=== PATIENT | female | born 1955 | race Caucasian/White ===

== ENCOUNTER 2020-01-21 18:03 | Emergency (ER) | payer MEDICARE, MEDICAID, SELFPAY ==
[2020-01-21 18:11] VITALS: BP 140/84; PULSE 77; RESP 16; TEMP 36.4; O2SAT 99; BMI 20.1
--- NOTE | 2020-01-21 20:18 | ED_ITS ---
HPI - Recheck/Abnormal Lab/Rx General Chief Complaint: Recheck/Abnormal Lab/Rx Stated Complaint: Abnormal Lab Time Seen by Provider: 01/21/20 20:15 Source: patient Mode of arrival: ambulatory Limitations: no limitations History of Present Illness HPI narrative: 64-year-old female who is otherwise healthy came in today patient received a call from her clinic that she had abnormal BUN/creatinine. This is a 64-year-old female her only symptoms is not eating well for the last about 8 months otherwise patient has no symptoms patient went to see her primary doctor today who ordered basic labs, patient received a message on the phone to report to the ED because her BUN creatinine is elevated. Patient otherwise has no symptoms patient reported that she drink 1 glass of wine before coming here and she is living her normal daily routine. Related Data Allergies Allergy/AdvReac Type Severity Reaction Status Date / Time No Known Allergies Allergy Unverified 11/20/19 14:46 Review of Systems Review of Systems: All other systems are reviewed and are negative Constitutional: Reports as per HPI and Reports no additional constitutional complaints Eyes: Reports as per HPI and Reports no additional eye complaints Reports system reviewed and no additional complaints, except as documented Cardiovascular: Reports as per HPI and Reports no additional cardiovascular complaints Respiratory: Reports as per HPI and Reports no additional respiratory complaints Gastrointestinal: Reports as per HPI and Reports no additional gastrointestinal complaints Genitourinary: Reports no additional female genitourinary complaints Musculoskeletal: Reports no additional musculoskeletal complaints Skin/Breast: Reports system reviewed and no additional complaints, except as docu Psychiatric: Reports no additional psychiatric complaints Endocrine: Reports no additional endocrine complaints Hematologic/Lymphatic: Reports no additional hematologic/lymphatic complaints Allergic/Immunologic: Reports no additional allergic/immunologic complaints Reports system reviewed and no additional complaints, except as documented and Reports Abnormal speech present [facility] Past Medical History Medical History Depression Emphysema of lung Social History Social History Alcohol intake: unknown Smoking Status: Unknown if ever smoked Use of substances other than those prescribed or required for medical reasons: Unknown Advance Directives: No Advance Directives Information Provided: Yes Physical Exam Vital Signs: Vital Signs: Last Vital Signs Temp 97.5 F 01/21/20 18:11 Pulse 77 11/18/20 18:11 Resp 16 01/21/20 18:11 BP 140/84 H 01/21/20 18:11 Pulse Ox 99 01/21/20 18:11 Body Mass Index 20.1 Vital signs have been reviewed as normal and appeared to be correct. Blood pressure in the high range. Heart rate normal. Respiration rate normal. Temperature normal. Oxygen saturation normal. Appearance: Alert. Oriented X3. No acute distress. Head: Normal external exam. Normocephalic. Atraumatic. No Styles signs noted. No raccoon eyes noted Eyes: PERRLA. EOMI. Conjunctiva and sclera normal. Eyelids normal. ENT: EAC normal. TM's Normal. Pharynx normal. Uvula midline. Moist mucous membranes. No trismus noted. No drooling noted. No muffled voice noted. Neck: Normal inspection. Neck supple. FROM. No adenopathy. Thyroid Normal. No meningeal signs. No neck mass noted. CVS: Normal heart rate and rhythm. Heart sound normal. No murmurs noted. Pulses normal throughout. Respiratory: No respiratory distress. Painless inspiration. Breath sounds normal. No wheezes/rales/rhonchi noted. Chest nontender. No accessory muscle usage noted or decreased air movement noted. Abdomen: Soft and nontender. Bowel sounds normal in all 4 quadrants. No distention noted. No organomegaly noted. No visible injury noted. Back: No CVA tenderness. Full range of motion noted. Skin: Skin warm and dry. Normal skin color. Normal skin turgor. No rashes/lesions/lacerations noted. Extremities: No lower extremity edema. Extremities exhibit normal range of motion. Extremities nontender. Neuro: Oriented X 3. No motor deficit. No sensory deficit. Reflexes normal. MDM - Recheck/Abnormal Lab/Rx MDM Narrative Medical decision making narrative: Assessment and plan. This is a 64-year-old female presented today with no symptoms but concern about abnormal labs that was done routinely at the PCP office, today's Lab is consistent with mild anemia (patient is asymptomatic), and also slight elevation of BUN with normal creatinine with normal GFR of 48, patient was instructed to drink plenty of fluids orally of (patient is able to tolerate p.o. intake) and call PCP to arrange for repeat labs in 1 week after good oral hydration. Lab Data Result diagrams: 01/21/20 20:50 01/21/20 20:50 Labs: Lab Results 01/21/20 01/21/20 Range/Units 20:50 20:50 WBC 6.1 (4.8-10.8) X10*3/uL RBC 3.15 L (4.20-5.50) X10*6/uL Hgb 11.0 L (12.0-16.0) g/dl Hct 32.1 L (37-47) % MCV 101.9 H (80-98) fL MCH 34.9 H (27.0-33.0) pg MCHC 34.3 (31.0-35.0) g/dl RDW 12.0 (11.0-16.0) % Plt Count 224 (160-400) X10*3/uL MPV 10.1 (9.4-12.3) fL Immature Gran % (Auto) 0.2 (0.0-0.4) % Neut % (Auto) 51.7 (45-73) % Lymph % (Auto) 29.2 (20-40) % Sherman % (Auto) 10.7 (2-11) % Eos % (Auto) 7.2 H (0-4) % Baso % (Auto) 1.0 (0-2) % Lymph # (Auto) 1.8 (1.2-4.9) X10*3/uL Sherman # (Auto) 0.7 (0.1-1.2) X10*3/uL Eos # (Auto) 0.4 (0.0-0.4) X10*3/uL Baso # (Auto) 0.1 (0.0-0.2) X10*3/uL Abs Immat Gran (auto) 0.01 (0.00-0.03) X10*3/uL Absolute Neuts (auto) 3.2 (2.0-8.3) X10*3/uL Absolute Nucleated RBC 0.000 (0.0-0.012) X10*3/uL Nucleated RBC % (auto) 0.0 (0.0-0.2) /100WBC Sodium 133 L (135-145) mmol/L Potassium 4.5 (3.3-5.1) mmol/l Chloride 103 (96-108) mmol/L Carbon Dioxide 19 L (22-29) mmol/L Anion Gap 16 (12-20) BUN 27 H (9-16) mg/dL Creatinine 1.13 (0.5-1.4) mg/dL Estim Creat Clear Calc 43.8 Estimated GFR 48 Random Glucose 88 (60-115) mg/dL Calcium 9.2 (8.4-10.2) mg/dL Discharge Plan Discharge Clinical Impression: Abnormal kidney function study Anemia Qualifiers: Anemia type: unspecified type Qualified Code(s): D64.9 - Anemia, unspecified Patient Disposition: Home, Self-Care Instructions: Anemia (ED), Impaired Kidney Function (ED) Additional Instructions: As we discussed drink plenty of fluid then follow-up with your PCP to repeat labs Referrals: Angelica Duke MD [Primary Care Provider] - 2 days
[2020-01-21 21:01] LABS: MANUAL DIFF FLAG NO
[2020-01-21 21:19] LABS: Anion Gap 16 (12-20); Basophils Absolute Auto 0.1 X10*3/uL (0.0-0.2); Blood Urea Nitrogen 27 mg/dL (9-16); Calcium 9.2 mg/dL (8.4-10.2); Carbon Dioxide 19 mmol/L (22-29); Chloride 103 mmol/L (96-108); Creatinine Clr Calc Pharmacy 43.8; Eosinophils Absolute Auto 0.4 X10*3/uL (0.0-0.4); Eosinophils Percent Auto 7.2 % (0-4); Estimated Glomerular Filt Rate 48; Glucose Random 88 mg/dL (60-115); Hematocrit 32.1 % (37-47); Imm Gran Abs Auto 0.01 X10*3/uL (0.00-0.03); Imm Gran Pct Auto 0.2 % (0.0-0.4); Lymphocytes Absolute Auto 1.8 X10*3/uL (1.2-4.9); Lymphocytes Percent Auto 29.2 % (20-40); Mean Corpuscular HGB Conc 34.3 g/dl (31.0-35.0); Mean Corpuscular Hemoglobin 34.9 pg (27.0-33.0); Mean Corpuscular Volume 101.9 fL (80-98); Mean Platelet Volume 10.1 fL (9.4-12.3); Monocytes Absolute Auto 0.7 X10*3/uL (0.1-1.2); Monocytes Percent Auto 10.7 % (2-11); Neutrophils Absolute Auto 3.2 X10*3/uL (2.0-8.3); Neutrophils Percent Auto 51.7 % (45-73); Platelet Count 224 X10*3/uL (160-400); Potassium 4.5 mmol/l (3.3-5.1); Red Blood Count 3.15 X10*6/uL (4.20-5.50); Sodium 133 mmol/L (135-145); White Blood Count 6.1 X10*3/uL (4.8-10.8)
== END 2020-01-21 21:51 | disposition home or self-care (01) ==
PROVIDERS: Emergency Provider Emergency Medicine; PCP Internal Medicine
DX: D64.9 Anemia, unspecified (principal); R94.5 Abnormal results of liver function studies
CPT/HCPCS: 36415; 80048; 85025; 99283

== ENCOUNTER 2020-02-26 14:35 | Outpatient (REF) | payer MEDICARE, MEDICAID, SELFPAY ==
[2020-02-26 16:05] LABS: Alanine Aminotransferase 13 U/L (0-31); Albumin Level 4.7 g/dL (3.5-5.0); Alkaline Phosphatase 78 U/L (39-117); Anion Gap 13 (12-20); Aspartate Amino Transferase 23 U/L (5-31); Bilirubin Total 0.5 mg/dL (0.0-1.0); Blood Urea Nitrogen 42 mg/dL (9-16); Calcium 9.1 mg/dL (8.4-10.2); Carbon Dioxide 24 mmol/L (22-29); Chloride 100 mmol/L (96-108); Estimated Glomerular Filt Rate 30; Glucose Random 90 mg/dL (60-115); Potassium 5.7 mmol/l (3.3-5.1); Sodium 131 mmol/L (135-145)
== END 2020-02-26 14:36 | disposition home or self-care (01) ==
LOC: HO.HMGCLDS 14:35
PROVIDERS: PCP Internal Medicine; Visit Provider Hospitalist
DX: R89.9 Unspecified abnormal finding in specimens from other organs, systems and tissues (principal)
CPT/HCPCS: 80053

== ENCOUNTER 2020-03-16 17:03 | Outpatient (REF) | payer MEDICARE, MEDICAID, SELFPAY | END 2020-03-16 17:04 | disposition home or self-care (01) | LOC: HO.LNP 17:03 | PROVIDERS: Visit Provider Nurse Practitioner Family | DX: Z20.822 Contact with and (suspected) exposure to COVID-19 (principal) | CPT/HCPCS: U0003 ==

== ENCOUNTER 2021-05-03 20:03 | Emergency (ER) | payer MEDICARE, MEDICAID, SELFPAY ==
--- NOTE | ~2021-05-03 | XR_ITS ---
EXAMINATION: XR SOFT TISSUE NECK CLINICAL INDICATION: Foreign body sensation COMPARISON: None TECHNIQUE: 2 views of the soft tissue neck were obtained. FINDINGS: Soft tissue films of the neck demonstrate a normal larynx, pharynx and upper trachea. No soft tissue swelling or opaque foreign body is demonstrated. XR/XR soft tissue neck IMPRESSION: No radiographic foreign body seen. Airway unremarkable.
[2021-05-03 20:14] VITALS: BP 120/71; BP 138/80; PULSE 84; PULSE 86; RESP 16; TEMP 36.7; O2SAT 97; O2SAT 98; BMI 22.6
--- NOTE | 2021-05-03 20:19 | ED.SOB ---
HPI - SOB/Dyspnea General Chief Complaint: General Medical Stated Complaint: choking/food not cleared/patent airway Time Seen by Provider: 05/03/21 20:12 Source: patient Mode of arrival: EMS Limitations: no limitations History of Present Illness HPI Narrative: This is a 65-year-old female past medical history significant for COPD presenting to the emergency department with complaints of foreign body sensation to the throat. Patient tells me she was eating steak, she choked. She tells me she is feeling short of breath, and having difficulty breathing. She tells me that she felt like her airway was completely occluded at 1 point so her neighbor perform the Heimlich on her multiple times. She tells me she feels as though the foreign bodies sun her throat. She thinks that what was stuck was steak. She does not think there is any bones. She reports that she has tried to drink however it will not go down she is unable to swallow she says. She is speaking in full sentences. And controlling her secretions well. Has never happened to her before. No history of strictures. Patient denies chest pain nausea, vomiting, fevers, chills. MD elicited complaint: shortness of breath Pertinent past history: COPD Onset (ago): minute(s) (30) Timing: constant Severity: moderate Exacerbating factors: nothing Relieving factors: nothing Known history of: COPD Associated symptoms: denies other symptoms Treatment prior to arrival: none Related Data Home Medications Medication Instructions Recorded Confirmed albuterol sulfate 90 mcg/actuation INHALATION 02/26/20 02/26/20 aerosol inhaler citalopram 20 mg tablet mg PO 02/26/20 02/26/20 fluticasone propionate 44 INHALATION 02/26/20 02/26/20 mcg/actuation HFA aerosol inhaler lisinopril 20 mg tablet mg PO 02/26/20 02/26/20 sertraline 25 mg tablet mg PO 02/26/20 02/26/20 sertraline 50 mg tablet mg PO 02/26/20 02/26/20 varicella-zoster glycoE [id number] IM 02/26/20 02/26/20 adj(PF) 50 mcg/0.5 mL IM susp, kit Previous Rx's Medication Instructions Recorded azithromycin 250 mg tablet See Rx Instructions PO .COMPLEX #6 02/26/20 tab cefuroxime axetil 250 mg tablet 250 mg PO BID 10 Days #20 tab 02/26/20 prednisone 20 mg tablet 20 mg PO .COMPLEX #18 tab 02/26/20 rayjsujg-[id number]-jiqykgzdt 3.5 4 drp OTIC (EAR) LEFT Q8H #10 ml 10/16/ mg/mL-10,000 unit/mL-1 % ear solution Allergies Allergy/AdvReac Type Severity Reaction Status Date / Time No Known Allergies Allergy Unverified 02/26/20 14:20 Review of Systems Review of Systems: Constitutional : No Weight loss, No Fever, No Chills, No Fatigue, No Malaise ENT/Mouth : No sore throat, No Rhinorrhea Eyes: No Eye Pain, No Swelling, No Redness Cardiovascular : No Chest Pain, + SOB, No Dyspnea on Exertion, No Orthopnea, No Edema, No Palpitations Respiratory : No Cough, No Sputum, No Wheezing Gastrointestinal : No Nausea, No Vomiting, No Diarrhea, No Constipation, No abdominal Pain, No Hematochezia, No Melena Genitourinary : No Dysuria, No Urinary Frequency, No Hematuria, Musculoskeletal : No joint pain, No Myalgias, No Joint Swelling Skin : No Skin Lesions, No rash Neuro : No Weakness, No Numbness, No Dizziness, No Headache Psych : No Anxiety/Panic, No Depression All other systems reviewed and are negative Yes all other systems are reviewed and are negative [facility] Past Medical History Attestation statement: The following information was validated with the patient. Source: old records reviewed and nursing notes reviewed Medical History Depression Emphysema of lung Social History Social History Alcohol intake: unknown Advance Directives: No Advance Directives Information Provided: No Physical Exam Vital Signs: Vital Signs: Last Vital Signs Temp 98.1 F 05/03/21 20:14 Pulse 84 05/03/21 20:14 Resp 16 05/03/21 20:14 BP 120/71 05/03/21 20:14 Pulse Ox 98 05/03/21 20:14 BMI result Body Mass Index 22.6 VSS Appearance: Alert.? Oriented X3.? No acute distress.? Patient coughing intermittently, trying to clear her throat. Head: Normocephalic, atraumatic, no step-offs or deformities Eyes: Pupils equal, round and reactive to light.? ENT: Pharynx normal.? Neck: Normal inspection.? Neck supple.? CVS: Normal heart rate and rhythm.? Pulses normal.? Respiratory: No respiratory distress.? Breath sounds normal.? Abdomen: Soft and nontender.? Skin: Skin warm and dry.? Normal skin color.? Normal skin turgor.? Extremities: No lower extremity edema.? No calf ttp. 5/5 strength to bilateral upper and lower extremities Back: No midline tenderness, no C-spine tenderness, full range of motion, no CVA tenderness bilaterally Neuro: Oriented X 3.? No motor deficit.? No sensory deficit. CN 2-12 intact Course Reevaluation(s) Reevaluation #1: Call to the patient's bedside, patient coughed up a piece of steak, she visualized it. She is able to swallow now. She is able to drink water, and did drill with no problems. She tells me she feels so much better. Glucagon and nitro were not administered. Palpated patient's neck, chest and abdomen without pain. Patient tells me that she feels a little bit sore where her neighbor did the Heimlich however she does not report pain with inspiration or precise pain with palpation. I offered her an x-ray to rule out rib fracture however she tells me she does not want 1. She tells me she will follow up with her PCP or return with new or worsening symptoms. Patient's presentation at this time is completely different than when she 1st arrived. She is walking around she appears well no difficulties with speaking, no longer coughing. She drink 1 gingerale, and water with out difficulty. She is swallowing secretions without difficulty. Appears much better tells me she feels better and feels good to go. Time: 20:35 MDM - SOB/Dyspnea MDM Narrative Medical decision making narrative: [age] yo f presents w/ foreign body sensation in throat times 30 40 minutes. Neighbor to the Heimlich on her with no success. She tells me she is better than she was before. Upon my initial examination patient coughing to try to clear her throat. Lungs clear. No stridor. S1-S2 appreciated free of murmurs. Abdomen soft nontender nondistended. Patient speaking in full sentences, controlling secretions well. Neuro exam nonfocal. Patient alert and oriented x4. Patient's vital signs are stable. Plan is an x-ray of soft tissue neck. Will give glucagon and nitro. Medical Records Attestation: I reviewed the patient's medical records. Lab Data Attestation: I reviewed the patient's lab results. Critical Care Time Critical Care Time Critical Care Time: No Discharge Plan Discharge Clinical Impression: Foreign body sensation in throat Patient Disposition: Home, Self-Care Additional Instructions: Take your medications as prescribed. If you were prescribed antibiotics today, it is important that you take your medication to their entirety, do not skip any doses, do not finish them early. Follow-up with your primary care provider this week. Please follow up with GI. Return to the emergency department with new or worsening symptoms. In case of emergency call 911 Prescriptions: No Action sertraline 50 mg tablet PO 0RF lisinopril 20 mg tablet PO 0RF Flovent HFA 44 mcg/actuation HFA aerosol inhaler inhalation 0RF albuterol sulfate 90 mcg/actuation HFA aerosol inhaler inhalation 0RF Shingrix (PF) 50 mcg/0.5 mL suspension for reconstitution IM 0RF sertraline 25 mg tablet PO 0RF citalopram 20 mg tablet PO 0RF prednisone 20 mg tablet 20 mg PO .COMPLEX Qty: 18 0RF Rx Instructions: 20 mg PO 3 p.o. daily for 3 days followed by 2 p.o. daily for 3 days followed by 1 p.o. daily for 3 days; azithromycin 250 mg tablet See Rx Instructions PO .COMPLEX Qty: 6 0RF Rx Instructions: take 500 mg today (day 1), then 250 mg for 4 days (days 2-5) PO cefuroxime axetil 250 mg tablet 250 mg PO BID 10 Days Qty: 20 0RF gctihzcl-jrzxfpzgr-DJ 3.5-10,000-1 mg/mL-unit/mL-% solution 4 drp otic (ear) left Q8H Qty: 10 0RF Referrals: Benjamin Mistry MD [Physician] - 2 days Stand Alone Forms: Work/School Release
== END 2021-05-03 20:59 | disposition home or self-care (01) ==
PROVIDERS: Emergency Provider Emergency Medicine
DX: R09.89 Other specified symptoms and signs involving the circulatory and respiratory systems (principal); J44.9 Chronic obstructive pulmonary disease, unspecified; Z79.899 Other long term (current) drug therapy
CPT/HCPCS: 70360; 99283

== ENCOUNTER 2021-05-05 09:08 | Emergency (ER) | payer MEDICARE, MEDICAID, SELFPAY ==
--- NOTE | ~2021-05-05 | MR_ITS ---
EXAMINATION: MR ABDOMEN WITHOUT AND WITH CONTRAST CLINICAL INFORMATION: Pancreatic injury status post Heimlich maneuver COMPARISON: CT abdomen pelvis 05/05/2021 TECHNIQUE: MR abdomen was performed without and with use of 6.5 mL intravenous Gadavist gadolinium contrast. Postcontrast images are performed in multiphase dynamic sequences. Imaging was performed in 3 planes. FINDINGS: The upper portion of the liver and spleen are excluded from the [id number] on nearly all sequences limiting evaluation. Motion degradation also limits evaluation, particularly on postcontrast images. LUNG BASES: Unremarkable. ABDOMINAL AND PELVIC WALL: Unremarkable. LIVER AND BILIARY TREE: Liver is normal in signal and morphology. Common bile duct measures 5 mm is within normal caliber. No intraluminal filling defect within the common bile duct to suggest choledocholithiasis. GALLBLADDER: Gallbladder is distended however without radiopaque stones or pericholecystic inflammatory changes. PANCREAS: The region of interest in the pancreas is significantly motion degraded on postcontrast sequences and suboptimally evaluated. No appreciable discrete pancreatic mass identified, however is difficult to confirm a homogeneous enhancement pattern given the motion. Pancreatic duct is mildly dilated to 3 mm in the pancreatic neck. There may possibly be variant pancreatic ductal anatomy, pancreas divisum, although given the motion it is difficult to say with certainty. SPLEEN: A 1.6 cm T2 hypointense mass in the spleen is seen, only partially imaged. ADRENAL GLANDS: Unremarkable. KIDNEYS AND URETERS: A horseshoe kidney is noted. GASTROINTESTINAL TRACT: Unremarkable. VASCULAR: Unremarkable. LYMPH NODES/PERITONEUM: No lymphadenopathy. FREE FLUID: None. OSSEOUS STRUCTURES: Unremarkable. MR/MR abdomen wo/w con IMPRESSION: The upper portion of the liver and spleen are excluded from the [id number] on nearly all sequences limiting evaluation. Motion degradation also limits evaluation, particularly on postcontrast images. The region of interest in the pancreas is significantly motion degraded and therefor suboptimally evaluated on MR. No appreciable discrete pancreatic mass identified, however is difficult to confirm a homogeneous enhancement pattern given the motion. Given provided history of trauma consider continued clinical follow-up. A 1.6 cm T2 hypointense mass in the spleen is seen, only partially imaged. A repeat contrast-enhanced MR abdomen is recommended for further evaluation. Pancreatic duct is mildly dilated to 3 mm in the pancreatic neck. No intra or extrahepatic biliary duct dilatation. There may possibly be variant pancreatic ductal anatomy, pancreas divisum, although given the motion it is difficult to say with certainty. GI referral could be considered if warranted.
--- NOTE | ~2021-05-05 | CT_ITS ---
EXAMINATION: CT ANGIOGRAM OF THE CHEST WITH AND WITHOUT CONTRAST (CT PULMONARY ANGIOGRAM FOR PE) CLINICAL INFORMATION: Reason for Exam elevated D-dimer. PE? COMPARISON: None TECHNIQUE: Prior to contrast administration, noncontrast localization images were obtained. Subsequently, multidetector volumetric imaging was performed from the thoracic inlet to below the diaphragms following the administration of 57 mL Omnipaque 350 intravenous contrast. No contrast reaction reported Sagittal, coronal, and MIP oblique sagittal reformatted images were obtained on the CT workstation, uploaded to PACS, and reviewed. This CT examination was performed using dose optimization techniques as appropriate, variously including the following: *Automated exposure control *Adjustment of mA and/or kV according to patient size (this includes techniques or standardized protocols for targeted exams where dose is matched to indication/reason for exam; i.e. extremities or head) *Use of iterative reconstruction technique Total exam dose-length product 223 mGy-cm FINDINGS: QUALITY OF STUDY/CONTRAST BOLUS: Satisfactory. PULMONARY ARTERIES: There is no filling defect to suggest a pulmonary embolism. The thoracic inlet is within normal limits. The axillary regions are unremarkable. Partially visualized upper abdominal structures are unremarkable. Centrally there is no bulky adenopathy. The hilar structures do not appear pathologically enlarged. Imaging the lung mcgovern. Right lung; Probable apical scarring No significant infiltrate or effusion. 4 mm nodule on image 14. 4 mm nodule on image 9. 3 mm nodule on image 21 3 mm nodule on image 29 Left lung; Probable apical scarring. Reticular nodular change in the anterior left midlung consistent with infiltrate. In addition a more confluent area is seen more proximal. This could represent thickened atelectasis. Underlying lesion cannot be excluded. More solid-appearing area is measuring 1.6 x 1.1 cm. Mild left basilar atelectasis. The bone windows show no evidence for bony lesion. There is no evidence of reflux of contrast into the vena cava. No evidence for septal bowing Impression; Importantly there is no filling defect to suggest a pulmonary embolism. In the left upper lung there is a thickened area of density which could represent thickened platelike atelectasis or scar but underlying lesion cannot be excluded. Distal to this reticular nodular change consistent with an infiltrate. Recommend PET/CT at this time to fully evaluate versus a close follow-up CT in 3 months for continued evaluation. Other scattered lung nodules are noted. Again attention to follow-up Note is also made of asymmetric breast tissue in the left upper outer aspect. Recommend mammographic and ultrasonographic workup
--- NOTE | ~2021-05-05 | CT_ITS ---
EXAMINATION: CT ABDOMEN AND PELVIS WITH CONTRAST CLINICAL INFORMATION: Right upper quadrant and left upper quadrant pain. COMPARISON: None TECHNIQUE: Multidetector volumetric images were obtained from the superior aspect of the liver through the pubic symphysis following administration 85 mL of Omnipaque 350 intravenous contrast. Sagittal and coronal reformatted images were obtained on the technologist's workstation. Oral contrast: No This CT examination was performed using dose optimization techniques as appropriate, variously including the following: *Automated exposure control *Adjustment of mA and/or kV according to patient size (this includes techniques or standardized protocols for targeted exams where dose is matched to indication/reason for exam; i.e. extremities or head) *Use of iterative reconstruction technique DLP: 377 mGy-cm FINDINGS: LUNG BASES: There is elevation of the left hemidiaphragm with some basilar disease likely related to atelectasis or scarring. No pleural effusion. There is a small pericardial effusion. LIVER, GALLBLADDER, AND BILIARY TREE: The liver is normal in size, shape, and attenuation. No focal hepatic lesion or biliary ductal dilatation is present. No hepatic laceration or abnormal subcapsular collection is identified. The gallbladder is distended without definite wall thickening or pericholecystic fluid. No calculi identified. PANCREAS: The pancreatic duct is prominent at 3 mm in diameter. No peripancreatic inflammatory changes appreciated however the pancreatic body mass cannot be excluded on this study with some slight heterogeneity to the pancreatic body however which may be related to volume averaging with stomach and duodenum. SPLEEN: Unremarkable. No splenic laceration or subcapsular collection is identified. ADRENAL GLANDS: Unremarkable. 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 No renal calculi identified. No evidence of obstructive uropathy. No focal renal mass is seen. BLADDER: Unremarkable. GASTROINTESTINAL TRACT: No dilated loops of large or small bowel are evident. No free air or free fluid. There is sigmoid diverticulosis without evidence of acute diverticulitis. Appendix is not definitely identified. No pericolonic inflammatory change is appreciated. ABDOMINAL WALL: No significant hernia is appreciated. LYMPH NODES: There is some prominent but not pathologically enlarged mesenteric lymph nodes present. VASCULAR: Unremarkable. Patent portal vein and no abdominal aortic aneurysm. PELVIC VISCERA: Unremarkable. OSSEOUS STRUCTURES: There is severe degenerative disc see seen at the L5-S1 level. No suspicious destructive bony lesions identified. CT/CT abdomen pelvis w con IMPRESSION: Prominent pancreatic duct to 3 mm in diameter with difficulty in evaluation of the head and body of the pancreas due to lack of contrast within directly adjacent stomach and duodenal sweep. If clinically indicated repeat study with oral contrast and with and without IV contrast would be of help in further evaluation. No evidence of hepatic or splenic laceration. Question kidney. No evidence of ileus or obstruction. Fleischner guidelines were followed.
--- NOTE | ~2021-05-05 | XR_ITS ---
EXAMINATION: XR RIBS, BILATERAL CLINICAL INFORMATION: Bilateral rib pain COMPARISON: None TECHNIQUE: 3 views of the bilateral ribs were obtained. Chest PA FINDINGS: Chest: Lungs are clear. No consolidation, pneumothorax, or pleural effusion. There is bilateral apical pleural thickening. The cardiomediastinal silhouette and pulmonary vasculature are normal. Bilateral RIBS: Osseous structures are unremarkable. Ribs are intact. No fractures are identified. XR/XR ribs BI min 4V w CXR1V IMPRESSION: Unremarkable chest examination. Unremarkable bilateral rib exam.
[2021-05-05 09:14] VITALS: BP 146/71; PULSE 67; RESP 18; TEMP 36.7; O2SAT 99
[2021-05-05 09:15] VITALS: BP 146/71; BP 150/92; PULSE 63; PULSE 78; RESP 18; TEMP 36.7; O2SAT 99; BMI 22.6
--- NOTE | 2021-05-05 09:31 | ECG_ITS ---
Test Reason : ABD pain Blood Pressure : / mmHG Vent. Rate : 064 BPM Atrial Rate : 064 BPM P-R Int : 132 ms QRS Dur : 098 ms QT Int : 378 ms P-R-T Axes : 053 045 040 degrees QTc Int : 389 ms Normal sinus rhythm Normal ECG When compared with ECG of 11-APR-2019 16:05, No significant change was found Referred By: Kimberly Corona Electronically Signed By:Lon Kaplan
[2021-05-05] MEDS: Morphine Sulfate 2 MG/ML CARTRIDGE IVPUSH ×2 (09:45→12:44)
--- NOTE | 2021-05-05 09:46 | ED.GENADULT ---
HPI - General Adult General Chief complaint: Abdominal Pain <IGNACIO Shields Last Filed: 05/05/21 18:00> Stated complaint: R SIDE/BACK PAIN SINCE THE HEIMLICK MANUEVER <IGNACIO Shields Last Filed: 05/05/21 18:00> Time Seen by Provider: 05/05/21 09:20 <IGNACIO Shields Last Filed: 05/05/21 18:00> Source: patient and EMS <IGNACIO Shields Last Filed: 05/05/21 18:00> Mode of arrival: EMS <IGNACIO Shields Last Filed: 05/05/21 18:00> History of Present Illness HPI narrative: 65-year-old female with a past medical history of COPD presenting to the ED complaining of bilateral lower rib and upper abdominal pain s/p Heimlich maneuver being performed on her on 05/03/2021 s/p choking on a piece of steak. Reports pain worse on the right side. Patient was evaluated in our facility after incident with successful dislodgment of steak. Reports worsening pain since incident, exacerbated with breathing and movement. Denies any anticoagulation. Denies nausea/vomiting, SOB, fever, difficulty swallowing <IGNACIO Shields Last Filed: 05/05/21 18:00> Onset (ago): day(s) <IGNACIO Shields - Last Filed: 05/05/21 18:00> Related Data Home medications: Home Medications Medication Instructions Recorded Confirmed albuterol sulfate 90 mcg/actuation INHALATION 02/26/20 02/26/20 aerosol inhaler citalopram 20 mg tablet mg PO 02/26/20 02/26/20 fluticasone propionate 44 INHALATION 02/26/20 02/26/20 mcg/actuation HFA aerosol inhaler lisinopril 20 mg tablet mg PO 02/26/20 02/26/20 sertraline 25 mg tablet mg PO 02/26/20 02/26/20 sertraline 50 mg tablet mg PO 02/26/20 02/26/20 varicella-zoster glycoE [id number] IM 02/26/20 02/26/20 adj(PF) 50 mcg/0.5 mL IM susp, kit Previous Rx's Medication Instructions Recorded azithromycin 250 mg tablet See Rx Instructions PO .COMPLEX #6 02/26/20 tab cefuroxime axetil 250 mg tablet 250 mg PO BID 10 Days #20 tab 02/26/20 prednisone 20 mg tablet 20 mg PO .COMPLEX #18 tab 02/26/20 ykwsiavi-oxzrijkpt-gbmhmiijw 3.5 4 drp OTIC (EAR) LEFT Q8H #10 ml 10/16/20 mg/mL-10,000 unit/mL-1 % ear solution amoxicillin 875 mg-potassium 1 tab PO Q12H 5 Days #10 tab 05/05/21 clavulanate 125 mg tablet doxycycline hyclate 100 mg capsule 100 mg PO BID 7 Days #14 cap 05/05/21 oxycodone-acetaminophen 5 mg-325 1 tab PO TID PRN 3 Days #9 tab 05/05/21 mg tablet (Percocet) <IGNACIO Shields Last Filed: 05/05/21 18:00> Allergies/adverse reactions: Allergies Allergy/AdvReac Type Severity Reaction Status Date / Time No Known Allergies Allergy Verified 05/05/21 09:18 <IGNACIO Shields Last Filed: 05/05/21 18:00> Review of Systems Review of Systems: Constitutional: No Fever, No Chills,No Fatigue, No Malaise ENT/Mouth: No Ear Pain, No Nasal Congestion, No sore throat, No Rhinorrhea, No Swallowing Difficulty Eyes: No Eye Pain, No Swelling, No Redness, No Discharge Cardiovascular: + Chest Pain, No SOB, No Dyspnea on Exertion, No Edema, No Palpitations Respiratory: No Cough, No Sputum, No Dyspnea Gastrointestinal: No Nausea, No Vomiting, No Diarrhea, No Constipation, + Abdominal pain Genitourinary: No Dysuria, No Hematuria, No Urinary Incontinence, No Urgency, No Flank Pain Musculoskeletal: No joint pain, No Myalgias, No Joint Swelling Skin: No Skin Lesions, No rash Neuro: No Weakness, No Numbness, No Dizziness, No Headache <IGNACIO Shields Last Filed: 05/05/21 18:00> Yes all other systems are reviewed and are negative <IGNACIO Shields Last Filed: 05/05/21 18:00> FOR[facility]LY [facility], [facility] Past Medical History Attestation statement: The following information was validated with the patient. <IGNACIO Shields - Last Filed: 05/05/21 18:00> Medical History: Medical History Depression Emphysema of lung <IGNACIO Shields - Last Filed: 05/05/21 18:00> Social History Social History: Social History Alcohol intake: unknown Advance Directives: No Advance Directives Information Provided: No <IGNACIO Shields - Last Filed: 05/05/21 18:00> Physical Exam ED Vital Signs: Vital Signs - 24 hr 05/05/21 09:14 05/05/21 09:15 05/05/21 10:31 Temperature 98.0 F 98.0 F Pulse Rate 67 63 61 Respiratory Rate 18 18 16 Blood Pressure 146/71 H 146/71 H 120/63 Pulse Oximetry 99 99 100 05/05/21 12:11 05/05/21 16:00 05/05/21 22:55 Temperature Pulse Rate 58 60 81 Respiratory Rate 16 16 16 Blood Pressure 136/75 102/46 L 113/70 Pulse Oximetry 99 96 100 BMI result Body Mass Index 22.6 <IGNACIO Shields - Last Filed: 05/05/21 18:00> Vital Signs - 24 hr 05/05/21 09:14 05/05/21 09:15 05/05/21 10:31 Temperature 98.0 F 98.0 F Pulse Rate 67 63 61 Respiratory Rate 18 18 16 Blood Pressure 146/71 H 146/71 H 120/63 Pulse Oximetry 99 99 100 05/05/21 12:11 05/05/21 16:00 05/05/21 22:55 Temperature Pulse Rate 58 60 81 Respiratory Rate 16 16 16 Blood Pressure 136/75 102/46 L 113/70 Pulse Oximetry 99 96 100 BMI result Body Mass Index 22.6 <IGNACIO Salmon - Last Filed: 05/06/21 01:52> Const General: cooperative, healthy appearing and no acute distress <IGNACIO Shields Last Filed: 05/05/21 18:00> Orientation/consciousness: patient oriented x3 <IGNACIO Shields - Last Filed: 05/05/21 18:00> Limitations: no limitations <IGNACIO Shields - Last Filed: 05/05/21 18:00> HENMT Head: Yes normal to inspection and Yes atraumatic <IGNACIO Shields - Last Filed: 05/05/21 18:00> Ears: hearing grossly normal bilaterally <IGNACIO Shields - Last Filed: 05/05/21 18:00> General nose exam: Normal external nose present <IGNACIO Shields - Last Filed: 05/05/21 18:00> Face and sinus: Yes normal facial exam <IGNACIO Shields - Last Filed: 05/05/21 18:00> Eyes General: appearance normal, both eyes and all related structures <IGNACIO Shields - Last Filed: 05/05/21 18:00> EOM: EOMs intact bilaterally <IGNACIO Shields - Last Filed: 05/05/21 18:00> Neck Neck: Yes normal visual inspection and Yes no meningeal signs <IGNACIO Shields - Last Filed: 05/05/21 18:00> Chest Other: + bilateral anteriolateral rib tenderness to palpation > right No ecchymosis/erythema. No crepitus <IGNACIO Shields - Last Filed: 05/05/21 18:00> Chest palpation & inspection: no crepitus and tenderness <IGNACIO Shields - Last Filed: 05/05/21 18:00> Resp Effort & Inspection: normal respiratory effort and no respiratory distress <IGNACIO Shields - Last Filed: 05/05/21 18:00> Auscultation: clear to auscultation bilaterally, no rales and no wheezes <IGNACIO Shields - Last Filed: 05/05/21 18:00> Cardio Rate: regular rate <IGNACIO Shields - Last Filed: 05/05/21 18:00> Heart sounds: S1 normal heart sound present and S2 normal heart sound present <IGNACIO Shields - Last Filed: 05/05/21 18:00> GI Inspection: Yes normal to inspection <Kimberly Pouliot, PA - Last Filed: 05/05/21 18:00> Palpation (GI): Soft to palpation, Tenderness to palpation present (GI) in the LUQ and in the RUQ, no guarding and not rigid <Kimberly Corona PA - Last Filed: 05/05/21 18:00> General: Yes no CVA tenderness <Kimberly Poulerickat, PA - Last Filed: 05/05/21 18:00> Back/Spine/Pelvis Other: No midline thoracic/lumbar spinous tenderness <Kimberly Poulerickat, PA - Last Filed: 05/05/21 18:00> Back: no CVA tenderness <Kimberly Pouliot, PA - Last Filed: 05/05/21 18:00> Skin Rashes: no rashes <Kimberly Saraht PA - Last Filed: 05/05/21 18:00> Wounds: no wounds <Kimberly Cj, PA - Last Filed: 05/05/21 18:00> Neuro General: patient oriented x3 and no meningeal signs <Kimberly Cj PA - Last Filed: 05/05/21 18:00> Gait exam (Neuro): Normal gait present <Kimberly Corona PA - Last Filed: 05/05/21 18:00> Extrem General: Yes normal to inspection <Kimberly Corona PA - Last Filed: 05/05/21 18:00> Course Course Course Narrative: -1130--no leukocytosis. H&H stable. BUN chronically elevated. Lipase elevated to 140 XR ribs BI min 4V w CXR1V IMPRESSION: Unremarkable chest examination. Unremarkable bilateral rib exam. CT abdomen pelvis w con IMPRESSION: Prominent pancreatic duct to 3 mm in diameter with difficulty in evaluation of the head and body of the pancreas due to lack of contrast within directly adjacent stomach and duodenal sweep. If clinically indicated repeat study with oral contrast and with and without IV contrast would be of help in further evaluation. No evidence of hepatic or splenic laceration. Question kidney. ? No evidence of ileus or obstruction.? >> patient is still in significant amount of pain requiring additional dose of IV morphine. Spoke to radiologist Dr. Reza about CT findings, he will take an additional look ADDENDUM: The patient history is of being a few days post Heimlich maneuver. With the appearance of the pancreas a focal pancreatic injury cannot be excluded. There is no free air to suggest a ruptured viscus. >> will obtain MR for further eval -1800--ED care transferred to IGNACIO Todd pending MRI results and dispo per results <IGNACIO Shields - Last Filed: 05/05/21 18:00> Reevaluation(s) Reevaluation #1: MRI of abdomen does not show any obvious signs of injury to pancreas. Patient evaluated and states right-sided abdominal pain going to right anterior rib with pleuritic pain. Due to this D-dimer and troponin was ordered. Patient had normal EKG earlier in the ED visit. Troponin was 9 after having symptoms for 3 days. D-dimer [address] was ordered to rule out PE. Patient given Toradol for pain. Chest CTA came back negative for PE but does shows left middle lobe infiltrate and also nodules on left and right lung with abnormal growth on left breast tissue. Patient informed she will be treated as pneumonia but was informed she will need further evaluation of her nodules and breast tissue to make sure she is not having cancer. Patient given copy of labs and imagings for follow-up with primary care. Not suspecting IL. <IGNACIO Salmon - Last Filed: 05/06/21 01:52> Time: 23:06 <IGNACIO Salmon - Last Filed: 05/06/21 01:52> Medical Decision Making MDM Narrative Medical decision making narrative: 65-year-old female with a past medical history of COPD presenting to the ED complaining of bilateral lower rib and upper abdominal pain s/p Heimlich maneuver being performed on her on 05/03/2021 s/p choking on a piece of steak. On exam vital signs stable, tearful, appears in pain, bilateral anteriorolateral rib tenderness appreciated with RUQ and LUQ tenderness to palpation, no rebound or guarding. Concern for rib fractures versus contusion vs liver/splenic injury. Unlikely pancreatitis/cholecystitis/cholelithiasis Plan: EKG, labs, UA, CXR/rib series, CT abdomen/pelvis <IGNACIO Shields Last Filed: 05/05/21 18:00> Medical Records Medical records reviewed: Yes I reviewed the patient's medical records. <IGNACIO Shields Last Filed: 05/05/21 18:00> Lab Data Lab results reviewed: Yes I reviewed the patient's lab results. <IGNACIO Shields - Last Filed: 05/05/21 18:00> Result diagrams: : 05/05/21 09:45 05/05/21 09:45 <IGNACIO Shields - Last Filed: 05/05/21 18:00> Labs: Lab Results 05/05/21 05/05/21 05/05/21 Range/Units 09:45 09:45 09:45 WBC 7.3 (4.8-10.8) X10*3/uL RBC 3.45 L (4.20-5.50) X10*6/uL Hgb 11.5 L (12.0-16.0) g/dl Hct 34.2 L (37.0-47.0) % MCV 99.1 H (80.0-98.0) fL MCH 33.3 H (27.0-33.0) pg MCHC 33.6 (31.0-35.0) g/dl RDW 13.0 (11.0-16.0) % Plt Count 220 (160-400) X10*3/uL MPV 9.6 (9.4-12.3) fL Immature Gran % (Auto) 0.3 (0.0-0.4) % Neut % (Auto) 51.9 (45-73) % Lymph % (Auto) 34.6 (20-40) % [place] % (Auto) 8.1 (2-11) % Eos % (Auto) 4.4 H (0-4) % Baso % (Auto) 0.7 (0-2) % Lymph # (Auto) 2.5 (1.2-4.9) X10*3/uL [place] # (Auto) 0.6 (0.1-1.2) X10*3/uL Eos # (Auto) 0.3 (0.0-0.4) X10*3/uL Baso # (Auto) 0.1 (0.0-0.2) X10*3/uL Abs Immat Gran (auto) 0.02 (0.00-0.03) X10*3/uL Absolute Neuts (auto) 3.8 (2.0-8.3) x10*3/uL Absolute Nucleated RBC 0.000 (0.0-0.012) X10*3/uL Nucleated RBC % (auto) 0.0 (0.0-0.2) /100WBC PT 11.7 (9.9-13.0) SEC INR 1.0 (0.9-1.1) D-Dimer High Sensitivty NG/ML Sodium 140 (135-145) mmol/L Potassium 4.7 (3.3-5.1) mmol/L Chloride 107 (96-108) mmol/L Carbon Dioxide 24 (22-29) mmol/L Anion Gap 14 (12-20) BUN 34 H (9-16) mg/dL Creatinine 1.06 (0.5-1.4) mg/dL Estim Creat Clear Calc 48.2 Estimated GFR 52 Random Glucose 102 (60-115) mg/dL Calcium 10.1 D (8.4-10.2) mg/dL Magnesium 1.7 (1.6-2.6) mg/dL Total Bilirubin 0.5 (0.0-1.0) mg/dL Direct Bilirubin 0.2 (0.0-0.5) mg/dL AST 20 (5-31) U/L ALT 9 (0-31) U/L Alkaline Phosphatase 84 (39-117) U/L Troponin I High Sens (<3.5-17.0) ng/L Total Protein 7.7 (6.5-8.0) g/dL Albumin 4.4 (3.5-5.0) g/dL Lipase 140 H (8-78) U/L Urine Color Urine Appearance Urine pH (5.0-8.0) Ur Specific [place] (1.005-1.025) Urine Protein (NEG-TRACE) MG/DL Urine Glucose (UA) (NEG) MG/DL Urine Ketones (NEG) MG/DL Urine Blood (NEG) Urine Nitrite (NEG) Ur Leukocyte Esterase (NEG) 05/05/21 05/05/21 05/05/21 Range/Units 19:18 20:32 20:32 WBC (4.8-10.8) X10*3/uL RBC (4.20-5.50) X10*6/uL Hgb (12.0-16.0) g/dl Hct (37.0-47.0) % MCV (80.0-98.0) fL MCH (27.0-33.0) pg MCHC (31.0-35.0) g/dl RDW (11.0-16.0) % Plt Count (160-400) X10*3/uL MPV (9.4-12.3) fL Immature Gran % (Auto) (0.0-0.4) % Neut % (Auto) (45-73) % Lymph % (Auto) (20-40) % [place] % (Auto) (2-11) % Eos % (Auto) (0-4) % Baso % (Auto) (0-2) % Lymph # (Auto) (1.2-4.9) X10*3/uL [place] # (Auto) (0.1-1.2) X10*3/uL Eos # (Auto) (0.0-0.4) X10*3/uL Baso # (Auto) (0.0-0.2) X10*3/uL Abs Immat Gran (auto) (0.00-0.03) X10*3/uL Absolute Neuts (auto) (2.0-8.3) x10*3/uL Absolute Nucleated RBC (0.0-0.012) X10*3/uL Nucleated RBC % (auto) (0.0-0.2) /100WBC PT (9.9-13.0) SEC INR (0.9-1.1) D-Dimer High Sensitivty 862 NG/ML Sodium (135-145) mmol/L Potassium (3.3-5.1) mmol/L Chloride (96-108) mmol/L Carbon Dioxide (22-29) mmol/L Anion Gap (12-20) BUN (9-16) mg/dL Creatinine (0.5-1.4) mg/dL Estim Creat Clear Calc Estimated GFR Random Glucose (60-115) mg/dL Calcium (8.4-10.2) mg/dL Magnesium (1.6-2.6) mg/dL Total Bilirubin (0.0-1.0) mg/dL Direct Bilirubin (0.0-0.5) mg/dL AST (5-31) U/L ALT (0-31) U/L Alkaline Phosphatase (39-117) U/L Troponin I High Sens 9.2 (<3.5-17.0) ng/L Total Protein (6.5-8.0) g/dL Albumin (3.5-5.0) g/dL Lipase (8-78) U/L Urine Color YELLOW Urine Appearance CLEAR Urine pH 5.5 (5.0-8.0) Ur Specific [place] 1.010 (1.005-1.025) Urine Protein NEG (NEG-TRACE) MG/DL Urine Glucose (UA) NEG (NEG) MG/DL Urine Ketones NEG (NEG) MG/DL Urine Blood NEG (NEG) Urine Nitrite NEG (NEG) Ur Leukocyte Esterase NEG (NEG) <IGNACIO Shields - Last Filed: 05/05/21 18:00> Lab Results 05/05/21 05/05/21 05/05/21 Range/Units 09:45 09:45 09:45 WBC 7.3 (4.8-10.8) X10*3/uL RBC 3.45 L (4.20-5.50) X10*6/uL Hgb 11.5 L (12.0-16.0) g/dl Hct 34.2 L (37.0-47.0) % MCV 99.1 H (80.0-98.0) fL MCH 33.3 H (27.0-33.0) pg MCHC 33.6 (31.0-35.0) g/dl RDW 13.0 (11.0-16.0) % Plt Count 220 (160-400) X10*3/uL MPV 9.6 (9.4-12.3) fL Immature Gran % (Auto) 0.3 (0.0-0.4) % Neut % (Auto) 51.9 (45-73) % Lymph % (Auto) 34.6 (20-40) % [place] % (Auto) 8.1 (2-11) % Eos % (Auto) 4.4 H (0-4) % Baso % (Auto) 0.7 (0-2) % Lymph # (Auto) 2.5 (1.2-4.9) X10*3/uL [place] # (Auto) 0.6 (0.1-1.2) X10*3/uL Eos # (Auto) 0.3 (0.0-0.4) X10*3/uL Baso # (Auto) 0.1 (0.0-0.2) X10*3/uL Abs Immat Gran (auto) 0.02 (0.00-0.03) X10*3/uL Absolute Neuts (auto) 3.8 (2.0-8.3) x10*3/uL Absolute Nucleated RBC 0.000 (0.0-0.012) X10*3/uL Nucleated RBC % (auto) 0.0 (0.0-0.2) /100WBC PT 11.7 (9.9-13.0) SEC INR 1.0 (0.9-1.1) D-Dimer High Sensitivty NG/ML Sodium 140 (135-145) mmol/L Potassium 4.7 (3.3-5.1) mmol/L Chloride 107 (96-108) mmol/L Carbon Dioxide 24 (22-29) mmol/L Anion Gap 14 (12-20) BUN 34 H (9-16) mg/dL Creatinine 1.06 (0.5-1.4) mg/dL Estim Creat Clear Calc 48.2 Estimated GFR 52 Random Glucose 102 (60-115) mg/dL Calcium 10.1 D (8.4-10.2) mg/dL Magnesium 1.7 (1.6-2.6) mg/dL Total Bilirubin 0.5 (0.0-1.0) mg/dL Direct Bilirubin 0.2 (0.0-0.5) mg/dL AST 20 (5-31) U/L ALT 9 (0-31) U/L Alkaline Phosphatase 84 (39-117) U/L Troponin I High Sens (<3.5-17.0) ng/L Total Protein 7.7 (6.5-8.0) g/dL Albumin 4.4 (3.5-5.0) g/dL Lipase 140 H (8-78) U/L Urine Color Urine Appearance Urine pH (5.0-8.0) Ur Specific [place] (1.005-1.025) Urine Protein (NEG-TRACE) MG/DL Urine Glucose (UA) (NEG) MG/DL Urine Ketones (NEG) MG/DL Urine Blood (NEG) Urine Nitrite (NEG) Ur Leukocyte Esterase (NEG) 05/05/21 05/05/21 05/05/21 Range/Units 19:18 20:32 20:32 WBC (4.8-10.8) X10*3/uL RBC (4.20-5.50) X10*6/uL Hgb (12.0-16.0) g/dl Hct (37.0-47.0) % MCV (80.0-98.0) fL MCH (27.0-33.0) pg MCHC (31.0-35.0) g/dl RDW (11.0-16.0) % Plt Count (160-400) X10*3/uL MPV (9.4-12.3) fL Immature Gran % (Auto) (0.0-0.4) % Neut % (Auto) (45-73) % Lymph % (Auto) (20-40) % [place] % (Auto) (2-11) % Eos % (Auto) (0-4) % Baso % (Auto) (0-2) % Lymph # (Auto) (1.2-4.9) X10*3/uL [place] # (Auto) (0.1-1.2) X10*3/uL Eos # (Auto) (0.0-0.4) X10*3/uL Baso # (Auto) (0.0-0.2) X10*3/uL Abs Immat Gran (auto) (0.00-0.03) X10*3/uL Absolute Neuts (auto) (2.0-8.3) x10*3/uL Absolute Nucleated RBC (0.0-0.012) X10*3/uL Nucleated RBC % (auto) (0.0-0.2) /100WBC PT (9.9-13.0) SEC INR (0.9-1.1) D-Dimer High Sensitivty 862 NG/ML Sodium (135-145) mmol/L Potassium (3.3-5.1) mmol/L Chloride (96-108) mmol/L Carbon Dioxide (22-29) mmol/L Anion Gap (12-20) BUN (9-16) mg/dL Creatinine (0.5-1.4) mg/dL Estim Creat Clear Calc Estimated GFR Random Glucose (60-115) mg/dL Calcium (8.4-10.2) mg/dL Magnesium (1.6-2.6) mg/dL Total Bilirubin (0.0-1.0) mg/dL Direct Bilirubin (0.0-0.5) mg/dL AST (5-31) U/L ALT (0-31) U/L Alkaline Phosphatase (39-117) U/L Troponin I High Sens 9.2 (<3.5-17.0) ng/L Total Protein (6.5-8.0) g/dL Albumin (3.5-5.0) g/dL Lipase (8-78) U/L Urine Color YELLOW Urine Appearance CLEAR Urine pH 5.5 (5.0-8.0) Ur Specific [place] 1.010 (1.005-1.025) Urine Protein NEG (NEG-TRACE) MG/DL Urine Glucose (UA) NEG (NEG) MG/DL Urine Ketones NEG (NEG) MG/DL Urine Blood NEG (NEG) Urine Nitrite NEG (NEG) Ur Leukocyte Esterase NEG (NEG) <IGNACIO Salmon - Last Filed: 05/06/21 01:52> ECG Data Attestation: I personally reviewed and interpreted this ECG as follows: <IGNACIO Shields - Last Filed: 05/05/21 18:00> Interpretation: EKG normal sinus rhythm at a rate of 64. Pr interval 132. QRS 98. QTC 389. No STEMI/nonischemic <IGNACIO Shields - Last Filed: 05/05/21 18:00> Discharge Plan Discharge Clinical Impression: Abdominal pain, Pneumonia <IGNACIO Shields Last Filed: 05/05/21 18:00> Patient Disposition: Home, Self-Care <IGNACIO Shields Last Filed: 05/05/21 18:00> Instructions: Abdominal Pain (ED), Pneumonia (ED) <IGNACIO Shields Last Filed: 05/05/21 18:00> Additional Instructions: Please give copy of labs and images D.O. primary care provider. Chest CT shows pneumonia so you be given antibiotics. Chest CT also shows in lungs and left breast abnormal tissue. MRI does not show any obvious injury to pancreas. Return to ED for worsening abdominal pain, chest pain, shortness of breath, weakness, dizziness, vomiting, coughing up blood, or any other concerning symptoms. <IGNACIO Shields - Last Filed: 05/05/21 18:00> Prescriptions: New doxycycline hyclate 100 mg capsule 100 mg PO BID 7 Days Qty: 14 0RF amoxicillin-pot clavulanate 875-125 mg tablet 1 tab PO Q12H 5 Days Qty: 10 0RF oxycodone-acetaminophen [Percocet] 5-325 mg tablet 1 tab PO TID PRN (Reason: pain) 3 Days Qty: 9 0RF No Action sertraline 50 mg tablet PO 0RF lisinopril 20 mg tablet PO 0RF Flovent HFA 44 mcg/actuation HFA aerosol inhaler inhalation 0RF albuterol sulfate 90 mcg/actuation HFA aerosol inhaler inhalation 0RF Shingrix (PF) 50 mcg/0.5 mL suspension for reconstitution IM 0RF sertraline 25 mg tablet PO 0RF citalopram 20 mg tablet PO 0RF prednisone 20 mg tablet 20 mg PO .COMPLEX Qty: 18 0RF Rx Instructions: 20 mg PO 3 p.o. daily for 3 days followed by 2 p.o. daily for 3 days followed by 1 p.o. daily for 3 days; azithromycin 250 mg tablet See Rx Instructions PO .COMPLEX Qty: 6 0RF Rx Instructions: take 500 mg today (day 1), then 250 mg for 4 days (days 2-5) PO cefuroxime axetil 250 mg tablet 250 mg PO BID 10 Days Qty: 20 0RF gjuhflpk-[id number]-TG 3.5-10,000-1 mg/mL-unit/mL-% solution 4 drp otic (ear) left Q8H Qty: 10 0RF <IGNACIO Shields - Last Filed: 05/05/21 18:00> Stand Alone Forms: Work/School Release <IGNACIO Shields - Last Filed: 05/05/21 18:00> Interventions: ED Discharge Assessment Last Done: 05/05/21 23:19 <IGNACIO Shields - Last Filed: 05/05/21 18:00> Discharge Date/Time: 05/05/21 23:20 <IGNACIO Shields - Last Filed: 05/05/21 18:00> Print Language: Hebrew <IGNACIO Shields - Last Filed: 05/05/21 18:00>
[2021-05-05 09:51] LABS: MANUAL DIFF FLAG NO
[2021-05-05 09:56] LABS: Basophils Absolute Auto 0.1 X10*3/uL (0.0-0.2); Basophils Percent Auto 0.7 % (0-2); Eosinophils Absolute Auto 0.3 X10*3/uL (0.0-0.4); Eosinophils Percent Auto 4.4 % (0-4); Hematocrit 34.2 % (37.0-47.0); Hemoglobin 11.5 g/dl (12.0-16.0); Imm Gran Abs Auto 0.02 X10*3/uL (0.00-0.03); Imm Gran Pct Auto 0.3 % (0.0-0.4); Lymphocytes Absolute Auto 2.5 X10*3/uL (1.2-4.9); Lymphocytes Percent Auto 34.6 % (20-40); Mean Corpuscular HGB Conc 33.6 g/dl (31.0-35.0); Mean Corpuscular Hemoglobin 33.3 pg (27.0-33.0); Mean Corpuscular Volume 99.1 fL (80.0-98.0); Mean Platelet Volume 9.6 fL (9.4-12.3); Monocytes Absolute Auto 0.6 X10*3/uL (0.1-1.2); Monocytes Percent Auto 8.1 % (2-11); Neutrophils Absolute Auto 3.8 x10*3/uL (2.0-8.3); Neutrophils Percent Auto 51.9 % (45-73); Platelet Count 220 X10*3/uL (160-400); Red Blood Count 3.45 X10*6/uL (4.20-5.50); White Blood Count 7.3 X10*3/uL (4.8-10.8)
[2021-05-05 10:15] LABS: Prothrombin Time 11.7 SEC (9.9-13.0)
[2021-05-05 10:18] LABS: Alanine Aminotransferase 9 U/L (0-31); Albumin Level 4.4 g/dL (3.5-5.0); Alkaline Phosphatase 84 U/L (39-117); Anion Gap 14 (12-20); Aspartate Amino Transferase 20 U/L (5-31); Bilirubin Direct 0.2 mg/dL (0.0-0.5); Bilirubin Total 0.5 mg/dL (0.0-1.0); Blood Urea Nitrogen 34 mg/dL (9-16); Calcium 10.1 mg/dL (8.4-10.2); Carbon Dioxide 24 mmol/L (22-29); Chloride 107 mmol/L (96-108); Creatinine Clr Calc Pharmacy 48.2; Estimated Glomerular Filt Rate 52; Glucose Random 102 mg/dL (60-115); Lipase 140 U/L (8-78); Magnesium 1.7 mg/dL (1.6-2.6); Potassium 4.7 mmol/L (3.3-5.1); Sodium 140 mmol/L (135-145); Total Protein 7.7 g/dL (6.5-8.0)
[2021-05-05 10:31] VITALS: BP 120/63; PULSE 61; RESP 16; O2SAT 100
[2021-05-05] MEDS: iohexoL 350 MG/ML 100 ML INFUS..BTL IV ×2 (10:50→21:58)
[2021-05-05 12:11] VITALS: BP 136/75; PULSE 58; RESP 16; O2SAT 99
[2021-05-05] MEDS: 0.9 % Sodium Chloride 1,000 ML 999 ML IV (14:05)
[2021-05-05] MEDS: HYDROmorphone HCl 1 MG/ML SYRINGE IVPUSH (15:00)
[2021-05-05 16:00] VITALS: BP 102/46; PULSE 60; RESP 16; O2SAT 96
--- NOTE | 2021-05-05 19:42 | PC.NURSE ---
Pt pacing in room, requesting to speak with provider regarding MRI results. Provider aware.
--- NOTE | 2021-05-05 20:14 | PC.NURSE ---
Provider @ bedside discussing MRI results.
[2021-05-05] MEDS: Ketorolac Tromethamine 30 MG/ML VIAL IVPUSH (20:38)
[2021-05-05 20:43] LABS: Appearance Urine CLEAR; Color Urine YELLOW; Glucose Urine UA NEG (NEG); Leukocyte Esterase Urine NEG (NEG); Nitrite Urine NEG (NEG); PH 5.5 (5.0-8.0); Urine Blood NEG (NEG); Urine Ketones NEG (NEG); Urine Protein NEG (NEG-TRACE)
[2021-05-05 20:59] LABS: Troponin-I High Sensitivity 9.2 ng/L (<3.5-17.0)
[2021-05-05 21:00] LABS: D Dimer High Sensitivity 862 NG/ML
--- NOTE | 2021-05-05 21:23 | PC.NURSE ---
Provider notified of elevated D-Dimer. Pt and family continues pacing in room, very anxious, expressing frustration over being in the ER for several hours. Provider aware.
--- NOTE | 2021-05-05 21:44 | PC.NURSE ---
Pt off to CT on hospital bed @ this time.
[2021-05-05 22:55] VITALS: BP 113/70; PULSE 81; RESP 16; O2SAT 100
--- NOTE | 2021-05-05 23:03 | PC.NURSE ---
This RN and PA at bedside discussing CTA results and plan of care with pt.
== END 2021-05-05 23:20 | disposition home or self-care (01) ==
PROVIDERS: Physician Assistant; Emergency Provider Emergency Medicine; PCP Internal Medicine
DX: J18.9 Pneumonia, unspecified organism (principal); R10.10 Upper abdominal pain, unspecified; R07.81 Pleurodynia; R74.8 Abnormal levels of other serum enzymes; Z87.821 Personal history of retained foreign body fully removed; R91.8 Other nonspecific abnormal finding of lung field; N64.9 Disorder of breast, unspecified
CPT/HCPCS: 36415; 71111; 71275; 74177; 74183; 80048; 80076; 81003; 83690; 83735; 84484; 85025; 85379; 85610; 93005; 96361; 96374; 96375; 96376; 99284; 99285; A9585; J1170; J1885; J2270; Q9967

== ENCOUNTER 2021-10-20 09:53 | Outpatient (REF) | payer MEDICARE, MEDICAID, SELFPAY ==
--- NOTE | ~2021-10-20 | XR_ITS ---
EXAMINATION: XR ANKLE, LEFT CLINICAL INFORMATION: Pain in the left ankle and left foot COMPARISON: None TECHNIQUE: AP, lateral, and mortise views of the left ankle. FINDINGS: There is soft tissue swelling. There is no evidence for an acute fracture or dislocation. The mortise is intact. XR/XR ankle LT min 3V IMPRESSION: No acute fracture or dislocation.
== END 2021-10-20 09:54 | disposition home or self-care (01) ==
LOC: HO.HMGCX 09:53
PROVIDERS: Visit Provider Internal Medicine
DX: M25.572 Pain in left ankle and joints of left foot (principal); M25.472 Effusion, left ankle
CPT/HCPCS: 73610

== ENCOUNTER 2022-04-03 14:31 | Outpatient (REF) | payer MEDICARE, MEDICAID, SELFPAY ==
[2022-04-03 14:45] LABS: MANUAL DIFF FLAG NO
[2022-04-03 15:30] LABS: Basophils Absolute Auto 0.1 X10*3/uL (0.0-0.2); Basophils Percent Auto 0.9 % (0-2); Eosinophils Absolute Auto 0.2 X10*3/uL (0.0-0.4); Eosinophils Percent Auto 3.7 % (0-4); Hematocrit 36.2 % (37.0-47.0); Hemoglobin 12.1 g/dl (12.0-16.0); Imm Gran Abs Auto 0.01 X10*3/uL (0.00-0.03); Imm Gran Pct Auto 0.2 % (0.0-0.4); Lymphocytes Absolute Auto 2.3 X10*3/uL (1.2-4.9); Lymphocytes Percent Auto 42.8 % (20-40); Mean Corpuscular HGB Conc 33.4 g/dl (31.0-35.0); Mean Corpuscular Hemoglobin 33.8 pg (27.0-33.0); Mean Corpuscular Volume 101.1 fL (80.0-98.0); Mean Platelet Volume 9.8 fL (9.4-12.3); Monocytes Absolute Auto 0.7 X10*3/uL (0.1-1.2); Monocytes Percent Auto 12.1 % (2-11); Neutrophils Absolute Auto 2.2 x10*3/uL (2.0-8.3); Neutrophils Percent Auto 40.3 % (45-73); Platelet Count 219 X10*3/uL (160-400); Red Blood Count 3.58 X10*6/uL (4.20-5.50); White Blood Count 5.4 X10*3/uL (4.8-10.8)
[2022-04-03 16:45] LABS: Alanine Aminotransferase 10 U/L (0-31); Albumin Level 4.2 g/dL (3.5-5.0); Alkaline Phosphatase 73 U/L (39-117); Anion Gap 12 (12-20); Aspartate Amino Transferase 19 U/L (5-31); Bilirubin Total 0.7 mg/dL (0.0-1.0); Blood Urea Nitrogen 21 mg/dL (9-16); Calcium 9.4 mg/dL (8.4-10.2); Carbon Dioxide 25 mmol/L (22-29); Chloride 108 mmol/L (96-108); Cholesterol 232 mg/dL; Estimated Glomerular Filt Rate > 60; Glucose Fasting 90 mg/dL (60-99); HDL Cholesterol 87 mg/dL; Iron 98 mcg/dL (30-160); LDL Cholesterol Calculated 124 mg/dl; Percent Iron Saturation 32 % (15-50); Potassium 4.1 mmol/L (3.3-5.1); Sodium 141 mmol/L (135-145); Total Iron Binding Capacity 305 mcg/dL (228-428); Triglycerides 107 mg/dL; Unsaturated Iron Binding 207 ug/dL
[2022-04-03 16:55] LABS: Folate 8.2 ng/mL (> or = 4.0); Thyroid Stimulating Hormone 2.18 uIU/mL (0.32-4.0); Vitamin B12 225 pg/mL (200-900)
== END 2022-04-03 14:32 | disposition home or self-care (01) ==
LOC: HO.LAB 14:31
PROVIDERS: PCP Internal Medicine; Visit Provider Internal Medicine
DX: E53.8 Deficiency of other specified B group vitamins (principal); J43.9 Emphysema, unspecified; I10 Essential (primary) hypertension; R63.5 Abnormal weight gain; D64.9 Anemia, unspecified
CPT/HCPCS: 36415; 80053; 80061; 82607; 82746; 83540; 84443; 85025

== ENCOUNTER 2022-04-03 14:46 | Outpatient (RCR) | payer MEDICARE, MEDICAID, SELFPAY ==
[2022-04-03 15:04] VITALS: BP 176/91; PULSE 73
--- NOTE | 2022-04-03 16:00 | MHC.PT.EP ---
[facility] [place] Office [place] Office [place] Office [address] Dilan Chandra [address] [phone] F: [phone] F: [phone] F: [phone] F: [phone] Physical Therapy Plan of Care Date of Evaluation: Date of Surgery: NA Diagnosis: Dizziness and giddiness Assessment: Monique is a 66 year old female who is referred to PT for dizziness and giddiness . She reports of having symptoms of dizziness for about a month. Per pt her symptoms have been getting better. She initially has room spinning dizziness but currently only has light headedness when she moves from supine to sit, driving and sit to stand. In the past she had dizziness with looking up, down and rolling in bed. Her BP was elevated and she admitted to not being compliant with BP medications. Due to elevated BP of 185/91 I only screened her for BPPV. She was negative for BPPV in B parker pikes and B roll test. Balance to be assessed in next session. She is independent with all ADLS but does them slowly. 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 She would benefit from skilled PT to address the aforementioned impairments and improve tolerance to functional activities. Frequency and Duration: The patient will be seen 2/week for 4 weeks. Short Term Goals: 1. Static and dyanmic balance will be assessed in 1 week Nursing Home Goals: 1. Patient to be able to functionally move in all planes and directions without provocation of dizziness to show return to PLOF in 4 weeks. 2. Patient to be educated on symptoms and indications to return to therapy when needed min 4 weeks. Treatment Plan: Modalities to reduce pain, spasms and effusion. Manual therapy to restore motion and function. Therapeutic exercise to improve strength and flexibility. Neuromuscular re-education for posture and balance. Therapeutic activities to return to functional activities of daily living. Electronically signed by: Trixie Campoverde PT DPT Please sign and return to therapist. Thank you for your referral.
--- NOTE | 2022-05-08 14:28 | MHC.PT.DC ---
[facility] [place] Office [place] Office [place] Office [address] Ch[address] [phone] F: [phone] F: [phone] F: [phone] F: [phone] Physical Therapy Discharge Report Diagnosis: Dizziness and giddiness Date of Surgery: NA Date of Evaluation: 04/03/22 Date of Discharge: 05/08/22 Treatments to Date: 1 Cancellations to Date: 0 No Shows to Date: Discharge Status: Discharge Summary: Monique was negative for BPPV during her initial evaluation. She however presented with elevated BP therefore balance was not checked. I recommended her returning to PT for balance assessment however she canceled her appointment. She has not returned to PT in over a month. She is therefore being d.c from PT. Electronically signed by: Trixie Campoverde, PT DPT Please sign and return to therapist. Thank you for your referral.
== END 2022-05-08 14:28 | disposition home or self-care (01) ==
LOC: HO.PT 14:46
PROVIDERS: PCP Internal Medicine; Visit Provider Internal Medicine
DX: R42 Dizziness and giddiness (principal)
CPT/HCPCS: 97110; 97161

== ENCOUNTER 2022-05-03 13:03 | Outpatient (REF) | payer MEDICARE, MEDICAID, SELFPAY ==
--- NOTE | ~2022-05-03 | CT_ITS ---
EXAMINATION: CT CHEST WITHOUT CONTRAST/HIGH-RESOLUTION CLINICAL INFORMATION: Follow up pulmonary nodules. COMPARISON: CTA chest with and without contrast 05/05/2021. TECHNIQUE: 5 mm thin axial and reformatted 5 mm thin coronal and sagittal images of chest were obtained without contrast. In addition, high-resolution axial 1 mm images were obtained through the upper mid and lower chest. DLP: 115 mGy-cm. FINDINGS: Lungs: The lungs are well expanded with bilateral apical parenchymal scarring. There are several pulmonary nodules. Subpleural based 4 mm right upper lobe axial image 66/10, a 2 mm nodule right upper lobe axial image 67/10, a 3 mm nodule right middle lobe axial image 87/10, a cluster of nodules left upper lobe anterior segment measuring 3 mm on axial images 87/10 through 91/10. There are several additional reticular nodular changes in the left upper lobe axial image 98/10 with focal cystic bronchiectasis in the lingula, best visualized on axial image 103/10. There is a 3 mm nodule is seen in the right middle lobe axial image 113/10, and a 3 mm nodule right lower lobe axial image 143/10. Minimal atelectatic changes in the left lung base MEDIASTINUM: The thyroid lobes are symmetrical and normal. Central trachea and the bronchi are widely patent. Heart size and the great vessels are normal caliber. Small shotty lymph nodes are seen in the pretracheal region. No coronary artery calcification seen. No pericardial effusion. PLEURA: There is bilateral apical pleural thickening without any effusion or calcification. AXILLA: There are small shotty bilateral axillary lymph nodes with a small calcified lymph node right axilla measuring 3 mm. The chest wall is unremarkable. UPPER ABDOMEN: Visualized liver, spleen appears unremarkable. There is subtle haziness in the body the pancreas. Correlate with clinical exam. OSSEOUS STRUCTURES: No aggressive lytic or sclerotic process. CT/CT chest wo con - High Res IMPRESSION: 1. Multiple bilateral pulmonary nodules. The nodules are stable. There are reticular nodular changes in the left upper lobe with focal cystic bronchiectasis in the lingula. 2. Bilateral apical pleural thickening and apical parenchymal scarring. 3. No abnormal mediastinal or axillary lymph nodes seen. 4. There is subtle haziness in the body the pancreas. Correlate with clinical exam.
== END 2022-05-03 13:04 | disposition home or self-care (01) ==
LOC: HO.CT 13:03
PROVIDERS: Visit Provider Internal Medicine
DX: J98.4 Other disorders of lung (principal)
CPT/HCPCS: 71250

== ENCOUNTER 2022-08-23 10:30 | Outpatient (REF) | payer MEDICARE, MEDICAID, SELFPAY ==
--- NOTE | ~2022-08-23 | XR_ITS ---
EXAMINATION: XR ANKLE, RIGHT CLINICAL INFORMATION: Sprain right ankle. COMPARISON: None available. TECHNIQUE: AP, lateral, and mortise views of the right ankle. FINDINGS: There is no evidence of acute fracture or dislocation of the right ankle. Right ankle mortise appears intact. No significant soft tissue swelling is appreciated. XR/XR ankle RT min 3V IMPRESSION: No significant bony abnormality of the right ankle identified.
== END 2022-08-23 10:31 | disposition home or self-care (01) ==
LOC: HO.HMGCX 10:30
PROVIDERS: PCP Internal Medicine; Visit Provider Nurse Practitioner Family
DX: S93.401A Sprain of unspecified ligament of right ankle, initial encounter (principal)
CPT/HCPCS: 73610

== ENCOUNTER 2022-10-23 12:17 | Outpatient (AMB) | payer MEDICARE, MEDICAID, SELFPAY ==
--- NOTE | 2022-10-23 12:09 | MHC.PC.OV ---
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 Accompanied by: Self / Same As Patient Allergies No Known Allergies Allergy (Verified 10/23/22 13:12) Medication List - Last Reconciled 10/23/22 by Tena Wright MD albuterol sulfate 90 mcg/actuation 2 inhalations inhalation Q4-6H PRN clonidine HCl 0.1 mg PO TID 30 days fluticasone propionate 50 mcg/actuation 1 spray intranasal BID fluticasone propionate 44 mcg/actuation 1 inh inhalation Q12H lisinopril 40 mg PO DAILY 90 days lorazepam 0.5 mg PO DAILY PRN 30 days Tobacco use date assessed: 04/07/22 Fall risk assessment: No Falls in past year Last assessed Fall Risk: 10/23/22 Dental Screening Dental Screen Date: 10/23/22 Did you have a dental visit in the last 12 months?: Yes Did you have a dental problem in the last 6 months where you did not have access to dental care?: No Was dental information given to patient?: Patient has dentist HPI HPI Comments History of Present Illness Details This is a 67-year-old female with hypertension and emphysema that has telehealth visit by phone complaining of aggravated anxiety in which even driving makes her anxious. She does takes lorazepam that has helped. She used to be on an antidepressant that helps for her anxiety because after a few months of discontinuing it she started be more anxious. Blood pressure well controlled. She denies more shortness of breath than usual. I will start her on citalopram for anxiety. Aware that she will be feeling better to weeks after starting it. [facility] Medical History Depression Emphysema of lung Surgical History History of ear surgery Family History Mother No problems noted. Father Emphysema lung Family/Other Mental health disorder Substance use disorder Social History Housing: Apartment Alcohol intake: current Alcohol intake frequency: 3 or more drinks per day Alcohol type: beer Patient Tobacco Use Status: Former Tobacco user Tobacco use type: Cigarette e-Cigarette/Vaping Use: Never Used Second Hand Smoke Exposure: No service: No Current occupational status: employed Cognitive needs: No Hearing needs: No Vision needs: Yes Questionnaire Thrive Questionnaire Date Thrive assessed: 08/25/22 MADINA-7 AMB Questionnaire MADINA-7 Date MADINA - 7 assessed: 10/23/22 Feeling nervous, anxious, or on edge: 3 = Nearly every day Not being able to stop or control worryin = Not at all Worrying too much about different things: 1 = Several days Trouble relaxin = Several days Being so restless that it is hard to sit still: 0 = Not at all Becoming easily annoyed or irritable: 1 = Several days Feeling afraid as if something awful might happen: 0 = Not at all Total MADINA-7 score (0-4 normal; 5-9 mild; 10-14 moderate; 15-21 severe): 6 Source: Developed by Drs. Justen Katz, Elba Benavides, Rafa Walter and colleagues, with an educational dionte from [employer]. MADINA-7 Assessment Billing MADINA-7 Assessment Tool: MADINA-7 Assessment 93271 Review of Systems Const All systems reviewed & are unremarkable except as noted in HPI and below Eyes Reports no additional complaints, Denies change in vision and Denies other visual disturbances Card Denies chest pain at rest, Denies chest pain with activity, Denies edema, Denies irregular heart rhythm, Denies claudication, Denies dyspnea, Denies dyspnea on exertion, Denies orthopnea, Denies paroxysmal nocturnal dyspnea and Denies slow heart rate Resp Denies cough, Denies dyspnea and Denies dyspnea on exertion GI Denies abdominal pain, Denies change in bowel habits, Denies excessive flatus, Denies nausea and Denies vomiting Denies urinary incontinence, Denies urinary hesitancy and Denies urinary urgency Musc Denies abnormal gait, Denies atrophy, Denies deformity and Denies limited range of motion Skin/Breast Denies bleeding lesions, Denies changing lesions and Denies rash Neuro Denies abnormal gait and Denies lack of coordination Psych Reports anxiety Physical exam (Primary Care) Tobacco/Smoking Status: Tobacco use Status Tobacco use date assessed 04/07/22 10/23/22 12:10 Patient Tobacco Use Status Former Tobacco user 10/23/22 12:10 Tobacco use type Cigarette 10/23/22 12:10 e-Cigarette/Vaping Use Never Used 10/23/22 12:10 Thrive Assessment: Date of Thrive Assessment Date Thrive assessed 08/25/22 10/23/22 12:10 Telehealth Telehealth Location of provider rendering services: practice address Location of patient: address on file Patient Identification confirmed using: Name, : Yes Telehealth method: voice only Patient verbally consented to treatment: No Patient verbally consented to billing insurance company: No Patient informed of any privacy concerns related to visit: No Minutes spent on Phone/Video with Pt.: 15 Assessment and Plan Assessment & Plan (1) Anxiety: Code(s): F41.9 - Anxiety disorder, unspecified Plan: Continue lorazepam as needed. Start citalopram. (2) Essential hypertension: Code(s): I10 - Essential (primary) hypertension Plan: Continue lisinopril and clonidine. Blood pressure goal is equal or less than 130/80 (3) Emphysema of lung: Code(s): J43.9 - Emphysema, unspecified Plan: Continue Flovent. Use rescue inhaler as needed. Medications: New citalopram 20 mg PO DAILY 30 days 30 tabs 0RF F41.9 - Anxiety disorder, unspecified Coding Level of Care Code Tele Est Pt Level 3 (41490) Diagnoses Anxiety F41.9 Essential hypertension I10 Emphysema of lung J43.9 Additional Codes MADINA-7 Assessment Billing - MADINA-7 Assessment Tool: MADINA-7 Assessment 45573 ([id number]) Time Spent (min) 15
== END 2022-10-23 13:59 | disposition home or self-care (01) ==
LOC: HO.HMGH 12:17
PROVIDERS: PCP Internal Medicine; Visit Provider Internal Medicine
DX: F41.9 Anxiety disorder, unspecified (principal); I10 Essential (primary) hypertension; J43.9 Emphysema, unspecified
CPT/HCPCS: 99442

== ENCOUNTER 2022-11-24 13:11 | Outpatient (AMB) | payer MEDICARE, MEDICAID, SELFPAY ==
--- NOTE | 2022-11-24 13:15 | A.OFFVIS_ITS ---
Intake Vital Signs 11/24/22 13:18 Height 5 ft 6 in Weight 155 lb 6.814 oz BMI 25.1 BP 128/70 Blood Pressure Location Lt brachial Position Sitting Pulse 77 Pulse Source Pulse Oximeter Pulse Oximetry (%) 98 Oxygen Delivery Method Room Air Intake Visit Reasons: Pulmonary nodules Chief Lifestyle Officer Required: No Allergies No Known Allergies Allergy (Verified 11/24/22 13:20) Medication List - Last Reconciled 11/24/22 by Abhishek Manuel MD albuterol sulfate 90 mcg/actuation 2 inhalations inhalation Q4-6H PRN citalopram 20 mg PO DAILY 30 days clonidine HCl 0.1 mg PO TID 30 days fluticasone propion-salmeterol 115-21 mcg/actuation (Advair HFA) 2 puffs inhalation Q12H 30 days fluticasone propionate 44 mcg/actuation 1 inh inhalation Q12H fluticasone propionate 50 mcg/actuation 1 spray intranasal BID lisinopril 40 mg PO DAILY 90 days lorazepam 0.5 mg PO DAILY PRN 30 days HPI HPI Comments History of Present Illness Details The patient is here for pulmonary evaluation. The patient is a 67 year woman with a known history of asthma and also exposure to secondhand smoke. Per the patient had a CTA back in May 2021 after having an elevated D-dimer. The CT scan I did personally with her. Demonstrated nodular densities but she had a larger density in the lingular area with some bronchiectatic changes. The patient subsequently had a repeat CT scan May 2022 that we also personally reviewed and appear that the larger area in the lingula had Ms. Although she still have bronchiectatic changes and also micro nodules in the form of treating budding suggesting bronchiolitis. The patient also complains of chronic cough. Typically in the morning. She attributes that to mainly sinus congestion and postnasal drip. I explained to her that the findings are more consistent with smoldering lower respiratory infection. The patient has been on Flovent and also on rescue therapy. Will go ahead and optimize therapy since she is also complaining some dyspnea on exertion. She does have some prolonged expiratory phase on examination. Therefore a combination inhaler will work better for her I believe at this time. The patient also needs chest PT with an Acapella valve specially because she does bronchiectatic changes and evidence of chronic bronchitis. Will request an Acapella valve from the local pharmacy. The patient also will be able to provide us with a sputum culture to assess for AFB assessing for mycobacterial disease which is likely the culprit in her case. [facility] Medical History (Updated 11/26/22 @ 21:13 by Abhishek Manuel MD) Chronic bronchitis Bronchiectasis Depression Emphysema of lung Surgical History History of ear surgery Family History Mother No problems noted. Father Emphysema lung Family/Other Mental health disorder Substance use disorder Social History Housing: Apartment Alcohol intake: current Alcohol intake frequency: 3 or more drinks per day Alcohol type: beer Patient Tobacco Use Status: Former Tobacco user Tobacco use type: Cigarette e-Cigarette/Vaping Use: Never Used Second Hand Smoke Exposure: No service: No Current occupational status: employed Cognitive needs: No Hearing needs: No Vision needs: Yes Review of Systems Const Denies fatigue, Denies fever(s) and Denies night sweats Eyes Reports no additional complaints ENT Denies nasal congestion Card Denies chest pain Resp Reports chest congestion, Reports cough and Denies wheezing GI Denies abdominal pain Musc Denies myalgias Skin/Breast Denies rash Neuro Reports no additional complaints Endo Denies fatigue Reynold/Lymph Denies lymphadenopathy Aller/Immun Denies wheezing Physical Exam Vital Signs: Last Vital Signs Pulse 77 11/24/22 13:18 BP 128/70 11/24/22 13:18 Pulse Ox 98 11/24/22 13:18 Oxygen Delivery Method Room Air 11/24/22 13:18 BMI result Body Mass Index 25.1 Const General: comfortable HEENT Head: Yes normocephalic Neck Neck: Yes supple Chest Chest palpation & inspection: normal inspection of the chest Resp Effort & Inspection: normal respiratory effort and prolonged expiratory phase Auscultation: diminished lung sounds Cardio Rate: regular rate Rhythm: regular rhythm Heart sounds: S1 normal heart sound present and S2 normal heart sound present GI Palpation (GI): Soft to palpation Skin General skin exam: no rashes or lesions noted Extrem General: Yes no clubbing, cyanosis or edema Assessment & Plan Assessment & Plan (1) Pulmonary nodules: Code(s): R91.8 - Other nonspecific abnormal finding of lung field (2) Bronchiectasis: Code(s): J47.9 - Bronchiectasis, uncomplicated Qualifiers: Bronchiectasis type: uncomplicated Qualified Code(s): J47.9 - Bronchiectasis, uncomplicated (3) Chronic bronchitis: Code(s): J42 - Unspecified chronic bronchitis Qualifiers: Chronic bronchitis type: mixed simple and mucopurulent Qualified Code(s): J41.8 - Mixed simple and mucopurulent chronic bronchitis Plan STart Advair HFA stop Flovent HENRY as needed CPT with acapella valve Sputum for fulture PFTs F/u 6-8 months Orders: Orders PFT pulmonary function test Today J47.9 - Bronchiectasis, uncomplicated Sputum Cult + Gram stain 11/24/22 R91.8 - Other nonspecific abnormal finding of lung field Acid-fast Culture + Smear 11/24/22 R91.8 - Other nonspecific abnormal finding of lung field Medications: New fluticasone propion-salmeterol 115-21 mcg/actuation (Advair HFA) 2 puffs inhalation Q12H 12 grams 11RF 30 days Refilled fluticasone propionate 50 mcg/actuation 1 spray intranasal BID 48 grams 3RF J32.9 - Chronic sinusitis, unspecified Coding Level of Care Code New Pt Level 4 (32870) Diagnoses Pulmonary nodules R91.8 Bronchiectasis without complication J47.9 Bronchiectasis type: uncomplicated Mixed simple and mucopurulent chronic bronchitis J41.8 Chronic bronchitis type: mixed simple and mucopurulent Time Spent (min) 40
[2022-11-24 13:18] VITALS: BP 128/70; PULSE 77; O2SAT 98; BMI 25.1
== END 2022-11-24 13:54 | disposition home or self-care (01) ==
PROVIDERS: PCP Internal Medicine; Visit Provider Hospitalist
DX: R91.8 Other nonspecific abnormal finding of lung field (principal); J47.9 Bronchiectasis, uncomplicated; J41.8 Mixed simple and mucopurulent chronic bronchitis
CPT/HCPCS: 99204

== ENCOUNTER → 2022-11-24 13:11 | Outpatient (BNVA) | payer MEDICARE, MEDICAID, SELFPAY | PROVIDERS: PCP Internal Medicine; Visit Provider Hospitalist ==

== ENCOUNTER 2023-04-12 13:30 | Outpatient (REF) | payer MEDICARE, MEDICAID, SELFPAY ==
[2023-04-12 13:42] LABS: MANUAL DIFF FLAG NO
[2023-04-12 13:54] LABS: Basophils Absolute Auto 0.1 X10*3/uL (0.0-0.2); Basophils Percent Auto 0.9 % (0-2); Eosinophils Absolute Auto 0.2 X10*3/uL (0.0-0.4); Eosinophils Percent Auto 4.1 % (0-4); Hemoglobin 11.8 g/dl (12.0-16.0); Lymphocytes Absolute Auto 2.4 X10*3/uL (1.2-4.9); Lymphocytes Percent Auto 41.6 % (20-40); Mean Corpuscular HGB Conc 33.7 g/dl (31.0-35.0); Mean Corpuscular Hemoglobin 34.1 pg (27.0-33.0); Mean Corpuscular Volume 101.2 fL (80.0-98.0); Mean Platelet Volume 9.8 fL (9.4-12.3); Monocytes Absolute Auto 0.6 X10*3/uL (0.1-1.2); Monocytes Percent Auto 9.6 % (2-11); Neutrophils Absolute Auto 2.6 x10*3/uL (2.0-8.3); Neutrophils Percent Auto 43.8 % (45-73); Platelet Count 212 X10*3/uL (160-400); Red Blood Count 3.46 X10*6/uL (4.20-5.50); Red Cell Distribution Width 13.9 % (11.0-16.0); White Blood Count 5.8 X10*3/uL (4.8-10.8)
[2023-04-12 14:21] LABS: Iron 65 mcg/dL (30-160); Percent Iron Saturation 24 % (15-50); Total Iron Binding Capacity 271 mcg/dL (228-428); Unsaturated Iron Binding 206 ug/dL
== END 2023-04-12 13:31 | disposition home or self-care (01) ==
LOC: HO.LAB 13:30
PROVIDERS: PCP Internal Medicine; Visit Provider Internal Medicine
DX: D64.9 Anemia, unspecified (principal)
CPT/HCPCS: 36415; 83540; 85025

== ENCOUNTER 2023-04-19 15:06 | Outpatient (REF) | payer MEDICARE, MEDICAID, SELFPAY ==
[2023-04-19 16:43] LABS: Folate 9.5 ng/mL (> or = 4.0); Vitamin B12 321 pg/mL (200-900)
== END 2023-04-19 15:07 | disposition home or self-care (01) ==
LOC: HO.LAB 15:06
PROVIDERS: PCP Internal Medicine; Visit Provider Internal Medicine
DX: E53.8 Deficiency of other specified B group vitamins (principal)
CPT/HCPCS: 36415; 82607; 82746

== ENCOUNTER 2024-02-12 09:49 | Emergency (ER) | payer MEDICARE, MEDICAID, SELFPAY ==
--- NOTE | ~2024-02-12 | US_ITS ---
EXAMINATION: US TRIPLEX LOWER EXTREMITY, LEFT CLINICAL INFORMATION: Calf pain COMPARISON: None available. TECHNIQUE: Color-flow triplex imaging with spectral analysis and compression Doppler were performed on the left lower extremity. FINDINGS: Respiratory variation, normal compression and augmented flow are noted throughout the left lower extremity. The visualized common femoral vein, superficial femoral vein, profunda femoral vein, popliteal vein and midcalf peroneal and posterior tibial venous segments show no evidence of deep venous thrombosis. Left popliteal fossa cyst measuring 3.4 x 1.4 x 2 cm. US/US venous duplex LE LT IMPRESSION: No evidence of deep venous thrombosis involving the left lower extremity. Electronically signed by: Lyndon Palma MD 02/12/2024 12:35 PM [facility]
[2024-02-12 10:00] VITALS: BP 158/100; PULSE 74; O2SAT 99
--- NOTE | 2024-02-12 11:00 | ED_ITS ---
HPI - General Adult General Chief complaint: General Medical Stated complaint: HYPOTENSION,DIZZY,WEAK PER EMS Time Seen by Provider: 02/12/24 13:43 Related Data Previous Rx's ?Medication ?Instructions ?Recorded lorazepam 0.5 mg tablet 0.5 mg PO DAILY PRN anxiety 30 11/01/22 days #30 tabs fluticasone propionate 50 1 spray intranasal BID #48 grams 11/24/22 mcg/actuation nasal spray,suspension albuterol sulfate 90 mcg/actuation 2 puff inhalation QID PRN 08/16/23 aerosol inhaler (Ventolin HFA) shortness of breath or wheezing 30 days #18 grams budesonide-formoterol HFA 160 2 puff inhalation BID 30 days 08/16/23 mcg-4.5 mcg/actuation aerosol #10.2 grams inhaler (Symbicort) albuterol sulfate 90 mcg/actuation 2 inh inhalation Q4-6H PRN 08/24/23 aerosol inhaler shortness of breath or wheezing #8.5 grams lisinopril 40 mg tablet 40 mg PO DAILY 90 days #90 tabs 02/07/24 citalopram 20 mg tablet 20 mg PO DAILY 30 days #30 tabs 02/08/24 clonidine HCl 0.1 mg tablet 0.1 mg PO TID 30 days #90 tabs 02/11/24 magnesium oxide 200 mg PO DAILY #10 tabs 02/12/24 Allergies Allergy/AdvReac Type Severity Reaction Status Date / Time No Known Allergies Allergy Verified 02/12/24 11:02 [facility] Past Medical History Medical History Chronic bronchitis Bronchiectasis Depression Emphysema of lung Surgical History History of ear surgery Family History Family History Mother No problems noted. Father Emphysema lung Family/Other Mental health disorder Substance use disorder Social History Social History Housing: Apartment Alcohol intake: current Alcohol intake frequency: 3 or more drinks per day Alcohol type: beer Patient Tobacco Use Status: Former Tobacco user Tobacco use type: Cigarette Smoked in Last 30 Days: No e-Cigarette/Vaping Use: Never Used Second Hand Smoke Exposure: No Use of substances other than those prescribed or required for medical reasons: No Advance Directives: No Advance Directives Information Provided: Yes service: No Current occupational status: employed Cognitive needs: No Hearing needs: No Vision needs: Yes Physical Exam ED Vital Signs: Vital Signs - 24 hr 02/12/24 11:01 02/12/24 13:53 02/12/24 14:06 Temperature 97.3 F Pulse Rate 75 57 Respiratory Rate 20 15 12 Blood Pressure 113/78 144/70 H 132/50 L Pulse Oximetry 99 100 Oxygen Delivery Method Room Air Room Air 02/12/24 15:17 02/12/24 16:40 Temperature 98.2 F 98.2 F Pulse Rate 53 53 Respiratory Rate 18 18 Blood Pressure 127/55 L 127/55 L Pulse Oximetry 100 100 Oxygen Delivery Method Room Air Room Air BMI result Body Mass Index 23.7 Course Course Course Narrative: This is an RME: Additional HPI, ROS, PE not included below will be deferred to primary provider. RME assessment and note performed by: Nathaly Cobb PA-C This is a 10-qbod-wpw-female, with a hx of COPD and hypertension, who presents to the ER with complaints of dizziness, numbness and tingling into hands and ringing in ears x 1 week. Reports that she has been routinely checking her BP and they have 168/90 and this morning was systolically 107 unsure of diastolic and thought that this was very low for her. BP is 113/78 in triage. She also reports that she has had cramping in her left calf. Not on anticoagulation. Plan: Labs, EKG, US, further ER eval needed. Received critical troponin at 151. I advised charge nurse to bring patient back JASVIR >>see note by primary provider, Dr. Barron Medications Administered Discontinued Medications Generic Name Dose Route Start Last Admin Trade Name Freq PRN Reason Stop Dose Admin Magnesium Sulfate/Dextrose 1 gm in 100 mls @ 100 mls/hr 02/12/24 14:47 02/12/24 16:38 Magnesium Sulfate/D5w IV 02/12/24 15:46 Infused ONCE ONE Infusion Medical Decision Making Lab Data 02/12/24 11:14 02/12/24 11:14 Labs: Lab Results 02/12/24 02/12/24 Range/Units 11:14 14:13 WBC 5.5 (4.8-10.8) X10*3/uL RBC 3.34 L (4.20-5.50) X10*6/uL Hgb 11.7 L (12.0-16.0) g/dl Hct 34.0 L (37.0-47.0) % MCV 101.8 H (80.0-98.0) fL MCH 35.0 H (27.0-33.0) pg MCHC 34.4 (31.0-35.0) g/dl RDW 13.5 (11.0-16.0) % Plt Count 209 (160-400) X10*3/uL MPV 9.4 (9.4-12.3) fL Immature Gran % (Auto) 0.4 (0.0-0.4) % Neut % (Auto) 53.7 (45-73) % Lymph % (Auto) 32.4 (20-40) % [place] % (Auto) 9.4 (2-11) % Eos % (Auto) 3.6 (0-4) % Baso % (Auto) 0.5 (0-2) % Lymph # (Auto) 1.8 (1.2-4.9) X10*3/uL [place] # (Auto) 0.5 (0.1-1.2) X10*3/uL Eos # (Auto) 0.2 (0.0-0.4) X10*3/uL Baso # (Auto) 0.0 (0.0-0.2) X10*3/uL Abs Immat Gran (auto) 0.02 (0.00-0.03) X10*3/uL Absolute Neuts (auto) 3.0 (2.0-8.3) x10*3/uL Absolute Nucleated RBC 0.000 (0.0-0.012) X10*3/uL Nucleated RBC % (auto) 0.0 (0.0-0.2) /100WBC Sodium 136 (135-145) mmol/L Potassium 4.1 (3.3-5.1) mmol/L Chloride 102 (96-108) mmol/L Carbon Dioxide 22 (22-29) mmol/L Anion Gap 16 (12-20) BUN 24 H (9-16) mg/dL Creatinine 1.21 (0.5-1.4) mg/dL Estim Creat Clear Calc 37.3 Estimated GFR 44 Random Glucose 100 (60-115) mg/dL Calcium 10.1 D (8.4-10.2) mg/dL Magnesium 1.5 L (1.6-2.6) mg/dL Total Bilirubin 0.7 (0.0-1.0) mg/dL Direct Bilirubin 0.2 (0.0-0.5) mg/dL AST 24 (5-31) U/L ALT 14 (0-31) U/L Alkaline Phosphatase 55 (39-117) U/L Troponin I High Sens 161.2 H* 151.0 H* (<3.5-17.0) ng/L Total Protein 7.9 (6.5-8.0) g/dL Albumin 4.6 (3.5-5.0) g/dL Influenza Type A (PCR) NEGATIVE (Negative) Influenza Type B (PCR) NEGATIVE (Negative) RSV RNA Qual (PCR) NEGATIVE (Negative) SARS-CoV-2 RNA (RT-PCR) NEGATIVE (Negative) Discharge Plan Discharge Clinical Impression: Hypomagnesemia, Cramp in lower leg Patient Disposition: Home, Self-Care Instructions: Hypomagnesemia (ED) Additional Instructions: ULTRASOUND SHOWED SHOWED CLOT IN LEGS; ELECTROCARDIOGRAM WAS NORMAL, WHITE CELL COUNT WAS NORMAL,ELECTROLYTES NORMAL, YOUR MAGNESIUM LEVEL WAS LOW YOU RECEIVED iv MAGNESIUM IN ED ;WILL SEND ALSO A PRESCRIPTION TO THE PHARMACY FOR MAGNESIUM Prescriptions: New magnesium oxide 200 mg magnesium tablet 200 mg PO DAILY Qty: 10 0RF No Action lorazepam 0.5 mg tablet 0.5 mg PO DAILY PRN (Reason: anxiety) 30 Days Qty: 30 0RF albuterol sulfate [Ventolin HFA] 90 mcg/actuation HFA aerosol inhaler 2 puff inhalation QID PRN (Reason: shortness of breath or wheezing) 30 Days Qty: 18 11RF budesonide-formoterol [Symbicort] 160-4.5 mcg/actuation HFA aerosol inhaler 2 puff inhalation BID 30 Days Qty: 10.2 11RF albuterol sulfate 90 mcg/actuation HFA aerosol inhaler 2 inh inhalation Q4-6H PRN (Reason: shortness of breath or wheezing) Qty: 8.5 3RF lisinopril 40 mg tablet 40 mg PO DAILY 90 Days Qty: 90 1RF citalopram 20 mg tablet 20 mg PO DAILY 30 Days Qty: 30 0RF clonidine HCl 0.1 mg tablet 0.1 mg PO TID 30 Days Qty: 90 2RF fluticasone propionate 50 mcg/actuation spray,suspension 1 spray intranasal BID Qty: 48 3RF Interventions: ED Discharge Assessment Last Done: 02/12/24 16:40 Discharge Date/Time: 02/12/24 16:50 Print Language: Scottish
[2024-02-12 11:01] VITALS: BP 113/78; PULSE 75; RESP 20; TEMP 36.3; O2SAT 99; BMI 23.7
--- NOTE | 2024-02-12 11:04 | ECG_ITS ---
Test Reason : dizziness Blood Pressure : / mmHG Vent. Rate : 064 BPM Atrial Rate : 064 BPM P-R Int : 138 ms QRS Dur : 096 ms QT Int : 390 ms P-R-T Axes : 049 048 035 degrees QTc Int : 402 ms Normal sinus rhythm Normal ECG When compared with ECG of 05-MAY-2021 09:47, No significant change was found Referred By: Nathaly Cobb Electronically Signed By:LOREE ELLIS MD
[2024-02-12 11:26] LABS: MANUAL DIFF FLAG NO
[2024-02-12 11:28] LABS: Basophils Percent Auto 0.5 % (0-2); Eosinophils Absolute Auto 0.2 X10*3/uL (0.0-0.4); Eosinophils Percent Auto 3.6 % (0-4); Hemoglobin 11.7 g/dl (12.0-16.0); Imm Gran Abs Auto 0.02 X10*3/uL (0.00-0.03); Imm Gran Pct Auto 0.4 % (0.0-0.4); Lymphocytes Absolute Auto 1.8 X10*3/uL (1.2-4.9); Lymphocytes Percent Auto 32.4 % (20-40); Mean Corpuscular HGB Conc 34.4 g/dl (31.0-35.0); Mean Corpuscular Volume 101.8 fL (80.0-98.0); Mean Platelet Volume 9.4 fL (9.4-12.3); Monocytes Absolute Auto 0.5 X10*3/uL (0.1-1.2); Monocytes Percent Auto 9.4 % (2-11); Neutrophils Percent Auto 53.7 % (45-73); Platelet Count 209 X10*3/uL (160-400); Red Blood Count 3.34 X10*6/uL (4.20-5.50); Red Cell Distribution Width 13.5 % (11.0-16.0); White Blood Count 5.5 X10*3/uL (4.8-10.8)
[2024-02-12 11:40] LABS: Anion Gap 16 (12-20)
[2024-02-12 11:45] LABS: Albumin Level 4.6 g/dL (3.5-5.0); Aspartate Amino Transferase 24 U/L (5-31); Bilirubin Direct 0.2 mg/dL (0.0-0.5); Bilirubin Total 0.7 mg/dL (0.0-1.0); Blood Urea Nitrogen 24 mg/dL (9-16); Calcium 10.1 mg/dL (8.4-10.2); Carbon Dioxide 22 mmol/L (22-29); Chloride 102 mmol/L (96-108); Creatinine Clr Calc Pharmacy 37.3; Estimated Glomerular Filt Rate 44; Glucose Random 100 mg/dL (60-115); Magnesium 1.5 mg/dL (1.6-2.6); Potassium 4.1 mmol/L (3.3-5.1); Sodium 136 mmol/L (135-145); Total Protein 7.9 g/dL (6.5-8.0)
[2024-02-12 11:52] LABS: Troponin-I High Sensitivity 161.2 ng/L (<3.5-17.0)
[2024-02-12 12:05] LABS: Influenza A PCR NEGATIVE (Negative); Influenza B PCR NEGATIVE (Negative); Resp Syncy Virus RNA Qual PCR NEGATIVE (Negative); SARS COV2 PCR INHOUSE NEGATIVE (Negative)
[2024-02-12 12:08] LABS: Alanine Aminotransferase 14 U/L (0-31); Alkaline Phosphatase 55 U/L (39-117)
[2024-02-12 13:53] VITALS: BP 144/70; PULSE 57; RESP 15; O2SAT 100
--- NOTE | 2024-02-12 14:04 | ED_ITS ---
HPI - General Adult General Chief complaint: General Medical Stated complaint: HYPOTENSION,DIZZY,WEAK PER EMS Time Seen by Provider: 02/12/24 13:43 Source: patient Mode of arrival: ambulatory Limitations: no limitations History of Present Illness HPI narrative: THIS IS A KIM 68 YEARS OLD PATIENT PRESENTED TO THE EMERGENCY DEPARTMENT BECAUSE BLOOD PRESSURE WAS ELEVATED, SHE IS ALSO COMPLAINING LEFT LEG CRAMPS TINGLING OF BOTH LEGS AND DIZZINESS. SHE IS FULLY AMBULATORY TO THE EMERGENCY DEPARTMENT SHE DENIES ANY CHEST PAIN OR SHORTNESS OF BREATH SHE DENIES ANY HEADACHE Onset (ago): day(s) (7) Location: lower extremity (LEFT CALF) Radiation: non-radiation Severity: mild Quality: burning Relieving factors: none Exacerbating factors: none Associated symptoms: denies other symptoms Related Data Previous Rx's ?Medication ?Instructions ?Recorded lorazepam 0.5 mg tablet 0.5 mg PO DAILY PRN anxiety 30 11/01/22 days #30 tabs fluticasone propionate 50 1 spray intranasal BID #48 grams 11/24/22 mcg/actuation nasal spray,suspension albuterol sulfate 90 mcg/actuation 2 puff inhalation QID PRN 08/16/23 aerosol inhaler (Ventolin HFA) shortness of breath or wheezing 30 days #18 grams budesonide-formoterol HFA 160 2 puff inhalation BID 30 days 08/16/23 mcg-4.5 mcg/actuation aerosol #10.2 grams inhaler (Symbicort) albuterol sulfate 90 mcg/actuation 2 inh inhalation Q4-6H PRN 08/24/23 aerosol inhaler shortness of breath or wheezing #8.5 grams lisinopril 40 mg tablet 40 mg PO DAILY 90 days #90 tabs 02/07/24 citalopram 20 mg tablet 20 mg PO DAILY 30 days #30 tabs 02/08/24 clonidine HCl 0.1 mg tablet 0.1 mg PO TID 30 days #90 tabs 02/11/24 magnesium oxide 200 mg PO DAILY #10 tabs 02/12/24 Allergies Allergy/AdvReac Type Severity Reaction Status Date / Time No Known Allergies Allergy Verified 02/12/24 11:02 Review of Systems 2 Constitutional: Constitutional: Reports no additional constitutional complaints ENT: Reports system reviewed and no additional complaints, except as documented Cardiovascular: Cardiovascular: Reports no additional cardiovascular complaints Respiratory: Respiratory: Reports no additional respiratory complaints Neurologic: Reports system reviewed and no additional complaints, except as documented and Reports as per HPI [facility] Past Medical History [facility] Narrative: HYPERTENSION, ANXIETY DISORDER Medical History Chronic bronchitis Bronchiectasis Depression Emphysema of lung Surgical History History of ear surgery Family History Family History Mother No problems noted. Father Emphysema lung Family/Other Mental health disorder Substance use disorder Social History Social History Housing: Apartment Alcohol intake: current Alcohol intake frequency: 3 or more drinks per day Alcohol type: beer Patient Tobacco Use Status: Former Tobacco user Tobacco use type: Cigarette e-Cigarette/Vaping Use: Never Used Second Hand Smoke Exposure: No Advance Directives: No Advance Directives Information Provided: Yes service: No Current occupational status: employed Cognitive needs: No Hearing needs: No Vision needs: Yes Physical Exam ED Vital Signs: Vital Signs - 24 hr 02/12/24 11:01 02/12/24 13:53 02/12/24 14:06 Temperature 97.3 F Pulse Rate 75 57 Respiratory Rate 20 15 12 Blood Pressure 113/78 144/70 H 132/50 L Pulse Oximetry 99 100 Oxygen Delivery Method Room Air Room Air 02/12/24 15:17 Temperature 98.2 F Pulse Rate 53 Respiratory Rate 18 Blood Pressure 127/55 L Pulse Oximetry 100 Oxygen Delivery Method Room Air BMI result Body Mass Index 23.7 SHE LOOKS WELL SHE IS NOT TOXIC-APPEARING Const General: cooperative Nutritional Appearance: average body habitus Orientation/consciousness: patient oriented x3 HENMT Head: Yes normal to inspection Ears: hearing grossly normal bilaterally General nose exam: Normal external nose present Face and sinus: Yes normal facial exam Mouth: Normal oral and palatal mucosa present Throat: Yes posterior oropharynx normal Neck Neck: Yes normal visual inspection and Yes full ROM Chest Chest palpation & inspection: normal inspection of the chest Resp Effort & Inspection: normal respiratory effort Cardio Jugular venous distension: no JVD Rate: regular rate Rhythm: regular rhythm GI Inspection: Yes normal to inspection Palpation (GI): Soft to palpation, not firm and nontender Auscultation: normal bowel sounds Skin General skin exam: no rashes or lesions noted Lesions: no lesions Rashes: no rashes Neuro General: patient oriented x3 Cranial nerves: Yes CN's II-XII intact bilaterally Extrem Other: EXAMINATION LOWER EXTREMITIES SHOWS GOOD PULSES BILATERALLY NO DISCOLORATION Course Reevaluation(s) Reevaluation #1: PATIENT WAS STARTED ON A MONITOR FOR A COUPLE HOURS SHE REMAINED STABLE HEMODYNAMICALLY, DELTA TROPONIN IS FLAT, SHE HAS NO CHEST PAIN NO SHORTNESS OF BREATH SHE HAS A NORMAL EKG,SHE HAD LOW MAGNESIUM SHE WAS GIVEN IV MAGNESIUM IN THE ED SHE WILL BE DISCHARGED HOME; I SPOKE WITH THE DAUGHTER WELL Time: 15:29 Medications Administered Generic Name Dose Route Start Last Admin Trade Name Freq PRN Reason Stop Dose Admin Magnesium Sulfate/Dextrose 1 gm in 100 mls @ 100 mls/hr 02/12/24 14:47 02/12/24 15:14 Magnesium Sulfate/D5w IV 02/12/24 15:46 100 mls/hr ONCE ONE Administration Medical Decision Making Medical Decision Making [facility] Narrative: PATIENT PRESENTED WITH A LEFT CALF PAIN, WE WILL CHECK ULTRASOUND Differential Diagnosis Differential Diagnoses: The differential diagnosis associated with the presentation includes DVT /ISCHEMIC LEGS/HYPERTENSION Admission/Observation Consideration of admission/observation: Escalation of care including admission/observation considered Lab Data 02/12/24 11:14 02/12/24 11:14 Labs: Lab Results 02/12/24 02/12/24 Range/Units 11:14 14:13 WBC 5.5 (4.8-10.8) X10*3/uL RBC 3.34 L (4.20-5.50) X10*6/uL Hgb 11.7 L (12.0-16.0) g/dl Hct 34.0 L (37.0-47.0) % MCV 101.8 H (80.0-98.0) fL MCH 35.0 H (27.0-33.0) pg MCHC 34.4 (31.0-35.0) g/dl RDW 13.5 (11.0-16.0) % Plt Count 209 (160-400) X10*3/uL MPV 9.4 (9.4-12.3) fL Immature Gran % (Auto) 0.4 (0.0-0.4) % Neut % (Auto) 53.7 (45-73) % Lymph % (Auto) 32.4 (20-40) % [place] % (Auto) 9.4 (2-11) % Eos % (Auto) 3.6 (0-4) % Baso % (Auto) 0.5 (0-2) % Lymph # (Auto) 1.8 (1.2-4.9) X10*3/uL [place] # (Auto) 0.5 (0.1-1.2) X10*3/uL Eos # (Auto) 0.2 (0.0-0.4) X10*3/uL Baso # (Auto) 0.0 (0.0-0.2) X10*3/uL Abs Immat Gran (auto) 0.02 (0.00-0.03) X10*3/uL Absolute Neuts (auto) 3.0 (2.0-8.3) x10*3/uL Absolute Nucleated RBC 0.000 (0.0-0.012) X10*3/uL Nucleated RBC % (auto) 0.0 (0.0-0.2) /100WBC Sodium 136 (135-145) mmol/L Potassium 4.1 (3.3-5.1) mmol/L Chloride 102 (96-108) mmol/L Carbon Dioxide 22 (22-29) mmol/L Anion Gap 16 (12-20) BUN 24 H (9-16) mg/dL Creatinine 1.21 (0.5-1.4) mg/dL Estim Creat Clear Calc 37.3 Estimated GFR 44 Random Glucose 100 (60-115) mg/dL Calcium 10.1 D (8.4-10.2) mg/dL Magnesium 1.5 L (1.6-2.6) mg/dL Total Bilirubin 0.7 (0.0-1.0) mg/dL Direct Bilirubin 0.2 (0.0-0.5) mg/dL AST 24 (5-31) U/L ALT 14 (0-31) U/L Alkaline Phosphatase 55 (39-117) U/L Troponin I High Sens 161.2 H* 151.0 H* (<3.5-17.0) ng/L Total Protein 7.9 (6.5-8.0) g/dL Albumin 4.6 (3.5-5.0) g/dL Influenza Type A (PCR) NEGATIVE (Negative) Influenza Type B (PCR) NEGATIVE (Negative) RSV RNA Qual (PCR) NEGATIVE (Negative) SARS-CoV-2 RNA (RT-PCR) NEGATIVE (Negative) Independent Interpretation I performed an independent interpretation of an: EKG Interpretation: EKG WAS REVIEWED INTERPRETED BY ME SINUS RHYTHM RATE [address]-T CHANGES External Record Review External record reviewed: Office record Chronic Conditions Patient?s care impacted by: Hypertension ANXIETY/ Discharge Plan Discharge Clinical Impression: Hypomagnesemia, Cramp in lower leg Patient Disposition: Home, Self-Care Instructions: Hypomagnesemia (ED) Additional Instructions: ULTRASOUND SHOWED SHOWED CLOT IN LEGS; ELECTROCARDIOGRAM WAS NORMAL, WHITE CELL COUNT WAS NORMAL,ELECTROLYTES NORMAL, YOUR MAGNESIUM LEVEL WAS LOW YOU RECEIVED iv MAGNESIUM IN ED ;WILL SEND ALSO A PRESCRIPTION TO THE PHARMACY FOR MAGNESIUM Prescriptions: New magnesium oxide 200 mg magnesium tablet 200 mg PO DAILY Qty: 10 0RF No Action lorazepam 0.5 mg tablet 0.5 mg PO DAILY PRN (Reason: anxiety) 30 Days Qty: 30 0RF albuterol sulfate [Ventolin HFA] 90 mcg/actuation HFA aerosol inhaler 2 puff inhalation QID PRN (Reason: shortness of breath or wheezing) 30 Days Qty: 18 11RF budesonide-formoterol [Symbicort] 160-4.5 mcg/actuation HFA aerosol inhaler 2 puff inhalation BID 30 Days Qty: 10.2 11RF albuterol sulfate 90 mcg/actuation HFA aerosol inhaler 2 inh inhalation Q4-6H PRN (Reason: shortness of breath or wheezing) Qty: 8.5 3RF lisinopril 40 mg tablet 40 mg PO DAILY 90 Days Qty: 90 1RF citalopram 20 mg tablet 20 mg PO DAILY 30 Days Qty: 30 0RF clonidine HCl 0.1 mg tablet 0.1 mg PO TID 30 Days Qty: 90 2RF fluticasone propionate 50 mcg/actuation spray,suspension 1 spray intranasal BID Qty: 48 3RF Print Language: Faroese
[2024-02-12 14:06] VITALS: BP 132/50; RESP 12
[2024-02-12] MEDS: Magnesium Sulfate/D5W 1 GM/100 ML PIGGYBACK IV (15:14)
[2024-02-12 15:17] VITALS: BP 127/55; PULSE 53; RESP 18; TEMP 36.8; O2SAT 100
[2024-02-12 16:40] VITALS: BP 127/55; PULSE 53; RESP 18; TEMP 36.8; O2SAT 100
== END 2024-02-12 16:50 | disposition home or self-care (01) ==
PROVIDERS: Physician Assistant Medical; Emergency Provider Emergency Medicine; PCP Internal Medicine
DX: E83.42 Hypomagnesemia (principal); R25.2 Cramp and spasm; M79.605 Pain in left leg; R42 Dizziness and giddiness; R20.0 Anesthesia of skin; Z79.899 Other long term (current) drug therapy; Z03.818 Encounter for observation for suspected exposure to other biological agents ruled out
CPT/HCPCS: 0241U; 36415; 80048; 80076; 83735; 84484; 85025; 93005; 93971; 96365; 99284; 99285; J3475

== ENCOUNTER → 2024-02-12 11:04 | Outpatient (BNV) | payer MEDICARE, MEDICAID, SELFPAY | PROVIDERS: Emergency Provider Emergency Medicine; PCP Internal Medicine; Visit Provider Internal Medicine Cardiovascular Disease | DX: R42 Dizziness and giddiness (principal) | CPT/HCPCS: 93010 ==

== ENCOUNTER 2024-02-18 14:29 | Outpatient (AMB) | payer MEDICARE, MEDICAID, SELFPAY ==
[2024-02-18 14:31] VITALS: BP 100/64; BMI 24.0
--- NOTE | 2024-02-18 14:31 | MHC.PC.OV ---
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 Required: No Accompanied by: Self / Same As Patient Allergies No Known Allergies Allergy (Verified 02/18/24 14:45) Medication List - Last Reconciled 02/18/24 by Tena Wright MD albuterol sulfate 90 mcg/actuation 2 inhalations inhalation Q4-6H PRN albuterol sulfate 90 mcg/actuation (Ventolin HFA) 2 puffs inhalation QID PRN 30 days budesonide-formoterol 160-4.5 mcg/actuation (Symbicort) 2 puffs inhalation BID 30 days citalopram 20 mg PO DAILY 30 days clonidine HCl 0.1 mg PO TID 30 days fluticasone propionate 50 mcg/actuation 1 spray intranasal BID lisinopril 40 mg PO DAILY 90 days lorazepam 0.5 mg PO DAILY PRN 30 days magnesium oxide 200 mg PO DAILY nabumetone 750 mg PO BID PRN 10 days Tobacco use date assessed: 02/18/24 Fall risk assessment: No Falls in past year Last assessed Fall Risk: 02/18/24 Dental Screening Dental Screen Date: 02/18/24 Did you have a dental visit in the last 12 months?: No Did you have a dental problem in the last 6 months where you did not have access to dental care?: No Was dental information given to patient?: Patient has dentist HPI HPI Comments History of Present Illness Details The patient is a 68-year-old female presenting with complaints of left leg cramping and chronic back pain. The leg cramping prompted a hospital visit on February 11, where an ultrasound ruled out a blood clot. She also experienced low blood pressure during this episode. The cramping has been described as severe enough to almost cause a fall and is occasionally associated with pins and needles sensations in the toes and knees. There have been fluctuations in intensity, with occasional improvement. 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 She frequently utilizes a heating pad for pain relief. The patient mentions no recent chest pain; however, previous evaluations revealed initially elevated, but subsequently normalized, cardiac troponin levels. For her anemia, the patient notes a historical context of low hemoglobin, with a recent improvement to 11.7 g/dL from 11 g/dL. Previously, she has experienced episodes of dizziness and ringing in the ears, which seems persistent. Her chronic B12 deficiency is managed with sublingual B12 supplements, purchased based on her son-in-law's advice. She also reports chronic back pain potentially due to her work environment and posture. COUNTS INCLUDE 234 BEDS AT THE [facility] Medical History (Updated 02/18/24 @ 16:02 by Tena Wright MD) Chronic bronchitis Bronchiectasis Depression Emphysema of lung Surgical History History of ear surgery Family History Mother No problems noted. Father Emphysema lung Family/Other Mental health disorder Substance use disorder Social History Housing: Apartment Alcohol intake: current Alcohol intake frequency: 3 or more drinks per day Alcohol type: beer Patient Tobacco Use Status: Former Tobacco user Tobacco use type: Cigarette e-Cigarette/Vaping Use: Never Used Second Hand Smoke Exposure: No service: No Current occupational status: employed Current occupational exposures/hazards: No Cognitive needs: No Hearing needs: No Vision needs: Yes Questionnaire PHQ-9 Over the last 2 weeks, how often have you been bothered by any of the following problems? 1. Little interest or pleasure in doing things: not at all 2. Feeling down, depressed, or hopeless: not at all 3. Trouble falling or staying asleep, or sleeping too much: not at all 4. Feeling tired or having little energy: not at all 5. Poor appetite or overeating: not at all 6. Feeling bad about yourself - or that you are a failure or have let yourself or your family down: not at all 7. Trouble concentrating on things, such as reading the newspaper or watching television: not at all 8. Moving or speaking so slowly that other people could have noticed. Or the opposite - being so fidgety or restless that you have been moving around a lot more than usual: not at all 9. Thoughts that you would be better off or of hurting yourself in some way: not at all Total score: 0 Depression Screening Interpretation: Negative Depression Screening Done: Yes [id number] - PHQ-9 Billing: Yes Source: Developed by Drs. Justen Katz, Elba Benavides, Rafa Walter and colleagues, with an educational dionte from [employer]. Thrive Questionnaire Date Thrive assessed: 02/18/24 I am a: Patient What is your living situation today?: I have a steady place to live Within the past 12 months, did the food you bought not last and you didn't have the money to get more?: Never true Within the past 12 months, did you worry whether your food would run out before you got money to buy more?: Never true Do you have trouble paying for medicines?: No Do you have trouble getting transportation to medical appointments?: No Do you have trouble paying your heating and electricity bill?: No Do you have trouble taking care of your child, family member or friend?: No Do you have trouble with day-to-day activities such as bathing, preparing meals, shopping, managing finances, etc.?: No Are you currently unemployed and looking for a job?: No Are you interested in more education?: No Please select the resources that you would like help with: None Currently or been in a relationship where the following occur: No concerns reported THRIVE Score: 0 AUDIT C Alcohol Use Questionnaire (AUDIT-C) 1. How often do you have a drink containing alcohol?: 4 or more times a week 2. How many drinks containing alcohol do you have on a typical day when you are drinking?: 1 or 2 3. How often do you have six or more drinks on one occasion?: Never Total Score: 4 Score Reviewed/Action Taken: Yes MADINA-7 AMB Questionnaire MADINA-7 Date MADINA - 7 assessed: 02/18/24 Feeling nervous, anxious, or on edge: 0 = Not at all Not being able to stop or control worryin = Not at all Worrying too much about different things: 0 = Not at all Trouble relaxin = Not at all Being so restless that it is hard to sit still: 0 = Not at all Becoming easily annoyed or irritable: 0 = Not at all Feeling afraid as if something awful might happen: 0 = Not at all Total MADINA-7 score (0-4 normal; 5-9 mild; 10-14 moderate; 15-21 severe): 0 Source: Developed by Drs. Justen Katz, Elba Benavides, Rafa Walter and colleagues, with an educational dionte from [employer]. Review of Systems Const Details: - Neurological: Reports dizziness and occasional headaches. - Ears: Reports tinnitus. - Musculoskeletal: Reports cramping in the left leg and pain in the knees. Also notes chronic back pain. - Dermatological: No specific reports. Physical exam (Primary Care) Vital Signs: Last Vital Signs BP 100/64 02/18/24 14:31 BMI result Body Mass Index 24.0 Tobacco/Smoking Status: Tobacco use Status Tobacco use date assessed 02/18/24 02/18/24 14:39 Patient Tobacco Use Status Former Tobacco user 02/18/24 14:39 Tobacco use type Cigarette 02/18/24 14:39 e-Cigarette/Vaping Use Never Used 02/18/24 14:39 PHQ-9: PHQ-9 Score PHQ-9: Total score 0 02/18/24 14:46 Depression Screening Interpretation: Negative Thrive Assessment: Date of Thrive Assessment Date Thrive assessed 02/18/24 02/18/24 14:39 Currently or been in a relationship where the following occur: No concerns reported Const Other: General: No confusion Respiratory: Normal respiratory effort, clear to auscultation bilaterally Cardiovascular: No jugular venous distension, regular rate, regular rhythm, S1 normal heart sound present and S2 normal heart sound present Extremities: Full ROM, but patient reports cramping in the left leg and pins and needles sensation in toes Psychology: Grossly normal Coding Level of Care Code Est Pt Level 4 (27213) Complex EM visit Add On G2211 Diagnoses Elevated troponin level not due myocardial infarction R79.89 Hypomagnesemia E83.42 Essential hypertension I10 Chronic back pain greater than 3 months duration M54.9; G89.29 Macrocytic anemia D53.9 Additional Codes PHQ-9 - 56761 - PHQ-9 Billing: Yes ([id number]) Time Spent (min) 23 Assessment & Plan Assessment & Plan (1) Elevated troponin level not due myocardial infarction: Code(s): R79.89 - Other specified abnormal findings of blood chemistry Category: Medical (2) Hypomagnesemia: Code(s): E83.42 - Hypomagnesemia Category: Medical (3) Essential hypertension: Code(s): I10 - Essential (primary) hypertension Category: Medical (4) Chronic back pain greater than 3 months duration: Code(s): M54.9 - Dorsalgia, unspecified; G89.29 - Other chronic pain Category: Medical (5) Macrocytic anemia: Code(s): D53.9 - Nutritional anemia, unspecified Category: Medical Plan - Re-evaluate left leg cramping as possible neuropathy due to vitamin and folic acid levels. - Continue management of deficiency with supplementation. - Assess chronic back pain management with current medication and continue usage of heating pads. - Recommend initiation of lifestyle modifications to support better nutritional intake and hydration. - Consideration for use of a back brace to provide support during daily activities. - Encourage continued abstention from smoking tobacco. - Order repeat blood work to evaluate magnesium and troponin levels. Patient was informed and verbally consented to the use of an ambient scribe for clinic note documentation during this visit. During the consultation, we discussed the management options for left leg cramping, likely due to potential neuropathy and vitamin deficiency. I explained the importance of dietary supplements and regular monitoring of B12 levels to improve the anemia and associated symptoms like dizziness and cramp-related neuropathic symptoms. We reviewed the patient's overall health management, emphasizing the need for lifestyle adjustments, including adequate hydration and nutritional intake. I conveyed that the elevated cardiac enzymes did not correlate with any acute events and were likely a false-positive result. The necessity of repeating magnesium levels was emphasized, given the previous low levels. The patient understood the treatment plan and agreed to follow the discussed lifestyle and therapeutic strategies. Orders: Orders Vitamin B12 and Folate Today E53.8 - Deficiency of other specified B group vitamins Vitamin D 25-OH Total Today E55.9 - Vitamin D deficiency, unspecified Magnesium Today E83.42 - Hypomagnesemia Troponin-I High Sensitivity Today R79.89 - Other specified abnormal findings of blood chemistry Patient Instructions: - Continue using B12 supplements as directed. - Use nabumetone for pain management as needed. - Ensure adequate nutrition and adequate hydration throughout the day. - Consider using a back brace for support during work. - Repeat blood work as discussed; no need to fast before testing. - Avoid exposure to loud noises and use ear protection as necessary. - Follow up if any new symptoms develop or current symptoms persist. - Schedule regular check-ups for monitoring and ongoing management of conditions.
== END 2024-02-18 15:08 | disposition home or self-care (01) ==
PROVIDERS: PCP Internal Medicine; Visit Provider Internal Medicine
DX: R79.89 Other specified abnormal findings of blood chemistry (principal); E83.42 Hypomagnesemia; I10 Essential (primary) hypertension; M54.9 Dorsalgia, unspecified; G89.29 Other chronic pain; D53.9 Nutritional anemia, unspecified

== ENCOUNTER → 2024-02-18 14:29 | Outpatient (BNVA) | payer MEDICARE, MEDICAID, SELFPAY | PROVIDERS: PCP Internal Medicine; Visit Provider Internal Medicine | DX: R79.89 Other specified abnormal findings of blood chemistry (principal); E83.42 Hypomagnesemia; I10 Essential (primary) hypertension; M54.9 Dorsalgia, unspecified; G89.29 Other chronic pain; D53.9 Nutritional anemia, unspecified; E55.9 Vitamin D deficiency, unspecified | CPT/HCPCS: 96127; 99212 ==

== ENCOUNTER 2024-02-19 18:53 | Emergency (ER) | payer MEDICARE, MEDICAID, SELFPAY ==
--- NOTE | ~2024-02-19 | XR_ITS ---
EXAMINATION: Chest, right shoulder and right elbow. CLINICAL INDICATION: Pain. COMPARISON: Left elbow 01/20/2009 CT chest 05/03/2022. Technical chest 1 view. Right elbow 3 views and right shoulder 2 views. FINDINGS: CHEST X-RAY: The lungs are hyperexpanded without acute process. There is bilateral apical pleural thickening. The heart size is borderline enlarged. Pulmonary vascularity is normal. There is a right humeral neck fracture. No additional bony abnormality seen. RIGHT SHOULDER: There is the right humeral neck comminuted fracture without dislocation of the humeral head. The distal humeral fragment is displaced medially. The soft tissues are normal. RIGHT ELBOW: There is no visible acute fracture, dislocation or subluxation seen. The soft tissues are normal. XR/XR elbow RT 2V IMPRESSION: Comminuted right humeral neck fracture with displacement of the distal humeral fragment medially. There is no dislocation. There is no visible acute fracture or dislocation right elbow. No acute process seen in the chest except for mild cardiomegaly and bilateral apical pleural thickening Electronically signed by: Bacilio Guy MD 02/19/2024 09:33 PM EST RP
--- NOTE | ~2024-02-19 | CT_ITS ---
EXAMINATION: CT HEAD WITHOUT CONTRAST CT CERVICAL SPINE WITHOUT CONTRAST CLINICAL INFORMATION: Head injury. Fall. EtOH. COMPARISON: None available. TECHNIQUE: Contiguous axial imaging was performed from the skull base to vertex without intravenous administration of contrast. Contiguous axial imaging was performed from the upper chest through the skull base without intravenous administration of contrast. Coronal and sagittal reformats were obtained at the acquisition workstation. This CT examination was performed using dose optimization techniques as appropriate, variously including the following: *Automated exposure control. *Adjustment of mA and/or kV according to patient size (this includes techniques or standardized protocols for targeted exams where dose is matched to indication/reason for exam; i.e. extremities or head). *Use of iterative reconstruction technique. DLP: 957 mGy-cm FINDINGS: Head: There is no evidence of acute intracranial hemorrhage or edematous territorial infarction. Chan-white matter differentiation is preserved. Scattered and partially confluent hypoattenuation in the periventricular and deep white matter are consistent with mild to moderate microangiopathy. Proportional prominence of the ventricles and sulcal spaces without evidence of obstructive hydrocephalus. No abnormal mass effect or midline shift. No extra-axial fluid collections. No acute soft tissue or osseous abnormalities. Mild mucosal thickening of the paranasal sinuses. Mild rightward nasal septal deviation. Changes of prior left-sided canal wall up mastoidectomy. The mastoid air cells and middle ear cavities are clear. Moderate degenerative arthropathy of the temporomandibular joints. Cervical Spine: The atlantooccipital and atlantoaxial articulations remain well aligned. Minimal degenerative anterolisthesis of C4 on C5. Otherwise, there is anatomic alignment of the vertebral bodies and posterior elements. Congenital nonunion of the posterior arch of C1. No evidence of acute fracture or subluxation. The vertebral body heights are maintained. Moderate degenerative disc disease from C3-C6. Facet and uncovertebral joint arthropathy leads to osseous encroachment on the neural foramina at C3-C4. There is no prevertebral soft tissue swelling. The thyroid gland and remaining cervical soft tissues are within normal limits. The lung apices demonstrate no abnormalities. CT/CT cervical spine wo IV con IMPRESSION: 1. No evidence of acute intracranial hemorrhage or edematous territorial infarction. Mild to moderate underlying microangiopathy and generalized cerebral volume loss. 2. No evidence of acute fracture or traumatic subluxation of the cervical spine. Moderate multilevel degenerative spondyloarthropathy of the cervical spine. Electronically signed by: Harvey Andersen DO 02/19/2024 10:53 PM JURGEN SAINZ
--- NOTE | ~2024-02-19 | XR_ITS ---
EXAMINATION: Chest, right shoulder and right elbow. CLINICAL INDICATION: Pain. COMPARISON: Left elbow 01/20/2009 CT chest 05/03/2022. Technical chest 1 view. Right elbow 3 views and right shoulder 2 views. FINDINGS: CHEST X-RAY: The lungs are hyperexpanded without acute process. There is bilateral apical pleural thickening. The heart size is borderline enlarged. Pulmonary vascularity is normal. There is a right humeral neck fracture. No additional bony abnormality seen. RIGHT SHOULDER: There is the right humeral neck comminuted fracture without dislocation of the humeral head. The distal humeral fragment is displaced medially. The soft tissues are normal. RIGHT ELBOW: There is no visible acute fracture, dislocation or subluxation seen. The soft tissues are normal. XR/XR shoulder RT min 2V IMPRESSION: Comminuted right humeral neck fracture with displacement of the distal humeral fragment medially. There is no dislocation. There is no visible acute fracture or dislocation right elbow. No acute process seen in the chest except for mild cardiomegaly and bilateral apical pleural thickening Electronically signed by: Bacilio Guy MD 02/19/2024 09:33 PM EST RP
--- NOTE | ~2024-02-19 | XR_ITS ---
EXAMINATION: Chest, right shoulder and right elbow. CLINICAL INDICATION: Pain. COMPARISON: Left elbow 01/20/2009 CT chest 05/03/2022. Technical chest 1 view. Right elbow 3 views and right shoulder 2 views. FINDINGS: CHEST X-RAY: The lungs are hyperexpanded without acute process. There is bilateral apical pleural thickening. The heart size is borderline enlarged. Pulmonary vascularity is normal. There is a right humeral neck fracture. No additional bony abnormality seen. RIGHT SHOULDER: There is the right humeral neck comminuted fracture without dislocation of the humeral head. The distal humeral fragment is displaced medially. The soft tissues are normal. RIGHT ELBOW: There is no visible acute fracture, dislocation or subluxation seen. The soft tissues are normal. XR/XR chest 1V IMPRESSION: Comminuted right humeral neck fracture with displacement of the distal humeral fragment medially. There is no dislocation. There is no visible acute fracture or dislocation right elbow. No acute process seen in the chest except for mild cardiomegaly and bilateral apical pleural thickening Electronically signed by: Bacilio Guy MD 02/19/2024 09:33 PM EST RP
[2024-02-19 18:59] VITALS: BP 118/70; PULSE 86; O2SAT 94
[2024-02-19 19:01] VITALS: BP 123/66; PULSE 59; RESP 19; TEMP 36.6; O2SAT 99; BMI 23.3
--- NOTE | 2024-02-19 20:13 | ECG_ITS ---
Test Reason : cp Blood Pressure : / mmHG Vent. Rate : 059 BPM Atrial Rate : 059 BPM P-R Int : 154 ms QRS Dur : 098 ms QT Int : 402 ms P-R-T Axes : 057 060 051 degrees QTc Int : 397 ms Sinus bradycardia Otherwise normal ECG When compared with ECG of 12-FEB-2024 11:10, No significant change was found Referred By: Deysi Juarez Electronically Signed By:JOSS FISHER
--- NOTE | 2024-02-19 20:17 | ED.FALL ---
HPI - Fall General Chief Complaint: Fall Stated Complaint: Fall onto R side, -loc/thinners Time Seen by Provider: 02/19/24 19:01 History of Present Illness HPI Narrative: Patient is a 68-year-old female status post accidental fall. Positive EtOH. Subsequently fell. Hitting the right shoulder area question head injury. Patient denies any loss of consciousness denies any neck pain refuses collar. Has a history of EtOH. Was here for the same last week. Denies any chest pain denies any diaphoresis. Denies any abdominal pain. Denies any difficulty moving her legs. Related Data Previous Rx's ?Medication ?Instructions ?Recorded lorazepam 0.5 mg tablet 0.5 mg PO DAILY PRN anxiety 30 11/01/22 days #30 tabs fluticasone propionate 50 1 spray intranasal BID #48 grams 11/24/22 mcg/actuation nasal spray,suspension albuterol sulfate 90 mcg/actuation 2 puff inhalation QID PRN 08/16/23 aerosol inhaler (Ventolin HFA) shortness of breath or wheezing 30 days #18 grams budesonide-formoterol HFA 160 2 puff inhalation BID 30 days 08/16/23 mcg-4.5 mcg/actuation aerosol #10.2 grams inhaler (Symbicort) albuterol sulfate 90 mcg/actuation 2 inh inhalation Q4-6H PRN 08/24/23 aerosol inhaler shortness of breath or wheezing #8.5 grams lisinopril 40 mg tablet 40 mg PO DAILY 90 days #90 tabs 02/07/24 citalopram 20 mg tablet 20 mg PO DAILY 30 days #30 tabs 02/08/24 clonidine HCl 0.1 mg tablet 0.1 mg PO TID 30 days #90 tabs 02/11/24 magnesium oxide 200 mg PO DAILY #10 tabs 02/12/24 nabumetone 750 mg tablet 750 mg PO BID PRN pain 10 days #20 02/17/24 tabs Allergies Allergy/AdvReac Type Severity Reaction Status Date / Time No Known Allergies Allergy Verified 02/19/24 19:04 Review of Systems Review of Systems: Positive pain to the right shoulder area. Yes all other systems are reviewed and are negative PMFSH Past Medical History Attestation statement: The following information was validated with the patient. Medical History Chronic bronchitis Bronchiectasis Depression Emphysema of lung Surgical History History of ear surgery Family History Family History Mother No problems noted. Father Emphysema lung Family/Other Mental health disorder Substance use disorder Social History Social History Housing: Apartment Alcohol intake: current Alcohol intake frequency: 3 or more drinks per day Alcohol type: beer Patient Tobacco Use Status: Former Tobacco user Tobacco use type: Cigarette e-Cigarette/Vaping Use: Never Used Second Hand Smoke Exposure: No Advance Directives: Yes Advance Directives Information Provided: No Advance Directives on File: No Do you have a plan to hurt others: No Plan service: No Current occupational status: employed Current occupational exposures/hazards: No Cognitive needs: No Hearing needs: No Vision needs: Yes Physical Exam Vital Signs: Vital Signs: Last Vital Signs Temp 98 F 02/19/24 19:01 Pulse 59 02/19/24 19:01 Resp 19 02/19/24 19:01 BP 123/66 02/19/24 19:01 Pulse Ox 99 02/19/24 19:01 O2 Del Method Room Air 02/19/24 19:01 BMI result Body Mass Index 23.3 Appearance: Alert. Oriented X3. No acute distress. Eyes: Pupils equal, round and reactive to light. ENT: Pharynx normal. Neck: Normal inspection. No gross step-off noted. No crepitus notedNo lymph nodes noted. no tenderness on palpation patient refused collar CVS: Normal heart rate and rhythm. Pulses normal. Normal S1 and S2 Respiratory: No respiratory distress. Breath sounds normal. No Wheezing. No rales Abdomen: Soft and nontender. No rigidity. No distention. good BS x4 Skin: Skin warm and dry. Normal skin color. Normal skin turgor. Extremities: No lower extremity edema. examination of the right shoulder showed pain on movement of the shoulder. No gross deformities noted. There is good movement of the elbow. There is good movement of the wrist. There is no anatomical snuffbox tenderness. Movement of the hand was intact. Opposition of the thumb was intact. Skin intact. Capillary refill less than 2 seconds. Sensation over the axillary median ulnar nerve intact. Neuro: Oriented X 3. No motor deficit. No sensory deficit. Moving all extermities. No slurred speech Procedures Orthopedic Splinting/Casting Coarctation splint: Side: right Upper Extremity Injury Location: shoulder Upper Extremity Immobilizer: sugar tong splint Additional Comments: coarctation splint applied to the right shoulder. Patient was then placed in a shoulder immobilizer Medical Decision Making Medical Decision Making [facility] Narrative: Labs and x-ray ordered. Falls more likely mechanical nevertheless an EKG was ordered. my interpretation of patient's shoulder x-ray showed a humeral head fracture at the surgical neck. A image of the x-ray was related to orthopedics. [place] comfortable with coarctation splint and close follow-up on an outpatient basis. Patient is 68 years old long history of ETOH. Frequent falls. CT scan of the head is still pending. My interpretation of the elbow x-ray was grossly negative for any acute fracture. currently CT scan of the head is still pending. Patient's labs showed alcohol 72. Patient's electrolytes are otherwise unremarkable. In stable condition. 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 02/19/24 21:06 02/19/24 21:06 Labs: Lab Results 02/19/24 Range/Units 21:06 WBC 6.4 (4.8-10.8) X10*3/uL RBC 2.98 L (4.20-5.50) X10*6/uL Hgb 10.5 L (12.0-16.0) g/dl Hct 30.2 L (37.0-47.0) % MCV 101.3 H (80.0-98.0) fL MCH 35.2 H (27.0-33.0) pg MCHC 34.8 (31.0-35.0) g/dl RDW 13.4 (11.0-16.0) % Plt Count 196 (160-400) X10*3/uL MPV 9.3 L (9.4-12.3) fL Immature Gran % (Auto) 0.3 (0.0-0.4) % Neut % (Auto) 67.4 (45-73) % Lymph % (Auto) 20.4 (20-40) % Hughes % (Auto) 8.3 (2-11) % Eos % (Auto) 3.0 (0-4) % Baso % (Auto) 0.6 (0-2) % Lymph # (Auto) 1.3 (1.2-4.9) X10*3/uL Hughes # (Auto) 0.5 (0.1-1.2) X10*3/uL Eos # (Auto) 0.2 (0.0-0.4) X10*3/uL Baso # (Auto) 0.0 (0.0-0.2) X10*3/uL Abs Immat Gran (auto) 0.02 (0.00-0.03) X10*3/uL Absolute Neuts (auto) 4.3 (2.0-8.3) x10*3/uL Absolute Nucleated RBC 0.000 (0.0-0.012) X10*3/uL Nucleated RBC % (auto) 0.0 (0.0-0.2) /100WBC Sodium 134 L (135-145) mmol/L Potassium 4.4 (3.3-5.1) mmol/L Chloride 103 (96-108) mmol/L Carbon Dioxide 24 (22-29) mmol/L Anion Gap 11 L (12-20) BUN 29 H (9-16) mg/dL Creatinine 1.03 (0.5-1.4) mg/dL Estim Creat Clear Calc 45.7 Estimated GFR 53 Random Glucose 105 (60-115) mg/dL Calcium 9.2 D (8.4-10.2) mg/dL Total Bilirubin 0.3 (0.0-1.0) mg/dL Direct Bilirubin 0.1 (0.0-0.5) mg/dL AST 24 (5-31) U/L ALT 15 (0-31) U/L Alkaline Phosphatase 52 (39-117) U/L Total Protein 7.4 (6.5-8.0) g/dL Albumin 4.3 (3.5-5.0) g/dL Ethyl Alcohol 72 mg/dL Independent Interpretation I performed an independent interpretation of an: EKG ( My interpretation patient's EKG showed a sinus rhythm heart rate is 60 HI QRS QTC normal no acute ST segment elevation.) and Plain X-Ray ( My interpretation patient's shoulder x-ray showed a surgical neck humeral fracture, badly displaced) Discharge Plan Discharge Clinical Impression: Fall Patient Disposition: Still a Patient Prescriptions: No Action lorazepam 0.5 mg tablet 0.5 mg PO DAILY PRN (Reason: anxiety) 30 Days Qty: 30 0RF albuterol sulfate [Ventolin HFA] 90 mcg/actuation HFA aerosol inhaler 2 puff inhalation QID PRN (Reason: shortness of breath or wheezing) 30 Days Qty: 18 11RF budesonide-formoterol [Symbicort] 160-4.5 mcg/actuation HFA aerosol inhaler 2 puff inhalation BID 30 Days Qty: 10.2 11RF albuterol sulfate 90 mcg/actuation HFA aerosol inhaler 2 inh inhalation Q4-6H PRN (Reason: shortness of breath or wheezing) Qty: 8.5 3RF lisinopril 40 mg tablet 40 mg PO DAILY 90 Days Qty: 90 1RF citalopram 20 mg tablet 20 mg PO DAILY 30 Days Qty: 30 0RF clonidine HCl 0.1 mg tablet 0.1 mg PO TID 30 Days Qty: 90 2RF nabumetone 750 mg tablet 750 mg PO BID PRN (Reason: pain) 10 Days Qty: 20 0RF magnesium oxide 200 mg magnesium tablet 200 mg PO DAILY Qty: 10 0RF fluticasone propionate 50 mcg/actuation spray,suspension 1 spray intranasal BID Qty: 48 3RF Print Language: Mongolian
--- NOTE | 2024-02-19 20:38 | PC.NURSE ---
Patient away for imaging. Will perform EKG & labs upon return to ED bed 12. aware.
[2024-02-19 21:11] LABS: MANUAL DIFF FLAG NO
[2024-02-19 21:12] LABS: Basophils Percent Auto 0.6 % (0-2); Eosinophils Absolute Auto 0.2 X10*3/uL (0.0-0.4); Hematocrit 30.2 % (37.0-47.0); Hemoglobin 10.5 g/dl (12.0-16.0); Imm Gran Abs Auto 0.02 X10*3/uL (0.00-0.03); Imm Gran Pct Auto 0.3 % (0.0-0.4); Lymphocytes Absolute Auto 1.3 X10*3/uL (1.2-4.9); Lymphocytes Percent Auto 20.4 % (20-40); Mean Corpuscular HGB Conc 34.8 g/dl (31.0-35.0); Mean Corpuscular Hemoglobin 35.2 pg (27.0-33.0); Mean Corpuscular Volume 101.3 fL (80.0-98.0); Mean Platelet Volume 9.3 fL (9.4-12.3); Monocytes Absolute Auto 0.5 X10*3/uL (0.1-1.2); Monocytes Percent Auto 8.3 % (2-11); Neutrophils Absolute Auto 4.3 x10*3/uL (2.0-8.3); Neutrophils Percent Auto 67.4 % (45-73); Platelet Count 196 X10*3/uL (160-400); Red Blood Count 2.98 X10*6/uL (4.20-5.50); Red Cell Distribution Width 13.4 % (11.0-16.0); White Blood Count 6.4 X10*3/uL (4.8-10.8)
[2024-02-19 21:25] LABS: Alanine Aminotransferase 15 U/L (0-31); Albumin Level 4.3 g/dL (3.5-5.0); Alkaline Phosphatase 52 U/L (39-117); Anion Gap 11 (12-20); Aspartate Amino Transferase 24 U/L (5-31); Bilirubin Direct 0.1 mg/dL (0.0-0.5); Bilirubin Total 0.3 mg/dL (0.0-1.0); Blood Urea Nitrogen 29 mg/dL (9-16); Calcium 9.2 mg/dL (8.4-10.2); Carbon Dioxide 24 mmol/L (22-29); Chloride 103 mmol/L (96-108); Creatinine Clr Calc Pharmacy 45.7; Estimated Glomerular Filt Rate 53; Ethanol 72 mg/dL; Glucose Random 105 mg/dL (60-115); Potassium 4.4 mmol/L (3.3-5.1); Sodium 134 mmol/L (135-145); Total Protein 7.4 g/dL (6.5-8.0)
--- NOTE | 2024-02-19 21:45 | PC.NURSE ---
Coarcation splint applied by to right upper arm/shoulder. Plan for PT/Case Management. Patient lives alone at home, daughter (June) was on the phone speaking with the patient upon entering the room. Patient tolerated the procedure well, but requesting pain medication, able to breathe through splint application. Shoulder immobilizer sling also applied to right shoulder/arm.
[2024-02-19 22:06] VITALS: RESP 18
[2024-02-19] MEDS: HYDROmorphone HCl 0.5 MG/0.5 ML SYRINGE IVPUSH (22:06)
[2024-02-19 22:16] VITALS: BP 116/55; PULSE 62; RESP 12; TEMP 36.8; O2SAT 96
--- NOTE | 2024-02-19 22:46 | MHC.CM.ED ---
CM met with patient at the request of Dr. Juarez. A&Ox4. Lives alone. Drives. No DME or home services. Works at [employer]. Pt admits to daily drinking after work. Denies that drinking had any thing to do with her fall. R Humeral head FX. Pt states neighbor in duplex heard her fall and found her on the floor. Pt is splinted and will f/u with ortho as an outpatient. PT is pending. CM spoke with patient about a life alert. 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 Pt denies any concerns with ETOH withdrawal. 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 Provider aware and ordered addiction medicine referral. Pt is concerned that people at work will think she fell because she drinks. Pt asked CM to speak with her daughter. Daughter aware of patient being in the ED and of her diagnosis. Daughter brought up patients daily drinking. Has concerns regarding her mother being alone with the humeral head FX. Pt has medicare and medicaid. Will need referrals for STR vs skilled nursing care. Will make local referrals. CM will follow for safe discharge plan.
[2024-02-19 23:46] VITALS: BP 103/52; PULSE 55; RESP 20; TEMP 36.6; TEMP 36.7; O2SAT 97
[2024-02-19] MEDS: Morphine Sulfate 4 MG/ML CARTRIDGE IVPUSH (23:46)
[2024-02-19] MEDS: ondansetron HCL 4 MG/2 ML VIAL IVPUSH (23:46)
[2024-02-20] VITALS (11 sets, daily range): BP systolic 102–137; BP diastolic 50–69; PULSE 61–79; RESP 14–20; TEMP 36.6–37.3; O2SAT 95–98
[2024-02-20] LABS: Appearance Urine Clear; Color Urine Yellow; Glucose Urine UA Negative (Negative); Leukocyte Esterase Urine Small (1+) (Negative); Nitrite Urine Negative (Negative); PH 5.5 (5.0-9.0); UMIC TRIGGER UACC YES; Urine Blood Negative (Negative); Urine Ketones Negative (Negative); Urine Protein Trace mg/dL (Neg-Trace)
[2024-02-20 00:09] LABS: Bacteria Urine None Seen (None Seen); RBC Urine 0-2 /HPF (0-2); UACC Culture Trigger YES; WBC Urine 0-5 /HPF (0-5)
[2024-02-20 00:14] LABS: Amphetamine Screen Urine Not Detected (Not Detect); Barbiturates, Urine Not Detected (Not Detect); Benzodiazepines Screen Urine Not Detected (Not Detect); Buprenorphine Scr Not Detected (Not Detect); Cannabinoid Screen Urine POSITIVE (Not Detect); Cocaine Screen Urine Not Detected (Not Detect); Fentanyl, urine Not Detected (Not Detect); Methadone Screen, Urine Not Detected (Not Detect); Opiate Screen Urine Not Detected (Not Detect); Oxycodone Screen Urine Not Detected (Not Detect); Phencyclidine Screen Urine Not Detected (Not Detect)
[2024-02-20] MEDS: oxyCODONE HCl Immed Release 5 MG TABLET PO ×3 (03:01→17:46)
[2024-02-20] MEDS: LORazepam 1 MG TABLET 2 MG PO (03:01)
--- NOTE | 2024-02-20 07:06 | PC.NURSE ---
Patient is sleeping after being awake but resting throughout this RN's shift. Pt has been calm/cooperative. PT/Case Management. Plan to meet with respiratory care specialist, addiction services for daily alcohol use (usually beer & tequila nips), PT, and case management to determine next steps in plan of care. Has been medicated throughout the night for pain. Medication reconciliation completed earlier this shift and Dr. Sutherland was notified. RN to RN report given to Victoria Lynch RN.
--- NOTE | 2024-02-20 07:27 | PC.NURSE ---
Resumed care of patient at 0700, pt is currently working with PT at bedside. Awaiting dispo plan at this time
[2024-02-20 08:06] LABS: COVID-19 Test Negative (Negative); IDNOW Serial# 58CA691E
--- NOTE | 2024-02-20 08:17 | PHA.MEDREC ---
Addendum entered by Ariadna Alvarado [facility] 02/20/24 09:00: spoke to patient and she was unsure of the med nabumetone and stated she is not taking it. Original Note: Pharmacy Consult ? Medication Reconciliation Pharmacy has reviewed the medication reconciliation completed by nursing, all claims match.
[2024-02-20] MEDS: Escitalopram Oxalate 10 MG TABLET PO (09:34)
[2024-02-20] MEDS: Magnesium Oxide 400 MG TABLET 200 MG PO (09:34)
--- NOTE | 2024-02-20 09:37 | PC.NURSE ---
BP running on the softer side, provider made aware, BP medications held at this time
--- NOTE | 2024-02-20 11:33 | PC.NURSE ---
patient states pain is 8/10, given prn per MAR, only prn pain med ordered
--- NOTE | 2024-02-20 12:59 | MHC.CM.ED ---
Patient remains in ER. Physical therapy eval completed. Rehab is recommended. Patient has not bee inpatient in any facility in the past 30 days. Referral will be made to all 3 acute rehab facilities. Received telephone call from patient's daughter, June, requesting an update. T/W explained patient was waiting for consult with addiction medicine d/t ETOH. June verifies patient has been drinking 1 beer and 2 couple of glasses of whiskey or scotch a day. June also verifies patient has never experienced ETOH w/d seizures. Continue to monitor for d/c needs.
--- NOTE | 2024-02-20 14:29 | MHC.CM.ED ---
Addendum entered by Linda Diaz 02/20/24 14:50: Spoke with Ortho office about follow up appointment. Office will return CM's call with appointment date and time. Original Note: [facility] is able to offer a bed. Patient can leave at 530pm. Yusuf MEANS booked. Med [facility] with chart. Patient, Victoria VALLES and Shima PIERRE aware. Attempted to notify patient's daughter, June, via telephone at [phone]. Left message requesting return telephone call. Requested HCP from [facility]. Continue to monitor for d/c needs.
[2024-02-20] MEDS: cloNIDine HCL 0.1 MG TABLET PO (15:12)
--- NOTE | 2024-02-20 18:24 | PC.NURSE ---
report given to Rebecca [facility]
== END 2024-02-20 19:27 | disposition skilled nursing facility (03) ==
PROVIDERS: Internal Medicine; Emergency Provider Emergency Medicine Emergency Medical Services; PCP Internal Medicine
DX: S42.211A Unspecified displaced fracture of surgical neck of right humerus, initial encounter for closed fracture (principal); F10.129 Alcohol abuse with intoxication, unspecified; Y90.3 Blood alcohol level of 60-79 mg/100 ml; R26.2 Difficulty in walking, not elsewhere classified; R51.9 Headache, unspecified; M79.601 Pain in right arm; M54.2 Cervicalgia; W19.XXXA Unspecified fall, initial encounter; Y93.89 Activity, other specified; Y92.89 Other specified places as the place of occurrence of the external cause; Y99.8 Other external cause status; Z79.899 Other long term (current) drug therapy; Z11.52 Encounter for screening for COVID-19; Z87.891 Personal history of nicotine dependence; Z51.81 Encounter for therapeutic drug level monitoring
CPT/HCPCS: 29105; 36415; 70450; 71045; 72125; 73030; 73070; 80048; 80076; 80307; 81001; 81003; 85025; 87086; 87635; 93005; 96374; 96375; 97162; 99285; J1171; J2270; J2405; S9485

== ENCOUNTER → 2024-02-19 20:13 | Outpatient (BNV) | payer MEDICARE, MEDICAID, SELFPAY | PROVIDERS: Emergency Provider Emergency Medicine Emergency Medical Services; PCP Internal Medicine; Visit Provider Internal Medicine | DX: R07.9 Chest pain, unspecified (principal) | CPT/HCPCS: 93010 ==

== ENCOUNTER 2024-03-06 09:02 | Outpatient (AMB) | payer MEDICARE, MEDICAID, SELFPAY ==
--- NOTE | 2024-03-06 09:17 | A.OFFPC_ITS ---
Vital Signs 03/06/24 09:18 Height 5 ft 5 in Weight 134 lb 8 oz BMI 22.4 BP 140/80 H Blood Pressure Location Lt brachial Position Sitting Pulse 82 Pulse Source Pulse Oximeter Pulse Oximetry (%) 97 Oxygen Delivery Method Room Air Intake Visit Reasons: [facility] rehab 02/19 fall Intake Note: Patient is here for hospital discharge follow up. Patient was discharged from [facility] on 03/01/24. 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: Present Accompanied by: Son Allergies No Known Allergies Allergy (Verified 03/06/24 09:18) Tobacco use date assessed: 03/06/24 Fall risk assessment: 1 Fall in past year (02/20/24) Last assessed Fall Risk: 03/06/24 Dental Screening Dental Screen Date: 03/06/24 Did you have a dental visit in the last 12 months?: Yes Did you have a dental problem in the last 6 months where you did not have access to dental care?: No Was dental information given to patient?: Patient has dentist HPI [facility] rehab 02/19 fall HPI Details Presents to the office for a follow up after a recent stint at the surgical rehab facility. [facility] Medical History (Updated 03/06/24 @ 09:59 by Martinez Anguiano MD) Fracture of surgical neck of right humerus Chronic bronchitis Bronchiectasis Depression Emphysema of lung Surgical History History of ear surgery Family History Mother No problems noted. Father Emphysema lung Family/Other Mental health disorder Substance use disorder Social History Housing: Apartment Alcohol intake: current Alcohol intake frequency: 3 or more drinks per day Alcohol type: beer and hard liquor Patient Tobacco Use Status: Former Tobacco user Tobacco use type: Cigarette e-Cigarette/Vaping Use: Never Used Second Hand Smoke Exposure: Yes service: No Current occupational status: employed Current occupational exposures/hazards: No Cognitive needs: No Hearing needs: No Vision needs: Yes (Glasses) Questionnaire PHQ-9 Over the last 2 weeks, how often have you been bothered by any of the following problems? 1. Little interest or pleasure in doing things: not at all 2. Feeling down, depressed, or hopeless: not at all 3. Trouble falling or staying asleep, or sleeping too much: not at all 4. Feeling tired or having little energy: not at all 5. Poor appetite or overeating: not at all 6. Feeling bad about yourself - or that you are a failure or have let yourself or your family down: not at all 7. Trouble concentrating on things, such as reading the newspaper or watching television: not at all 8. Moving or speaking so slowly that other people could have noticed. Or the opposite - being so fidgety or restless that you have been moving around a lot more than usual: not at all 9. Thoughts that you would be better off or of hurting yourself in some way: not at all Total score: 0 Depression Screening Interpretation: Negative Depression Screening Done: Yes Source: Developed by Drs. Justen Katz, Elba Benavides, Rafa Walter and colleagues, with an educational dionte from [employer]. Thrive Questionnaire Date Thrive assessed: 03/06/24 I am a: Patient What is your living situation today?: I have a steady place to live Within the past 12 months, did the food you bought not last and you didn't have the money to get more?: Never true Within the past 12 months, did you worry whether your food would run out before you got money to buy more?: Never true Do you have trouble paying for medicines?: No Do you have trouble getting transportation to medical appointments?: No Do you have trouble paying your heating and electricity bill?: No Do you have trouble taking care of your child, family member or friend?: No Do you have trouble with day-to-day activities such as bathing, preparing meals, shopping, managing finances, etc.?: No Are you currently unemployed and looking for a job?: No Are you interested in more education?: No Please select the resources that you would like help with: None Currently or been in a relationship where the following occur: No concerns reported THRIVE Score: 0 AUDIT C Alcohol Use Questionnaire (AUDIT-C) 1. How often do you have a drink containing alcohol?: 4 or more times a week 2. How many drinks containing alcohol do you have on a typical day when you are drinking?: 1 or 2 3. How often do you have six or more drinks on one occasion?: Never Total Score: 4 MADINA-7 AMB Questionnaire MADINA-7 Date MADINA - 7 assessed: 03/06/24 Feeling nervous, anxious, or on edge: 0 = Not at all Not being able to stop or control worryin = Not at all Worrying too much about different things: 0 = Not at all Trouble relaxin = Not at all Being so restless that it is hard to sit still: 0 = Not at all Becoming easily annoyed or irritable: 0 = Not at all Feeling afraid as if something awful might happen: 0 = Not at all Total MADINA-7 score (0-4 normal; 5-9 mild; 10-14 moderate; 15-21 severe): 0 Source: Developed by Drs. Justen Katz, Elba Benavides, Rafa Walter and colleagues, with an educational dionte from [employer]. Physical exam (Primary Care) Vital Signs: Last Vital Signs Pulse 82 03/06/24 09:18 BP 140/80 H 03/06/24 09:18 Pulse Ox 97 03/06/24 09:18 Oxygen Delivery Method Room Air 03/06/24 09:18 BMI result Body Mass Index 22.4 Tobacco/Smoking Status: Tobacco use Status Tobacco use date assessed 03/06/24 03/06/24 09:26 Patient Tobacco Use Status Former Tobacco user 03/06/24 09:18 Tobacco use type Cigarette 03/06/24 09:18 e-Cigarette/Vaping Use Never Used 03/06/24 09:18 PHQ-9: PHQ-9 Score PHQ-9: Total score 0 03/06/24 09:18 Depression Screening Interpretation: Negative Thrive Assessment: Date of Thrive Assessment Date Thrive assessed 03/06/24 03/06/24 09:18 Currently or been in a relationship where the following occur: No concerns reported Coding Level of Care Code Est Pt Level 4 (89266) Complex EM visit Add On G2211 Diagnoses Fracture of surgical neck of right humerus S42.211A Assessment & Plan Assessment & Plan (1) Fracture of surgical neck of right humerus: Code(s): S42.211A - Unspecified displaced fracture of surgical neck of right humerus, in itial encounter for closed fracture Category: Medical Plan: X rays from the hospital reviewed. Has an ortho appt for 03/07/2024. Tramadol refilled. 25 mg twice a day and 50 mg at night. Hurry Cane ordered. PERSONAL LINES SALES EXECUTIVE services requested. Plan History of Present Illness The patient is a 68-year-old female presenting with a right humeral fracture. The injury occurred after a fall on either February 18 or , necessitating an emergency room visit. The initial fracture diagnosis was made at [facility] with an x-ray, although she hasn't undergone surgery yet. She stayed in a rehabilitation facility until last Sunday, and her first appointment with an orthopedic surgeon is scheduled for tomorrow. She currently manages pain with Tramadol, taking 25 mg three times daily by splitting the prescribed dosage in half. She reports difficulty with certain activities due to discomfort and mobility limitations, especially when lifting objects. Pain persists, especially at night, prompting the use of ears-feb-rzvzdip medications like Tylenol for additional relief. The patient requires assistance with some activities of daily living, which her son provides. There have been no surgical interventions to date, and she has yet to consult a specialist, but plans are in place to address this. Social History - Housing: Resides alone; son has been staying with her but now visits twice daily. 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 - Support: Son provides significant help, including medication management and dietary supervision. - Previous Employment: Had a part-time job, uncertain about return to work. Review of Systems - Musculoskeletal: Reports difficulty with certain movements affecting the right shoulder due to pain. - Neurological: Denies any significant sleep disturbances aside from waking at night due to pain. - General: Reports manageable pain levels with current medication routine but required Tramadol. Physical Exam General: Appearance normal, both eyes and all related structures Nutritional Appearance: Well nourished Orientation/consciousness: Patient oriented x3 Limitations: Patient has limitations due to shoulder injury Head: Normal to inspection Neck: Normal visual inspection Chest: Normal palpation of entire chest wall Respiratory: Normal respiratory effort Neurology: Patient oriented x3 Right Shoulder/arm : In a cast. Results - Radiology: X-ray of the shoulder conducted at [facility] post-injury. Plan - Continue current Tramadol regimen of 25 mg twice and 50 mg at night daily , with plans to reassess the dosage following an orthopedic consult. - Discuss the appointment with an orthopedic surgeon for further management and potential surgical intervention. - Reinforce current home assistance arrangements and eligibility for PERSONAL LINES SALES EXECUTIVE services. - Evaluate the use of a cane; consider a specific brand Hurricane ) suggested by the patient for stability assistance while ambulating. - Address further assistance for applying for a temporary handicap placard to facilitate mobility. Patient was informed and verbally consented to the use of an ambient scribe for clinic note documentation during this visit. Discussion Notes I informed the patient and her son about the current approach to managing her shoulder fracture, emphasizing the importance of the upcoming orthopedic evaluation to decide on surgical interventions if necessary. We reviewed her current pain management strategy, particularly the use of Tramadol, and addressed any concerns regarding her medication adjustments. The complexities of obtaining a handicap placard and the process for applying for PERSONAL LINES SALES EXECUTIVE services to compensate her son for caregiving were discussed. We explored ways to ensure her mobility and safety at home, including the plan to order a cane should it be deemed necessary. We also discussed the impact of these challenges on her potential return to work and the need for ongoing supportive family involvement. Patient Instructions - Attend the orthopedic appointment as scheduled. - Continue taking Tramadol as prescribed. - Utilize available home support and further explore PERSONAL LINES SALES EXECUTIVE services. - Proceed with applications for PERSONAL LINES SALES EXECUTIVE services and handicap placard as instructed. - Follow up on the acquisition of a suitable cane to aid with stability. - Monitor pain levels and seek advice if the current medication regimen becomes insufficient. - Contact the healthcare team if there are any changes in her condition or concerns arise. Medications: New tramadol 50 mg PO Q8H PRN 21 tabs 0RF pain
[2024-03-06 09:18] VITALS: BP 140/80; PULSE 82; O2SAT 97; BMI 22.4
== END 2024-03-06 10:04 | disposition home or self-care (01) ==
PROVIDERS: PCP Internal Medicine; Visit Provider Internal Medicine
DX: S42.211A Unspecified displaced fracture of surgical neck of right humerus, initial encounter for closed fracture (principal)

== ENCOUNTER → 2024-03-06 09:02 | Outpatient (BNVA) | payer MEDICARE, MEDICAID, SELFPAY | PROVIDERS: PCP Internal Medicine; Visit Provider Internal Medicine | DX: S42.211D Unspecified displaced fracture of surgical neck of right humerus, subsequent encounter for fracture with routine healing (principal); Z91.81 History of falling | CPT/HCPCS: 96127; 99212 ==

== ENCOUNTER 2024-03-07 08:16 | Outpatient (AMB) | payer MEDICARE, MEDICAID, SELFPAY ==
--- NOTE | 2024-03-07 08:17 | MHC.OFFVIS ---
Vital Signs 03/07/24 08:18 Height 5 ft 5 in Weight 134 lb BMI 22.3 Intake Visit Reasons: FC-ER f/u RT shoulder Proximal Humerus fx Intake Note: Monique a 68 year old left hand dominant female who presents today for an ER follow up of right shoulder humerus fx, DOI 02/19/24. Patient reports having a fall landing on her right shoulder. She presented to [facility] ER where x-rays were taken and was placed in a sling. Currently she has intermittent spasms however they have gotten better. States felling pressure with leaning forward. Finds relief with Tylenol and tramadol. Allergies No Known Allergies Allergy (Verified 03/07/24 08:39) Medication List - Last Reconciled 03/07/24 by Kalyn Barraza PA-C acetaminophen 975 mg (3 x 325 mg) PO Q8H PRN albuterol sulfate 90 mcg/actuation 2 puffs inhalation QID PRN budesonide-formoterol 160-4.5 mcg/actuation inhalation calcium carbonate-vit D3-min 600 mg-10 mcg (400 unit) 1 tab PO BID citalopram 20 mg PO DAILY 30 days clonidine HCl 0.1 mg PO TID 30 days fluticasone propionate 50 mcg/actuation 1 spray intranasal BID folic acid 1 mg PO DAILY magnesium oxide 200 mg PO DAILY multivitamin with minerals 1 tab PO DAILY tramadol 50 mg PO Q8H PRN HPI HPI FC-ER f/u RT shoulder Proximal Humerus fx: Details: 68-year-old female presents to the office today for an injury she sustained to the right shoulder on 02/18. She was seen in the emergency department after a fall where she was also found to have alcohol level of 72. X-rays were obtained in the emergency department which revealed a displaced proximal humerus fracture. She was placed in a sling and referred to our office for ortho eval. [facility] Medical History (Updated 03/06/24 @ 09:59 by Martinez Anguiano MD) Fracture of surgical neck of right humerus Chronic bronchitis Bronchiectasis Depression Emphysema of lung Surgical History History of ear surgery Family History Mother No problems noted. Father Emphysema lung Family/Other Mental health disorder Substance use disorder Social History (Updated 03/07/24 @ 08:46 by PAULY Rivero) Housing: Apartment Alcohol intake: current Alcohol intake frequency: 3 or more drinks per day Alcohol type: beer and hard liquor Patient Tobacco Use Status: Former Tobacco user Tobacco use type: Cigarette e-Cigarette/Vaping Use: Never Used Second Hand Smoke Exposure: Yes service: No Current occupational status: employed Current occupation: left hand dominant Current occupational exposures/hazards: No Cognitive needs: No Hearing needs: No Vision needs: Yes (Glasses) Review of Systems Const All systems reviewed & are unremarkable except as noted in HPI and below Physical Exam Vital Signs: BMI result Body Mass Index 22.3 Const General: cooperative and no acute distress Orientation/consciousness: patient oriented x3 Resp Effort & Inspection: normal respiratory effort and able to speak in complete sentences Cardio Peripheral pulses: Peripheral pulses 2+ throughout Neuro General: patient oriented x3 Extrem Other: Right shoulder 2. Inspection. She has some old bruising over the proximal humerus and into the elbow. Mild tenderness over the proximal humerus. No tenderness over the elbow. She is able to initiate passive and active assisted range of motion of the right elbow. Range of motion of the wrist and digits intact. Neurovascularly intact. Office Procedures AMB Fracture Care Fracture Billing Code: Fracture Billing Code Results Reviewed Results Reviewed: X-rays of the right shoulder obtained in the office today and reviewed by me show a displaced proximal humerus fracture with minimal reduction compared to previous films. Assessment & Plan Assessment & Plan (1) Fracture of surgical neck of right humerus: Code(s): S42.211A - Unspecified displaced fracture of surgical neck of right humerus, initial encounter for closed fracture Category: Medical Plan: I discussed with the patient and her daughter in the office today the extent of her injury and options available which is continued conservative management. She was fit for a sling in the emergency department however this sling is causing her some irritation and worsening pain. She was fit for an UltraSling in the office today but she does not need to use the bump. She will use the sling when she is out in public and sleeping if needed. She can come out of the sling on a daily basis to let her arm hang and dangle. Perform [id number] exercises which were demonstrated in the office today. I did put in a referral for physical therapy to work on passive and active assisted range of motion progressing to active range of motion. Periscapular stabilization. No rotator cuff strengthening until approximately 8-12 weeks post injury. She will remain out of work until her next appointment with me in 6 weeks with x-rays sooner if needed. Orders: Orders XR shoulder RT min 2V Today M25.511 - Pain in right shoulder Coding Level of Care Code New Pt Level 3 (68206) Complex EM visit Add On G2211 Diagnoses Fracture of surgical neck of right humerus S42.211A CPT Codes Fracture Care - Fracture Billing Code: Fracture Billing Code ([id number])
[2024-03-07 08:18] VITALS: BMI 22.3
== END 2024-03-07 09:15 | disposition home or self-care (01) ==
PROVIDERS: PCP Internal Medicine; Visit Provider Physician Assistant
DX: S42.211A Unspecified displaced fracture of surgical neck of right humerus, initial encounter for closed fracture (principal)
CPT/HCPCS: 99203; G2211

== ENCOUNTER 2024-03-07 08:31 | Outpatient (REF) | payer MEDICARE, MEDICAID, SELFPAY ==
--- NOTE | ~2024-03-07 | XR_ITS ---
EXAMINATION: XR SHOULDER 2 OR MORE VIEWS RIGHT HISTORY: M25.511 - Pain in right shoulder COMPARISON: Comparison is made with the prior examination dated 02/19/2024. FINDINGS: Two views of the right shoulder are submitted. Osseous mineralization is normal. Again seen is a comminuted fracture of the humeral head and neck with rotation of the humeral head the prior study. Again seen is medial displacement of the humeral shaft. There is narrowing of the AC joint. The soft tissues are unremarkable. XR/XR shoulder RT min 2V IMPRESSION: Comminuted fracture of the humeral head and neck with interval rotation of the humeral head. Electronically signed by: Justen Pinto MD 03/14/2024 10:53 AM JURGEN
== END 2024-03-07 08:32 | disposition home or self-care (01) ==
LOC: HO.HOSX 08:31
PROVIDERS: Visit Provider Physician Assistant
DX: M25.511 Pain in right shoulder (principal); S42.211A Unspecified displaced fracture of surgical neck of right humerus, initial encounter for closed fracture
CPT/HCPCS: 73030; 99202

== ENCOUNTER 2024-04-14 12:00 | Outpatient (REF) | payer MEDICARE, SELFPAY ==
--- OUTSIDE RECORDS SUMMARY | 2024-04-14 13:13 | XMS_ITS | Encounter Summary ---
Author Organization [facility] Address [address] [place] [address] Care Team Providers Care Twister Tender Paper Name Role Phone Jackeline Saha MD Primary Care Pr ovider Encounter Details Date Type Department Care Team (Late st Contact Info) Description 02/21/2024 Lab Requisition [facility] - Main Lab [address] [facility] [employer] [place] [address] De Snyder MD [address] [place] [address] Encounter for other general examination Social History Tobacco Use Types Packs/Day Years Used Date Smoking Tobacco: Former Cigarettes Q uit: 03/05/2006 Smokeless Tobacco: Never Alcohol Use Standard Drinks/Week Comments Yes 0 (1 standard drink = 0.6 oz pur e alcohol) Comments Unknown Sex and Gender Information Value Date Recorded Sex Assigned at Not on file Legal Sex Female 4:42 AM EST Gender Identity Not on file Sexual Orientation Not on file documented as of this encounter Plan of Treatment Not on file documented as of this encounter Procedures Procedure Name Priority Date/Time Associated Diagnosis Comments CBC WITH AUTO DIFFERENTIAL Routine 02/21/2024 7:10 AM EST Encounter for other general examination CBC AND DIFFERENTIAL Routine 02/21/2024 7:10 AM EST Encounter for other general examination MAGNESIUM Routine 02/21/2024 7:10 AM EST Encounter for other general examination COMPREHENSIVE METABOLIC PANEL Routine 02/21/2024 7:10 AM EST Encounter for other general examination documented in this encounter Results * (ABNORMAL) CBC auto differential (02/21/2024 7:10 AM EST) [facility] WBC 5.8 4.8 - 10.8 K/mcL LAB HEMETOLOGY METHOD 02/21/2024 11:19 AM [facility] RBC 2.80(L) 3.80 - 4.80 M/mcL LAB HEMETOLOGY METHOD 02/21/2024 11:19 AM [facility] Hemoglobin 9.8(L) 11.5 - 16.0 g/dL LAB HEMETOLOGY METHOD 02/21/2024 11:19 AM [facility] Hematocrit 29.7(L) 35.0 - 47.0 % LAB HEMETOLOGY METHOD 02/21/2024 11:19 AM [facility] MCV 105.3(H) 79.0 - 98.0 FL LAB HEMETOLOGY METHOD 02/21/2024 11:19 AM [facility] MCH 34.8(H) 27.0 - 32.0 pcg LAB HEMETOLOGY METHOD 02/21/2024 11:19 AM [facility] MCHC 33.0 32.0 - 37.0 g/dL LAB HEMETOLOGY METHOD 02/21/2024 11:19 AM [facility] RDW 13.4 11.0 - 15.0 % LAB HEMETOLOGY METHOD 02/21/2024 11:19 AM [facility] Platelets 201 130 - 400 K/mcL LAB HEMETOLOGY METHOD 02/21/2024 11:19 AM [facility] MPV 10.3 7.0 - 11.0 FL LAB HEMETOLOGY METHOD 02/21/2024 11:19 AM [facility] NRBC 0.0 <1.0 % LAB HEMETOLOGY METHOD 02/21/2024 11:19 AM [facility] NRBC Absolute 0.00 <0.10 K/mcL LAB HEMETOLOGY METHOD 02/21/2024 11:19 AM [facility] Neutrophils Relative 67.8 % LAB HEMETOLOGY METHOD 02/21/2024 11:19 AM [facility] Lymphocytes Relative 15.7 % LAB HEMETOLOGY METHOD 02/21/2024 11:19 AM [facility] Monocytes Relative 15.7 % LAB HEMETOLOGY METHOD 02/21/2024 11:19 AM [facility] Eosinophils Relative 0.2 % LAB HEMETOLOGY METHOD 02/21/2024 11:19 AM [facility] Basophils Relative 0.3 % LAB HEMETOLOGY METHOD 02/21/2024 11:19 AM [facility] Immature Granulocytes Relative 0.3 % LAB HEMETOLOGY METHOD 02/21/2024 11:19 AM [facility] Neutrophils Absolute 3.90 1.50 - 7.00 K/mcL LAB HEMETOLOGY METHOD 02/21/2024 11:19 AM [facility] Lymphocytes Absolute 0.90(L) 1.00 - 5.00 K/mcL LAB HEMETOLOGY METHOD 02/21/2024 11:19 AM [facility] Monocytes Absolute 0.90 0.20 - 1.00 K/mcL LAB HEMETOLOGY METHOD 02/21/2024 11:19 AM [facility] Eosinophils Absolute 0.01 0.00 - 0.50 K/mcL LAB HEMETOLOGY METHOD 02/21/2024 11:19 AM [facility] Basophils Absolute 0.02 0.00 - 0.20 K/mcL LAB HEMETOLOGY METHOD 02/21/2024 11:19 AM [facility] Immature Granulocytes Absolute 0.02 0.00 - 0.03 K/mcL LAB HEMETOLOGY METHOD 02/21/2024 11:19 AM [facility] Blood Venous blood specimen / Unknown Venipuncture / Unknown 02/21/2024 7:10 AM EST 02/21/2024 10:45 AM EST us De Snyder MD LAB BLOOD ORDERABLES Final Resu lt [facility] [address] [place] [address], [place] [phone] * Magnesium (02/21/2024 7:10 AM EST) Magnesium 1.9 1.9 - 2.6 mg/dL LAB CHEMISTRY METHOD 02/21/2024 11:47 AM EST [facility] Blood Venous blood specimen / Unknown Venipuncture / Unknown 02/21/2024 7:10 AM EST 02/21/2024 10:45 AM EST us De Snyder MD LAB BLOOD ORDERABLES Final Resu lt Performing Organization Address City/[facility]/ZIP Co de Phone Number [facility] [address] [place] [address], [place] [phone] * (ABNORMAL) Comprehensive metabolic panel (02/21/2024 7:10 AM EST) Sodium 133 133 - 145 mmol/L LAB CHEMISTRY METHOD 02/21/2024 11:49 AM EST [facility] Potassium 4.6 3.5 - 5.5 mmol/L LAB CHEMISTRY METHOD 02/21/2024 11:49 AM EST [facility] Chloride 101 96 - 110 mmol/L LAB CHEMISTRY METHOD 02/21/2024 11:49 AM EST [facility] CO2 28 21 - 32 mmol/L LAB CHEMISTRY METHOD 02/21/2024 11:49 AM EST [facility] Anion Gap 4 3 - 11 LAB CHEMISTRY METHOD 02/21/2024 11:49 AM EST [facility] Glucose 113(H) 70 - 100 mg/dL LAB CHEMISTRY METHOD 02/21/2024 11:49 AM [facility] BUN 18 5 - 25 mg/dL LAB CHEMISTRY METHOD 02/21/2024 11:49 AM [facility] Creatinine 0.86 0.50 - 1.10 mg/dL LAB CHEMISTRY METHOD 02/21/2024 11:49 AM [facility] eGFR 73 >=60 mL/min/1. 73m2 LAB CHEMISTRY METHOD 02/21/2024 11:49 AM [facility] Comment:Calculation based on the??Chronic Kidney Disease Epidemiology Collaboration (CKD-EPI) equation refit??without adjustment for race. BUN/Creatinine Ratio 20.9 LAB CHEMISTRY METHOD 02/21/2024 11:49 AM [facility] Calcium 9.3 8.5 - 10.5 mg/dL LAB CHEMISTRY METHOD 02/21/2024 11:49 AM [facility] AST (SGOT) 18 10 - 42 unit/L LAB CHEMISTRY METHOD 02/21/2024 11:49 AM [facility] ALT (SGPT) 14 10 - 60 unit/L LAB CHEMISTRY METHOD 02/21/2024 11:49 AM [facility] Alkaline Phosphatase 55 42 - 121 unit/L LAB CHEMISTRY METHOD 02/21/2024 11:49 AM [facility] Total Protein 7.0 6.0 - 8.0 g/dL LAB CHEMISTRY METHOD 02/21/2024 11:49 AM [facility] Albumin 3.8 3.2 - 5.0 g/dL LAB CHEMISTRY METHOD 02/21/2024 11:49 AM [facility] Total Bilirubin 0.8 0.0 - 1.4 mg/dL LAB CHEMISTRY METHOD 02/21/2024 11:49 AM [facility] Blood Venous blood specimen / Unknown Venipuncture / Unknown 02/21/2024 7:10 AM EST 02/21/2024 10:45 AM EST us De Snyder MD LAB BLOOD ORDERABLES Final Resu lt [facility] [address] [place] [address], documented in this encounter Visit Diagnoses Diagnosis Encounter for other general examination documented in this encounter Care Teams Twister Tender Paper Relationship Specialty Start Date End Date Jackeline Saha MD [address] [place], [place] PCP - General Internal Medicine 09/23/21 documented as of this encounter
--- OUTSIDE RECORDS SUMMARY | 2024-04-14 13:14 | XMS_ITS | Encounter Summary ---
Author Organization [facility] Address [address] [place] [address] Care Team Providers Care Carton Forming Machine Helper Name Role Phone Jackeline Saha MD Primary Care Pr ovider Encounter Details Date Type Department Care Team (Late st Contact Info) Description 02/25/2024 Lab Requisition [facility] - Main Lab [address] [facility] [place] [address] De Snyder MD [address] [place] [address] Encounter for other general examination Social History [...] Diagnosis Comments CBC WITH AUTO DIFFERENTIAL Routine 02/25/2024 5:50 AM EST Encounter for other general examination CBC AND DIFFERENTIAL Routine 02/25/2024 5:50 AM EST Encounter for other general examination COMPREHENSIVE METABOLIC PANEL Routine 02/25/2024 5:50 AM EST Encounter for other general examination documented in this encounter Results * (ABNORMAL) CBC auto differential (02/25/2024 5:50 AM EST) WBC 7.5 4.8 - 10.8 K/mcL LAB HEMETOLOGY METHOD 02/25/2024 11:05 AM [facility] RBC 2.30(L) 3.80 - 4.80 M/mcL LAB HEMETOLOGY METHOD 02/25/2024 11:05 AM [facility] Hemoglobin 8.1(L) 11.5 - 16.0 g/dL LAB HEMETOLOGY METHOD 02/25/2024 11:05 AM [facility] Hematocrit 24.5(L) 35.0 - 47.0 % LAB HEMETOLOGY METHOD 02/25/2024 11:05 AM [facility] MCV 106.1(H) 79.0 - 98.0 FL LAB HEMETOLOGY METHOD 02/25/2024 11:05 AM [facility] MCH 35.1(H) 27.0 - 32.0 pcg LAB HEMETOLOGY METHOD 02/25/2024 11:05 AM [facility] MCHC 33.1 32.0 - 37.0 g/dL LAB HEMETOLOGY METHOD 02/25/2024 11:05 AM [facility] RDW 13.3 11.0 - 15.0 % LAB HEMETOLOGY METHOD 02/25/2024 11:05 AM [facility] Platelets 257 130 - 400 K/mcL LAB HEMETOLOGY METHOD 02/25/2024 11:05 AM [facility] MPV 10.0 7.0 - 11.0 FL LAB HEMETOLOGY METHOD 02/25/2024 11:05 AM [facility] NRBC 0.0 <1.0 % LAB HEMETOLOGY METHOD 02/25/2024 11:05 AM [facility] NRBC Absolute 0.00 <0.10 K/mcL LAB HEMETOLOGY METHOD 02/25/2024 11:05 AM [facility] Neutrophils Relative 70.6 % LAB HEMETOLOGY METHOD 02/25/2024 11:05 AM [facility] Lymphocytes Relative 11.6 % LAB HEMETOLOGY METHOD 02/25/2024 11:05 AM [facility] Monocytes Relative 16.8 % LAB HEMETOLOGY METHOD 02/25/2024 11:05 AM [facility] Eosinophils Relative 0.3 % LAB HEMETOLOGY METHOD 02/25/2024 11:05 AM [facility] Basophils Relative 0.4 % LAB HEMETOLOGY METHOD 02/25/2024 11:05 AM [facility] Immature Granulocytes Relative 0.3 % LAB HEMETOLOGY METHOD 02/25/2024 11:05 AM [facility] Neutrophils Absolute 5.28 1.50 - 7.00 K/mcL LAB HEMETOLOGY METHOD 02/25/2024 11:05 AM [facility] Lymphocytes Absolute 0.87(L) 1.00 - 5.00 K/mcL LAB HEMETOLOGY METHOD 02/25/2024 11:05 AM [facility] Monocytes Absolute 1.26(H) 0.20 - 1.00 K/mcL LAB HEMETOLOGY METHOD 02/25/2024 11:05 AM [facility] Eosinophils Absolute 0.02 0.00 - 0.50 K/mcL LAB HEMETOLOGY METHOD 02/25/2024 11:05 AM [facility] Basophils Absolute 0.03 0.00 - 0.20 K/mcL LAB HEMETOLOGY METHOD 02/25/2024 11:05 AM [facility] Immature Granulocytes Absolute 0.02 0.00 - 0.03 K/mcL LAB HEMETOLOGY METHOD 02/25/2024 11:05 AM [facility] Blood Venous blood specimen / Unknown Venipuncture / Unknown 02/25/2024 5:50 AM EST 02/25/2024 9:25 AM EST us De Snyder MD LAB BLOOD ORDERABLES Final Resu lt [facility] [address] [place] [address], [place] [phone] * (ABNORMAL) Comprehensive metabolic panel (02/25/2024 5:50 AM EST) Sodium 132(L) 133 - 145 mmol/L LAB CHEMISTRY METHOD 02/25/2024 11:27 AM [facility] Potassium 4.4 3.5 - 5.5 mmol/L LAB CHEMISTRY METHOD 02/25/2024 11:27 AM [facility] Chloride 98 96 - 110 mmol/L LAB CHEMISTRY METHOD 02/25/2024 11:27 AM [facility] CO2 27 21 - 32 mmol/L LAB CHEMISTRY METHOD 02/25/2024 11:27 AM EST [facility] Anion Gap 7 3 - 11 LAB CHEMISTRY METHOD 02/25/2024 11:27 AM [facility] Glucose 90 70 - 100 mg/dL LAB CHEMISTRY METHOD 02/25/2024 11:27 AM [facility] BUN 48(H) 5 - 25 mg/dL LAB CHEMISTRY METHOD 02/25/2024 11:27 AM [facility] Creatinine 1.93(H) 0.50 - 1.10 mg/dL LAB CHEMISTRY METHOD 02/25/2024 11:27 AM [facility] eGFR 28(L) >=60 mL/min/1. 73m2 LAB CHEMISTRY METHOD 02/25/2024 11:27 AM [facility] Comment:Calculation based on the??Chronic Kidney Disease Epidemiology Collaboration (CKD-EPI) equation refit??without adjustment for race. BUN/Creatinine Ratio 24.9 LAB CHEMISTRY METHOD 02/25/2024 11:27 AM [facility] Calcium 9.8 8.5 - 10.5 mg/dL LAB CHEMISTRY METHOD 02/25/2024 11:27 AM [facility] AST (SGOT) 25 10 - 42 unit/L LAB CHEMISTRY METHOD 02/25/2024 11:27 AM [facility] ALT (SGPT) 17 10 - 60 unit/L LAB CHEMISTRY METHOD 02/25/2024 11:27 AM [facility] Alkaline Phosphatase 68 42 - 121 unit/L LAB CHEMISTRY METHOD 02/25/2024 11:27 AM [facility] Total Protein 6.3 6.0 - 8.0 g/dL LAB CHEMISTRY METHOD 02/25/2024 11:27 AM [facility] Albumin 3.0(L) 3.2 - 5.0 g/dL LAB CHEMISTRY METHOD 02/25/2024 11:27 AM [facility] Total Bilirubin 0.7 0.0 - 1.4 mg/dL LAB CHEMISTRY METHOD 02/25/2024 11:27 AM [facility] Blood Venous blood specimen / Unknown Venipuncture / Unknown 02/25/2024 5:50 AM EST 02/25/2024 9:25 AM EST us De Snyder MD LAB BLOOD ORDERABLES Final Resu lt [facility] [address] [place] [address], documented in this encounter Visit Diagnoses Diagnosis Encounter for other general examination documented in this encounter Care Teams Carton Forming Machine Helper Relationship Specialty Start Date End Date Jackeline Saha MD [address] [place], [place] PCP - General Internal Medicine 09/23/21 documented as of this encounter
--- OUTSIDE RECORDS SUMMARY | 2024-04-14 13:14 | XMS_ITS | Encounter Summary ---
Author Organization [facility] Address [address] [place] [address] Care Team Providers Care Epic Cupid Analyst Name Role Phone Jackeline Saha MD Primary Care Pr ovider Encounter Details Date Type Department Care Team (Late st Contact Info) Description 02/26/2024 Lab Requisition [facility] - Main Lab [address] [facility] [place] [address] De Snyder MD [address] [place] [address] Encounter for other general examination Social History [...] Diagnosis Comments CBC WITH AUTO DIFFERENTIAL Routine 02/26/2024 5:45 AM EST Encounter for other general examination CBC AND DIFFERENTIAL Routine 02/26/2024 5:45 AM EST Encounter for other general examination BASIC METABOLIC PANEL Routine 02/26/2024 5:45 AM EST Encounter for other general examination documented in this encounter Results * (ABNORMAL) CBC auto differential (02/26/2024 5:45 AM EST) WBC 8.9 4.8 - 10.8 K/mcL LAB HEMETOLOGY METHOD 02/26/2024 11:31 AM [facility] RBC 2.50(L) 3.80 - 4.80 M/mcL LAB HEMETOLOGY METHOD 02/26/2024 11:31 AM [facility] Hemoglobin 8.6(L) 11.5 - 16.0 g/dL LAB HEMETOLOGY METHOD 02/26/2024 11:31 AM [facility] Hematocrit 26.2(L) 35.0 - 47.0 % LAB HEMETOLOGY METHOD 02/26/2024 11:31 AM [facility] MCV 104.4(H) 79.0 - 98.0 FL LAB HEMETOLOGY METHOD 02/26/2024 11:31 AM [facility] MCH 34.3(H) 27.0 - 32.0 pcg LAB HEMETOLOGY METHOD 02/26/2024 11:31 AM [facility] MCHC 32.8 32.0 - 37.0 g/dL LAB HEMETOLOGY METHOD 02/26/2024 11:31 AM [facility] RDW 13.2 11.0 - 15.0 % LAB HEMETOLOGY METHOD 02/26/2024 11:31 AM [facility] Platelets 302 130 - 400 K/mcL LAB HEMETOLOGY METHOD 02/26/2024 11:31 AM [facility] MPV 10.0 7.0 - 11.0 FL LAB HEMETOLOGY METHOD 02/26/2024 11:31 AM [facility] NRBC 0.0 <1.0 % LAB HEMETOLOGY METHOD 02/26/2024 11:31 AM [facility] NRBC Absolute 0.00 <0.10 K/mcL LAB HEMETOLOGY METHOD 02/26/2024 11:31 AM [facility] Neutrophils Relative 77.3 % LAB HEMETOLOGY METHOD 02/26/2024 11:31 AM [facility] Lymphocytes Relative 8.1 % LAB HEMETOLOGY METHOD 02/26/2024 11:31 AM [facility] Monocytes Relative 12.7 % LAB HEMETOLOGY METHOD 02/26/2024 11:31 AM [facility] Eosinophils Relative 1.3 % LAB HEMETOLOGY METHOD 02/26/2024 11:31 AM [facility] Basophils Relative 0.3 % LAB HEMETOLOGY METHOD 02/26/2024 11:31 AM [facility] Immature Granulocytes Relative 0.3 % LAB HEMETOLOGY METHOD 02/26/2024 11:31 AM [facility] Neutrophils Absolute 6.88 1.50 - 7.00 K/mcL LAB HEMETOLOGY METHOD 02/26/2024 11:31 AM [facility] Lymphocytes Absolute 0.72(L) 1.00 - 5.00 K/mcL LAB HEMETOLOGY METHOD 02/26/2024 11:31 AM [facility] Monocytes Absolute 1.13(H) 0.20 - 1.00 K/mcL LAB HEMETOLOGY METHOD 02/26/2024 11:31 AM [facility] Eosinophils Absolute 0.12 0.00 - 0.50 K/mcL LAB HEMETOLOGY METHOD 02/26/2024 11:31 AM [facility] Basophils Absolute 0.03 0.00 - 0.20 K/mcL LAB HEMETOLOGY METHOD 02/26/2024 11:31 AM [facility] Immature Granulocytes Absolute 0.03 0.00 - 0.03 K/mcL LAB HEMETOLOGY METHOD 02/26/2024 11:31 AM [facility] Blood Venous blood specimen / Unknown Venipuncture / Unknown 02/26/2024 5:45 AM EST 02/26/2024 9:44 AM EST us De Snyder MD LAB BLOOD ORDERABLES Final Resu lt [facility] [address] [place] [address], [place] [phone] * (ABNORMAL) Basic metabolic panel (02/26/2024 5:45 AM EST) Sodium 134 133 - 145 mmol/L LAB CHEMISTRY METHOD 02/26/2024 10:36 AM [facility] Potassium 4.8 3.5 - 5.5 mmol/L LAB CHEMISTRY METHOD 02/26/2024 10:36 AM [facility] Chloride 100 96 - 110 mmol/L LAB CHEMISTRY METHOD 02/26/2024 10:36 AM [facility] CO2 27 21 - 32 mmol/L LAB CHEMISTRY METHOD 02/26/2024 10:36 AM [facility] Anion Gap 7 3 - 11 LAB CHEMISTRY METHOD 02/26/2024 10:36 AM [facility] Glucose 97 70 - 100 mg/dL LAB CHEMISTRY METHOD 02/26/2024 10:36 AM [facility] BUN 30(H) 5 - 25 mg/dL LAB CHEMISTRY METHOD 02/26/2024 10:36 AM [facility] Creatinine 0.85 0.50 - 1.10 mg/dL LAB CHEMISTRY METHOD 02/26/2024 10:36 AM [facility] eGFR 74 >=60 mL/min/1. 73m2 LAB CHEMISTRY METHOD 02/26/2024 10:36 AM [facility] Comment:Calculation based on the??Chronic Kidney Disease Epidemiology Collaboration (CKD-EPI) equation refit??without adjustment for race. BUN/Creatinine Ratio 35.3 LAB CHEMISTRY METHOD 02/26/2024 10:36 AM [facility] Calcium 9.7 8.5 - 10.5 mg/dL LAB CHEMISTRY METHOD 02/26/2024 10:36 AM EST [facility] Blood Venous blood specimen / Unknown Venipuncture / Unknown 02/26/2024 5:45 AM EST 02/26/2024 9:44 AM EST us De Snyder MD LAB BLOOD ORDERABLES Final Resu lt [facility] [address] [place] [address], documented in this encounter Visit Diagnoses Diagnosis Encounter for other general examination documented in this encounter Care Teams Epic Cupid Analyst Relationship Specialty Start Date End Date Jackeline Saha MD [address] [place] [address] PCP - General Internal Medicine 09/23/21 documented as of this encounter
--- OUTSIDE RECORDS SUMMARY | 2024-04-14 13:14 | XMS_ITS | Encounter Summary ---
Author Organization [facility] Address [address] [place] [address] Care Team Providers Care Lodging Facilities Manager Name Role Phone Jackeline Saha MD Primary Care Pr ovider Encounter Details Date Type Department Care Team (Late st Contact Info) Description 02/24/2024 Lab Requisition [facility] Lab [address] [facility] [email or web address] [address] De Snyder MD [address] [place] [id number] Encounter for other general examination Social History [...] Associated Diagnosis Comments CBC WITH AUTO DIFFERENTIAL STAT 02/24/2024 10:46 AM EST Encounter for other general examination CBC AND DIFFERENTIAL STAT 02/24/2024 10:46 AM EST Encounter for other general examination B-TYPE NATRIURETIC PEPTIDE STAT 02/24/2024 10:46 AM EST Encounter for other general examination AMMONIA STAT 02/24/2024 10:46 AM EST Encounter for other general examination COMPREHENSIVE METABOLIC PANEL STAT 02/24/2024 10:46 AM EST Encounter for other general examination documented in this encounter Results * (ABNORMAL) CBC auto differential (02/24/2024 10:46 AM EST) WBC 9.3 4.8 - 10.8 K/mcL LAB HEMETOLOGY METHOD 02/24/2024 11:31 AM [facility] RBC 2.60(L) 3.80 - 4.80 M/mcL LAB HEMETOLOGY METHOD 02/24/2024 11:31 AM [facility] Hemoglobin 9.1(L) 11.5 - 16.0 g/dL LAB HEMETOLOGY METHOD 02/24/2024 11:31 AM [facility] Hematocrit 27.8(L) 35.0 - 47.0 % LAB HEMETOLOGY METHOD 02/24/2024 11:31 AM [facility] MCV 108.2(H) 79.0 - 98.0 FL LAB HEMETOLOGY METHOD 02/24/2024 11:31 AM [facility] MCH 35.4(H) 27.0 - 32.0 pcg LAB HEMETOLOGY METHOD 02/24/2024 11:31 AM [facility] MCHC 32.7 32.0 - 37.0 g/dL LAB HEMETOLOGY METHOD 02/24/2024 11:31 AM [facility] RDW 13.1 11.0 - 15.0 % LAB HEMETOLOGY METHOD 02/24/2024 11:31 AM [facility] Platelets 296 130 - 400 K/mcL LAB HEMETOLOGY METHOD 02/24/2024 11:31 AM [facility] MPV 10.4 7.0 - 11.0 FL LAB HEMETOLOGY METHOD 02/24/2024 11:31 AM [facility] NRBC 0.0 <1.0 % LAB HEMETOLOGY METHOD 02/24/2024 11:31 AM [facility] NRBC Absolute 0.00 <0.10 K/mcL LAB HEMETOLOGY METHOD 02/24/2024 11:31 AM [facility] Neutrophils Relative 77.1 % LAB HEMETOLOGY METHOD 02/24/2024 11:31 AM [facility] Lymphocytes Relative 7.3 % LAB HEMETOLOGY METHOD 02/24/2024 11:31 AM [facility] Monocytes Relative 14.7 % LAB HEMETOLOGY METHOD 02/24/2024 11:31 AM [facility] Eosinophils Relative 0.2 % LAB HEMETOLOGY METHOD 02/24/2024 11:31 AM [facility] Basophils Relative 0.4 % LAB HEMETOLOGY METHOD 02/24/2024 11:31 AM [facility] Immature Granulocytes Relative 0.3 % LAB HEMETOLOGY METHOD 02/24/2024 11:31 AM [facility] Neutrophils Absolute 7.15(H) 1.50 - 7.00 K/mcL LAB HEMETOLOGY METHOD 02/24/2024 11:31 AM [facility] Lymphocytes Absolute 0.68(L) 1.00 - 5.00 K/mcL LAB HEMETOLOGY METHOD 02/24/2024 11:31 AM [facility] Monocytes Absolute 1.37(H) 0.20 - 1.00 K/mcL LAB HEMETOLOGY METHOD 02/24/2024 11:31 AM [facility] Eosinophils Absolute 0.02 0.00 - 0.50 K/mcL LAB HEMETOLOGY METHOD 02/24/2024 11:31 AM [facility] Basophils Absolute 0.04 0.00 - 0.20 K/mcL LAB HEMETOLOGY METHOD 02/24/2024 11:31 AM [facility] Immature Granulocytes Absolute 0.03 0.00 - 0.03 K/mcL LAB HEMETOLOGY METHOD 02/24/2024 11:31 AM EST [facility] Blood Venous blood specimen / Unknown Venipuncture / Unknown 02/24/2024 10:46 AM EST 02/24/2024 11:17 AM EST us De Snyder MD LAB BLOOD ORDERABLES Final Resu lt Performing Organization Address City/[facility]/ZIP Co de Phone Number [facility] [address] [place] [address], [place] [phone] * B-type natriuretic peptide (02/24/2024 10:46 AM EST) BNP 98 <=100 pcg/mL LAB CHEMISTRY METHOD 02/24/2024 12:11 PM EST [facility] Blood Venous blood specimen / Unknown Venipuncture / Unknown 02/24/2024 10:46 AM EST 02/24/2024 11:17 AM EST us De Snyder MD LAB BLOOD ORDERABLES Final Resu lt Performing Organization Address [facility]/ZIP Co de Phone Number [facility] [address] [place] [address], [place] [phone] * Ammonia (02/24/2024 10:46 AM EST) Ammonia 24 11 - 35 mcmol/L LAB CHEMISTRY METHOD 02/24/2024 12:10 PM EST [facility] Blood Venous blood specimen / Unknown Venipuncture / Unknown 02/24/2024 10:46 AM EST 02/24/2024 11:17 AM EST us De Snyder MD LAB BLOOD ORDERABLES Final Resu lt Performing Organization Address City/[facility]/ZIP Co de Phone Number [facility] [address] [place] [address], [place] [phone] * (ABNORMAL) Comprehensive metabolic panel (02/24/2024 10:46 AM EST) Sodium 126(L) 133 - 145 mmol/L LAB CHEMISTRY METHOD 02/24/2024 12:11 PM [facility] Potassium 4.7 3.5 - 5.5 mmol/L LAB CHEMISTRY METHOD 02/24/2024 12:11 PM [facility] Chloride 92(L) 96 - 110 mmol/L LAB CHEMISTRY METHOD 02/24/2024 12:11 PM [facility] CO2 27 21 - 32 mmol/L LAB CHEMISTRY METHOD 02/24/2024 12:11 PM [facility] Anion Gap 7 3 - 11 LAB CHEMISTRY METHOD 02/24/2024 12:11 PM [facility] Glucose 107(H) 70 - 100 mg/dL LAB CHEMISTRY METHOD 02/24/2024 12:11 PM [facility] BUN 61(H) 5 - 25 mg/dL LAB CHEMISTRY METHOD 02/24/2024 12:11 PM [facility] Comment:Results verified by repeat testing Creatinine 5.80(H) 0.50 - 1.10 mg/dL LAB CHEMISTRY METHOD 02/24/2024 12:11 PM [facility] Comment:Results verified by repeat testing eGFR 7(L) >=60 mL/min/1. 73m2 LAB CHEMISTRY METHOD 02/24/2024 12:11 PM [facility] Comment:Calculation based on the??Chronic Kidney Disease Epidemiology Collaboration (CKD-EPI) equation refit??without adjustment for race. BUN/Creatinine Ratio 10.5 LAB CHEMISTRY METHOD 02/24/2024 12:11 PM [facility] Calcium 10.7(H) 8.5 - 10.5 mg/dL LAB CHEMISTRY METHOD 02/24/2024 12:11 PM [facility] AST (SGOT) 23 10 - 42 unit/L LAB CHEMISTRY METHOD 02/24/2024 12:11 PM [facility] ALT (SGPT) 14 10 - 60 unit/L LAB CHEMISTRY METHOD 02/24/2024 12:11 PM [facility] Alkaline Phosphatase 68 42 - 121 unit/L LAB CHEMISTRY METHOD 02/24/2024 12:11 PM [facility] Total Protein 7.4 6.0 - 8.0 g/dL LAB CHEMISTRY METHOD 02/24/2024 12:11 PM [facility] Albumin 3.5 3.2 - 5.0 g/dL LAB CHEMISTRY METHOD 02/24/2024 12:11 PM [facility] Total Bilirubin 0.7 0.0 - 1.4 mg/dL LAB CHEMISTRY METHOD 02/24/2024 12:11 PM [facility] Blood Venous blood specimen / Unknown Venipuncture / Unknown 02/24/2024 10:46 AM EST 02/24/2024 11:17 AM EST us De Snyder MD LAB BLOOD ORDERABLES Final Resu lt [facility] [address] [place] [address], documented in this encounter Visit Diagnoses Diagnosis Encounter for other general examination documented in this encounter Care Teams Lodging Facilities Manager Relationship Specialty Start Date End Date Jackeline Saha MD [address] [place], [place] PCP - General Internal Medicine 09/23/21 documented as of this encounter
--- OUTSIDE RECORDS SUMMARY | 2024-04-14 13:14 | XMS_ITS | Clinical Summary ---
Author Organization [address] [facility] Address [address] [place] [address] Phone Care Team Providers Care Events Specialist Name Role Phone Jackeline Saha MD Primary Care Pr ovider Allergies Active Allergy Reactions Criticality Noted Date Comments Other 09/11/2017 Seasonal allergies Medications meclizine (ANTIVERT) 25 mg tablet Take 1 Tablet by mouth 3 times daily. 03/01/2022 Active sertraline (ZOLOFT) 100 mg tablet Take 1 Tablet by mouth daily. 01/30/2022 Active lisinopriL (PRINIVIL,ZESTR IL) 20 mg tablet Take 1 Tablet by mouth daily. 01/30/2022 Active ergocalciferol (VITAMIN D-2) 1,250 mcg (50,000 unit) capsule Take 1 Capsule by mouth once a week. 01/30/2022 Active albuterol HFA (Ventolin HFA) 90 mcg/actuation inhaler Inhale 2 Puffs into the lungs every 4 hours as needed for Cough or Wheezing. 01/30/2022 Active fluticasone propionate (FLONASE) 50 mcg/actuation nasal spray 1 pump in each nostril each morning 04/06/2021 Active hydrocortisone 2.5 % cream Apply twice daily to affected areas 04/06/2021 Active Active Problems Problem Noted Date Diagnosed Date Glaucoma 03/06/2024 Multiple pulmonary nodules 10/10/2021 COVID-19 virus infection 03/19/2020 Hypertensive retinopathy of both eyes, grade 1 0 06/28/2018 AC (acromioclavicular) arthritis 06/06/2018 Overview (03/06/2024): Right; s/p xray 03/2018 Cervical stenosis of spinal canal 06/06/2018 Overview (03/06/2024): Mild, xray 03/2018 Essential hypertension 01/03/2018 Asthma 09/14/2017 COPD (chronic obstructive pulmonary disease) Degenerative disc disease, lumbar 09/14/2017 Overview (03/06/2024): 04/2016 MRI Depression 09/14/2017 Herpes zoster 09/14/2017 Overview (03/06/2024): 09/11/2017 Hyperlipidemia 09/14/2017 Osteopenia 09/14/2017 Vitamin D deficiency 09/14/2017 Anxiety 03/28/2017 Overview (03/06/2024): Referred to behavioral health Encounters Date Type Department Care Team Description 02/26/2024 Lab Requisition [facility] Lab [address] [place] [phone] De Snyder MD Encounter for other general examination 02/25/2024 Lab Requisition [facility] Lab [address] [place] [phone] De Snyder MD Encounter for other general examination 02/24/2024 Lab Requisition [facility] Lab [address] [place] [phone] De Snyder MD Encounter for other general examination 02/21/2024 Lab Requisition [facility] Lab [address] [place] [phone] De Snyder MD Encounter for other general examination from Last 3 Months Immunizations Name Administration Dates Next Due Influenza trivalent, 0.5mL ( Fluad) 65yo and older 12/30/2021,12/08/2020,11/20/2019 Pneumococcal polysaccharide 23 valent (Pneumovax 23) 2yo and older 01/29/2021 Tdap Tetanus diptheria acell ular pertussis (Boostrix; Adacel) 7yo and older 09/03/2017 Zoster recombinant (Shingrix ) 19yo and older 12/21/2018 Surgical History Surgery Date Site/Laterality Comments OTHER SURGICAL HISTORY Left PROCEDURE: HISTORICAL MASTOIDECTOMY; COMMENT: Left Ear Surgery Cyst on Ear Drum Medical History Medical History Date Comments Anxiety 03/28/2017 DX:Anxiety; COMM ENT: Follows with behavioral health Glaucoma DX:Glaucoma Degenerative disc disease, lumbar 09/14/2017 DX:Degenerative disc disease, lumbar; COMMENT: 04/2016 MRI COPD (chronic obstructive pu lmonary disease) ([facility]) 09/14/2017 DX:COPD (chronic obstructive pulmonary disease) ([facility]) Depression 09/14/2017 DX:Depression Hyperlipidemia 09/14/2017 DX:Hyperlipidemi a Vitamin D deficiency 09/14/2017 DX:Vitamin D deficiency Asthma 09/14/2017 DX:Asthma Herpes zoster 09/14/2017 DX:Herpes zoster ; COMMENT: 09/11/2017 Osteopenia 09/14/2017 DX:Osteopenia Essential hypertension 01/03/2018 DX:Essent ial hypertension Cervical stenosis of spinal canal 06/06/2018 DX:Cervical stenosis of spinal canal; COMMENT: Mild, xray 03/2018 AC (acromioclavicular) arthritis 06/06/2018 DX:AC (acromioclavicular) arthritis; COMMENT: Right; s/p xray 03/2018 Hypertensive retinopathy of both eyes, grade 1 06/28/2018 DX:Hypertensive retinopathy of both eyes, grade 1 Medical non-compliance 08/19/2018 DX:Medica l non-compliance; COMMENT: Exhausted attempts to have colonoscopy scheduled. 08/2018 letter sent Multiple pulmonary nodules 10/10/2021 DX:Mu ltiple pulmonary nodules Family History Medical History Relation Name Comments Emphysema Father Tobacco, COPD Hypertension Mother HLD, Diabetes Bipolar disorder Sister Suicide, [place] PD Breast cancer Neg Hx Relation Name Status Comments Father Mother Sister Social History Tobacco Use Types Packs/Day Years [...] on file Sexual Orientation Not on file Obstetrics History Last Filed Vital Signs Vital Sign Reading Time Taken Comments Blood Pressure 136/80 03/01/2022 11:36 AM EST Pulse 84 03/01/2022 11:36 AM EST Temperature - - Respiratory Rate - - Oxygen Saturation - - Inhaled Oxygen Concentration - - Weight 68.5 kg (151 lb) 03/01/2022 11:36 AM EST Height 167.6 cm (5' 6 ) 03/01/2022 11:36 AM EST Body Mass Index 24.37 03/01/2022 11:36 AM EST Plan of Treatment Health Maintenance Due Date Last Done Comments RSV Immunization Patients 60+ Years Old (1 - Risk 60-74 years 1-dose series) 2013 DTaP,Tdap,and Td Vaccines (2 - Td or Tdap) 10/01/2017 09/03/2017 Zoster Vaccines (2 of 2) 02/15/2019 12/21/2018 Colorectal Cancer Screening: Stool Based Tests (FOBT/FIT) 02/11/2022 Depression Screening 02/11/2022 Falls Risk Assessment 02/11/2022 Osteoporosis Screening (Bone Density Screening) 02/11/2022 Social Influencers of Health Screening 02/11/2022 Breast Cancer Screening 06/23/2023 06/23/19, 06/12/2017, 05/23/2017 Medicare Annual Wellness Visit 08/26/2023 08/25/2022 COVID-19 Vaccine ( season) 2023 03/25/2021, 10/09/2020, 09/18/2020 Influenza Vaccine (#1) 2023 2, 12/08/2020, 11/20/2019, Additional history exists Cholesterol Screening (Lipid Panel) 01/20/2025 01/21/2020 Hypertension/CHF/CAD Annual BMP Blood Test 02/25/2025 02/26/2024, 02/25/2024, 02/24/2024, Additional history exists Hepatitis C Screening Completed 06/06/2018 Pneumococcal Vaccine: 50+ Years Completed 01/29/2021, 11/16/2018 HIB Vaccines Aged Out No longer eligi ble based on patient's age to complete this topic HPV Vaccines Aged Out No longer eligi ble based on patient's age to complete this topic Hepatitis A Vaccines Aged Out No long er eligible based on patient's age to complete this topic Hepatitis B Vaccines Aged Out No long er eligible based on patient's age to complete this topic IPV Vaccines Aged Out No longer eligi ble based on patient's age to complete this topic MMR Vaccines Aged Out No longer eligi ble based on patient's age to complete this topic Meningococcal ACWY Vaccine Aged Out N o longer eligible based on patient's age to complete this topic Meningococcal B Vacine Aged Out No lo nger eligible based on patient's age to complete this topic RSV Immunization Patients Under 20 months Aged Out No longer eligible based on patient's age to complete this topic Varicella Vaccines Aged Out No longer eligible based on patient's age to complete this topic Procedures Procedure Name Priority Date/Time Associated Diagnosis Comments CBC WITH AUTO DIFFERENTIAL Routine 02/26/2024 5:45 AM EST Encounter for other general examination CBC AND DIFFERENTIAL Routine 02/26/2024 5:45 AM EST Encounter for other general examination BASIC METABOLIC PANEL Routine 02/26/2024 5:45 AM EST Encounter for other general examination CBC WITH AUTO DIFFERENTIAL Routine 02/25/2024 5:50 AM EST Encounter for other general examination CBC AND DIFFERENTIAL Routine 02/25/2024 5:50 AM EST Encounter for other general examination COMPREHENSIVE METABOLIC PANEL Routine 02/25/2024 5:50 AM EST Encounter for other general examination CBC WITH AUTO DIFFERENTIAL STAT 02/24/2024 10:46 [...] EST Encounter for other general examination CBC WITH AUTO DIFFERENTIAL Routine 02/21/2024 7:10 AM EST Encounter for other general examination MAGNESIUM Routine 02/21/2024 7:10 AM EST Encounter for other general examination CBC AND DIFFERENTIAL Routine 02/21/2024 7:10 AM EST Encounter for other general examination COMPREHENSIVE METABOLIC PANEL Routine 02/21/2024 7:10 AM EST Encounter for other general examination DIAGNOSTIC MAMMOGRAPHY INCLUDING CAD BILATERAL Routine 06/22/2021 3:13 PM EDT Unspecified lump in the left breast, unspecified quadrant LIPID PANEL Routine 01/21/2020 HEPATITIS C SCREENING Routine 06/06/2018 from Last 3 Months or Most Recently Relevant to Health Maintenance Results * (ABNORMAL) CBC auto differential (02/26/2024 5:45 AM EST) Only the most recent of4 resultswithin the time period is included. WBC 8.9 4.8 - 10.8 K/mcL LAB HEMETOLOGY METHOD 02/26/2024 11:31 AM [facility] RBC 2.50(L) 3.80 - 4.80 M/mcL LAB HEMETOLOGY METHOD 02/26/2024 11:31 AM [facility] Hemoglobin 8.6(L) 11.5 - 16.0 g/dL LAB HEMETOLOGY METHOD 02/26/2024 11:31 AM [facility] Hematocrit 26.2(L) 35.0 - 47.0 % LAB HEMETOLOGY METHOD 02/26/2024 11:31 AM [facility] MCV 104.4(H) 79.0 - 98.0 FL LAB HEMETOLOGY METHOD 02/26/2024 11:31 AM [facility] MCH 34.3(H) 27.0 - 32.0 pcg LAB HEMETOLOGY METHOD 02/26/2024 11:31 AM [facility] MCHC 32.8 32.0 - 37.0 g/dL LAB HEMETOLOGY METHOD 02/26/2024 11:31 AM [facility] RDW 13.2 11.0 - 15.0 % LAB HEMETOLOGY METHOD 02/26/2024 11:31 AM [facility] Platelets 302 130 - 400 K/mcL LAB HEMETOLOGY METHOD 02/26/2024 11:31 AM [facility] MPV 10.0 7.0 - 11.0 FL LAB HEMETOLOGY METHOD 02/26/2024 11:31 AM [facility] NRBC 0.0 <1.0 % LAB HEMETOLOGY METHOD 02/26/2024 11:31 AM [facility] NRBC Absolute 0.00 <0.10 K/mcL LAB HEMETOLOGY METHOD 02/26/2024 11:31 AM [facility] Neutrophils Relative 77.3 % LAB HEMETOLOGY METHOD 02/26/2024 11:31 AM [facility] Lymphocytes Relative 8.1 % LAB HEMETOLOGY METHOD 02/26/2024 11:31 AM [facility] Monocytes Relative 12.7 % LAB HEMETOLOGY METHOD 02/26/2024 11:31 AM [facility] Eosinophils Relative 1.3 % LAB HEMETOLOGY METHOD 02/26/2024 11:31 AM [facility] Basophils Relative 0.3 % LAB HEMETOLOGY METHOD 02/26/2024 11:31 AM [facility] Immature Granulocytes Relative 0.3 % LAB HEMETOLOGY METHOD 02/26/2024 11:31 AM [facility] Neutrophils Absolute 6.88 1.50 - 7.00 K/mcL LAB HEMETOLOGY METHOD 02/26/2024 11:31 AM EST [facility] Lymphocytes Absolute 0.72(L) 1.00 - 5.00 K/mcL LAB HEMETOLOGY METHOD 02/26/2024 11:31 AM [facility] Monocytes Absolute 1.13(H) 0.20 - 1.00 K/mcL LAB HEMETOLOGY METHOD 02/26/2024 11:31 AM EST [facility] Eosinophils Absolute 0.12 0.00 - 0.50 K/mcL LAB HEMETOLOGY METHOD 02/26/2024 11:31 AM EST [facility] Basophils Absolute 0.03 0.00 - 0.20 K/mcL LAB HEMETOLOGY METHOD 02/26/2024 11:31 AM [facility] Immature Granulocytes Absolute 0.03 0.00 - 0.03 K/[facility] LAB HEMETOLOGY METHOD 02/26/2024 11:31 AM [facility] Blood Venous blood specimen / Unknown Venipuncture / Unknown 02/26/2024 5:45 AM EST 02/26/2024 9:44 AM EST us De Snyder MD LAB BLOOD ORDERABLES Final Resu lt [facility] [address] [place] [address], * (ABNORMAL) Basic metabolic panel (02/26/2024 5:45 AM EST) Sodium 134 133 - 145 mmol/L LAB CHEMISTRY METHOD 02/26/2024 10:36 AM EST [facility] Potassium 4.8 3.5 - 5.5 mmol/L LAB CHEMISTRY METHOD 02/26/2024 10:36 AM [facility] Chloride 100 96 - 110 mmol/L LAB CHEMISTRY METHOD 02/26/2024 10:36 AM [facility] CO2 27 21 - 32 mmol/L LAB CHEMISTRY METHOD 02/26/2024 10:36 AM [facility] Anion Gap 7 3 - 11 LAB CHEMISTRY METHOD 02/26/2024 10:36 AM [facility] Glucose 97 70 - 100 mg/dL LAB CHEMISTRY METHOD 02/26/2024 10:36 AM [facility] BUN 30(H) 5 - 25 mg/dL LAB CHEMISTRY METHOD 02/26/2024 10:36 AM [facility] Creatinine 0.85 0.50 - 1.10 mg/dL LAB CHEMISTRY METHOD 02/26/2024 10:36 AM [facility] eGFR 74 >=60 mL/min/1. 73m2 LAB CHEMISTRY METHOD 02/26/2024 10:36 AM [facility] Comment:Calculation based on the??Chronic Kidney Disease Epidemiology Collaboration (CKD-EPI) equation refit??without adjustment for race. BUN/Creatinine Ratio 35.3 LAB CHEMISTRY METHOD 02/26/2024 10:36 AM [facility] Calcium 9.7 8.5 - 10.5 mg/dL LAB CHEMISTRY METHOD 02/26/2024 10:36 AM [facility] Blood Venous blood specimen / Unknown Venipuncture / Unknown 02/26/2024 5:45 AM EST 02/26/2024 9:44 AM EST us De Snyder MD LAB BLOOD ORDERABLES Final Resu lt [facility] [address] [place] [address], * (ABNORMAL) Comprehensive metabolic panel (02/25/2024 5:50 AM EST) Only the most recent of3 resultswithin the time period is included. Sodium 132(L) 133 - 145 mmol/L LAB CHEMISTRY METHOD 02/25/2024 11:27 AM [facility] Potassium 4.4 3.5 - 5.5 mmol/L LAB CHEMISTRY METHOD 02/25/2024 11:27 AM [facility] Chloride 98 96 - 110 mmol/L LAB CHEMISTRY METHOD 02/25/2024 11:27 AM [facility] CO2 27 21 - 32 mmol/L LAB CHEMISTRY METHOD 02/25/2024 11:27 AM [facility] Anion Gap 7 3 - 11 LAB CHEMISTRY METHOD 02/25/2024 11:27 AM [facility] Glucose 90 70 - 100 mg/dL LAB CHEMISTRY METHOD 02/25/2024 11:27 AM [facility] BUN 48(H) 5 - 25 mg/dL LAB CHEMISTRY METHOD 02/25/2024 11:27 AM [facility] Creatinine 1.93(H) 0.50 - 1.10 mg/dL LAB CHEMISTRY METHOD 02/25/2024 11:27 AM [facility] eGFR 28(L) >=60 mL/min/1. 73m2 LAB CHEMISTRY METHOD 02/25/2024 11:27 AM [facility] Comment:Calculation based on the??Chronic Kidney Disease Epidemiology Collaboration (CKD-EPI) equation refit??without adjustment for race. BUN/Creatinine Ratio 24.9 LAB CHEMISTRY METHOD 02/25/2024 11:27 AM [facility] Calcium 9.8 8.5 - 10.5 mg/dL LAB CHEMISTRY METHOD 02/25/2024 11:27 AM [facility] AST (SGOT) 25 10 - 42 unit/L LAB CHEMISTRY METHOD 02/25/2024 11:27 AM [facility] ALT (SGPT) 17 10 - 60 unit/L LAB CHEMISTRY METHOD 02/25/2024 11:27 AM [facility] Alkaline Phosphatase 68 42 - 121 unit/L LAB CHEMISTRY METHOD 02/25/2024 11:27 AM EST [facility] Total Protein 6.3 6.0 - 8.0 g/dL LAB CHEMISTRY METHOD 02/25/2024 11:27 AM [facility] Albumin 3.0(L) 3.2 - 5.0 g/dL LAB CHEMISTRY METHOD 02/25/2024 11:27 AM [facility] Total Bilirubin 0.7 0.0 - 1.4 mg/dL LAB CHEMISTRY METHOD 02/25/2024 11:27 AM [facility] Blood Venous blood specimen / Unknown Venipuncture / Unknown 02/25/2024 5:50 AM EST 02/25/2024 9:25 AM EST us De Snyder MD LAB BLOOD ORDERABLES Final Resu lt Performing Organization Address City/[facility]/ZIP Co de Phone Number [facility] [address] [place] [address], * B-type natriuretic peptide (02/24/2024 10:46 AM EST) BNP 98 <=100 pcg/mL LAB CHEMISTRY METHOD 02/24/2024 12:11 PM [facility] Blood Venous blood specimen / Unknown Venipuncture / Unknown 02/24/2024 10:46 AM EST 02/24/2024 11:17 AM EST us De Snyder MD LAB BLOOD ORDERABLES Final Resu lt [facility] [address] [place] [address], [place] [phone] * Ammonia (02/24/2024 10:46 AM EST) Ammonia 24 11 - 35 mcmol/L LAB CHEMISTRY METHOD 02/24/2024 12:10 PM [facility] Blood Venous blood specimen / Unknown Venipuncture / Unknown 02/24/2024 10:46 AM EST 02/24/2024 11:17 AM EST us De Snyder MD LAB BLOOD ORDERABLES Final Resu lt Performing Organization Address [facility]/ZIP Co de Phone Number [facility] [address] [place] [address], [place] [phone] * Magnesium (02/21/2024 7:10 AM EST) Magnesium 1.9 1.9 - 2.6 mg/dL LAB CHEMISTRY METHOD 02/21/2024 11:47 AM EST [facility] Blood Venous blood specimen / Unknown Venipuncture / Unknown 02/21/2024 7:10 AM EST 02/21/2024 10:45 AM EST us De Snyder MD LAB BLOOD ORDERABLES Final Resu lt Performing Organization Address [facility]/ZIP Co de Phone Number [facility] [address] [place] [address], [place] [phone] * DIAGNOSTIC MAMMOGRAPHY INCLUDING CAD BILATERAL (06/22/2021 3:13 PM EDT) Anatomical Region Laterality Modality Mammography 05/11/2021 2:30 PM EST Narrative 06/22/2021 4:17 PM EDT This is a summary report. The complete report is available in the patient's medical record. If you cannot access the medical record, please contact the sending organization for a detailed fax or copy. Exam: Diagnostic mammogram and left breast ultrasound History: Asymmetric breast tissue in the upper outer left breast on outside CT angiogram 05/05/2021 Comparison: CT angiogram 05/05/2021, mammography 05/23/2017 and 02/17/2014 Findings: Bilateral full-field digital diagnostic mammography was performed with tomosynthesis and interpreted with computer-aided detection. Breast parenchyma is heterogeneously dense, limiting mammographic sensitivity. Chronic fibroglandular asymmetry in the upper outer left breast which is less prominent than on prior examinations and corresponds with the abnormality on CT. ??Ultrasound performed in the left upper outer quadrant due to dense breast tissue without a solid or cystic lesion identified. Additional fibroglandular asymmetries in the upper left breast, 12 o'clock position of the right breast, and inner right breast are stable. ??No new suspicious mass, architectural distortion, or suspicious calcifications. Impression: No mammographic evidence of malignancy in either breast. ??The abnormality in the upper outer left breast on CT corresponds with chronic fibroglandular asymmetry. BI-RADS 2-benign Procedure Note Mica Stroud MD - 02/21/2022 This is a summary report. The complete report is available in thepatient's medical record. If you cannot access the medical record, pleasecontact the sending organization for a detailed fax or copy. Exam: Diagnostic mammogram and left breast ultrasound History: Asymmetric breast tissue in the upper outer left breast onoutside CT angiogram 05/05/2021 Comparison: CT angiogram 05/05/2021, mammography 05/23/2017 and 02/17/2014 Findings: Bilateral full-field digital diagnostic mammography was performed withtomosynthesis and interpreted with computer-aided detection. Breast parenchyma is heterogeneously dense, limiting mammographicsensitivity. Chronic fibroglandular asymmetry in the upper outer left breast which isless prominent than on prior examinations and corresponds with theabnormality on CT. Ultrasound performed in the left upper outer quadrantdue to dense breast tissue without a solid or cystic lesion identified. Additional fibroglandular asymmetries in the upper left breast, 12 o'clockposition of the right breast, and inner right breast are stable. No newsuspicious mass, architectural distortion, or suspicious calcifications. Impression: No mammographic evidence of malignancy in either breast. The abnormalityin the upper outer left breast on CT corresponds with chronicfibroglandular asymmetry. BI-RADS 2-benign [facility] BI PROCEDURES Final Result * (ABNORMAL) Lipid panel (01/21/2020) LDL/HDL Ratio 2 0 - 4 Triglycerides 223(A) 0 - 150 mg/dL Cholesterol 212(A) 0 - 200 mg/dL HDL 129 >=40 mg/dL LDL Cholesterol 39 0 - 100 mg/dL Blood Venous blood specimen / Unknown Historical Provider LAB BLOOD ORDERABLES [facility] l Result * Hepatitis C Screening (06/06/2018) Hepatitis C Screening abstracted Historical Provider HEALTH MAINTENANCE Final Result from Last 3 Months or Most Recently Relevant to Health Maintenance Insurance MEDICARE MEDICAID - [place] Care Teams Events Specialist Relationship Specialty Start Date End Date Jackeline Saha MD [address], [place] PCP - General Internal Medicine 09/23/21
[2024-04-14 14:02] LABS: Alanine Aminotransferase 36 U/L (0-31); Albumin Level 4.4 g/dL (3.5-5.0); Alkaline Phosphatase 76 U/L (39-117); Anion Gap 11 (12-20); Aspartate Amino Transferase 37 U/L (5-31); Bilirubin Total 0.3 mg/dL (0.0-1.0); Blood Urea Nitrogen 20 mg/dL (9-16); Calcium 9.5 mg/dL (8.4-10.2); Carbon Dioxide 28 mmol/L (22-29); Chloride 103 mmol/L (96-108); Estimated Glomerular Filt Rate > 60; Glucose Random 80 mg/dL (60-115); Potassium 4.1 mmol/L (3.3-5.1); Sodium 138 mmol/L (135-145); Total Protein 8.6 g/dL (6.5-8.0)
== END 2024-04-14 12:01 | disposition home or self-care (01) ==
LOC: HO.HMGCLDS 12:00
PROVIDERS: PCP Internal Medicine; Visit Provider Internal Medicine
DX: I10 Essential (primary) hypertension (principal)
CPT/HCPCS: 36415; 80053

== ENCOUNTER 2024-04-16 08:25 | Outpatient (REF) | payer MEDICARE, SELFPAY ==
--- NOTE | ~2024-04-16 | XR_ITS ---
CLINICAL HISTORY: M25.511 - Pain in right shoulder 3 view right shoulder Comparison: DX/SR - XR SHOULDER RT MIN 2V - 03/07/24 08:22 EST CR/SR - XR SHOULDER RT MIN 2V - 02/19/24 20:45 EST Findings: Again seen is a fracture through the surgical neck of the humerus, with displacement of the humeral shaft in relationship to the humeral head by 8 cm. Humeral head is positioned posterior to the humeral shaft, and there is 3.5 cm of overriding. The glenoid is interacting with the anterior portion of the humeral head as well as the fractured end of the humerus. There is slight subluxation of the humeral head posteriorly. The orientation of the fracture does not appear significantly changed from prior. IMPRESSION: 1. Overriding displaced fracture through the surgical neck of the humerus, with slight posterior subluxation of the humeral head. This document has been electronically signed by: Jonatan Reese MD on 04/17/2024 02:07:03
--- OUTSIDE RECORDS SUMMARY | 2024-04-16 09:03 | XMS_ITS | Encounter Summary ---
Author Organization [facility] Address [address] [place] [address] Care Team Providers Care Prison Officer Name Role Phone Jackeline Saha MD Primary Care Pr ovider Encounter Details Date Type Department Care Team (Late st Contact Info) Description 02/21/2024 Lab Requisition [facility] - Main Lab [address] [facility] [place] [address] De Snyder MD [address] [place] [address] Encounter for other general examination Social History [...] CBC auto differential (02/21/2024 7:10 AM EST) [facility] WBC 5.8 4.8 - 10.8 K/mcL LAB HEMETOLOGY METHOD 02/21/2024 11:[address] [facility] RBC 2.80(L) 3.80 - 4.80 M/mcL LAB HEMETOLOGY METHOD 02/21/2024 11:[address] [facility] Hemoglobin 9.8(L) 11.5 - 16.0 g/dL LAB HEMETOLOGY METHOD 02/21/2024 11:[address] [facility] Hematocrit 29.7(L) 35.0 - 47.0 % LAB HEMETOLOGY METHOD 02/21/2024 11:[address] [facility] MCV 105.3(H) 79.0 - 98.0 FL LAB HEMETOLOGY METHOD 02/21/2024 11:[address] [facility] MCH 34.8(H) 27.0 - 32.0 pcg LAB HEMETOLOGY METHOD 02/21/2024 11:[address] [facility] MCHC 33.0 32.0 - 37.0 g/dL LAB HEMETOLOGY METHOD 02/21/2024 11:[address] [facility] RDW 13.4 11.0 - 15.0 % LAB HEMETOLOGY METHOD 02/21/2024 11:[address] [facility] Platelets 201 130 - 400 K/mcL LAB HEMETOLOGY METHOD 02/21/2024 11:[address] [facility] MPV 10.3 7.0 - 11.0 FL LAB HEMETOLOGY METHOD 02/21/2024 11:[address] [facility] NRBC 0.0 <1.0 % LAB HEMETOLOGY METHOD 02/21/2024 11:[address] [facility] NRBC Absolute 0.00 <0.10 K/mcL LAB HEMETOLOGY METHOD 02/21/2024 11:[address] [facility] Neutrophils Relative 67.8 % LAB HEMETOLOGY METHOD 02/21/2024 11:[address] [facility] Lymphocytes Relative 15.7 % LAB HEMETOLOGY METHOD 02/21/2024 11:[address] [facility] Monocytes Relative 15.7 % LAB HEMETOLOGY METHOD 02/21/2024 11:[address] [facility] Eosinophils Relative 0.2 % LAB HEMETOLOGY METHOD 02/21/2024 11:[address] [facility] Basophils Relative 0.3 % LAB HEMETOLOGY METHOD 02/21/2024 11:[address] [facility] Immature Granulocytes Relative 0.3 % LAB HEMETOLOGY METHOD 02/21/2024 11:[address] [facility] Neutrophils Absolute 3.90 1.50 - 7.00 K/mcL LAB HEMETOLOGY METHOD 02/21/2024 11:[address] [facility] Lymphocytes Absolute 0.90(L) 1.00 - 5.00 K/mcL LAB HEMETOLOGY METHOD 02/21/2024 11:[address] [facility] Monocytes Absolute 0.90 0.20 - 1.00 K/mcL LAB HEMETOLOGY METHOD 02/21/2024 11:[address] [facility] Eosinophils Absolute 0.01 0.00 - 0.50 K/mcL LAB HEMETOLOGY METHOD 02/21/2024 11:[address] [facility] Basophils Absolute 0.02 0.00 - 0.20 K/mcL LAB HEMETOLOGY METHOD 02/21/2024 11:[address] [facility] Immature Granulocytes Absolute 0.02 0.00 - 0.03 K/mcL LAB HEMETOLOGY METHOD 02/21/2024 11:[address] [facility] Blood Venous blood specimen / Unknown Venipuncture / Unknown 02/21/2024 7:10 AM EST 02/21/2024 10:45 AM EST us De Snyder MD LAB BLOOD ORDERABLES Final Resu lt [facility] [address] [place] [address], [place] [phone] * Magnesium (02/21/2024 7:10 AM EST) Magnesium 1.9 1.9 - 2.6 mg/dL LAB CHEMISTRY METHOD 02/21/2024 11:47 AM EST [facility] Blood Venous blood specimen / Unknown Venipuncture / Unknown 02/21/2024 7:10 AM EST 02/21/2024 10:45 AM EST us De Snyder MD LAB BLOOD ORDERABLES Final Resu lt Performing Organization Address City/[facility]/ZIP Co de Phone Number [facility] [address] [place] [address], [place] [phone] * (ABNORMAL) Comprehensive metabolic panel (02/21/2024 7:10 AM EST) Sodium 133 133 - 145 mmol/L LAB CHEMISTRY METHOD 02/21/2024 11:49 AM EST [facility] Potassium 4.6 3.5 - 5.5 mmol/L LAB CHEMISTRY METHOD 02/21/2024 11:49 AM EST [facility] Chloride 101 96 - 110 mmol/L LAB CHEMISTRY METHOD 02/21/2024 11:49 AM EST [facility] CO2 28 21 - 32 mmol/L LAB CHEMISTRY METHOD 02/21/2024 11:49 AM EST [facility] Anion Gap 4 3 - 11 LAB CHEMISTRY METHOD 02/21/2024 11:49 AM EST [facility] Glucose 113(H) 70 - 100 mg/dL LAB CHEMISTRY METHOD 02/21/2024 11:[address] [facility] BUN 18 5 - 25 mg/dL LAB CHEMISTRY METHOD 02/21/2024 11:[address] [facility] Creatinine 0.86 0.50 - 1.10 mg/dL LAB CHEMISTRY METHOD 02/21/2024 11:[address] [facility] eGFR 73 >=60 mL/min/1. 73m2 LAB CHEMISTRY METHOD 02/21/2024 11:[address] [facility] Comment:Calculation based on the??Chronic Kidney Disease Epidemiology Collaboration (CKD-EPI) equation refit??without adjustment for race. BUN/Creatinine Ratio 20.9 LAB CHEMISTRY METHOD 02/21/2024 11:[address] [facility] Calcium 9.3 8.5 - 10.5 mg/dL LAB CHEMISTRY METHOD 02/21/2024 11:[address] [facility] AST (SGOT) 18 10 - 42 unit/L LAB CHEMISTRY METHOD 02/21/2024 11:[address] [facility] ALT (SGPT) 14 10 - 60 unit/L LAB CHEMISTRY METHOD 02/21/2024 11:[address] [facility] Alkaline Phosphatase 55 42 - 121 unit/L LAB CHEMISTRY METHOD 02/21/2024 11:[address] [facility] Total Protein 7.0 6.0 - 8.0 g/dL LAB CHEMISTRY METHOD 02/21/2024 11:[address] [facility] Albumin 3.8 3.2 - 5.0 g/dL LAB CHEMISTRY METHOD 02/21/2024 11:[address] [facility] Total Bilirubin 0.8 0.0 - 1.4 mg/dL LAB CHEMISTRY METHOD 02/21/2024 11:[address] [facility] Blood Venous blood specimen / Unknown Venipuncture / Unknown 02/21/2024 7:10 AM EST 02/21/2024 10:45 AM EST us De Snyder MD LAB BLOOD ORDERABLES Final Resu lt [facility] [address] [place] [address], documented in this encounter Visit Diagnoses Diagnosis Encounter for other general examination documented in this encounter Care Teams Prison Officer Relationship Specialty Start Date End Date Jackeline Saha MD [address] [place], [place] PCP - General Internal Medicine 09/23/21 documented as of this encounter
--- OUTSIDE RECORDS SUMMARY | 2024-04-16 09:04 | XMS_ITS | Clinical Summary ---
Author Organization [address] Address [address] [place] [address] Phone Care Team Providers Care Route Service Manager Name Role Phone Jackeline Saha MD [...] Department Care Team Description 02/26/2024 Lab Requisition [facility] Lab [address] [place] [phone] De Snyder MD Encounter for other general examination 02/25/2024 Lab Requisition [facility] Lab [address] [place] [phone] De Snyder MD Encounter for other general examination 02/24/2024 Lab Requisition [facility] Lab [address] [place] [phone] De Snyder MD Encounter for other general examination 02/21/2024 Lab Requisition [facility] Main Lab [address] [place] [phone] De Snyder MD Encounter for other general [...] MRI COPD (chronic obstructive pu lmonary disease) ([facility]) 09/14/2017 DX:COPD (chronic obstructive pulmonary disease) ([facility]) Depression 09/14/2017 DX:Depression Hyperlipidemia 09/14/2017 DX:Hyperlipidemi a [...] - Risk 60-74 years 1-dose series) 2013 Zoster Vaccines (2 of 2) 02/15/2019 12/21/2018 Colorectal Cancer Screening: Stool Based Tests (FOBT/FIT) 02/11/2022 Depression Screening 02/11/2022 Falls Risk Assessment 02/11/2022 Osteoporosis Screening (Bone Density Screening) 02/11/2022 Social Influencers of Health Screening 02/11/2022 Breast Cancer Screening 06/23/2023 06/23/19, 06/12/2017, 05/23/2017 Medicare Annual Wellness Visit 08/26/2023 08/25/2022 COVID-19 Vaccine ( season) 2023 03/25/2021, 10/09/2020, 09/18/2020 Influenza Vaccine (#1) 2023 , 12/08/2020, 11/20/2019, Additional history exists Cholesterol Screening (Lipid Panel) 01/20/2025 01/21/2020 Hypertension/CHF/CAD Annual BMP Blood Test 02/25/2025 02/26/2024, 02/25/2024, 02/24/2024, Additional history exists DTaP,Tdap,and Td Vaccines (2 - Td or Tdap) 09/04/2027 09/03/2017 Hepatitis C Screening Completed 06/06/2018 Pneumococcal Vaccine: [...] breast, unspecified quadrant LIPID PANEL Routine 01/21/2020 HM HEPATITIS C SCREENING Routine 06/06/2018 from Last 3 Months or Most Recently Relevant to Health Maintenance Results * (ABNORMAL) CBC auto differential (02/26/2024 5:45 AM EST) Only the most recent of4 resultswithin the time period is included. WBC 8.9 4.8 - 10.8 K/mcL LAB HEMETOLOGY METHOD 02/26/2024 11:31 AM [facility] RBC 2.50(L) 3.80 - 4.80 M/mcL LAB HEMETOLOGY METHOD 02/26/2024 11:31 AM [facility] Hemoglobin 8.6(L) 11.5 - 16.0 g/dL LAB HEMETOLOGY METHOD 02/26/2024 11:31 AM [facility] LAB Hematocrit 26.2(L) 35.0 - 47.0 % LAB HEMETOLOGY METHOD 02/26/2024 11:31 AM [facility] LAB MCV 104.4(H) 79.0 - 98.0 FL LAB HEMETOLOGY METHOD 02/26/2024 11:31 AM [facility] LAB MCH 34.3(H) 27.0 - 32.0 pcg LAB HEMETOLOGY METHOD 02/26/2024 11:31 AM [facility] LAB MCHC 32.8 32.0 - 37.0 g/dL LAB HEMETOLOGY METHOD 02/26/2024 11:31 AM [facility] LAB RDW 13.2 11.0 - 15.0 % LAB HEMETOLOGY METHOD 02/26/2024 11:31 AM [facility] LAB Platelets 302 130 - 400 K/mcL LAB HEMETOLOGY METHOD 02/26/2024 11:31 AM [facility] LAB MPV 10.0 7.0 - 11.0 FL LAB HEMETOLOGY METHOD 02/26/2024 11:31 AM [facility] NRBC 0.0 <1.0 % LAB HEMETOLOGY METHOD 02/26/2024 11:31 AM [facility] LAB NRBC Absolute 0.00 <0.10 K/mcL LAB HEMETOLOGY METHOD 02/26/2024 11:31 AM [facility] Neutrophils Relative 77.3 % LAB HEMETOLOGY METHOD 02/26/2024 11:31 AM [facility] Lymphocytes Relative 8.1 % LAB HEMETOLOGY METHOD 02/26/2024 11:31 AM [facility] Monocytes Relative 12.7 % LAB HEMETOLOGY METHOD 02/26/2024 11:31 AM [facility] Eosinophils Relative 1.3 % LAB HEMETOLOGY METHOD 02/26/2024 11:31 AM [facility] Basophils Relative 0.3 % LAB HEMETOLOGY METHOD 02/26/2024 11:31 AM [facility] Immature Granulocytes Relative 0.3 % LAB HEMETOLOGY METHOD 02/26/2024 11:31 AM [facility] LAB Neutrophils Absolute 6.88 1.50 - 7.00 K/mcL LAB HEMETOLOGY METHOD 02/26/2024 11:31 AM EST [facility] Lymphocytes Absolute 0.72(L) 1.00 - 5.00 K/mcL LAB HEMETOLOGY METHOD 02/26/2024 11:31 AM [facility] Monocytes Absolute 1.13(H) 0.20 - 1.00 K/mcL LAB HEMETOLOGY METHOD 02/26/2024 11:31 AM EST [facility] Eosinophils Absolute 0.12 0.00 - 0.50 K/mcL LAB HEMETOLOGY METHOD 02/26/2024 11:31 AM EST [facility] Basophils Absolute 0.03 0.00 - 0.20 K/mcL LAB HEMETOLOGY METHOD 02/26/2024 11:31 AM [facility] Immature Granulocytes Absolute 0.03 0.00 - 0.03 K/[facility] LAB HEMETOLOGY METHOD 02/26/2024 11:31 AM [facility] Blood Venous blood specimen / Unknown Venipuncture / Unknown 02/26/2024 5:45 AM EST 02/26/2024 9:44 AM EST us De Snyder MD LAB BLOOD ORDERABLES Final Resu lt [facility] [address] [place] [address], * (ABNORMAL) Basic metabolic panel (02/26/2024 5:45 AM EST) Sodium 134 133 - 145 mmol/L LAB CHEMISTRY METHOD 02/26/2024 10:36 AM EST [facility] Potassium 4.8 3.5 - 5.5 mmol/L LAB CHEMISTRY METHOD 02/26/2024 10:36 AM [facility] Chloride 100 96 - 110 mmol/L LAB CHEMISTRY METHOD 02/26/2024 10:36 AM [facility] CO2 27 21 - 32 mmol/L LAB CHEMISTRY METHOD 02/26/2024 10:36 AM [facility] Anion Gap 7 3 - 11 LAB CHEMISTRY METHOD 02/26/2024 10:36 AM [facility] Glucose 97 70 - 100 mg/dL LAB CHEMISTRY METHOD 02/26/2024 10:36 AM [facility] BUN 30(H) 5 - 25 mg/dL LAB CHEMISTRY METHOD 02/26/2024 10:36 AM [facility] Creatinine 0.85 0.50 - 1.10 mg/dL LAB CHEMISTRY METHOD 02/26/2024 10:36 AM [facility] LAB eGFR 74 >=60 mL/min/1. 73m2 LAB CHEMISTRY METHOD 02/26/2024 10:36 AM [facility] LAB Comment:Calculation based on the??Chronic Kidney Disease Epidemiology Collaboration (CKD-EPI) equation refit??without adjustment for race. BUN/Creatinine Ratio 35.3 LAB CHEMISTRY METHOD 02/26/2024 10:36 AM [facility] Calcium 9.7 8.5 - 10.5 mg/dL LAB CHEMISTRY METHOD 02/26/2024 10:36 AM [facility] Blood Venous blood specimen / Unknown Venipuncture / Unknown 02/26/2024 5:45 AM EST 02/26/2024 9:44 AM EST us De Snyder MD LAB BLOOD ORDERABLES Final Resu lt [facility] [address] [place] [address], * (ABNORMAL) Comprehensive metabolic panel (02/25/2024 5:50 [...] 02/25/2024 11:27 AM [facility] Anion Gap 7 3 - [...] LAB CHEMISTRY METHOD 02/25/2024 11:27 AM EST [facility] Total Protein 6.3 6.0 - [...] ORDERABLES Final Resu lt Performing Organization Address City/[facility]/ZIP Co de Phone Number [facility] [address] [place] [address], * B-type natriuretic peptide (02/24/2024 10:46 AM EST) BNP 98 <=100 pcg/mL LAB CHEMISTRY METHOD 02/24/2024 12:11 PM [facility] Blood Venous blood specimen / Unknown Venipuncture / Unknown 02/24/2024 10:46 AM EST 02/24/2024 11:17 AM EST us De Snyder MD LAB BLOOD ORDERABLES Final Resu lt [facility] [address] [place] [address], [place] [phone] * Ammonia (02/24/2024 10:46 AM EST) Ammonia 24 11 - 35 mcmol/L LAB CHEMISTRY METHOD 02/24/2024 12:10 PM [facility] Blood Venous blood specimen / Unknown Venipuncture / Unknown 02/24/2024 10:46 AM EST 02/24/2024 11:17 AM EST us De Snyder MD LAB BLOOD ORDERABLES Final Resu lt Performing Organization Address [facility]/State/ZIP Co de Phone Number [facility] [address] [place] [address], [place] [phone] * Magnesium (02/21/2024 7:10 AM EST) Magnesium 1.9 1.9 - 2.6 mg/dL LAB CHEMISTRY METHOD 02/21/2024 11:47 AM EST [facility] Blood Venous blood specimen / Unknown Venipuncture / Unknown 02/21/2024 7:10 AM EST 02/21/2024 10:45 AM EST us De Snyder MD LAB BLOOD ORDERABLES Final Resu lt Performing Organization Address [facility]/State/ZIP Co de Phone Number [facility] [address] [place] [address], [place] [phone] * DIAGNOSTIC MAMMOGRAPHY INCLUDING CAD BILATERAL (06/22/2021 [...] with chronicfibroglandular asymmetry. BI-RADS 2-benign [place] [facility] [place]EDURES Final Result [...] Insurance MEDICARE MEDICA[place] - [place] Care Teams Route Service Manager Relationship Specialty Start Date End Date Jackeline Saha MD [address] [place] [address] PCP - General Internal Medicine 09/23/21
--- OUTSIDE RECORDS SUMMARY | 2024-04-16 09:04 | XMS_ITS | Encounter Summary ---
Author Organization [facility] Address [address] [place] [address] Care Team Providers Care Talent Development Analyst Name Role Phone Jackeline Saha MD Primary Care Pr ovider Encounter Details Date Type Department Care Team (Late st Contact Info) Description 02/24/2024 Lab Requisition [facility] - Main Lab [address] [facility] [place] [phone] De Snyder MD [address] [place] [phone] Encounter for other general examination Social History [...] K/mcL LAB HEMETOLOGY METHOD 02/24/2024 11:31 AM [facility] RBC 2.60(L) 3.80 - 4.80 M/mcL LAB HEMETOLOGY METHOD 02/24/2024 11:31 AM [facility] Hemoglobin 9.1(L) 11.5 - 16.0 g/dL LAB HEMETOLOGY METHOD 02/24/2024 11:31 AM [facility] Hematocrit 27.8(L) 35.0 - 47.0 % LAB HEMETOLOGY METHOD 02/24/2024 11:31 AM [facility] MCV 108.2(H) 79.0 - 98.0 FL LAB HEMETOLOGY METHOD 02/24/2024 11:31 AM [facility] MCH 35.4(H) 27.0 - 32.0 pcg LAB HEMETOLOGY METHOD 02/24/2024 11:31 AM [facility] MCHC 32.7 32.0 - 37.0 g/dL LAB HEMETOLOGY METHOD 02/24/2024 11:31 AM [facility] RDW 13.1 11.0 - 15.0 % LAB HEMETOLOGY METHOD 02/24/2024 11:31 AM [facility] Platelets 296 130 - 400 K/mcL LAB HEMETOLOGY METHOD 02/24/2024 11:31 AM [facility] MPV 10.4 7.0 - 11.0 FL LAB HEMETOLOGY METHOD 02/24/2024 11:31 AM [facility] NRBC 0.0 <1.0 % LAB HEMETOLOGY METHOD 02/24/2024 11:31 AM [facility] NRBC Absolute 0.00 <0.10 K/mcL LAB HEMETOLOGY METHOD 02/24/2024 11:31 AM [facility] Neutrophils Relative 77.1 % LAB HEMETOLOGY METHOD 02/24/2024 11:31 AM [facility] Lymphocytes Relative 7.3 % LAB HEMETOLOGY METHOD 02/24/2024 11:31 AM [facility] Monocytes Relative 14.7 % LAB HEMETOLOGY METHOD 02/24/2024 11:31 AM [facility] Eosinophils Relative 0.2 % LAB HEMETOLOGY METHOD 02/24/2024 11:31 AM [facility] Basophils Relative 0.4 % LAB HEMETOLOGY METHOD 02/24/2024 11:31 AM [facility] Immature Granulocytes Relative 0.3 % LAB HEMETOLOGY METHOD 02/24/2024 11:31 AM [facility] Neutrophils Absolute 7.15(H) 1.50 - 7.00 K/mcL LAB HEMETOLOGY METHOD 02/24/2024 11:31 AM [facility] Lymphocytes Absolute 0.68(L) 1.00 - 5.00 K/mcL LAB HEMETOLOGY METHOD 02/24/2024 11:31 AM [facility] Monocytes Absolute 1.37(H) 0.20 - 1.00 K/mcL LAB HEMETOLOGY METHOD 02/24/2024 11:31 AM [facility] Eosinophils Absolute 0.02 0.00 - 0.50 K/mcL LAB HEMETOLOGY METHOD 02/24/2024 11:31 AM [facility] Basophils Absolute 0.04 0.00 - 0.20 K/mcL LAB HEMETOLOGY METHOD 02/24/2024 11:31 AM [facility] Immature Granulocytes Absolute 0.03 0.00 - 0.03 K/mcL LAB HEMETOLOGY METHOD 02/24/2024 11:31 AM EST [facility] Blood Venous blood specimen / Unknown Venipuncture / Unknown 02/24/2024 10:46 AM EST 02/24/2024 11:17 AM EST us De Snyder MD LAB BLOOD ORDERABLES Final Resu lt Performing Organization Address City/[facility]/ZIP Co de Phone Number [facility] [address] [place] [address], [place] [phone] * B-type natriuretic peptide (02/24/2024 10:46 AM EST) BNP 98 <=100 pcg/mL LAB CHEMISTRY METHOD 02/24/2024 12:11 PM EST [facility] Blood Venous blood specimen / Unknown Venipuncture / Unknown 02/24/2024 10:46 AM EST 02/24/2024 11:17 AM EST us De Snyder MD LAB BLOOD ORDERABLES Final Resu lt Performing Organization Address [facility]/ZIP Co de Phone Number [facility] [address] [place] [address], [place] [phone] * Ammonia (02/24/2024 10:46 AM EST) Ammonia 24 11 - 35 mcmol/L LAB CHEMISTRY METHOD 02/24/2024 12:10 PM EST [facility] Blood Venous blood specimen / Unknown Venipuncture / Unknown 02/24/2024 10:46 AM EST 02/24/2024 11:17 AM EST us De Snyder MD LAB BLOOD ORDERABLES Final Resu lt Performing Organization Address City/[facility]/ZIP Co de Phone Number [facility] [address] [place] [address], [place] [phone] * (ABNORMAL) Comprehensive metabolic panel (02/24/2024 10:46 AM EST) Sodium 126(L) 133 - 145 mmol/L LAB CHEMISTRY METHOD 02/24/2024 12:11 PM [facility] Potassium 4.7 3.5 - 5.5 mmol/L LAB CHEMISTRY METHOD 02/24/2024 12:11 PM [facility] Chloride 92(L) 96 - 110 mmol/L LAB CHEMISTRY METHOD 02/24/2024 12:11 PM [facility] CO2 27 21 - 32 mmol/L LAB CHEMISTRY METHOD 02/24/2024 12:11 PM [facility] Anion Gap 7 3 - 11 LAB CHEMISTRY METHOD 02/24/2024 12:11 PM [facility] Glucose 107(H) 70 - 100 mg/dL LAB CHEMISTRY METHOD 02/24/2024 12:11 PM [facility] BUN 61(H) 5 - 25 mg/dL LAB CHEMISTRY METHOD 02/24/2024 12:11 PM [facility] Comment:Results verified by repeat testing Creatinine 5.80(H) 0.50 - 1.10 mg/dL LAB CHEMISTRY METHOD 02/24/2024 12:11 PM [facility] Comment:Results verified by repeat testing eGFR 7(L) >=60 mL/min/1. 73m2 LAB CHEMISTRY METHOD 02/24/2024 12:11 PM [facility] Comment:Calculation based on the??Chronic Kidney Disease Epidemiology Collaboration (CKD-EPI) equation refit??without adjustment for race. BUN/Creatinine Ratio 10.5 LAB CHEMISTRY METHOD 02/24/2024 12:11 PM [facility] Calcium 10.7(H) 8.5 - 10.5 mg/dL LAB CHEMISTRY METHOD 02/24/2024 12:11 PM [facility] AST (SGOT) 23 10 - 42 unit/L LAB CHEMISTRY METHOD 02/24/2024 12:11 PM [facility] ALT (SGPT) 14 10 - 60 unit/L LAB CHEMISTRY METHOD 02/24/2024 12:11 PM [facility] Alkaline Phosphatase 68 42 - 121 unit/L LAB CHEMISTRY METHOD 02/24/2024 12:11 PM [facility] Total Protein 7.4 6.0 - 8.0 g/dL LAB CHEMISTRY METHOD 02/24/2024 12:11 PM [facility] Albumin 3.5 3.2 - 5.0 g/dL LAB CHEMISTRY METHOD 02/24/2024 12:11 PM [facility] Total Bilirubin 0.7 0.0 - 1.4 mg/dL LAB CHEMISTRY METHOD 02/24/2024 12:11 PM [facility] Blood Venous blood specimen / Unknown Venipuncture / Unknown 02/24/2024 10:46 AM EST 02/24/2024 11:17 AM EST us De Snyder MD LAB BLOOD ORDERABLES Final Resu lt [facility] [address] [place] [address], documented in this encounter Visit Diagnoses Diagnosis Encounter for other general examination documented in this encounter Care Teams Talent Development Analyst Relationship Specialty Start Date End Date Jackeline Saha MD [address] [place], [place] PCP - General Internal Medicine 09/23/21 documented as of this encounter
--- OUTSIDE RECORDS SUMMARY | 2024-04-16 09:04 | XMS_ITS | Encounter Summary ---
Author Organization [facility] Address [address] [place] [address] Care Team Providers Care Conductor Symphonic Orchestra Name Role Phone Jackeline Saha MD Primary Care Pr ovider Encounter Details Date Type Department Care Team (Late st Contact Info) Description 02/26/2024 Lab Requisition [facility] - Main Lab [address] [facility] [place] [address] De Snyder MD [address] [place] [id number] Encounter for other general examination Social History [...] K/mcL LAB HEMETOLOGY METHOD 02/26/2024 11:31 AM [facility] LAB RBC 2.50(L) 3.80 - 4.80 M/mcL LAB HEMETOLOGY METHOD 02/26/2024 11:31 AM [facility] LAB Hemoglobin 8.6(L) 11.5 - 16.0 g/dL LAB HEMETOLOGY METHOD 02/26/2024 11:31 AM [facility] LAB Hematocrit 26.2(L) 35.0 - 47.0 % LAB HEMETOLOGY METHOD 02/26/2024 11:31 AM [facility] LAB MCV 104.4(H) 79.0 - 98.0 FL LAB HEMETOLOGY METHOD 02/26/2024 11:31 AM [facility] LAB MCH 34.3(H) 27.0 - 32.0 pcg LAB HEMETOLOGY METHOD 02/26/2024 11:31 AM [facility] LAB MCHC 32.8 32.0 - 37.0 g/dL LAB HEMETOLOGY METHOD 02/26/2024 11:31 AM [facility] LAB RDW 13.2 11.0 - 15.0 % LAB HEMETOLOGY METHOD 02/26/2024 11:31 AM [facility] LAB Platelets 302 130 - 400 K/mcL LAB HEMETOLOGY METHOD 02/26/2024 11:31 AM [facility] LAB MPV 10.0 7.0 - 11.0 FL LAB HEMETOLOGY METHOD 02/26/2024 11:31 AM [facility] LAB NRBC 0.0 <1.0 % LAB HEMETOLOGY METHOD 02/26/2024 11:31 AM [facility] LAB NRBC Absolute 0.00 <0.10 K/mcL LAB HEMETOLOGY METHOD 02/26/2024 11:31 AM [facility] LAB Neutrophils Relative 77.3 % LAB HEMETOLOGY METHOD 02/26/2024 11:31 AM [facility] LAB Lymphocytes Relative 8.1 % LAB HEMETOLOGY METHOD 02/26/2024 11:31 AM [facility] LAB Monocytes Relative 12.7 % LAB HEMETOLOGY METHOD 02/26/2024 11:31 AM [facility] LAB Eosinophils Relative 1.3 % LAB HEMETOLOGY METHOD 02/26/2024 11:31 AM [facility] LAB Basophils Relative 0.3 % LAB HEMETOLOGY METHOD 02/26/2024 11:31 AM [facility] LAB Immature Granulocytes Relative 0.3 % LAB HEMETOLOGY METHOD 02/26/2024 11:31 AM [facility] LAB Neutrophils Absolute 6.88 1.50 - 7.00 K/mcL LAB HEMETOLOGY METHOD 02/26/2024 11:31 AM [facility] LAB Lymphocytes Absolute 0.72(L) 1.00 - 5.00 K/mcL LAB HEMETOLOGY METHOD 02/26/2024 11:31 AM [facility] LAB Monocytes Absolute 1.13(H) 0.20 - 1.00 K/mcL LAB HEMETOLOGY METHOD 02/26/2024 11:31 AM [facility] LAB Eosinophils Absolute 0.12 0.00 - 0.50 K/mcL LAB HEMETOLOGY METHOD 02/26/2024 11:31 AM [facility] LAB Basophils Absolute 0.03 0.00 - 0.20 K/mcL LAB HEMETOLOGY METHOD 02/26/2024 11:31 AM [facility] LAB Immature Granulocytes Absolute 0.03 0.00 - 0.03 K/mcL LAB HEMETOLOGY METHOD 02/26/2024 11:31 AM [facility] LAB Blood Venous blood specimen / Unknown Venipuncture / Unknown 02/26/2024 5:45 AM EST 02/26/2024 9:44 AM EST us De Snyder MD LAB BLOOD ORDERABLES Final Resu lt [facility] LAB [address] [place] [address], [place] [phone] * (ABNORMAL) Basic metabolic panel (02/26/2024 5:45 AM EST) Sodium 134 133 - 145 mmol/L LAB CHEMISTRY METHOD 02/26/2024 10:36 AM [facility] LAB Potassium 4.8 3.5 - 5.5 mmol/L LAB CHEMISTRY METHOD 02/26/2024 10:36 AM [facility] LAB Chloride 100 96 - 110 mmol/L LAB CHEMISTRY METHOD 02/26/2024 10:36 AM [facility] LAB CO2 27 21 - 32 mmol/L LAB CHEMISTRY METHOD 02/26/2024 10:36 AM [facility] LAB Anion Gap 7 3 - 11 LAB CHEMISTRY METHOD 02/26/2024 10:36 AM [facility] LAB Glucose 97 70 - 100 mg/dL LAB CHEMISTRY METHOD 02/26/2024 10:36 AM [facility] LAB BUN 30(H) 5 - 25 mg/dL LAB CHEMISTRY METHOD 02/26/2024 10:36 AM [facility] LAB Creatinine 0.85 0.50 - 1.10 mg/dL LAB CHEMISTRY METHOD 02/26/2024 10:36 AM [facility] LAB eGFR 74 >=60 mL/min/1. 73m2 LAB CHEMISTRY METHOD 02/26/2024 10:36 AM [facility] LAB Comment:Calculation based on the??Chronic Kidney Disease Epidemiology Collaboration (CKD-EPI) equation refit??without adjustment for race. BUN/Creatinine Ratio 35.3 LAB CHEMISTRY METHOD 02/26/2024 10:36 AM [facility] LAB Calcium 9.7 8.5 - 10.5 mg/dL LAB CHEMISTRY METHOD 02/26/2024 10:36 AM EST [facility] LAB Blood Venous blood specimen / Unknown Venipuncture / Unknown 02/26/2024 5:45 AM EST 02/26/2024 9:44 AM EST us De Snyder MD LAB BLOOD ORDERABLES Final Resu lt [facility] LAB [address] [place] [address], documented in this encounter Visit Diagnoses Diagnosis Encounter for other general examination documented in this encounter Care Teams Conductor Symphonic Orchestra Relationship Specialty Start Date End Date Jackeline Saha MD [address] [place] [address] PCP - General Internal Medicine 09/23/21 documented as of this encounter
--- OUTSIDE RECORDS SUMMARY | 2024-04-16 09:04 | XMS_ITS | Encounter Summary ---
Author Organization [facility] Address [address] [place] [address] Care Team Providers Care Electric Range Assembler Name Role Phone Jackeline Saha MD Primary Care Pr ovider Encounter Details Date Type Department Care Team (Late st Contact Info) Description 02/25/2024 Lab Requisition [facility] - Main Lab [address] [facility] [place] [address] De Snyder MD [address] [place] [address] Encounter for other general examination Social History [...] K/mcL LAB HEMETOLOGY METHOD 02/25/2024 11:05 AM [facility] LAB RBC 2.30(L) 3.80 - 4.80 M/mcL LAB HEMETOLOGY METHOD 02/25/2024 11:05 AM [facility] LAB Hemoglobin 8.1(L) 11.5 - 16.0 g/dL LAB HEMETOLOGY METHOD 02/25/2024 11:05 AM [facility] LAB Hematocrit 24.5(L) 35.0 - 47.0 % LAB HEMETOLOGY METHOD 02/25/2024 11:05 AM [facility] LAB MCV 106.1(H) 79.0 - 98.0 FL LAB HEMETOLOGY METHOD 02/25/2024 11:05 AM [facility] LAB MCH 35.1(H) 27.0 - 32.0 pcg LAB HEMETOLOGY METHOD 02/25/2024 11:05 AM [facility] LAB MCHC 33.1 32.0 - 37.0 g/dL LAB HEMETOLOGY METHOD 02/25/2024 11:05 AM [facility] LAB RDW 13.3 11.0 - 15.0 % LAB HEMETOLOGY METHOD 02/25/2024 11:05 AM [facility] LAB Platelets 257 130 - 400 K/mcL LAB HEMETOLOGY METHOD 02/25/2024 11:05 AM [facility] LAB MPV 10.0 7.0 - 11.0 FL LAB HEMETOLOGY METHOD 02/25/2024 11:05 AM [facility] LAB NRBC 0.0 <1.0 % LAB HEMETOLOGY METHOD 02/25/2024 11:05 AM [facility] LAB NRBC Absolute 0.00 <0.10 K/mcL LAB HEMETOLOGY METHOD 02/25/2024 11:05 AM [facility] LAB Neutrophils Relative 70.6 % LAB HEMETOLOGY METHOD 02/25/2024 11:05 AM [facility] LAB Lymphocytes Relative 11.6 % LAB HEMETOLOGY METHOD 02/25/2024 11:05 AM [facility] Monocytes Relative 16.8 % LAB HEMETOLOGY METHOD 02/25/2024 11:05 AM [facility] Eosinophils Relative 0.3 % LAB HEMETOLOGY METHOD 02/25/2024 11:05 AM [facility] Basophils Relative 0.4 % LAB HEMETOLOGY METHOD 02/25/2024 11:05 AM [facility] Immature Granulocytes Relative 0.3 % LAB HEMETOLOGY METHOD 02/25/2024 11:05 AM [facility] LAB Neutrophils Absolute 5.28 1.50 - 7.00 K/mcL LAB HEMETOLOGY METHOD 02/25/2024 11:05 AM [facility] Lymphocytes Absolute 0.87(L) 1.00 - 5.00 K/mcL LAB HEMETOLOGY METHOD 02/25/2024 11:05 AM [facility] Monocytes Absolute 1.26(H) 0.20 - 1.00 K/mcL LAB HEMETOLOGY METHOD 02/25/2024 11:05 AM [facility] LAB Eosinophils Absolute 0.02 0.00 - 0.50 K/mcL LAB HEMETOLOGY METHOD 02/25/2024 11:05 AM [facility] Basophils Absolute 0.03 0.00 - 0.20 K/mcL LAB HEMETOLOGY METHOD 02/25/2024 11:05 AM [facility] LAB Immature Granulocytes Absolute 0.02 0.00 - 0.03 K/mcL LAB HEMETOLOGY METHOD 02/25/2024 11:05 AM [facility] LAB Blood Venous blood specimen / Unknown Venipuncture / Unknown 02/25/2024 5:50 AM EST 02/25/2024 9:25 AM EST us De Snyder MD LAB BLOOD ORDERABLES Final Resu lt [facility] [address] [place] [address], [place] [phone] * (ABNORMAL) Comprehensive metabolic panel (02/25/2024 5:50 AM EST) Sodium 132(L) 133 - 145 mmol/L LAB CHEMISTRY METHOD 02/25/2024 11:27 AM [facility] Potassium 4.4 3.5 - 5.5 mmol/L LAB CHEMISTRY METHOD 02/25/2024 11:27 AM [facility] LAB Chloride 98 96 - 110 mmol/L LAB CHEMISTRY METHOD 02/25/2024 11:27 AM [facility] LAB CO2 27 21 - 32 mmol/L LAB CHEMISTRY METHOD 02/25/2024 11:27 AM EST [facility] LAB Anion Gap 7 3 - 11 LAB CHEMISTRY METHOD 02/25/2024 11:27 AM [facility] Glucose 90 70 - 100 mg/dL LAB CHEMISTRY METHOD 02/25/2024 11:27 AM [facility] BUN 48(H) 5 - 25 mg/dL LAB CHEMISTRY METHOD 02/25/2024 11:27 AM [facility] Creatinine 1.93(H) 0.50 - 1.10 mg/dL LAB CHEMISTRY METHOD 02/25/2024 11:27 AM [facility] LAB eGFR 28(L) >=60 mL/min/1. 73m2 LAB CHEMISTRY METHOD 02/25/2024 11:27 AM [facility] LAB Comment:Calculation based on the??Chronic Kidney Disease Epidemiology Collaboration (CKD-EPI) equation refit??without adjustment for race. BUN/Creatinine Ratio 24.9 LAB CHEMISTRY METHOD 02/25/2024 11:27 AM [facility] Calcium 9.8 8.5 - 10.5 mg/dL LAB CHEMISTRY METHOD 02/25/2024 11:27 AM [facility] AST (SGOT) 25 10 - 42 unit/L LAB CHEMISTRY METHOD 02/25/2024 11:27 AM [facility] ALT (SGPT) 17 10 - 60 unit/L LAB CHEMISTRY METHOD 02/25/2024 11:27 AM [facility] LAB Alkaline Phosphatase 68 42 - 121 unit/L LAB CHEMISTRY METHOD 02/25/2024 11:27 AM [facility] Total Protein 6.3 6.0 - 8.0 g/dL LAB CHEMISTRY METHOD 02/25/2024 11:27 AM [facility] Albumin 3.0(L) 3.2 - 5.0 g/dL LAB CHEMISTRY METHOD 02/25/2024 11:27 AM [facility] Total Bilirubin 0.7 0.0 - 1.4 mg/dL LAB CHEMISTRY METHOD 02/25/2024 11:27 AM [facility] LAB Blood Venous blood specimen / Unknown Venipuncture / Unknown 02/25/2024 5:50 AM EST 02/25/2024 9:25 AM EST us De Snyder MD LAB BLOOD ORDERABLES Final Resu lt [facility] LAB [address] [place] [address], documented in this encounter Visit Diagnoses Diagnosis Encounter for other general examination documented in this encounter Care Teams Electric Range Assembler Relationship Specialty Start Date End Date Jackeline Saha MD [address] [place], [place] PCP - General Internal Medicine 09/23/21 documented as of this encounter
== END 2024-04-16 08:26 | disposition home or self-care (01) ==
LOC: HO.HOSX 08:25
PROVIDERS: Visit Provider Physician Assistant
DX: S42.211D Unspecified displaced fracture of surgical neck of right humerus, subsequent encounter for fracture with routine healing (principal)
CPT/HCPCS: 73030

== ENCOUNTER 2024-04-16 11:27 | Outpatient (AMB) | payer MEDICARE, MEDICAID, SELFPAY ==
[2024-04-16 11:38] VITALS: BMI 22.3
--- NOTE | 2024-04-16 11:38 | A.OFFVIS_ITS ---
Vital Signs 04/16/24 11:38 Height 5 ft 5 in Weight 134 lb BMI 22.3 Intake Visit Reasons: OV f/u RT shoulder Proximal Humerus fx Intake Note: Monique is a 68 year old left hand dominant female who presents today for a follow up of her right humerus fracture 02/19/24. At her last visit she was fit for a ultrasling and instructed to come out of the sling to work on pendulums. Allergies No Known Allergies Allergy (Verified 04/16/24 11:38) Medication List - Last Reconciled 04/16/24 by Kalyn Barraza PA-C acetaminophen 975 mg (3 x 325 mg) PO Q8H PRN albuterol sulfate 90 mcg/actuation 2 puffs inhalation QID PRN budesonide-formoterol 160-4.5 mcg/actuation inhalation calcium carbonate-vit D3-min 600 mg-10 mcg (400 unit) 1 tab PO BID citalopram 20 mg PO DAILY 30 days clonidine HCl 0.1 mg PO TID 30 days fluticasone propionate 50 mcg/actuation 1 spray intranasal BID folic acid 1 mg PO DAILY magnesium oxide 200 mg PO DAILY multivitamin with minerals 1 tab PO DAILY tramadol 100 mg (2 x 50 mg) PO Q8H PRN 30 days HPI HPI OV f/u RT shoulder Proximal Humerus fx: Details: 68-year-old female returns to the office today 6 weeks follow-up right proximal humerus fracture date of injury 02/19/24. She has discontinued the use of the sling and states she has been working with physical therapy but continues to have significant limitations in her activities. She states she has continued pain in the shoulder which she has difficulty controlling. [facility] Medical History Fracture of surgical neck of right humerus Chronic bronchitis Bronchiectasis Depression Emphysema of lung Surgical History History of ear surgery Family History Mother No problems noted. Father Emphysema lung Family/Other Mental health disorder Substance use disorder Social History Housing: Apartment Alcohol intake: current Alcohol intake frequency: 3 or more drinks per day Alcohol type: beer and hard liquor Patient Tobacco Use Status: Former Tobacco user Tobacco use type: Cigarette e-Cigarette/Vaping Use: Never Used Second Hand Smoke Exposure: Yes service: No Current occupational status: employed Current occupation: left hand dominant Current occupational exposures/hazards: No Cognitive needs: No Hearing needs: No Vision needs: Yes (Glasses) Review of Systems Const All systems reviewed & are unremarkable except as noted in HPI and below Physical Exam Vital Signs: BMI result Body Mass Index 22.3 Const General: cooperative and no acute distress Orientation/consciousness: patient oriented x3 Resp Effort & Inspection: normal respiratory effort and able to speak in complete sentences Cardio Peripheral pulses: Peripheral pulses 2+ throughout Neuro General: patient oriented x3 Extrem Other: Right shoulder Mild tenderness over the proximal humerus. No tenderness over the elbow. She is able to bring her palm to her face. She can not reach the top of her head without bringing her head forward. She is unable to perform any type of active range of motion of the shoulder. Range of motion of the wrist and digits intact. Neurovascularly intact. Results Reviewed Results Reviewed: X-rays of the right shoulder obtained in the office today and reviewed by me demonstrate proximal humerus fracture with significant displacement. Assessment & Plan Assessment & Plan (1) Fracture of surgical neck of right humerus: Code(s): S42.211A - Unspecified displaced fracture of surgical neck of right humerus, initial encounter for closed fracture Category: Medical Qualifiers: Encounter type: subsequent encounter Fracture type: closed Fracture morphology: unspecified fracture morphology Fracture alignment: displaced Plan: We had a lengthy discussion today about the options available which include continued conservative management. I explained at 6 weeks I would expect continued limitations in activity however the unknown is what the next 6 weeks will bring. She may regain some motion however it did explain she will not have full range of motion of the shoulder like she did prior to injury. My goal or expectation at the very least would be for her to get her hand to the top of her head. She is concerned that show continued to have ongoing pain throughout this entire process which I did assure her that this should subside with time. We also discussed the option of surgical intervention. I explained this would be a reconstructive process as she had a fracture which would then require us to remove the fragments and then replace with a shoulder arthroplasty. This would be a very in-depth procedure. The goal of this procedure again would be to give her some ability to perform function with that right arm to where she can get her hand to the top of her head. I did explain this procedure is not used to perform excessive activities overhead or behind the plane of the body especially with weight or resistance. She did express understanding and will see me back in 6 weeks for re-evaluation to see if she has had any improvement in her func tion. New x-rays to be obtained at that time. Orders: Orders XR shoulder RT min 2V Today M25.511 - Pain in right shoulder Medications: New celecoxib (Celebrex) 200 mg PO BID 60 caps 3RF 30 days Coding Level of Care Code Global (36434) Diagnoses Fracture of surgical neck of right humerus S42.211A Encounter type: subsequent encounter Fracture type: closed Fracture morphology: unspecified fracture morphology Fracture alignment: displaced
--- OUTSIDE RECORDS SUMMARY | 2024-04-16 13:21 | XMS_ITS | Encounter Summary ---
Author Organization [facility] Address [address] [place] [address] Care Team Providers Care Casing Crew Name Role Phone Jackeline Saha MD Primary Care Pr ovider Encounter Details Date Type Department Care Team (Late st Contact Info) Description 02/26/2024 Lab Requisition [facility] - Main Lab [address] [facility] [place] [address] De Snyder MD [address] [place] [id number] Encounter for other general examination Social History [...] K/mcL LAB HEMETOLOGY METHOD 02/26/2024 11:31 AM [facility] LAB RBC 2.50(L) 3.80 - 4.80 M/mcL LAB HEMETOLOGY METHOD 02/26/2024 11:31 AM [facility] LAB Hemoglobin 8.6(L) 11.5 - 16.0 g/dL LAB HEMETOLOGY METHOD 02/26/2024 11:31 AM [facility] LAB Hematocrit 26.2(L) 35.0 - 47.0 % LAB HEMETOLOGY METHOD 02/26/2024 11:31 AM [facility] LAB MCV 104.4(H) 79.0 - 98.0 FL LAB HEMETOLOGY METHOD 02/26/2024 11:31 AM [facility] LAB MCH 34.3(H) 27.0 - 32.0 pcg LAB HEMETOLOGY METHOD 02/26/2024 11:31 AM [facility] LAB MCHC 32.8 32.0 - 37.0 g/dL LAB HEMETOLOGY METHOD 02/26/2024 11:31 AM [facility] LAB RDW 13.2 11.0 - 15.0 % LAB HEMETOLOGY METHOD 02/26/2024 11:31 AM [facility] LAB Platelets 302 130 - 400 K/mcL LAB HEMETOLOGY METHOD 02/26/2024 11:31 AM [facility] LAB MPV 10.0 7.0 - 11.0 FL LAB HEMETOLOGY METHOD 02/26/2024 11:31 AM [facility] LAB NRBC 0.0 <1.0 % LAB HEMETOLOGY METHOD 02/26/2024 11:31 AM [facility] NRBC Absolute 0.00 <0.10 K/mcL LAB HEMETOLOGY METHOD 02/26/2024 11:31 AM [facility] Neutrophils Relative 77.3 % LAB HEMETOLOGY METHOD 02/26/2024 11:31 AM [facility] Lymphocytes Relative 8.1 % LAB HEMETOLOGY METHOD 02/26/2024 11:31 AM [facility] Monocytes Relative 12.7 % LAB HEMETOLOGY METHOD 02/26/2024 11:31 AM [facility] Eosinophils Relative 1.3 % LAB HEMETOLOGY METHOD 02/26/2024 11:31 AM [facility] Basophils Relative 0.3 % LAB HEMETOLOGY METHOD 02/26/2024 11:31 AM [facility] Immature Granulocytes Relative 0.3 % LAB HEMETOLOGY METHOD 02/26/2024 11:31 AM [facility] Neutrophils Absolute 6.88 1.50 - 7.00 K/mcL LAB HEMETOLOGY METHOD 02/26/2024 11:31 AM [facility] Lymphocytes Absolute 0.72(L) 1.00 - 5.00 K/mcL LAB HEMETOLOGY METHOD 02/26/2024 11:31 AM [facility] Monocytes Absolute 1.13(H) 0.20 - 1.00 K/mcL LAB HEMETOLOGY METHOD 02/26/2024 11:31 AM [facility] Eosinophils Absolute 0.12 0.00 - 0.50 K/mcL LAB HEMETOLOGY METHOD 02/26/2024 11:31 AM [facility] Basophils Absolute 0.03 0.00 - 0.20 K/mcL LAB HEMETOLOGY METHOD 02/26/2024 11:31 AM [facility] LAB Immature Granulocytes Absolute 0.03 0.00 - 0.03 K/mcL LAB HEMETOLOGY METHOD 02/26/2024 11:31 AM [facility] Blood Venous blood specimen / Unknown Venipuncture / Unknown 02/26/2024 5:45 AM EST 02/26/2024 9:44 AM EST us De Snyder MD LAB BLOOD ORDERABLES Final Resu lt [facility] [address] [place] [address], [place] [phone] * (ABNORMAL) Basic metabolic panel (02/26/2024 5:45 AM EST) Sodium 134 133 - 145 mmol/L LAB CHEMISTRY METHOD 02/26/2024 10:36 AM [facility] Potassium 4.8 3.5 - 5.5 mmol/L LAB CHEMISTRY METHOD 02/26/2024 10:36 AM [facility] Chloride 100 96 - 110 mmol/L LAB CHEMISTRY METHOD 02/26/2024 10:36 AM [facility] CO2 27 21 - 32 mmol/L LAB CHEMISTRY METHOD 02/26/2024 10:36 AM [facility] Anion Gap 7 3 - 11 LAB CHEMISTRY METHOD 02/26/2024 10:36 AM [facility] Glucose 97 70 - 100 mg/dL LAB CHEMISTRY METHOD 02/26/2024 10:36 AM [facility] BUN 30(H) 5 - 25 mg/dL LAB CHEMISTRY METHOD 02/26/2024 10:36 AM [facility] Creatinine 0.85 0.50 - 1.10 mg/dL LAB CHEMISTRY METHOD 02/26/2024 10:36 AM [facility] LAB eGFR 74 >=60 mL/min/1. 73m2 LAB CHEMISTRY METHOD 02/26/2024 10:36 AM [facility] Comment:Calculation based on the??Chronic Kidney Disease Epidemiology Collaboration (CKD-EPI) equation refit??without adjustment for race. BUN/Creatinine Ratio 35.3 LAB CHEMISTRY METHOD 02/26/2024 10:36 AM [facility] Calcium 9.7 8.5 - 10.5 mg/dL LAB CHEMISTRY METHOD 02/26/2024 10:36 AM EST [facility] Blood Venous blood specimen / Unknown Venipuncture / Unknown 02/26/2024 5:45 AM EST 02/26/2024 9:44 AM EST us De Snyder MD LAB BLOOD ORDERABLES Final Resu lt [facility] [address] [place] [address], documented in this encounter Visit Diagnoses Diagnosis Encounter for other general examination documented in this encounter Care Teams Casing Crew Relationship Specialty Start Date End Date Jackeline Saha MD [address] [place] [address] PCP - General Internal Medicine 09/23/21 documented as of this encounter
--- OUTSIDE RECORDS SUMMARY | 2024-04-16 13:21 | XMS_ITS | Clinical Summary ---
Author Organization [address] Address [address] [place] [address] Phone Care Team Providers Care Oncology Account Specialist Name Role Phone Jackeline Saha MD [...] Department Care Team Description 02/26/2024 Lab Requisition [facility] Lab [address] [place] [phone] De Snyder MD Encounter for other general examination 02/25/2024 Lab Requisition [facility] Lab [address] [place] [phone] De Snyder MD Encounter for other general examination 02/24/2024 Lab Requisition [facility] Lab [address] [place] [phone] De Snyder MD Encounter for other general examination 02/21/2024 Lab Requisition [facility] Main Lab [address] [place] [phone] De Snyder MD Encounter for other general [...] MRI COPD (chronic obstructive pu lmonary disease) ([facility]) 09/14/2017 DX:COPD (chronic obstructive pulmonary disease) ([facility]) Depression 09/14/2017 DX:Depression Hyperlipidemia 09/14/2017 [...] K/mcL LAB HEMETOLOGY METHOD 02/26/2024 11:31 AM [facility] LAB RBC 2.50(L) 3.80 - 4.80 M/mcL LAB HEMETOLOGY METHOD 02/26/2024 11:31 AM [facility] LAB Hemoglobin 8.6(L) 11.5 - 16.0 g/dL LAB HEMETOLOGY METHOD 02/26/2024 11:31 AM [facility] LAB Hematocrit 26.2(L) 35.0 - 47.0 % LAB HEMETOLOGY METHOD 02/26/2024 11:31 AM [facility] LAB MCV 104.4(H) 79.0 - 98.0 FL LAB HEMETOLOGY METHOD 02/26/2024 11:31 AM [facility] LAB MCH 34.3(H) 27.0 - 32.0 pcg LAB HEMETOLOGY METHOD 02/26/2024 11:31 AM [facility] LAB MCHC 32.8 32.0 - 37.0 g/dL LAB HEMETOLOGY METHOD 02/26/2024 11:31 AM [facility] LAB RDW 13.2 11.0 - 15.0 % LAB HEMETOLOGY METHOD 02/26/2024 11:31 AM [facility] LAB Platelets 302 130 - 400 K/mcL LAB HEMETOLOGY METHOD 02/26/2024 11:31 AM [facility] LAB MPV 10.0 7.0 - 11.0 FL LAB HEMETOLOGY METHOD 02/26/2024 11:31 AM [facility] LAB NRBC 0.0 <1.0 % LAB HEMETOLOGY METHOD 02/26/2024 11:31 AM [facility] LAB NRBC Absolute 0.00 <0.10 K/mcL LAB HEMETOLOGY METHOD 02/26/2024 11:31 AM [facility] LAB Neutrophils Relative 77.3 % LAB HEMETOLOGY METHOD 02/26/2024 11:31 AM [facility] LAB Lymphocytes Relative 8.1 % LAB HEMETOLOGY METHOD 02/26/2024 11:31 AM [facility] LAB Monocytes Relative 12.7 % LAB HEMETOLOGY METHOD 02/26/2024 11:31 AM [facility] LAB Eosinophils Relative 1.3 % LAB HEMETOLOGY METHOD 02/26/2024 11:31 AM [facility] LAB Basophils Relative 0.3 % LAB HEMETOLOGY METHOD 02/26/2024 11:31 AM [facility] LAB Immature Granulocytes Relative 0.3 % LAB HEMETOLOGY METHOD 02/26/2024 11:31 AM [facility] LAB Neutrophils Absolute 6.88 1.50 - 7.00 K/mcL LAB HEMETOLOGY METHOD 02/26/2024 11:31 AM EST [facility] LAB Lymphocytes Absolute 0.72(L) 1.00 - 5.00 K/mcL LAB HEMETOLOGY METHOD 02/26/2024 11:31 AM [facility] LAB Monocytes Absolute 1.13(H) 0.20 - 1.00 K/mcL LAB HEMETOLOGY METHOD 02/26/2024 11:31 AM EST [facility] LAB Eosinophils Absolute 0.12 0.00 - 0.50 K/mcL LAB HEMETOLOGY METHOD 02/26/2024 11:31 AM EST [facility] LAB Basophils Absolute 0.03 0.00 - 0.20 K/mcL LAB HEMETOLOGY METHOD 02/26/2024 11:31 AM [facility] LAB Immature Granulocytes Absolute 0.03 0.00 - 0.03 K/[facility] LAB HEMETOLOGY METHOD 02/26/2024 11:31 AM [facility] LAB Blood Venous blood specimen / Unknown Venipuncture / Unknown 02/26/2024 5:45 AM EST 02/26/2024 9:44 AM EST us De Snyder MD LAB BLOOD ORDERABLES Final Resu lt [facility] LAB [address] [place] [address], * (ABNORMAL) Basic metabolic panel (02/26/2024 5:45 AM EST) Sodium 134 133 - 145 mmol/L LAB CHEMISTRY METHOD 02/26/2024 10:36 AM EST [facility] LAB Potassium 4.8 3.5 - 5.5 mmol/L LAB CHEMISTRY METHOD 02/26/2024 10:36 AM [facility] LAB Chloride 100 96 - 110 mmol/L LAB CHEMISTRY METHOD 02/26/2024 10:36 AM [facility] LAB CO2 27 21 - 32 mmol/L LAB CHEMISTRY METHOD 02/26/2024 10:36 AM [facility] LAB Anion Gap 7 3 - 11 LAB CHEMISTRY METHOD 02/26/2024 10:36 AM [facility] LAB Glucose 97 70 - 100 mg/dL LAB CHEMISTRY METHOD 02/26/2024 10:36 AM [facility] LAB BUN 30(H) 5 - 25 mg/dL LAB CHEMISTRY METHOD 02/26/2024 10:36 AM [facility] LAB Creatinine 0.85 0.50 - 1.10 mg/dL LAB CHEMISTRY METHOD 02/26/2024 10:36 AM [facility] LAB eGFR 74 >=60 mL/min/1. 73m2 LAB CHEMISTRY METHOD 02/26/2024 10:36 AM [facility] LAB Comment:Calculation based on the??Chronic Kidney Disease Epidemiology Collaboration (CKD-EPI) equation refit??without adjustment for race. BUN/Creatinine Ratio 35.3 LAB CHEMISTRY METHOD 02/26/2024 10:36 AM [facility] LAB Calcium 9.7 8.5 - 10.5 mg/dL LAB CHEMISTRY METHOD 02/26/2024 10:36 AM [facility] LAB Blood Venous blood specimen / Unknown Venipuncture / Unknown 02/26/2024 5:45 AM EST 02/26/2024 9:44 AM EST us De Snyder MD LAB BLOOD ORDERABLES Final Resu lt [facility] LAB [address] [place] [address], * (ABNORMAL) Comprehensive metabolic panel (02/25/2024 5:50 AM EST) Only the most recent of3 resultswithin the time period is included. Sodium 132(L) 133 - 145 mmol/L LAB CHEMISTRY METHOD 02/25/2024 11:27 AM [facility] LAB Potassium 4.4 3.5 - 5.5 mmol/L LAB CHEMISTRY METHOD 02/25/2024 11:27 AM [facility] LAB Chloride 98 96 - 110 mmol/L LAB CHEMISTRY METHOD 02/25/2024 11:27 AM [facility] LAB CO2 27 21 - 32 mmol/L LAB CHEMISTRY METHOD 02/25/2024 11:27 AM [facility] LAB Anion Gap 7 3 - 11 LAB CHEMISTRY METHOD 02/25/2024 11:27 AM [facility] LAB Glucose 90 70 - 100 mg/dL LAB CHEMISTRY METHOD 02/25/2024 11:27 AM [facility] LAB BUN 48(H) 5 - 25 mg/dL LAB CHEMISTRY METHOD 02/25/2024 11:27 AM [facility] LAB Creatinine 1.93(H) 0.50 - 1.10 mg/dL LAB CHEMISTRY METHOD 02/25/2024 11:27 AM [facility] LAB eGFR 28(L) >=60 mL/min/1. 73m2 LAB CHEMISTRY METHOD 02/25/2024 11:27 AM [facility] LAB Comment:Calculation based on the??Chronic Kidney Disease Epidemiology Collaboration (CKD-EPI) equation refit??without adjustment for race. BUN/Creatinine Ratio 24.9 LAB CHEMISTRY METHOD 02/25/2024 11:27 AM [facility] LAB Calcium 9.8 8.5 - 10.5 mg/dL LAB CHEMISTRY METHOD 02/25/2024 11:27 AM [facility] LAB AST (SGOT) 25 10 - 42 unit/L LAB CHEMISTRY METHOD 02/25/2024 11:27 AM [facility] LAB ALT (SGPT) 17 10 - 60 unit/L LAB CHEMISTRY METHOD 02/25/2024 11:27 AM [facility] LAB Alkaline Phosphatase 68 42 - 121 unit/L LAB CHEMISTRY METHOD 02/25/2024 11:27 AM EST [facility] LAB Total Protein 6.3 6.0 - 8.0 g/dL LAB CHEMISTRY METHOD 02/25/2024 11:27 AM [facility] LAB Albumin 3.0(L) 3.2 - 5.0 g/dL LAB CHEMISTRY METHOD 02/25/2024 11:27 AM [facility] LAB Total Bilirubin 0.7 0.0 - 1.4 mg/dL LAB CHEMISTRY METHOD 02/25/2024 11:27 AM [facility] LAB Blood Venous blood specimen / Unknown Venipuncture / Unknown 02/25/2024 5:50 AM EST 02/25/2024 9:25 AM EST us De Snyder MD LAB BLOOD ORDERABLES Final Resu lt Performing Organization Address City/[facility]/ZIP Co de Phone Number [facility] LAB [address] [place] [address], * B-type natriuretic peptide (02/24/2024 10:46 AM EST) BNP 98 <=100 pcg/mL LAB CHEMISTRY METHOD 02/24/2024 12:11 PM [facility] LAB Blood Venous blood specimen / Unknown Venipuncture / Unknown 02/24/2024 10:46 AM EST 02/24/2024 11:17 AM EST us De Snyder MD LAB BLOOD ORDERABLES Final Resu lt [facility] [address] [place] [address], [place] [phone] * Ammonia (02/24/2024 10:46 AM EST) Ammonia 24 11 - 35 mcmol/L LAB CHEMISTRY METHOD 02/24/2024 12:10 PM [facility] LAB Blood Venous blood specimen / Unknown Venipuncture / Unknown 02/24/2024 10:46 AM EST 02/24/2024 11:17 AM EST us De Snyder MD LAB BLOOD ORDERABLES Final Resu lt Performing Organization Address [facility]/State/ZIP Co de Phone Number [facility] [address] [place] [address], [place] [phone] * Magnesium (02/21/2024 7:10 AM EST) Magnesium 1.9 1.9 - 2.6 mg/dL LAB CHEMISTRY METHOD 02/21/2024 11:47 AM EST [facility] LAB Blood Venous blood specimen / Unknown Venipuncture / Unknown 02/21/2024 7:10 AM EST 02/21/2024 10:45 AM EST us De Snyder MD LAB BLOOD ORDERABLES Final Resu lt Performing Organization Address [facility]/State/ZIP Co de Phone Number [facility] [address] [place] [address], [place] [phone] * DIAGNOSTIC MAMMOGRAPHY INCLUDING CAD BILATERAL (06/22/2021 [...] with chronicfibroglandular asymmetry. BI-RADS 2-benign Karely [facility] BI PROCEDURES Final Result * (ABNORMAL) Lipid [...] Insurance MEDICARE MEDICAID - [place] Care Teams Oncology Account Specialist Relationship Specialty Start Date End Date Jackeline Saha MD [address] [place] [address] PCP - General Internal Medicine 09/23/21
--- OUTSIDE RECORDS SUMMARY | 2024-04-16 13:21 | XMS_ITS | Encounter Summary ---
Author Organization [facility] Address [address] [place] [address] Care Team Providers Care Paper Latcher Name Role Phone Jackeline Saha MD Primary Care Pr ovider Encounter Details Date Type Department Care Team (Late st Contact Info) Description 02/24/2024 Lab Requisition [facility] - Main Lab [address] [facility] [place] [phone] De Snyder MD [address] [place] [address] Encounter for other general examination Social History [...] LAB HEMETOLOGY METHOD 02/24/2024 11:31 AM EST [facility] LAB Blood Venous blood specimen / Unknown Venipuncture / Unknown 02/24/2024 10:46 AM EST 02/24/2024 11:17 AM EST us De Snyder MD LAB BLOOD ORDERABLES Final Resu lt Performing Organization Address City/[facility]/ZIP Co de Phone Number [facility] LAB [address] [place] [address], [place] [phone] * B-type natriuretic peptide (02/24/2024 10:46 AM EST) BNP 98 <=100 pcg/mL LAB CHEMISTRY METHOD 02/24/2024 12:11 PM EST [facility] LAB Blood Venous blood specimen / Unknown Venipuncture / Unknown 02/24/2024 10:46 AM EST 02/24/2024 11:17 AM EST us De Snyder MD LAB BLOOD ORDERABLES Final Resu lt Performing Organization Address [facility]/ZIP Co de Phone Number [facility] [address] [place] [address], [place] [phone] * Ammonia (02/24/2024 10:46 AM EST) Ammonia 24 11 - 35 mcmol/L LAB CHEMISTRY METHOD 02/24/2024 12:10 PM EST [facility] LAB Blood Venous blood specimen / Unknown Venipuncture / Unknown 02/24/2024 10:46 AM EST 02/24/2024 11:17 AM EST us De Snyder MD LAB BLOOD ORDERABLES Final Resu lt Performing Organization Address City/[facility]/ZIP Co de Phone Number [facility] [address] [place] [address], [place] [phone] * (ABNORMAL) Comprehensive metabolic panel (02/24/2024 10:46 [...] MD LAB BLOOD ORDERABLES Final Resu lt [facility] [address] [place] [address], documented in this encounter Visit Diagnoses Diagnosis Encounter for other general examination documented in this encounter Care Teams Paper Latcher Relationship Specialty Start Date End Date Jackeline Saha MD [address] [place], [place] PCP - General Internal Medicine 09/23/21 documented as of this encounter
--- OUTSIDE RECORDS SUMMARY | 2024-04-16 13:21 | XMS_ITS | Encounter Summary ---
Author Organization [facility] Address [address] [place] [address] Care Team Providers Care Domestic Housekeeper Name Role Phone Jackeline Saha MD Primary Care Pr ovider Encounter Details Date Type Department Care Team (Late st Contact Info) Description 02/25/2024 Lab Requisition [facility] - Main Lab [address] [facility] [place] [phone] De Snyder MD [address] [place] [id number] Encounter for other general examination Social History [...] K/mcL LAB HEMETOLOGY METHOD 02/25/2024 11:05 AM [facility] LAB RBC 2.30(L) 3.80 - 4.80 M/mcL LAB HEMETOLOGY METHOD 02/25/2024 11:05 AM [facility] LAB Hemoglobin 8.1(L) 11.5 - 16.0 g/dL LAB HEMETOLOGY METHOD 02/25/2024 11:05 AM [facility] LAB Hematocrit 24.5(L) 35.0 - 47.0 % LAB HEMETOLOGY METHOD 02/25/2024 11:05 AM [facility] LAB MCV 106.1(H) 79.0 - 98.0 FL LAB HEMETOLOGY METHOD 02/25/2024 11:05 AM [facility] LAB MCH 35.1(H) 27.0 - 32.0 pcg LAB HEMETOLOGY METHOD 02/25/2024 11:05 AM [facility] LAB MCHC 33.1 32.0 - 37.0 g/dL LAB HEMETOLOGY METHOD 02/25/2024 11:05 AM [facility] LAB RDW 13.3 11.0 - 15.0 % LAB HEMETOLOGY METHOD 02/25/2024 11:05 AM [facility] LAB Platelets 257 130 - 400 K/mcL LAB HEMETOLOGY METHOD 02/25/2024 11:05 AM [facility] LAB MPV 10.0 7.0 - 11.0 FL LAB HEMETOLOGY METHOD 02/25/2024 11:05 AM [facility] LAB NRBC 0.0 <1.0 % LAB HEMETOLOGY METHOD 02/25/2024 11:05 AM [facility] LAB NRBC Absolute 0.00 <0.10 K/mcL LAB HEMETOLOGY METHOD 02/25/2024 11:05 AM [facility] LAB Neutrophils Relative 70.6 % LAB HEMETOLOGY METHOD 02/25/2024 11:05 AM [facility] LAB Lymphocytes Relative 11.6 % LAB HEMETOLOGY METHOD 02/25/2024 11:05 AM [facility] LAB Monocytes Relative 16.8 % LAB HEMETOLOGY METHOD 02/25/2024 11:05 AM [facility] LAB Eosinophils Relative 0.3 % LAB HEMETOLOGY METHOD 02/25/2024 11:05 AM [facility] LAB Basophils Relative 0.4 % LAB HEMETOLOGY METHOD 02/25/2024 11:05 AM [facility] LAB Immature Granulocytes Relative 0.3 % LAB HEMETOLOGY METHOD 02/25/2024 11:05 AM [facility] LAB Neutrophils Absolute 5.28 1.50 - 7.00 K/mcL LAB HEMETOLOGY METHOD 02/25/2024 11:05 AM [facility] LAB Lymphocytes Absolute 0.87(L) 1.00 - 5.00 K/mcL LAB HEMETOLOGY METHOD 02/25/2024 11:05 AM [facility] LAB Monocytes Absolute 1.26(H) 0.20 - 1.00 K/mcL LAB HEMETOLOGY METHOD 02/25/2024 11:05 AM [facility] LAB Eosinophils Absolute 0.02 0.00 - 0.50 K/mcL LAB HEMETOLOGY METHOD 02/25/2024 11:05 AM [facility] LAB Basophils Absolute 0.03 0.00 - 0.20 K/mcL LAB HEMETOLOGY METHOD 02/25/2024 11:05 AM [facility] LAB Immature Granulocytes Absolute 0.02 0.00 - 0.03 K/mcL LAB HEMETOLOGY METHOD 02/25/2024 11:05 AM [facility] LAB Blood Venous blood specimen / Unknown Venipuncture / Unknown 02/25/2024 5:50 AM EST 02/25/2024 9:25 AM EST us De Snyder MD LAB BLOOD ORDERABLES Final Resu lt [facility] [address] [place] [address], [place] [phone] * (ABNORMAL) Comprehensive metabolic panel (02/25/2024 5:50 AM EST) Sodium 132(L) 133 - 145 mmol/L LAB CHEMISTRY METHOD 02/25/2024 11:27 AM [facility] LAB Potassium 4.4 3.5 - 5.5 mmol/L LAB CHEMISTRY METHOD 02/25/2024 11:27 AM [facility] LAB Chloride 98 96 - 110 mmol/L LAB CHEMISTRY METHOD 02/25/2024 11:27 AM [facility] LAB CO2 27 21 - 32 mmol/L LAB CHEMISTRY METHOD 02/25/2024 11:27 AM EST [facility] LAB Anion Gap 7 3 - 11 LAB CHEMISTRY METHOD 02/25/2024 11:27 AM [facility] LAB Glucose 90 70 - 100 mg/dL LAB CHEMISTRY METHOD 02/25/2024 11:27 AM [facility] LAB BUN 48(H) 5 - 25 mg/dL LAB CHEMISTRY METHOD 02/25/2024 11:27 AM [facility] LAB Creatinine 1.93(H) 0.50 - 1.10 mg/dL LAB CHEMISTRY METHOD 02/25/2024 11:27 AM [facility] LAB eGFR 28(L) >=60 mL/min/1. 73m2 LAB CHEMISTRY METHOD 02/25/2024 11:27 AM [facility] LAB Comment:Calculation based on the??Chronic Kidney Disease Epidemiology Collaboration (CKD-EPI) equation refit??without adjustment for race. BUN/Creatinine Ratio 24.9 LAB CHEMISTRY METHOD 02/25/2024 11:27 AM [facility] LAB Calcium 9.8 8.5 - 10.5 mg/dL LAB CHEMISTRY METHOD 02/25/2024 11:27 AM [facility] LAB AST (SGOT) 25 10 - 42 unit/L LAB CHEMISTRY METHOD 02/25/2024 11:27 AM [facility] LAB ALT (SGPT) 17 10 - 60 unit/L LAB CHEMISTRY METHOD 02/25/2024 11:27 AM [facility] LAB Alkaline Phosphatase 68 42 - 121 unit/L LAB CHEMISTRY METHOD 02/25/2024 11:27 AM [facility] LAB Total Protein 6.3 6.0 - 8.0 g/dL LAB CHEMISTRY METHOD 02/25/2024 11:27 AM [facility] LAB Albumin 3.0(L) 3.2 - 5.0 g/dL LAB CHEMISTRY METHOD 02/25/2024 11:27 AM [facility] Total Bilirubin 0.7 0.0 - 1.4 mg/dL LAB CHEMISTRY METHOD 02/25/2024 11:27 AM [facility] LAB Blood Venous blood specimen / Unknown Venipuncture / Unknown 02/25/2024 5:50 AM EST 02/25/2024 9:25 AM EST us De Snyder MD LAB BLOOD ORDERABLES Final Resu lt [facility] [address] [place] [address], documented in this encounter Visit Diagnoses Diagnosis Encounter for other general examination documented in this encounter Care Teams Domestic Housekeeper Relationship Specialty Start Date End Date Jackeline Saha MD [address] [place], [place] PCP - General Internal Medicine 09/23/21 documented as of this encounter
--- OUTSIDE RECORDS SUMMARY | 2024-04-16 13:21 | XMS_ITS | Encounter Summary ---
Author Organization [facility] Address [address] [place] [address] Care Team Providers Care Game Master Name Role Phone Jackeline Saha MD Primary Care Pr ovider Encounter Details Date Type Department Care Team (Late st Contact Info) Description 02/21/2024 Lab Requisition [facility] - Main Lab 299 [facility] [place] [address] De Snyder MD [address] [place] [id number] Encounter for other general examination Social History [...] CBC auto differential (02/21/2024 7:10 AM EST) [facility] WBC 5.8 4.8 - 10.8 K/mcL LAB HEMETOLOGY METHOD 02/21/2024 11:19 AM [facility] LAB RBC 2.80(L) 3.80 - 4.80 M/mcL LAB HEMETOLOGY METHOD 02/21/2024 11:19 AM [facility] LAB Hemoglobin 9.8(L) 11.5 - 16.0 g/dL LAB HEMETOLOGY METHOD 02/21/2024 11:19 AM [facility] LAB Hematocrit 29.7(L) 35.0 - 47.0 % LAB HEMETOLOGY METHOD 02/21/2024 11:19 AM [facility] LAB MCV 105.3(H) 79.0 - 98.0 FL LAB HEMETOLOGY METHOD 02/21/2024 11:19 AM [facility] LAB MCH 34.8(H) 27.0 - 32.0 pcg LAB HEMETOLOGY METHOD 02/21/2024 11:19 AM [facility] LAB MCHC 33.0 32.0 - 37.0 g/dL LAB HEMETOLOGY METHOD 02/21/2024 11:19 AM [facility] LAB RDW 13.4 11.0 - 15.0 % LAB HEMETOLOGY METHOD 02/21/2024 11:19 AM [facility] LAB Platelets 201 130 - 400 K/mcL LAB HEMETOLOGY METHOD 02/21/2024 11:19 AM [facility] LAB MPV 10.3 7.0 - 11.0 FL LAB HEMETOLOGY METHOD 02/21/2024 11:19 AM [facility] LAB NRBC 0.0 <1.0 % LAB HEMETOLOGY METHOD 02/21/2024 11:19 AM [facility] LAB NRBC Absolute 0.00 <0.10 K/mcL LAB HEMETOLOGY METHOD 02/21/2024 11:19 AM [facility] LAB Neutrophils Relative 67.8 % LAB HEMETOLOGY METHOD 02/21/2024 11:19 AM [facility] LAB Lymphocytes Relative 15.7 % LAB HEMETOLOGY METHOD 02/21/2024 11:19 AM [facility] LAB Monocytes Relative 15.7 % LAB HEMETOLOGY METHOD 02/21/2024 11:19 AM [facility] LAB Eosinophils Relative 0.2 % LAB HEMETOLOGY METHOD 02/21/2024 11:19 AM [facility] Basophils Relative 0.3 % LAB HEMETOLOGY METHOD 02/21/2024 11:19 AM [facility] LAB Immature Granulocytes Relative 0.3 % LAB HEMETOLOGY METHOD 02/21/2024 11:19 AM [facility] LAB Neutrophils Absolute 3.90 1.50 - 7.00 K/mcL LAB HEMETOLOGY METHOD 02/21/2024 11:19 AM [facility] LAB Lymphocytes Absolute 0.90(L) 1.00 - 5.00 K/mcL LAB HEMETOLOGY METHOD 02/21/2024 11:19 AM [facility] LAB Monocytes Absolute 0.90 0.20 - 1.00 K/mcL LAB HEMETOLOGY METHOD 02/21/2024 11:19 AM [facility] LAB Eosinophils Absolute 0.01 0.00 - 0.50 K/mcL LAB HEMETOLOGY METHOD 02/21/2024 11:19 AM [facility] LAB Basophils Absolute 0.02 0.00 - 0.20 K/mcL LAB HEMETOLOGY METHOD 02/21/2024 11:19 AM [facility] LAB Immature Granulocytes Absolute 0.02 0.00 - 0.03 K/mcL LAB HEMETOLOGY METHOD 02/21/2024 11:19 AM [facility] LAB Blood Venous blood specimen / Unknown Venipuncture / Unknown 02/21/2024 7:10 AM EST 02/21/2024 10:45 AM EST us De Snyder MD LAB BLOOD ORDERABLES Final Resu lt [facility] LAB [address] [place] [address], [place] [phone] * Magnesium (02/21/2024 7:10 AM EST) Magnesium 1.9 1.9 - 2.6 mg/dL LAB CHEMISTRY METHOD 02/21/2024 11:47 AM EST [facility] LAB Blood Venous blood specimen / Unknown Venipuncture / Unknown 02/21/2024 7:10 AM EST 02/21/2024 10:45 AM EST us De Snyder MD LAB BLOOD ORDERABLES Final Resu lt Performing Organization Address City/[facility]/ZIP Co de Phone Number [facility] LAB [address] [place] [address], [place] [phone] * (ABNORMAL) Comprehensive metabolic panel (02/21/2024 7:10 AM EST) Sodium 133 133 - 145 mmol/L LAB CHEMISTRY METHOD 02/21/2024 11:49 AM EST [facility] LAB Potassium 4.6 3.5 - 5.5 mmol/L LAB CHEMISTRY METHOD 02/21/2024 11:49 AM EST [facility] LAB Chloride 101 96 - 110 mmol/L LAB CHEMISTRY METHOD 02/21/2024 11:49 AM EST [facility] LAB CO2 28 21 - 32 mmol/L LAB CHEMISTRY METHOD 02/21/2024 11:49 AM EST [facility] LAB Anion Gap 4 3 - 11 LAB CHEMISTRY METHOD 02/21/2024 11:49 AM EST [facility] LAB Glucose 113(H) 70 - 100 mg/dL LAB CHEMISTRY METHOD 02/21/2024 11:49 AM [facility] BUN 18 5 - 25 mg/dL LAB CHEMISTRY METHOD 02/21/2024 11:49 AM [facility] Creatinine 0.86 0.50 - 1.10 mg/dL LAB CHEMISTRY METHOD 02/21/2024 11:49 AM [facility] LAB eGFR 73 >=60 mL/min/1. 73m2 LAB CHEMISTRY METHOD 02/21/2024 11:49 AM [facility] LAB Comment:Calculation based on the??Chronic Kidney Disease Epidemiology Collaboration (CKD-EPI) equation refit??without adjustment for race. BUN/Creatinine Ratio 20.9 LAB CHEMISTRY METHOD 02/21/2024 11:49 AM [facility] Calcium 9.3 8.5 - 10.5 mg/dL LAB CHEMISTRY METHOD 02/21/2024 11:49 AM [facility] AST (SGOT) 18 10 - 42 unit/L LAB CHEMISTRY METHOD 02/21/2024 11:49 AM [facility] ALT (SGPT) 14 10 - 60 unit/L LAB CHEMISTRY METHOD 02/21/2024 11:49 AM [facility] Alkaline Phosphatase 55 42 - 121 unit/L LAB CHEMISTRY METHOD 02/21/2024 11:49 AM [facility] Total Protein 7.0 6.0 - 8.0 g/dL LAB CHEMISTRY METHOD 02/21/2024 11:49 AM [facility] Albumin 3.8 3.2 - 5.0 g/dL LAB CHEMISTRY METHOD 02/21/2024 11:49 AM [facility] Total Bilirubin 0.8 0.0 - 1.4 mg/dL LAB CHEMISTRY METHOD 02/21/2024 11:49 AM [facility] Blood Venous blood specimen / Unknown Venipuncture / Unknown 02/21/2024 7:10 AM EST 02/21/2024 10:45 AM EST us De Snyder MD LAB BLOOD ORDERABLES Final Resu lt [facility] [address] [place] [address], documented in this encounter Visit Diagnoses Diagnosis Encounter for other general examination documented in this encounter Care Teams Game Master Relationship Specialty Start Date End Date Jackeline Saha MD [address] [place], [place] PCP - General Internal Medicine 09/23/21 documented as of this encounter
== END 2024-04-16 14:48 | disposition home or self-care (01) ==
PROVIDERS: PCP Internal Medicine; Visit Provider Physician Assistant
DX: S42.211A Unspecified displaced fracture of surgical neck of right humerus, initial encounter for closed fracture (principal)
CPT/HCPCS: 99214

== ENCOUNTER → 2024-04-16 11:33 | Outpatient (BNV) | payer MEDICARE, SELFPAY | PROVIDERS: Visit Provider Radiology Diagnostic Radiology | DX: M25.511 Pain in right shoulder (principal) | CPT/HCPCS: 73030 ==

== ENCOUNTER 2024-06-09 08:38 | Outpatient (REF) | payer MEDICARE, MEDICAID, SELFPAY ==
--- NOTE | ~2024-06-09 | XR_ITS ---
EXAMINATION: XR SHOULDER 2 OR MORE VIEWS RIGHT HISTORY: M25.511 - Pain in right shoulder COMPARISON: Comparison is made with the prior examination dated 04/16/2024. FINDINGS: Two views of the right shoulder are submitted. The bones are osteopenic. Findings comparison is a fracture of the humeral neck displacement of the humeral head. Position and alignment of the fracture fragments is similar to the prior study given differences in patient positioning. AC joint space is preserved. The soft tissues are unremarkable. XR/XR shoulder RT min 2V IMPRESSION: Displaced fracture of the humeral neck without change. Electronically signed by: Justen Pinto MD 06/10/2024 08:28 AM EDT
--- OUTSIDE RECORDS SUMMARY | 2024-06-09 09:13 | XMS_ITS | Encounter Summary ---
Author Organization [facility] Address [address] [place] [address] Care Team Providers Care Casket Assembler Metal Name Role Phone Jackeline Saha MD Primary Care Pr ovider Encounter Details Date Type Department Care Team (Late st Contact Info) Description 02/21/2024 Lab Requisition [facility] - Main Lab 299 [facility] [place] [address] De Snyder MD [address] [place] [id number] Encounter for other general examination Social History [...] CBC auto differential (02/21/2024 7:10 AM EST) [facility] WBC 5.8 4.8 - 10.8 K/mcL [...] Resu lt [facility] [address] [place] [address], [place] [phone] * Magnesium (02/21/2024 7:10 AM EST) Magnesium 1.9 1.9 - 2.6 mg/dL LAB CHEMISTRY METHOD 02/21/2024 11:47 AM EST [facility] Blood Venous blood specimen / Unknown Venipuncture / Unknown 02/21/2024 7:10 AM EST 02/21/2024 10:45 AM EST us De Snyder MD LAB BLOOD ORDERABLES Final Resu lt Performing Organization Address City/[facility]/ZIP Co de Phone Number [facility] [address] [place] [address], [place] [phone] * (ABNORMAL) Comprehensive metabolic panel (02/21/2024 7:10 AM EST) Sodium 133 133 - 145 mmol/L LAB CHEMISTRY METHOD 02/21/2024 11:49 AM EST [facility] Potassium 4.6 3.5 - 5.5 mmol/L LAB CHEMISTRY METHOD 02/21/2024 11:49 AM EST [facility] Chloride 101 96 - 110 mmol/L LAB CHEMISTRY METHOD 02/21/2024 11:49 AM EST [facility] CO2 28 21 - 32 mmol/L LAB CHEMISTRY METHOD 02/21/2024 11:49 AM EST [facility] Anion Gap 4 3 - 11 LAB CHEMISTRY METHOD 02/21/2024 11:49 AM EST [facility] Glucose 113(H) 70 - 100 [...] MD LAB BLOOD ORDERABLES Final Resu lt [facility] [address] [place] [address], documented in this encounter Visit Diagnoses Diagnosis Encounter for other general examination documented in this encounter Care Teams Casket Assembler Metal Relationship Specialty Start Date End Date Jackeline Saha MD [address] [facility] [place], [place] PCP - General Internal Medicine 09/23/21 documented as of this encounter
--- OUTSIDE RECORDS SUMMARY | 2024-06-09 09:13 | XMS_ITS | Encounter Summary ---
Author Organization [facility] Address [address] [place] [address] Care Team Providers Care Pulverizer Mill Operator Name Role Phone Jackeline Saha MD Primary Care Pr ovider Encounter Details Date Type Department Care Team (Late st Contact Info) Description 02/26/2024 Lab Requisition [facility] - Main Lab 299 [facility] [place] [address] De Snyder MD [address] [place] [address] Encounter for other general examination Social History [...] K/mcL LAB HEMETOLOGY METHOD 02/26/2024 11:31 AM [facility] RBC 2.50(L) 3.80 - 4.80 M/mcL LAB HEMETOLOGY METHOD 02/26/2024 11:31 AM [facility] Hemoglobin 8.6(L) 11.5 - 16.0 g/dL LAB HEMETOLOGY METHOD 02/26/2024 11:31 AM [facility] LAB Hematocrit 26.2(L) 35.0 - 47.0 % LAB HEMETOLOGY METHOD 02/26/2024 11:31 AM [facility] LAB MCV 104.4(H) 79.0 - 98.0 FL LAB HEMETOLOGY METHOD 02/26/2024 11:31 AM [facility] LAB MCH 34.3(H) 27.0 - 32.0 pcg LAB HEMETOLOGY METHOD 02/26/2024 11:31 AM [facility] LAB MCHC 32.8 32.0 - 37.0 g/dL LAB HEMETOLOGY METHOD 02/26/2024 11:31 AM [facility] LAB RDW 13.2 11.0 - 15.0 % LAB HEMETOLOGY METHOD 02/26/2024 11:31 AM [facility] LAB Platelets 302 130 - 400 K/mcL LAB HEMETOLOGY METHOD 02/26/2024 11:31 AM [facility] LAB MPV 10.0 7.0 - 11.0 FL LAB HEMETOLOGY METHOD 02/26/2024 11:31 AM [facility] LAB NRBC 0.0 <1.0 % LAB HEMETOLOGY METHOD 02/26/2024 11:31 AM [facility] LAB NRBC Absolute 0.00 <0.10 K/mcL LAB HEMETOLOGY METHOD 02/26/2024 11:31 AM [facility] Neutrophils Relative 77.3 % LAB HEMETOLOGY METHOD 02/26/2024 11:31 AM [facility] Lymphocytes Relative 8.1 % LAB HEMETOLOGY METHOD 02/26/2024 11:31 AM [facility] Monocytes Relative 12.7 % LAB HEMETOLOGY METHOD 02/26/2024 11:31 AM [facility] Eosinophils Relative 1.3 % LAB HEMETOLOGY METHOD 02/26/2024 11:31 AM [facility] Basophils Relative 0.3 % LAB HEMETOLOGY METHOD 02/26/2024 11:31 AM [facility] Immature Granulocytes Relative 0.3 % LAB HEMETOLOGY METHOD 02/26/2024 11:31 AM [facility] Neutrophils Absolute 6.88 1.50 - 7.00 K/mcL LAB HEMETOLOGY METHOD 02/26/2024 11:31 AM [facility] Lymphocytes Absolute 0.72(L) 1.00 - 5.00 K/mcL LAB HEMETOLOGY METHOD 02/26/2024 11:31 AM [facility] Monocytes Absolute 1.13(H) 0.20 - 1.00 K/mcL LAB HEMETOLOGY METHOD 02/26/2024 11:31 AM [facility] Eosinophils Absolute 0.12 0.00 - 0.50 K/mcL LAB HEMETOLOGY METHOD 02/26/2024 11:31 AM [facility] Basophils Absolute 0.03 0.00 - 0.20 K/mcL LAB HEMETOLOGY METHOD 02/26/2024 11:31 AM [facility] Immature Granulocytes Absolute 0.03 0.00 - 0.03 K/mcL LAB HEMETOLOGY METHOD 02/26/2024 11:31 AM [facility] LAB Blood Venous blood specimen / Unknown Venipuncture / Unknown 02/26/2024 5:45 AM EST 02/26/2024 9:44 AM EST us De Snyder MD LAB BLOOD ORDERABLES Final Resu lt [facility] LAB [address] [place] [address], [place] [phone] * (ABNORMAL) Basic metabolic panel (02/26/2024 5:45 AM EST) Sodium 134 133 - 145 mmol/L LAB CHEMISTRY METHOD 02/26/2024 10:36 AM [facility] Potassium 4.8 3.5 - 5.5 mmol/L LAB CHEMISTRY METHOD 02/26/2024 10:36 AM [facility] Chloride 100 96 - 110 mmol/L LAB CHEMISTRY METHOD 02/26/2024 10:36 AM [facility] CO2 27 21 - 32 mmol/L LAB CHEMISTRY METHOD 02/26/2024 10:36 AM [facility] Anion Gap 7 3 - 11 LAB CHEMISTRY METHOD 02/26/2024 10:36 AM [facility] Glucose 97 70 - 100 mg/dL LAB CHEMISTRY METHOD 02/26/2024 10:36 AM [facility] BUN 30(H) 5 - 25 mg/dL LAB CHEMISTRY METHOD 02/26/2024 10:36 AM [facility] LAB Creatinine 0.85 0.50 - 1.10 mg/dL LAB CHEMISTRY METHOD 02/26/2024 10:36 AM [facility] LAB eGFR 74 >=60 mL/min/1. 73m2 LAB CHEMISTRY METHOD 02/26/2024 10:36 AM [facility] LAB Comment:Calculation based on the??Chronic Kidney Disease Epidemiology Collaboration (CKD-EPI) equation refit??without adjustment for race. BUN/Creatinine Ratio 35.3 LAB CHEMISTRY METHOD 02/26/2024 10:36 AM [facility] Calcium 9.7 8.5 - 10.5 mg/dL LAB CHEMISTRY METHOD 02/26/2024 10:36 AM EST [facility] LAB Blood Venous blood specimen / Unknown Venipuncture / Unknown 02/26/2024 5:45 AM EST 02/26/2024 9:44 AM EST us De Snyder MD LAB BLOOD ORDERABLES Final Resu lt [facility] LAB [address] [place] [address], documented in this encounter Visit Diagnoses Diagnosis Encounter for other general examination documented in this encounter Care Teams Pulverizer Mill Operator Relationship Specialty Start Date End Date Jackeline Saha MD [address] [facility], [place] PCP - General Internal Medicine 09/23/21 documented as of this encounter
--- OUTSIDE RECORDS SUMMARY | 2024-06-09 09:13 | XMS_ITS | Clinical Summary ---
Author Organization [address] Address [address] [place] [address] Phone Care Team Providers Care Political Analyst Name Role Phone Jackeline Saha MD [...] 03/28/2017 Overview (03/06/2024): Referred to behavioral health Immunizations Name Administration Dates Next Due Influenza [...] MRI COPD (chronic obstructive pu lmonary disease) ([facility]) 09/14/2017 DX:COPD (chronic obstructive pulmonary disease) ([facility]) Depression 09/14/2017 DX:Depression Hyperlipidemia 09/14/2017 DX:Hyperlipidemi a [...] Due Date Last Done Comments RSV Immunization Adult Patients (1 - Risk 60-74 years 1-dose series) [...] Procedure Name Priority Date/Time Associated Diagnosis Comments BASIC METABOLIC PANEL Routine 02/26/2024 5:45 AM EST Encounter for other general examination DIAGNOSTIC MAMMOGRAPHY INCLUDING CAD BILATERAL Routine 06/22/2021 3:13 PM EDT Unspecified lump in the left breast, unspecified quadrant LIPID PANEL Routine 01/21/2020 HEPATITIS C SCREENING Routine 06/06/2018 from Last 3 Months or Most Recently Relevant to Health Maintenance Results * (ABNORMAL) Basic metabolic panel (02/26/2024 5:45 AM EST) Sodium 134 133 - 145 mmol/L LAB CHEMISTRY METHOD 02/26/2024 10:36 AM [facility] Potassium 4.8 3.5 - 5.5 mmol/L LAB CHEMISTRY METHOD 02/26/2024 10:36 AM [facility] Chloride 100 96 - 110 mmol/L LAB CHEMISTRY METHOD 02/26/2024 10:36 AM [facility] CO2 27 21 - 32 mmol/L LAB CHEMISTRY METHOD 02/26/2024 10:36 AM [facility] Anion Gap 7 3 - 11 LAB CHEMISTRY METHOD 02/26/2024 10:36 AM [facility] Glucose 97 70 - 100 mg/dL LAB CHEMISTRY METHOD 02/26/2024 10:36 AM [facility] BUN 30(H) 5 - 25 mg/dL LAB CHEMISTRY METHOD 02/26/2024 10:36 AM [facility] Creatinine 0.85 0.50 - 1.10 mg/dL LAB CHEMISTRY METHOD 02/26/2024 10:36 AM [facility] LAB eGFR 74 >=60 mL/min/1. 73m2 LAB CHEMISTRY METHOD 02/26/2024 10:36 AM [facility] LAB Comment:Calculation based on the??Chronic Kidney Disease Epidemiology Collaboration (CKD-EPI) equation refit??without adjustment for race. BUN/Creatinine Ratio 35.3 LAB CHEMISTRY METHOD 02/26/2024 10:36 AM [facility] Calcium 9.7 8.5 - 10.5 mg/dL LAB CHEMISTRY METHOD 02/26/2024 10:36 AM EST [facility] Blood Venous blood specimen / Unknown Venipuncture / Unknown 02/26/2024 5:45 AM EST 02/26/2024 9:44 AM EST us De Snyder MD LAB BLOOD ORDERABLES Final Resu lt [facility] [address] [place] [address], [place] [phone] * DIAGNOSTIC MAMMOGRAPHY INCLUDING CAD BILATERAL (06/22/2021 [...] with chronicfibroglandular asymmetry. BI-RADS 2-benign Karely PIERRE IMG BI PROCEDURES Final Result * (ABNORMAL) Lipid panel (01/21/2020) Pathologist [facility] LDL/HDL Ratio 2 0 - 4 Triglycerides 223(A) 0 - 150 mg/dL Cholesterol 212(A) 0 - 200 mg/dL HDL 129 >=40 mg/dL LDL Cholesterol 39 0 - 100 mg/dL Blood Venous blood specimen / Unknown Historical Provider LAB BLOOD ORDERABLES Galilea l Result * Hepatitis C Screening (06/06/2018) Pathologist [facility] Hepatitis C Screening abstracted Historical Provider HEALTH MAINTENANCE Final Result from Last 3 Months or Most Recently Relevant to Health Maintenance Insurance MEDICARE [place]ICA[place] - [place] Care Teams Political Analyst Relationship Specialty Start Date End Date Jackeline Saha MD [address] [facility] [place] [place] PCP - General Internal Medicine 09/23/21
--- OUTSIDE RECORDS SUMMARY | 2024-06-09 09:13 | XMS_ITS | Encounter Summary ---
Author Organization [facility] Address [address] [place] [address] Care Team Providers Care Nursing Care Partner Name Role Phone Jackeline Saha MD Primary Care Pr ovider Encounter Details Date Type Department Care Team (Late st Contact Info) Description 02/25/2024 Lab Requisition [facility] - Main Lab [address] [facility] [place] [address] De Snyder MD [address] [place] [id number] Encounter for other general examination Social History [...] K/mcL LAB HEMETOLOGY METHOD 02/25/2024 11:05 AM [facility] RBC 2.30(L) 3.80 - 4.80 M/mcL LAB HEMETOLOGY METHOD 02/25/2024 11:05 AM [facility] Hemoglobin 8.1(L) 11.5 - 16.0 g/dL LAB HEMETOLOGY METHOD 02/25/2024 11:05 AM [facility] Hematocrit 24.5(L) 35.0 - 47.0 % LAB HEMETOLOGY METHOD 02/25/2024 11:05 AM [facility] MCV 106.1(H) 79.0 - 98.0 FL LAB HEMETOLOGY METHOD 02/25/2024 11:05 AM [facility] MCH 35.1(H) 27.0 - 32.0 pcg LAB HEMETOLOGY METHOD 02/25/2024 11:05 AM [facility] MCHC 33.1 32.0 - 37.0 g/dL LAB HEMETOLOGY METHOD 02/25/2024 11:05 AM [facility] RDW 13.3 11.0 - 15.0 % LAB HEMETOLOGY METHOD 02/25/2024 11:05 AM [facility] Platelets 257 130 - 400 K/mcL LAB HEMETOLOGY METHOD 02/25/2024 11:05 AM [facility] MPV 10.0 7.0 - 11.0 FL LAB HEMETOLOGY METHOD 02/25/2024 11:05 AM [facility] NRBC 0.0 <1.0 % LAB HEMETOLOGY METHOD 02/25/2024 11:05 AM [facility] NRBC Absolute 0.00 <0.10 K/mcL LAB HEMETOLOGY METHOD 02/25/2024 11:05 AM [facility] Neutrophils Relative 70.6 % LAB HEMETOLOGY METHOD 02/25/2024 11:05 AM [facility] Lymphocytes Relative 11.6 % LAB HEMETOLOGY METHOD 02/25/2024 11:05 AM [facility] Monocytes Relative 16.8 % LAB HEMETOLOGY METHOD 02/25/2024 11:05 AM [facility] Eosinophils Relative 0.3 % LAB HEMETOLOGY METHOD 02/25/2024 11:05 AM [facility] Basophils Relative 0.4 % LAB HEMETOLOGY METHOD 02/25/2024 11:05 AM [facility] Immature Granulocytes Relative 0.3 % LAB HEMETOLOGY METHOD 02/25/2024 11:05 AM [facility] Neutrophils Absolute 5.28 1.50 - 7.00 K/mcL LAB HEMETOLOGY METHOD 02/25/2024 11:05 AM [facility] Lymphocytes Absolute 0.87(L) 1.00 - 5.00 K/mcL LAB HEMETOLOGY METHOD 02/25/2024 11:05 AM [facility] Monocytes Absolute 1.26(H) 0.20 - 1.00 K/mcL LAB HEMETOLOGY METHOD 02/25/2024 11:05 AM [facility] Eosinophils Absolute 0.02 0.00 - 0.50 K/mcL LAB HEMETOLOGY METHOD 02/25/2024 11:05 AM [facility] Basophils Absolute 0.03 0.00 - 0.20 K/mcL LAB HEMETOLOGY METHOD 02/25/2024 11:05 AM [facility] Immature Granulocytes Absolute 0.02 0.00 - 0.03 K/mcL LAB HEMETOLOGY METHOD 02/25/2024 11:05 AM [facility] Blood Venous blood specimen / Unknown Venipuncture / Unknown 02/25/2024 5:50 AM EST 02/25/2024 9:25 AM EST us De Snyder MD LAB BLOOD ORDERABLES Final Resu lt [facility] [address] [place] [address], [place] [phone] * (ABNORMAL) Comprehensive metabolic panel (02/25/2024 5:50 AM EST) Sodium 132(L) 133 - 145 mmol/L LAB CHEMISTRY METHOD 02/25/2024 11:27 AM [facility] Potassium 4.4 3.5 - 5.5 mmol/L LAB CHEMISTRY METHOD 02/25/2024 11:27 AM [facility] Chloride 98 96 - 110 mmol/L LAB CHEMISTRY METHOD 02/25/2024 11:27 AM [facility] CO2 27 21 - 32 mmol/L LAB CHEMISTRY METHOD 02/25/2024 11:27 AM EST [facility] Anion Gap 7 3 - 11 LAB CHEMISTRY METHOD 02/25/2024 11:27 AM [facility] Glucose 90 70 - 100 mg/dL LAB CHEMISTRY METHOD 02/25/2024 11:27 AM [facility] BUN 48(H) 5 - 25 mg/dL LAB CHEMISTRY METHOD 02/25/2024 11:27 AM [facility] Creatinine 1.93(H) 0.50 - 1.10 mg/dL LAB CHEMISTRY METHOD 02/25/2024 11:27 AM [facility] eGFR 28(L) >=60 mL/min/1. 73m2 LAB CHEMISTRY METHOD 02/25/2024 11:27 AM [facility] Comment:Calculation based on the??Chronic Kidney Disease Epidemiology Collaboration (CKD-EPI) equation refit??without adjustment for race. BUN/Creatinine Ratio 24.9 LAB CHEMISTRY METHOD 02/25/2024 11:27 AM [facility] Calcium 9.8 8.5 - 10.5 mg/dL LAB CHEMISTRY METHOD 02/25/2024 11:27 AM [facility] AST (SGOT) 25 10 - 42 unit/L LAB CHEMISTRY METHOD 02/25/2024 11:27 AM [facility] ALT (SGPT) 17 10 - 60 unit/L LAB CHEMISTRY METHOD 02/25/2024 11:27 AM [facility] Alkaline Phosphatase 68 42 - 121 unit/L LAB CHEMISTRY METHOD 02/25/2024 11:27 AM [facility] Total Protein 6.3 6.0 - 8.0 g/dL LAB CHEMISTRY METHOD 02/25/2024 11:27 AM [facility] Albumin 3.0(L) 3.2 - 5.0 g/dL LAB CHEMISTRY METHOD 02/25/2024 11:27 AM [facility] Total Bilirubin 0.7 0.0 - 1.4 mg/dL LAB CHEMISTRY METHOD 02/25/2024 11:27 AM [facility] Blood Venous blood specimen / Unknown Venipuncture / Unknown 02/25/2024 5:50 AM EST 02/25/2024 9:25 AM EST us De Snyder MD LAB BLOOD ORDERABLES Final Resu lt [facility] [address] [place] [address], documented in this encounter Visit Diagnoses Diagnosis Encounter for other general examination documented in this encounter Care Teams Nursing Care Partner Relationship Specialty Start Date End Date Jackeline Saha MD [address], [place] PCP - General Internal Medicine 09/23/21 documented as of this encounter
--- OUTSIDE RECORDS SUMMARY | 2024-06-09 09:13 | XMS_ITS | Encounter Summary ---
Author Organization [facility] Address [address] [place] [address] Care Team Providers Care Plant Physiology Teacher Name Role Phone Jackeline Saah MD Primary Care Pr ovider Encounter Details Date Type Department Care Team (Late st Contact Info) Description 02/24/2024 Lab Requisition [facility] - Main Lab [address] [facility] [place] [address] De Snyder MD [address] [place] [address] Encounter for other general examination Social History [...] K/mcL LAB HEMETOLOGY METHOD 02/24/2024 11:[address] [facility] RBC 2.60(L) 3.80 - 4.80 M/mcL LAB HEMETOLOGY METHOD 02/24/2024 11:[address] [facility] Hemoglobin 9.1(L) 11.5 - 16.0 g/dL LAB HEMETOLOGY METHOD 02/24/2024 11:[address] [facility] Hematocrit 27.8(L) 35.0 - 47.0 % LAB HEMETOLOGY METHOD 02/24/2024 11:[address] [facility] MCV 108.2(H) 79.0 - 98.0 FL LAB HEMETOLOGY METHOD 02/24/2024 11:[address] [facility] MCH 35.4(H) 27.0 - 32.0 pcg LAB HEMETOLOGY METHOD 02/24/2024 11:[address] [facility] MCHC 32.7 32.0 - 37.0 g/dL LAB HEMETOLOGY METHOD 02/24/2024 11:[address] [facility] RDW 13.1 11.0 - 15.0 % LAB HEMETOLOGY METHOD 02/24/2024 11:[address] [facility] Platelets 296 130 - 400 K/mcL LAB HEMETOLOGY METHOD 02/24/2024 11:[address] [facility] MPV 10.4 7.0 - 11.0 FL LAB HEMETOLOGY METHOD 02/24/2024 11:[address] [facility] NRBC 0.0 <1.0 % LAB HEMETOLOGY METHOD 02/24/2024 11:[address] [facility] NRBC Absolute 0.00 <0.10 K/mcL LAB HEMETOLOGY METHOD 02/24/2024 11:[address] [facility] Neutrophils Relative 77.1 % LAB HEMETOLOGY METHOD 02/24/2024 11:[address] [facility] Lymphocytes Relative 7.3 % LAB HEMETOLOGY METHOD 02/24/2024 11:[address] [facility] Monocytes Relative 14.7 % LAB HEMETOLOGY METHOD 02/24/2024 11:[address] [facility] Eosinophils Relative 0.2 % LAB HEMETOLOGY METHOD 02/24/2024 11:[address] [facility] Basophils Relative 0.4 % LAB HEMETOLOGY METHOD 02/24/2024 11:[address] [facility] Immature Granulocytes Relative 0.3 % LAB HEMETOLOGY METHOD 02/24/2024 11:[address] [facility] Neutrophils Absolute 7.15(H) 1.50 - 7.00 K/mcL LAB HEMETOLOGY METHOD 02/24/2024 11:[address] [facility] Lymphocytes Absolute 0.68(L) 1.00 - 5.00 K/mcL LAB HEMETOLOGY METHOD 02/24/2024 11:[address] [facility] Monocytes Absolute 1.37(H) 0.20 - 1.00 K/mcL LAB HEMETOLOGY METHOD 02/24/2024 11:[address] [facility] Eosinophils Absolute 0.02 0.00 - 0.50 K/mcL LAB HEMETOLOGY METHOD 02/24/2024 11:[address] [facility] Basophils Absolute 0.04 0.00 - 0.20 K/mcL LAB HEMETOLOGY METHOD 02/24/2024 11:[address] [facility] Immature Granulocytes Absolute 0.03 0.00 - 0.03 K/mcL LAB HEMETOLOGY METHOD 02/24/2024 11:31 AM EST [facility] Blood Venous blood specimen / Unknown Venipuncture / Unknown 02/24/2024 10:46 AM EST 02/24/2024 11:17 AM EST us De Snyder MD LAB BLOOD ORDERABLES Final Resu lt Performing Organization Address City/[facility]/ZIP Co de Phone Number [facility] [address] [place] [address], [place] [phone] * B-type natriuretic peptide (02/24/2024 10:46 AM EST) BNP 98 <=100 pcg/mL LAB CHEMISTRY METHOD 02/24/2024 12:11 PM EST [facility] Blood Venous blood specimen / Unknown Venipuncture / Unknown 02/24/2024 10:46 AM EST 02/24/2024 11:17 AM EST us De Snyder MD LAB BLOOD ORDERABLES Final Resu lt Performing Organization Address [facility]/ZIP Co de Phone Number [facility] [address] [place] [address], [place] [phone] * Ammonia (02/24/2024 10:46 AM EST) Ammonia 24 11 - 35 mcmol/L LAB CHEMISTRY METHOD 02/24/2024 12:10 PM EST [facility] Blood Venous blood specimen / Unknown Venipuncture / Unknown 02/24/2024 10:46 AM EST 02/24/2024 11:17 AM EST us De Snyder MD LAB BLOOD ORDERABLES Final Resu lt Performing Organization Address City/[facility]/ZIP Co de Phone Number [facility] [address] [place] [address], [place] [phone] * (ABNORMAL) Comprehensive metabolic panel (02/24/2024 10:46 AM EST) Sodium 126(L) 133 - 145 mmol/L LAB CHEMISTRY METHOD 02/24/2024 12:[address] [facility] Potassium 4.7 3.5 - 5.5 mmol/L LAB CHEMISTRY METHOD 02/24/2024 12:[address] [facility] Chloride 92(L) 96 - 110 mmol/L LAB CHEMISTRY METHOD 02/24/2024 12:[address] [facility] CO2 27 21 - 32 mmol/L LAB CHEMISTRY METHOD 02/24/2024 12:[address] [facility] Anion Gap 7 3 - 11 LAB CHEMISTRY METHOD 02/24/2024 12:[address] [facility] Glucose 107(H) 70 - 100 mg/dL LAB CHEMISTRY METHOD 02/24/2024 12:[address] [facility] BUN 61(H) 5 - 25 mg/dL LAB CHEMISTRY METHOD 02/24/2024 12:[address] [facility] Comment:Results verified by repeat testing Creatinine 5.80(H) 0.50 - 1.10 mg/dL LAB CHEMISTRY METHOD 02/24/2024 12:[address] [facility] Comment:Results verified by repeat testing eGFR 7(L) >=60 mL/min/1. 73m2 LAB CHEMISTRY METHOD 02/24/2024 12:[address] [facility] Comment:Calculation based on the??Chronic Kidney Disease Epidemiology Collaboration (CKD-EPI) equation refit??without adjustment for race. BUN/Creatinine Ratio 10.5 LAB CHEMISTRY METHOD 02/24/2024 12:[address] [facility] Calcium 10.7(H) 8.5 - 10.5 mg/dL LAB CHEMISTRY METHOD 02/24/2024 12:[address] [facility] AST (SGOT) 23 10 - 42 unit/L LAB CHEMISTRY METHOD 02/24/2024 12:[address] [facility] ALT (SGPT) 14 10 - 60 unit/L LAB CHEMISTRY METHOD 02/24/2024 12:[address] [facility] Alkaline Phosphatase 68 42 - 121 unit/L LAB CHEMISTRY METHOD 02/24/2024 12:[address] [facility] Total Protein 7.4 6.0 - 8.0 g/dL LAB CHEMISTRY METHOD 02/24/2024 12:[address] [facility] Albumin 3.5 3.2 - 5.0 g/dL LAB CHEMISTRY METHOD 02/24/2024 12:[address] [facility] Total Bilirubin 0.7 0.0 - 1.4 mg/dL LAB CHEMISTRY METHOD 02/24/2024 12:[address] [facility] Blood Venous blood specimen / Unknown Venipuncture / Unknown 02/24/2024 10:46 AM EST 02/24/2024 11:17 AM EST us De Snyder MD LAB BLOOD ORDERABLES Final Resu lt [facility] [address] [place] [address], documented in this encounter Visit Diagnoses Diagnosis Encounter for other general examination documented in this encounter Care Teams Plant Physiology Teacher Relationship Specialty Start Date End Date Jackeline Saha MD [address] [facility] [place] PCP - General Internal Medicine 09/23/21 documented as of this encounter
== END 2024-06-09 08:39 | disposition home or self-care (01) ==
LOC: HO.HOSX 08:38
PROVIDERS: Visit Provider Physician Assistant
DX: M25.511 Pain in right shoulder (principal); S42.211A Unspecified displaced fracture of surgical neck of right humerus, initial encounter for closed fracture
CPT/HCPCS: 73030; 99212

== ENCOUNTER 2024-06-09 11:32 | Outpatient (AMB) | payer MEDICARE, SELFPAY ==
[2024-06-09 11:35] VITALS: BMI 22.3
--- NOTE | 2024-06-09 11:35 | MHC.OFFVIS ---
Vital Signs 06/09/24 11:35 Height 5 ft 5 in Weight 134 lb BMI 22.3 Intake Visit Reasons: 6wk fu rt prox humerus fx Intake Note: Monique is a 68 year old left hand dominant female who presents today with her daughter for a follow up of her right humerus fracture, DOI 02/19/24. At patient last visit surgical vs non surgical was discussed, she would follow up in 6 weeks for re-evaluation to see if she has had any improvement in her function. Currently her pain has improved a little. She continues to have limited ROM. Allergies No Known Allergies Allergy (Verified 06/09/24 11:50) Medication List - Last Reconciled 06/09/24 by Kalyn Barraza PA-C acetaminophen 975 mg (3 x 325 mg) PO Q8H PRN albuterol sulfate 90 mcg/actuation 2 puffs inhalation QID PRN budesonide-formoterol 160-4.5 mcg/actuation inhalation calcium carbonate-vit D3-min 600 mg-10 mcg (400 unit) 1 tab PO BID celecoxib (Celebrex) 200 mg PO BID 30 days citalopram 20 mg PO DAILY 30 days clonidine HCl 0.1 mg PO TID 30 days fluticasone propionate 50 mcg/actuation 1 spray intranasal BID lisinopril 40 mg PO DAILY magnesium oxide 200 mg PO DAILY multivitamin with minerals 1 tab PO DAILY tramadol 100 mg (2 x 50 mg) PO Q8H PRN 30 days HPI HPI 6wk fu rt prox humerus fx: Details: 68-year-old female returns to the office today accompanied by her daughter for a follow-up right proximal humerus fracture. Her pain is improving however her function continues to remain limited. She is unable to drive or wash her hair. Difficulty eating. She is at the point she would like to discuss surgical intervention if it would allow her to have an improved functional capacity. She can not move her arm much at all. [facility] Medical History Fracture of surgical neck of right humerus Chronic bronchitis Bronchiectasis Depression Emphysema of lung Surgical History History of ear surgery Family History Mother No problems noted. Father Emphysema lung Family/Other Mental health disorder Substance use disorder Social History Housing: Apartment Alcohol intake: current Alcohol intake frequency: 3 or more drinks per day Alcohol type: beer and hard liquor Patient Tobacco Use Status: Former Tobacco user Tobacco use type: Cigarette e-Cigarette/Vaping Use: Never Used Second Hand Smoke Exposure: Yes service: No Current occupational status: employed Current occupation: left hand dominant Current occupational exposures/hazards: No Cognitive needs: No Hearing needs: No Vision needs: Yes (Glasses) Review of Systems Const All systems reviewed & are unremarkable except as noted in HPI and below Physical Exam Vital Signs: BMI result Body Mass Index 22.3 Const General: cooperative and no acute distress Orientation/consciousness: patient oriented x3 Resp Effort & Inspection: normal respiratory effort and able to speak in complete sentences Cardio Peripheral pulses: Peripheral pulses 2+ throughout Neuro General: patient oriented x3 Extrem Other: Right shoulder no tenderness over the proximal humerus. No tenderness over the elbow. She is able to bring her palm to her face. She can not reach the top of her head without bringing her head forward. She is unable to perform any type of active range of motion of the shoulder. Range of motion of the wrist and digits intact. Neurovascularly intact. Results Reviewed Results Reviewed: X-rays of the right shoulder obtained in the office today demonstrate a fracture of the anatomic neck of the proximal humerus with displacement and valgus angulation of the shaft. 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 We discussed the extent of her injury and continued shoulder dysfunction. I do not see a route in which this improves without intervention.. Given her significant limitations in daily activities and functional capacity, it was discussed the benefits of surgical intervention at this time. Our goal at the very least would be to allow her to get some improved internal and external rotation along with bringing her arm to the top of her head. Her goal is to at least be able to drive again. I recommend reverse total shoulder arthroplasty. We discussed the procedure in detail along with the recovery. I discussed the risks benefits and alternatives including but not limited to the risk of pain, infection, stiffness, dislocation, fracture and need for further surgery as well as potential medical complications such as blood clots, pulmonary embolism and cardiac complications. CT scan of the right shoulder has been ordered to further evaluate and plan for surgical intervention. Nurse navigator will be in contact with the patient to proceed with scheduling and the patient will return for a preop appointment as discussed. Orders: Orders CT shoulder RT wo IV con 06/09/24 M12.819 - Other specific arthropathies, not elsewhere classified, unspecified shoulder XR shoulder RT min 2V 06/09/24 M25.511 - Pain in right shoulder Coding Level of Care Code Est Pt Level 4 (02879) Diagnoses Fracture of surgical neck of right humerus S42.211A Encounter type: subsequent encounter Fracture alignment: displaced Fracture morphology: unspecified fracture morphology Fracture type: closed
--- OUTSIDE RECORDS SUMMARY | 2024-06-09 13:54 | XMS_ITS | Encounter Summary ---
Author Organization [facility] Address [address] [place] [address] Care Team Providers Care Biological Science Technician Fish Name Role Phone Jackeline Saha MD Primary Care Pr ovider Encounter Details Date Type Department Care Team (Late st Contact Info) Description 02/26/[address] [facility] - Main Lab [address] [facility] [place] [address] De Snyder MD [address] [place] [phone] Encounter for other general examination Social History [...] K/mcL LAB HEMETOLOGY METHOD 02/26/2024 11:31 AM [facility] RBC 2.50(L) 3.80 - 4.80 M/mcL LAB HEMETOLOGY METHOD 02/26/2024 11:31 AM [facility] Hemoglobin 8.6(L) 11.5 - 16.0 g/dL LAB HEMETOLOGY METHOD 02/26/2024 11:31 AM [facility] Hematocrit 26.2(L) 35.0 - 47.0 % LAB HEMETOLOGY METHOD 02/26/2024 11:31 AM [facility] MCV 104.4(H) 79.0 - 98.0 FL LAB HEMETOLOGY METHOD 02/26/2024 11:31 AM [facility] MCH 34.3(H) 27.0 - 32.0 pcg LAB HEMETOLOGY METHOD 02/26/2024 11:31 AM [facility] MCHC 32.8 32.0 - 37.0 g/dL LAB HEMETOLOGY METHOD 02/26/2024 11:31 AM [facility] RDW 13.2 11.0 - 15.0 % LAB HEMETOLOGY METHOD 02/26/2024 11:31 AM [facility] Platelets 302 130 - 400 K/mcL LAB HEMETOLOGY METHOD 02/26/2024 11:31 AM [facility] MPV 10.0 7.0 - 11.0 FL LAB HEMETOLOGY METHOD 02/26/2024 11:31 AM [facility] NRBC 0.0 <1.0 % LAB HEMETOLOGY METHOD 02/26/2024 11:31 AM [facility] NRBC Absolute 0.00 <0.10 K/mcL LAB HEMETOLOGY METHOD 02/26/2024 11:31 AM [facility] Neutrophils Relative 77.3 % LAB HEMETOLOGY METHOD 02/26/2024 11:31 AM [facility] Lymphocytes Relative 8.1 % LAB HEMETOLOGY METHOD 02/26/2024 11:31 AM [facility] Monocytes Relative 12.7 % LAB HEMETOLOGY METHOD 02/26/2024 11:31 AM [facility] Eosinophils Relative 1.3 % LAB HEMETOLOGY METHOD 02/26/2024 11:31 AM [facility] Basophils Relative 0.3 % LAB HEMETOLOGY METHOD 02/26/2024 11:31 AM [facility] Immature Granulocytes Relative 0.3 % LAB HEMETOLOGY METHOD 02/26/2024 11:31 AM [facility] Neutrophils Absolute 6.88 1.50 - 7.00 K/mcL LAB HEMETOLOGY METHOD 02/26/2024 11:31 AM [facility] Lymphocytes Absolute 0.72(L) 1.00 - 5.00 K/mcL LAB HEMETOLOGY METHOD 02/26/2024 11:31 AM [facility] Monocytes Absolute 1.13(H) 0.20 - 1.00 K/mcL LAB HEMETOLOGY METHOD 02/26/2024 11:31 AM [facility] Eosinophils Absolute 0.12 0.00 - 0.50 K/mcL LAB HEMETOLOGY METHOD 02/26/2024 11:31 AM [facility] Basophils Absolute 0.03 0.00 - 0.20 K/mcL LAB HEMETOLOGY METHOD 02/26/2024 11:31 AM [facility] Immature Granulocytes Absolute 0.03 0.00 - 0.03 K/mcL LAB HEMETOLOGY METHOD 02/26/2024 11:31 AM [facility] Blood Venous blood specimen / Unknown Venipuncture / Unknown 02/26/2024 5:45 AM EST 02/26/2024 9:44 AM EST us De Snyder MD LAB BLOOD ORDERABLES Final Resu lt [facility] [address] [place] [address], [place] [phone] * (ABNORMAL) Basic metabolic panel (02/26/2024 5:45 AM EST) Sodium 134 133 - 145 mmol/L LAB CHEMISTRY METHOD 02/26/2024 10:36 AM [facility] Potassium 4.8 3.5 - 5.5 mmol/L LAB CHEMISTRY METHOD 02/26/2024 10:36 AM [facility] Chloride 100 96 - 110 mmol/L LAB CHEMISTRY METHOD 02/26/2024 10:36 AM [facility] CO2 27 21 - 32 mmol/L LAB CHEMISTRY METHOD 02/26/2024 10:36 AM [facility] Anion Gap 7 3 - 11 LAB CHEMISTRY METHOD 02/26/2024 10:36 AM [facility] Glucose 97 70 - 100 mg/dL LAB CHEMISTRY METHOD 02/26/2024 10:36 AM [facility] BUN 30(H) 5 - 25 mg/dL LAB CHEMISTRY METHOD 02/26/2024 10:36 AM [facility] Creatinine 0.85 0.50 - 1.10 mg/dL LAB CHEMISTRY METHOD 02/26/2024 10:36 AM [facility] eGFR 74 >=60 mL/min/1. 73m2 LAB CHEMISTRY METHOD 02/26/2024 10:36 AM [facility] Comment:Calculation based on the??Chronic Kidney Disease Epidemiology Collaboration (CKD-EPI) equation refit??without adjustment for race. BUN/Creatinine Ratio 35.3 LAB CHEMISTRY METHOD 02/26/2024 10:36 AM [facility] Calcium 9.7 8.5 - 10.5 mg/dL LAB CHEMISTRY METHOD 02/26/2024 10:36 AM EST [facility] Blood Venous blood specimen / Unknown Venipuncture / Unknown 02/26/2024 5:45 AM EST 02/26/2024 9:44 AM EST us De Snyder MD LAB BLOOD ORDERABLES Final Resu lt [facility] [address] [place] [address], documented in this encounter Visit Diagnoses Diagnosis Encounter for other general examination documented in this encounter Care Teams Biological Science Technician Fish Relationship Specialty Start Date End Date Jackeline Saha MD [address] [facility], [place] PCP - General Internal Medicine 09/23/21 documented as of this encounter
--- OUTSIDE RECORDS SUMMARY | 2024-06-09 13:54 | XMS_ITS | Encounter Summary ---
Author Organization [facility] Address [address] [place] [address] Care Team Providers Care Technical Product Manager Name Role Phone Jackeline Saha MD Primary Care Pr ovider Encounter Details Date Type Department Care Team (Late st Contact Info) Description 02/21/2024 Lab Requisition [facility] - Main Lab [address] [facility] [place] [address] De Snyder MD [address] [place] [address] Encounter for other general examination Social History [...] CBC auto differential (02/21/2024 7:10 AM EST) [facility] WBC 5.8 4.8 - 10.8 K/mcL LAB HEMETOLOGY METHOD 02/21/2024 11:19 AM [facility] RBC 2.80(L) 3.80 - 4.80 M/mcL LAB HEMETOLOGY METHOD 02/21/2024 11:19 AM [facility] Hemoglobin 9.8(L) 11.5 - 16.0 g/dL LAB HEMETOLOGY METHOD 02/21/2024 11:19 AM [facility] Hematocrit 29.7(L) 35.0 - 47.0 % LAB HEMETOLOGY METHOD 02/21/2024 11:19 AM [facility] MCV 105.3(H) 79.0 - 98.0 FL LAB HEMETOLOGY METHOD 02/21/2024 11:19 AM [facility] MCH 34.8(H) 27.0 - 32.0 pcg LAB HEMETOLOGY METHOD 02/21/2024 11:19 AM [facility] MCHC 33.0 32.0 - 37.0 g/dL LAB HEMETOLOGY METHOD 02/21/2024 11:19 AM [facility] RDW 13.4 11.0 - 15.0 % LAB HEMETOLOGY METHOD 02/21/2024 11:19 AM [facility] Platelets 201 130 - 400 K/mcL LAB HEMETOLOGY METHOD 02/21/2024 11:19 AM [facility] MPV 10.3 7.0 - 11.0 FL LAB HEMETOLOGY METHOD 02/21/2024 11:19 AM [facility] NRBC 0.0 <1.0 % LAB HEMETOLOGY METHOD 02/21/2024 11:19 AM [facility] NRBC Absolute 0.00 <0.10 K/mcL LAB HEMETOLOGY METHOD 02/21/2024 11:19 AM [facility] Neutrophils Relative 67.8 % LAB HEMETOLOGY METHOD 02/21/2024 11:19 AM [facility] Lymphocytes Relative 15.7 % LAB HEMETOLOGY METHOD 02/21/2024 11:19 AM [facility] Monocytes Relative 15.7 % LAB HEMETOLOGY METHOD 02/21/2024 11:19 AM [facility] Eosinophils Relative 0.2 % LAB HEMETOLOGY METHOD 02/21/2024 11:19 AM [facility] Basophils Relative 0.3 % LAB HEMETOLOGY METHOD 02/21/2024 11:19 AM [facility] Immature Granulocytes Relative 0.3 % LAB HEMETOLOGY METHOD 02/21/2024 11:19 AM [facility] Neutrophils Absolute 3.90 1.50 - 7.00 K/mcL LAB HEMETOLOGY METHOD 02/21/2024 11:19 AM [facility] Lymphocytes Absolute 0.90(L) 1.00 - 5.00 K/mcL LAB HEMETOLOGY METHOD 02/21/2024 11:19 AM [facility] Monocytes Absolute 0.90 0.20 - 1.00 K/mcL LAB HEMETOLOGY METHOD 02/21/2024 11:19 AM [facility] Eosinophils Absolute 0.01 0.00 - 0.50 K/mcL LAB HEMETOLOGY METHOD 02/21/2024 11:19 AM [facility] Basophils Absolute 0.02 0.00 - 0.20 K/mcL LAB HEMETOLOGY METHOD 02/21/2024 11:19 AM [facility] Immature Granulocytes Absolute 0.02 0.00 - 0.03 K/mcL LAB HEMETOLOGY METHOD 02/21/2024 11:19 AM [facility] Blood Venous blood specimen / Unknown Venipuncture / Unknown 02/21/2024 7:10 AM EST 02/21/2024 10:45 AM EST us De Snyder MD LAB BLOOD ORDERABLES Final Resu lt [facility] [address] [place] [address], [place] [phone] * Magnesium (02/21/2024 7:10 AM EST) Magnesium 1.9 1.9 - 2.6 mg/dL LAB CHEMISTRY METHOD 02/21/2024 11:47 AM EST [facility] Blood Venous blood specimen / Unknown Venipuncture / Unknown 02/21/2024 7:10 AM EST 02/21/2024 10:45 AM EST us De Snyder MD LAB BLOOD ORDERABLES Final Resu lt Performing Organization Address City/[facility]/ZIP Co de Phone Number [facility] [address] [place] [address], [place] [phone] * (ABNORMAL) Comprehensive metabolic panel (02/21/2024 7:10 [...] mg/dL LAB CHEMISTRY METHOD 02/21/2024 11:49 AM [facility] BUN 18 5 - 25 mg/dL LAB CHEMISTRY METHOD 02/21/2024 11:49 AM [facility] Creatinine 0.86 0.50 - 1.10 mg/dL LAB CHEMISTRY METHOD 02/21/2024 11:49 AM [facility] eGFR 73 >=60 mL/min/1. 73m2 LAB CHEMISTRY METHOD 02/21/2024 11:49 AM [facility] Comment:Calculation based on the??Chronic Kidney Disease Epidemiology Collaboration (CKD-EPI) equation refit??without adjustment for race. BUN/Creatinine Ratio 20.9 LAB CHEMISTRY METHOD 02/21/2024 11:49 AM [facility] Calcium 9.3 8.5 - 10.5 mg/dL LAB CHEMISTRY METHOD 02/21/2024 11:49 AM [facility] AST (SGOT) 18 10 - 42 unit/L LAB CHEMISTRY METHOD 02/21/2024 11:49 AM [facility] ALT (SGPT) 14 10 - 60 unit/L LAB CHEMISTRY METHOD 02/21/2024 11:49 AM [facility] Alkaline Phosphatase 55 42 - 121 unit/L LAB CHEMISTRY METHOD 02/21/2024 11:49 AM [facility] Total Protein 7.0 6.0 - 8.0 g/dL LAB CHEMISTRY METHOD 02/21/2024 11:49 AM [facility] Albumin 3.8 3.2 - 5.0 g/dL LAB CHEMISTRY METHOD 02/21/2024 11:49 AM [facility] Total Bilirubin 0.8 0.0 - 1.4 mg/dL LAB CHEMISTRY METHOD 02/21/2024 11:49 AM [facility] Blood Venous blood specimen / Unknown Venipuncture / Unknown 02/21/2024 7:10 AM EST 02/21/2024 10:45 AM EST us De Snyder MD LAB BLOOD ORDERABLES Final Resu lt [facility] [address] [place] [address], documented in this encounter Visit Diagnoses Diagnosis Encounter for other general examination documented in this encounter Care Teams Technical Product Manager Relationship Specialty Start Date End Date Jackeline Saha MD [address] [facility] [place], [place] PCP - General Internal Medicine 09/23/21 documented as of this encounter
--- OUTSIDE RECORDS SUMMARY | 2024-06-09 13:54 | XMS_ITS | Encounter Summary ---
Author Organization [facility] Address [address] [place] [address] Care Team Providers Care Interior Plant Caretaker Name Role Phone Jackeline Saha MD Primary Care Pr ovider Encounter Details Date Type Department Care Team (Late st Contact Info) Description 02/25/[address] [facility] - Main Lab [address] [facility] [place] [address] De Snyder MD [address] [place] [address] Encounter for other general examination Social History [...] K/mcL LAB HEMETOLOGY METHOD 02/25/2024 11:05 AM [facility] RBC 2.30(L) 3.80 - 4.80 M/mcL LAB HEMETOLOGY METHOD 02/25/2024 11:05 AM [facility] Hemoglobin 8.1(L) 11.5 - 16.0 g/dL LAB HEMETOLOGY METHOD 02/25/2024 11:05 AM [facility] Hematocrit 24.5(L) 35.0 - 47.0 % LAB HEMETOLOGY METHOD 02/25/2024 11:05 AM [facility] MCV 106.1(H) 79.0 - 98.0 FL LAB HEMETOLOGY METHOD 02/25/2024 11:05 AM [facility] MCH 35.1(H) 27.0 - 32.0 pcg LAB HEMETOLOGY METHOD 02/25/2024 11:05 AM [facility] MCHC 33.1 32.0 - 37.0 g/dL LAB HEMETOLOGY METHOD 02/25/2024 11:05 AM [facility] RDW 13.3 11.0 - 15.0 % LAB HEMETOLOGY METHOD 02/25/2024 11:05 AM [facility] Platelets 257 130 - 400 K/mcL LAB HEMETOLOGY METHOD 02/25/2024 11:05 AM [facility] MPV 10.0 7.0 - 11.0 FL LAB HEMETOLOGY METHOD 02/25/2024 11:05 AM [facility] NRBC 0.0 <1.0 % LAB HEMETOLOGY METHOD 02/25/2024 11:05 AM [facility] NRBC Absolute 0.00 <0.10 K/mcL LAB HEMETOLOGY METHOD 02/25/2024 11:05 AM [facility] Neutrophils Relative 70.6 % LAB HEMETOLOGY METHOD 02/25/2024 11:05 AM [facility] Lymphocytes Relative 11.6 % LAB HEMETOLOGY METHOD 02/25/2024 11:05 AM [facility] Monocytes Relative 16.8 % LAB HEMETOLOGY METHOD 02/25/2024 11:05 AM [facility] Eosinophils Relative 0.3 % LAB HEMETOLOGY METHOD 02/25/2024 11:05 AM [facility] Basophils Relative 0.4 % LAB HEMETOLOGY METHOD 02/25/2024 11:05 AM [facility] Immature Granulocytes Relative 0.3 % LAB HEMETOLOGY METHOD 02/25/2024 11:05 AM [facility] Neutrophils Absolute 5.28 1.50 - 7.00 K/mcL LAB HEMETOLOGY METHOD 02/25/2024 11:05 AM [facility] Lymphocytes Absolute 0.87(L) 1.00 - 5.00 K/mcL LAB HEMETOLOGY METHOD 02/25/2024 11:05 AM [facility] Monocytes Absolute 1.26(H) 0.20 - 1.00 K/mcL LAB HEMETOLOGY METHOD 02/25/2024 11:05 AM [facility] Eosinophils Absolute 0.02 0.00 - 0.50 K/mcL LAB HEMETOLOGY METHOD 02/25/2024 11:05 AM [facility] Basophils Absolute 0.03 0.00 - 0.20 K/mcL LAB HEMETOLOGY METHOD 02/25/2024 11:05 AM [facility] Immature Granulocytes Absolute 0.02 0.00 - 0.03 K/mcL LAB HEMETOLOGY METHOD 02/25/2024 11:05 AM [facility] Blood Venous blood specimen / Unknown Venipuncture / Unknown 02/25/2024 5:50 AM EST 02/25/2024 9:25 AM EST us De Snyder MD LAB BLOOD ORDERABLES Final Resu lt [facility] [address] [place] [address], [place] [phone] * (ABNORMAL) Comprehensive metabolic panel (02/25/2024 5:50 AM EST) Sodium 132(L) 133 - 145 mmol/L LAB CHEMISTRY METHOD 02/25/2024 11:27 AM [facility] Potassium 4.4 3.5 - 5.5 mmol/L LAB CHEMISTRY METHOD 02/25/2024 11:27 AM [facility] Chloride 98 96 - 110 mmol/L LAB CHEMISTRY METHOD 02/25/2024 11:27 AM [facility] CO2 27 21 - 32 mmol/L LAB CHEMISTRY METHOD 02/25/2024 11:27 AM EST [facility] Anion Gap 7 3 - 11 LAB CHEMISTRY METHOD 02/25/2024 11:27 AM [facility] Glucose 90 70 - 100 mg/dL LAB CHEMISTRY METHOD 02/25/2024 11:27 AM [facility] BUN 48(H) 5 - 25 mg/dL LAB CHEMISTRY METHOD 02/25/2024 11:27 AM [facility] Creatinine 1.93(H) 0.50 - 1.10 mg/dL LAB CHEMISTRY METHOD 02/25/2024 11:27 AM [facility] eGFR 28(L) >=60 mL/min/1. 73m2 LAB CHEMISTRY METHOD 02/25/2024 11:27 AM [facility] Comment:Calculation based on the??Chronic Kidney Disease Epidemiology Collaboration (CKD-EPI) equation refit??without adjustment for race. BUN/Creatinine Ratio 24.9 LAB CHEMISTRY METHOD 02/25/2024 11:27 AM [facility] Calcium 9.8 8.5 - 10.5 mg/dL LAB CHEMISTRY METHOD 02/25/2024 11:27 AM [facility] AST (SGOT) 25 10 - 42 unit/L LAB CHEMISTRY METHOD 02/25/2024 11:27 AM [facility] ALT (SGPT) 17 10 - 60 unit/L LAB CHEMISTRY METHOD 02/25/2024 11:27 AM [facility] Alkaline Phosphatase 68 42 - 121 unit/L LAB CHEMISTRY METHOD 02/25/2024 11:27 AM [facility] Total Protein 6.3 6.0 - 8.0 g/dL LAB CHEMISTRY METHOD 02/25/2024 11:27 AM [facility] Albumin 3.0(L) 3.2 - 5.0 g/dL LAB CHEMISTRY METHOD 02/25/2024 11:27 AM [facility] Total Bilirubin 0.7 0.0 - 1.4 mg/dL LAB CHEMISTRY METHOD 02/25/2024 11:27 AM [facility] Blood Venous blood specimen / Unknown Venipuncture / Unknown 02/25/2024 5:50 AM EST 02/25/2024 9:25 AM EST us De Snyder MD LAB BLOOD ORDERABLES Final Resu lt [facility] [address] [place] [address], documented in this encounter Visit Diagnoses Diagnosis Encounter for other general examination documented in this encounter Care Teams Interior Plant Caretaker Relationship Specialty Start Date End Date Jackeline Saha MD [address] [place], [place] PCP - General Internal Medicine 09/23/21 documented as of this encounter
--- OUTSIDE RECORDS SUMMARY | 2024-06-09 13:54 | XMS_ITS | Encounter Summary ---
Author Organization [facility] Address [address] [place] [address] Care Team Providers Care Board Winder Name Role Phone Jackeline Saha MD Primary Care Provider + [facility], Pcp Primary Care Provider Unavailabl e Reason for Visit * Reason Comments E-prescribe Rx Request Encounter Details Date Type Department Care Team Description 11/01/2021 Refill Adult Medicine [address] [address] Karely Greenberg PA-C E-prescribe Rx Request Social History Tobacco Use Types Packs/Day Years Used Date Smoking Tobacco: Former Cigarettes Q uit: 2006 Smokeless Tobacco: Never Alcohol Use Standard Drinks/Week Comments Yes 0 (1 standard drink = 0.6 oz pur e alcohol) Social Sex Assigned at Date Recorded Not on file Job Start Date Occupation Industry Not on file Not on file Not on file COVID-19 Exposure Response Date Recorded In the last 10 days, have yo u been in contact with someone who was confirmed or suspected to have Coronavirus/COVID-19? No / Unsure 10/07/2021 12:52 PM EDT documented as of this encounter Miscellaneous Notes * Telephone Encounter - Jim Henriquez M.A. - 11/03/2021 11:35 AM EDT Lab Results Component Value Date NA 139 03/30/2020 K 4.9 03/30/2020 CO2 30 03/30/2020 CL 103 03/30/2020 BUN 14 03/30/2020 CREAT 0.95 03/30/2020 GLU 98 03/30/2020 CA 9.9 03/30/2020 GFR 59 03/30/2020 DEB 05/11/2021 w/Karely Greenberg DEB w/PCP not on file Next OV w/PCP 12/22/2021 Pls review in Karely Greenberg's absence, thank you. * Telephone Encounter - Berta Estrella - 11/03/2021 8:54 AM EDT Patient would like script to be: E-PRESCRIBED/FAXED TO PHARMACY ?? WHEN WAS THE PATIENT'S LAST APPOINTMENT IN ADULT MEDICINE? 05/11/21 ?? WHEN WAS THE LAST TIME THE PATIENT SAW THEIR PCP? Never seen pcp ?? Does patient have an upcoming appointment? Yes 12/22/21 ?? (THE MEDICATION REQUESTED IS ON THE MED LIST ABOVE) All of the medications requested were on the CURRENT MEDS list ?? Did you check the Pharmacy information above?: YES ?? Patient wants: 90 -day supply ?? Is this a mail order prescription request ? NO ?? If the refill is from a FAXED refill request what is the RX # listed on the fax? N/A ?? Patients current [place] carrier is: [place] / Product Type: MEDICARE [id number] ?? documented in this encounter Plan of Treatment Not on file documented as of this encounter Visit Diagnoses Not on filedocumented in this encounter Care Teams Board Winder Relationship Specialty Start Date End Date Jackeline Saha MD [address] [place] [address] PCP - General Internal Medicine 09/23/21 03/30/22 [facility], Pcp [address] [place] [address] PCP - General Internal Medicine 03/31/22 documented as of this encounter
--- OUTSIDE RECORDS SUMMARY | 2024-06-09 13:54 | XMS_ITS | Clinical Summary ---
Author Organization [address] Address [address] [place] [address] Phone Care Team Providers Care Fish Protector Name Role Phone Jackeline Saha MD Primary [...] MRI COPD (chronic obstructive pu lmonary disease) ([facility]) 09/14/2017 DX:COPD [...] mmol/L LAB CHEMISTRY METHOD 02/26/2024 10:36 AM [facility] Potassium 4.8 3.5 - 5.5 mmol/L LAB CHEMISTRY METHOD 02/26/2024 10:36 AM [facility] Chloride 100 96 - 110 mmol/L LAB CHEMISTRY METHOD 02/26/2024 10:36 AM [facility] CO2 27 21 - 32 mmol/L LAB CHEMISTRY METHOD 02/26/2024 10:36 AM [facility] Anion Gap 7 3 - 11 LAB CHEMISTRY METHOD 02/26/2024 10:36 AM [facility] Glucose 97 70 - 100 mg/dL LAB CHEMISTRY METHOD 02/26/2024 10:36 AM [facility] BUN 30(H) 5 - 25 mg/dL LAB CHEMISTRY METHOD 02/26/2024 10:36 AM [facility] Creatinine 0.85 0.50 - 1.10 mg/dL LAB CHEMISTRY METHOD 02/26/2024 10:36 AM [facility] eGFR 74 >=60 mL/min/1. 73m2 LAB CHEMISTRY METHOD 02/26/2024 10:36 AM [facility] Comment:Calculation based on the??Chronic Kidney Disease Epidemiology Collaboration (CKD-EPI) equation refit??without adjustment for race. BUN/Creatinine Ratio 35.3 LAB CHEMISTRY METHOD 02/26/2024 10:36 AM [facility] Calcium 9.7 8.5 - 10.5 mg/dL LAB CHEMISTRY METHOD 02/26/2024 10:[address] [facility] Blood Venous blood specimen / Unknown Venipuncture / Unknown 02/26/2024 5:45 AM EST 02/26/2024 9:44 AM EST us De Snyder MD LAB BLOOD ORDERABLES Final Resu lt [facility] [address] [place] [address], [place] [phone] * DIAGNOSTIC MAMMOGRAPHY INCLUDING CAD BILATERAL (06/22/2021 [...] fibroglandular asymmetry. BI-RADS 2-benign Procedure Note Mica Storud MD - 02/21/2022 This is a summary [...] corresponds with chronicfibroglandular asymmetry. BI-RADS 2-benign Karely IPERRE IMG BI PROCEDURES Final Result * (ABNORMAL) Lipid panel (01/21/2020) Pathologist [facility] LDL/HDL Ratio 2 0 - 4 Triglycerides 223(A) 0 - 150 mg/dL Cholesterol 212(A) 0 - 200 mg/dL HDL 129 >=40 mg/dL LDL Cholesterol 39 0 - 100 mg/dL Blood Venous blood specimen / Unknown Historical Provider LAB BLOOD ORDERABLES Galilea l Result * Hepatitis C Screening (06/06/2018) Pathologist [facility] Hepatitis C Screening abstracted Historical Provider HEALTH MAINTENANCE Final Result from Last 3 Months or Most Recently Relevant to Health Maintenance Insurance MEDICARE [place]ICAID - [place] Care Teams Fish Protector Relationship Specialty Start Date End Date Jackeline Saha MD [address] [facility] [place] [place] PCP - General Internal Medicine 09/23/21
--- OUTSIDE RECORDS SUMMARY | 2024-06-09 13:54 | XMS_ITS | Encounter Summary ---
Author Organization [facility] Address [address] [place] [address] Care Team Providers Care Leadlighter Name Role Phone Makeda Duke MD Primary Care Provider Unavail able Park Hong MD Primary Care Provider [phone] Jackeline Saha MD Primary Care Provider + [facility], Pcp Primary Care Provider Unavailabl e Reason for Visit * Reason Onset Date Comments Provider Call Back 07/18/2017 Encounter Details Date Type Department Care Team Description 07/18/2017 Telephone Adult Medicine [address] [address] Makeda Duke MD Provider Call Back Social History Tobacco Use Types Packs/Day Years Used Date Smoking Tobacco: Former Smokeless Tobacco: Never Alcohol Use Standard Drinks/Week Comments Yes 0 (1 standard drink = 0.6 oz pur e alcohol) Social Sex Assigned at Date Recorded Not on file Job Start Date Occupation Industry Not on file Not on file Not on file documented as of this encounter Miscellaneous Notes * Telephone Encounter - Shu Helm R.N. - 07/18/2017 3:52 PM EDT Message to ms dailey Pt has been seen twice by dr weaver 03/2017, was referred to a that time, had stopped Wellbutrin 3 - 4 months prior to that visit Seen again 05/2017 for depression, was started on Celexa and advised to discuss ativan with provider , was being seen at [facility] Advised to have sleep study for fatigue and f/u in 6 weeks, has an appointment 07/[address] weaver at4 15 * Telephone Encounter - Diandra Lazaro C.M.A. - 07/18/2017 3:41 PM EDT Please triage Dr. Weaver is out of the office * Telephone Encounter - Victoria Moreno - 07/18/2017 3:34 PM EDT Caller requesting call back from provider: Is the caller the patient? NO If caller is not the patient, what is the callers name? Callers relationship to patient? Counselor/Therapist If person calling is not the patient themselves, is there a verbal release in FYI or permanent comments for this person: NO Reason for call back: Wants to speak to MAKEDA WEAVER regarding patient not wanting counsiling, but wants MAKEDA WEAVER To order pysc meds Caller offered to speak with the nurse for assistance: NO Response: Patient offered to speak with nurse to assist them: refused offer documented in this encounter Plan of Treatment Not on file documented as of this encounter Visit Diagnoses Not on filedocumented in this encounter Care Teams Leadlighter Relationship Specialty Start Date End Date Makeda Duke MD PCP - General Internal Medicine 12/13/16 01/30/21 Park Hong MD [address] [place], [place] [phone] PCP - General Internal Medicine 01/31/21 09/22/21 Jackeline Saha MD [address] [place] [id number] PCP - General Internal Medicine 09/23/21 03/30/22 [facility], [address] [address] PCP - General Internal Medicine 03/31/22 documented as of this encounter
--- OUTSIDE RECORDS SUMMARY | 2024-06-09 13:54 | XMS_ITS | Encounter Summary ---
Author Organization [facility] Address [address] [place] [address] Care Team Providers Care Septic Tank Service Technician Name Role Phone Angelica Duke MD Primary Care Provider Unavail able Park Hong MD Primary Care Provider [phone] Jackeline Saha MD Primary Care Provider + [facility], Pcp Primary Care Provider Unavailabl e Encounter Details Date Type Department Care Team Description 08/18/2018 Telephone Gastroenterology - [address] [place] [address] Malik Adames MD [address] [place] [address] Social History Tobacco Use Types Packs/Day Years Used Date Smoking Tobacco: Former Cigarettes Q uit: 2007 Smokeless Tobacco: Never Alcohol Use Standard Drinks/Week Comments Yes 0 (1 standard drink = 0.6 oz pur e alcohol) Social Sex Assigned at Date Recorded Not on file Job Start Date Occupation Industry Not on file Not on file Not on file documented as of this encounter Miscellaneous Notes * Telephone Encounter - Karely Joaquin - 08/18/2018 4:42 PM EDT All attempts to reach patient to schedule screening colonoscopy have been exhausted. documented in this encounter Plan of Treatment Not on file documented as of this encounter Visit Diagnoses Not on filedocumented in this encounter Care Teams Septic Tank Service Technician Relationship Specialty Start Date End Date Angelica Duke MD PCP - General Internal Medicine 12/13/16 01/30/21 Park Hong MD [address] [place] [id number] PCP - General Internal Medicine 01/31/21 09/22/21 Jackeline Saha MD [address] [place] [id number] PCP - General Internal Medicine 09/23/21 03/30/22 [facility], Pcp [address] [place] [address] PCP - General Internal Medicine 03/31/22 documented as of this encounter
--- OUTSIDE RECORDS SUMMARY | 2024-06-09 13:54 | XMS_ITS | Encounter Summary ---
Author Organization [facility] Address [address] [place] [address] Care Team Providers Care Cath Lab Tech Name Role Phone Angelica Duke MD Primary Care Provider Unavail able Park Hong MD Primary Care Provider [phone] Jackeline Saha MD Primary Care Provider + [facility], Pcp Primary Care Provider Unavailabl e Reason for Visit * Reason Onset Date Comments refill request 11/16/2019 Encounter Details Date Type Department Care Team Description 11/16/2019 Refill Adult Urgent Care - [address] [address] Angelica Duke MD refill request Social History Tobacco Use Types Packs/Day Years [...] encounter Miscellaneous Notes * Telephone Encounter - Cathleen Casillas M.A. - 11/17/2019 10:27 AM EDT Lab Results Component Value Date NA 134 06/06/2018 K 5.0 06/06/2018 CO2 29 06/06/2018 CL 100 06/06/2018 BUN 25 06/06/2018 CREAT 0.77 06/06/2018 GLU 101 06/06/2018 CA 9.5 06/06/2018 GFR > 60 06/06/2018 * Telephone Encounter - Manny Parmar - 11/16/2019 3:49 PM EDT Patient would like script to be: E-PRESCRIBED/FAXED TO PHARMACY WHEN WAS THE PATIENT'S LAST APPOINTMENT IN ADULT MEDICINE? 10/06/2019 WHEN WAS THE LAST TIME THE PATIENT SAW THEIR PCP? 06/06/2018 Does patient have an upcoming appointment? No-patient refused appointment, will call back to book appointment (THE MEDICATION REQUESTED IS ON THE MED LIST ABOVE) All of the medications requested were on the CURRENT MEDS list Did you check the Pharmacy information above?: YES Patient wants: 30 -day supply Is this a mail order prescription request ? NO If the refill is from a FAXED refill request what is the RX # listed on the fax? N/A Patients current insurance carrier is: [place] / [place] / Product Type: MEDICARE [id number] documented in this encounter Plan of Treatment Not on file documented as of this encounter Visit Diagnoses Not on filedocumented in this encounter Care Teams Cath Lab Tech Relationship Specialty Start Date End Date Angelica Duke MD PCP - General Internal Medicine 12/13/16 01/30/21 Park Hong MD [address] [place] [id number] PCP - General Internal Medicine 01/31/21 09/22/21 Jackeline Saha MD [address] [place] [address] PCP - General Internal Medicine 09/23/21 03/30/22 [facility], Pcp [address] [place] [address] PCP - General Internal Medicine 03/31/22 documented as of this encounter
--- OUTSIDE RECORDS SUMMARY | 2024-06-09 13:54 | XMS_ITS | Encounter Summary ---
Author Organization [facility] Address [address] [place] [address] Care Team Providers Care District Agent Name Role Phone Angelica Duke MD Primary Care Provider Unavail able Park Hong MD Primary Care Provider [phone] Jackeline Saha MD Primary Care Provider + [facility], Pcp [facility] Encounter Details Date Type Department Care Team Description 05/26/2017 Transfer Records Medical Records [address] [place], [place] [id number] Abstract, Provider Social History Tobacco Use Types Packs/Day Years [...] on filedocumented in this encounter Care Teams District Agent Relationship Specialty Start Date End Date Angelica Duke MD PCP - General Internal Medicine 12/13/16 01/30/21 Park Hong MD [address] [place] [address] PCP - General Internal Medicine 01/31/21 09/22/21 Jackeline Saha MD [address] [place] [address] PCP - General Internal Medicine 09/23/21 03/30/22 [facility], Pcp [address] [place] [address] PCP - General Internal Medicine 03/31/22 documented as of this encounter
--- OUTSIDE RECORDS SUMMARY | 2024-06-09 13:54 | XMS_ITS | Encounter Summary ---
Author Organization [facility] Address [address] [place] [address] Care Team Providers Care Commercial Door Installer Name Role Phone Jackeline aSha MD Primary Care Pr ovider Encounter Details Date Type Department Care Team (Late st Contact Info) Description 02/24/2024 Lab Requisition [facility] - Main Lab [address] [facility] [place] [address] De Snyder MD [address] [place] [id number] Encounter for other general examination Social History [...] K/mcL LAB HEMETOLOGY METHOD 02/24/2024 11:31 AM [facility] RBC 2.60(L) 3.80 - 4.80 M/mcL LAB HEMETOLOGY METHOD 02/24/2024 11:31 AM [facility] Hemoglobin 9.1(L) 11.5 - 16.0 g/dL LAB HEMETOLOGY METHOD 02/24/2024 11:31 AM [facility] Hematocrit 27.8(L) 35.0 - 47.0 % LAB HEMETOLOGY METHOD 02/24/2024 11:31 AM [facility] MCV 108.2(H) 79.0 - 98.0 FL LAB HEMETOLOGY METHOD 02/24/2024 11:31 AM [facility] MCH 35.4(H) 27.0 - 32.0 pcg LAB HEMETOLOGY METHOD 02/24/2024 11:31 AM [facility] MCHC 32.7 32.0 - 37.0 g/dL LAB HEMETOLOGY METHOD 02/24/2024 11:31 AM [facility] RDW 13.1 11.0 - 15.0 % LAB HEMETOLOGY METHOD 02/24/2024 11:31 AM [facility] Platelets 296 130 - 400 K/mcL LAB HEMETOLOGY METHOD 02/24/2024 11:31 AM [facility] MPV 10.4 7.0 - 11.0 FL LAB HEMETOLOGY METHOD 02/24/2024 11:31 AM [facility] NRBC 0.0 <1.0 % LAB HEMETOLOGY METHOD 02/24/2024 11:31 AM [facility] NRBC Absolute 0.00 <0.10 K/mcL LAB HEMETOLOGY METHOD 02/24/2024 11:31 AM [facility] Neutrophils Relative 77.1 % LAB HEMETOLOGY METHOD 02/24/2024 11:31 AM [facility] Lymphocytes Relative 7.3 % LAB HEMETOLOGY METHOD 02/24/2024 11:31 AM [facility] Monocytes Relative 14.7 % LAB HEMETOLOGY METHOD 02/24/2024 11:31 AM [facility] Eosinophils Relative 0.2 % LAB HEMETOLOGY METHOD 02/24/2024 11:31 AM [facility] Basophils Relative 0.4 % LAB HEMETOLOGY METHOD 02/24/2024 11:31 AM [facility] Immature Granulocytes Relative 0.3 % LAB HEMETOLOGY METHOD 02/24/2024 11:31 AM [facility] Neutrophils Absolute 7.15(H) 1.50 - 7.00 K/mcL LAB HEMETOLOGY METHOD 02/24/2024 11:31 AM [facility] Lymphocytes Absolute 0.68(L) 1.00 - 5.00 K/mcL LAB HEMETOLOGY METHOD 02/24/2024 11:31 AM [facility] Monocytes Absolute 1.37(H) 0.20 - 1.00 K/mcL LAB HEMETOLOGY METHOD 02/24/2024 11:31 AM [facility] Eosinophils Absolute 0.02 0.00 - 0.50 K/mcL LAB HEMETOLOGY METHOD 02/24/2024 11:31 AM [facility] Basophils Absolute 0.04 0.00 - 0.20 K/mcL LAB HEMETOLOGY METHOD 02/24/2024 11:31 AM [facility] Immature Granulocytes Absolute 0.03 0.00 - 0.03 K/mcL LAB HEMETOLOGY METHOD 02/24/2024 11:31 AM EST [facility] Blood Venous blood specimen / Unknown Venipuncture / Unknown 02/24/2024 10:46 AM EST 02/24/2024 11:17 AM EST us De Snyder MD LAB BLOOD ORDERABLES Final Resu lt Performing Organization Address City/[facility]/ZIP Co de Phone Number [facility] [address] [place] [address], [place] [phone] * B-type natriuretic peptide (02/24/2024 10:46 AM EST) BNP 98 <=100 pcg/mL LAB CHEMISTRY METHOD 02/24/2024 12:11 PM EST [facility] Blood Venous blood specimen / Unknown Venipuncture / Unknown 02/24/2024 10:46 AM EST 02/24/2024 11:17 AM EST us De Snyder MD LAB BLOOD ORDERABLES Final Resu lt Performing Organization Address [facility]/ZIP Co de Phone Number [facility] [address] [place] [address], [place] [phone] * Ammonia (02/24/2024 10:46 AM EST) Ammonia 24 11 - 35 mcmol/L LAB CHEMISTRY METHOD 02/24/2024 12:10 PM EST [facility] Blood Venous blood specimen / Unknown Venipuncture / Unknown 02/24/2024 10:46 AM EST 02/24/2024 11:17 AM EST us De Snyder MD LAB BLOOD ORDERABLES Final Resu lt Performing Organization Address [facility]/ZIP Co de Phone Number [facility] [address] [place] [address], [place] [phone] * (ABNORMAL) Comprehensive metabolic panel (02/24/2024 10:46 AM EST) Sodium 126(L) 133 - 145 mmol/L LAB CHEMISTRY METHOD 02/24/2024 12:11 PM [facility] Potassium 4.7 3.5 - 5.5 mmol/L LAB CHEMISTRY METHOD 02/24/2024 12:11 PM [facility] Chloride 92(L) 96 - 110 mmol/L LAB CHEMISTRY METHOD 02/24/2024 12:11 PM [facility] CO2 27 21 - 32 mmol/L LAB CHEMISTRY METHOD 02/24/2024 12:11 PM [facility] Anion Gap 7 3 - 11 LAB CHEMISTRY METHOD 02/24/2024 12:11 PM [facility] Glucose 107(H) 70 - 100 mg/dL LAB CHEMISTRY METHOD 02/24/2024 12:11 PM [facility] BUN 61(H) 5 - 25 mg/dL LAB CHEMISTRY METHOD 02/24/2024 12:11 PM [facility] Comment:Results verified by repeat testing Creatinine 5.80(H) 0.50 - 1.10 mg/dL LAB CHEMISTRY METHOD 02/24/2024 12:11 PM [facility] Comment:Results verified by repeat testing eGFR 7(L) >=60 mL/min/1. 73m2 LAB CHEMISTRY METHOD 02/24/2024 12:11 PM [facility] Comment:Calculation based on the??Chronic Kidney Disease Epidemiology Collaboration (CKD-EPI) equation refit??without adjustment for race. BUN/Creatinine Ratio 10.5 LAB CHEMISTRY METHOD 02/24/2024 12:11 PM [facility] Calcium 10.7(H) 8.5 - 10.5 mg/dL LAB CHEMISTRY METHOD 02/24/2024 12:11 PM [facility] AST (SGOT) 23 10 - 42 unit/L LAB CHEMISTRY METHOD 02/24/2024 12:11 PM [facility] ALT (SGPT) 14 10 - 60 unit/L LAB CHEMISTRY METHOD 02/24/2024 12:11 PM [facility] Alkaline Phosphatase 68 42 - 121 unit/L LAB CHEMISTRY METHOD 02/24/2024 12:11 PM [facility] Total Protein 7.4 6.0 - 8.0 g/dL LAB CHEMISTRY METHOD 02/24/2024 12:11 PM [facility] Albumin 3.5 3.2 - 5.0 g/dL LAB CHEMISTRY METHOD 02/24/2024 12:11 PM [facility] Total Bilirubin 0.7 0.0 - 1.4 mg/dL LAB CHEMISTRY METHOD 02/24/2024 12:11 PM [facility] Blood Venous blood specimen / Unknown Venipuncture / Unknown 02/24/2024 10:46 AM EST 02/24/2024 11:17 AM EST us De Snyder MD LAB BLOOD ORDERABLES Final Resu lt [facility] [address] [place] [address], documented in this encounter Visit Diagnoses Diagnosis Encounter for other general examination documented in this encounter Care Teams Commercial Door Installer Relationship Specialty Start Date End Date Jackeline Saha MD [address] [facility] [place] PCP - General Internal Medicine 09/23/21 documented as of this encounter
--- OUTSIDE RECORDS SUMMARY | 2024-06-09 13:54 | XMS_ITS | Encounter Summary ---
Author Organization [facility] Address [address] [place] [address] Care Team Providers Care Chef De Partie Name Role Phone Angelica Duke MD Primary Care Provider Unavail able Park Hong MD Primary Care Provider [phone] Jackeline Saha MD Primary Care Provider + [facility], Pcp Primary Care Provider Unavailabl e Reason for Visit * Reason Onset Date Comments refill request 12/07/2017 Encounter Details Date Type Department Care Team Description 12/07/2017 Refill Adult Medicine [address] [address] Angelica Duke MD refill request Social History [...] encounter Miscellaneous Notes * Telephone Encounter - Angelica Duke MD - 12/07/2017 4:38 PM EDT No CSC * Telephone Encounter - Machelle Hidalgo M.A. - 12/07/2017 4:08 PM EDT No results found for: URINEOXYCOD, URBENZO, URAMPHETAMIN, URMARIJUANA, UROPIATES, URBARBITUATE, URCOCAINE, URINEETOH, METHADONE, HYDROCODONE Pt is not on contract for this medication, please advise pt is asking pcp if she will refill med * Telephone Encounter - Samantha Carlos - 12/07/2017 4:03 PM EDT Patient wants to know if Dr. Dickson is going to fill this script from now on. Patient would like script to be: E-PRESCRIBED/FAXED TO PHARMACY WHEN WAS THE PATIENT'S LAST APPOINTMENT IN ADULT MEDICINE? 09/11/17 WHEN WAS THE LAST TIME THE PATIENT SAW THEIR PCP? 07/24/17 Does patient have an upcoming appointment? No-patient [...] N/A Patients current insurance carrier is: [facility] / Plan: -[facility] TYPE 2 / Product Type: HMO [id number] documented in this encounter Plan of Treatment Not on file documented as of this encounter Visit Diagnoses Not on filedocumented in this encounter Care Teams Chef De Partie Relationship Specialty Start Date End Date Angelica Duke MD PCP - General Internal Medicine 12/13/16 01/30/21 Park Hong MD [address] [place] [phone] PCP - General Internal Medicine 01/31/21 09/22/21 Jackeline Saha MD [address] [place] [id number] PCP - General Internal Medicine 09/23/21 03/30/22 [facility], Vik [address] [place] [address] PCP - General Internal Medicine 03/31/22 documented as of this encounter
== END 2024-06-09 12:55 | disposition home or self-care (01) ==
LOC: HO.HOS 11:32
PROVIDERS: PCP Internal Medicine; Visit Provider Physician Assistant
DX: S42.211A Unspecified displaced fracture of surgical neck of right humerus, initial encounter for closed fracture (principal)
CPT/HCPCS: 99214

== ENCOUNTER → 2024-06-09 11:34 | Outpatient (BNV) | payer MEDICARE, MEDICAID, SELFPAY | PROVIDERS: Visit Provider Radiology Diagnostic Radiology | DX: S42.211A Unspecified displaced fracture of surgical neck of right humerus, initial encounter for closed fracture (principal) | CPT/HCPCS: 73030 ==

== ENCOUNTER 2024-06-11 11:00 | Outpatient (RCR) | payer MEDICARE, MEDICAID, SELFPAY ==
--- NOTE | 2024-03-14 12:43 | MHC.PT.EP ---
[facility] [place] Office [place] Office [place] Office [address] Dilan Chandra [address] [phone] F: [phone] F: [phone] F: [phone] F: [phone] Physical Therapy Plan of Care Date of Evaluation: 03/14/24 Date of Surgery: Diagnosis: This is a 68 yo female presenting to skilled PT with a script for fracture of surgical neck of R humerus. Assessment: This is a 68 yo female presenting to skilled PT with a script for fracture of surgical neck of R humerus. 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 Positive EtOH. Subsequently fell. Hitting the right shoulder area question head injury. Patient denies any loss of consciousness denies any neck pain refuses collar. Has a history of EtOH. Was here for the same last week. Denies any chest pain denies any diaphoresis. Denies any abdominal pain. Denies any difficulty moving her legs. Patient is here today reporting injury on 02/19/24 s/p fall. She is being followed by [facility] ortho. Per the last note on 03/07: She was fit for an UltraSling in the office today but she does not need to use the bump. She will use the sling when she is out in public and sleeping if needed. She can come out of the sling on a daily basis to let her arm hang and dangle. Perform [id number] exercises which were demonstrated in the office today. I did put in a referral for physical therapy to work on passive and active assisted range of motion progressing to active range of motion. Periscapular stabilization. No rotator cuff strengthening until approximately 8-12 weeks post injury. Patient is here today reporting that the pain has not been good. Her pain is located throughout the anterior shoulder joint and humerus described as sharp and she gets spasms. After the incident she went to [facility] for rehab where she really only did really exercise for her legs. Assessment reveals pain that ranges from up to a 6/10 at the worst. Patient demos decreased severe R shoulder ROM and decreased cervical ROM, strength of R shoulder, TTP at GHJ joint line, UT and impaired posture with forward head and rounded shoulders. Based on functional limitations, impaired QOL and pain tolerance patient is a fair candidate for skilled PT 2x/wk for 6 wks. Frequency and Duration: The patient will be seen 2x/wk for 6 wks Short Term Goals: (In 2 weeks) Demo I with HEP Improve shoulder AAROM by at least 25 degs Improve shoulder PROM by at least 25% Demo proper scapular recruitment with appropriate shoulder strengthening exercises Load Out Supervisor Goals: (in 6 wks) Improve shoulder nonpainful AROM to at least 120 degs flexion and abduction, 45 degs ER Demo improvement in MMT for shoulder to at least 3+ Improve SPADI by at least 10 points Improve overall functional QOL by at least 50% Treatment Plan: Modalities to reduce pain, spasms and effusion. Manual therapy to restore motion and function. Therapeutic exercise to improve strength and flexibility. Neuromuscular re-education for posture and balance. Therapeutic activities to return to functional activities of daily living. Electronically signed by: Anitha Leyva PT Please sign and return to therapist. Thank you for your referral.
--- NOTE | 2024-06-04 11:47 | MHC.PT.PR ---
[facility] [place] Office [place] Office [place] Office [address] Karely Chandra [address] [phone] F: [phone] F: [phone] F: [phone] F: [phone] Physical Therapy Progress Note Diagnosis: This is a 68 yo female presenting to skilled PT with a script for fracture of surgical neck of R humerus. Date of Surgery: Date of Evaluation: 03/14/24 Treatments to Date: 15 Cancellations to Date: 0 No Shows to Date: 0 Subjective: Patient is the same Pain Score and Location: 6 R shoulder Objective Measures: Pain: 3-7, achy, sharp, spasms, dull (located at the bicep area) Functional limitations: lifting, pushing, pulling, dressing, driving, housework SPADI: 36 and 59 MMT elbow: elbow flexion and extension less than 3+ MMT shoulder: flexion 2-, abduction 2-, ER 1-, IR 3 AROM elbow: flexion 140, lacking 5 degs extension, lacking full supination 40 degs AROM shoulder: flexion 10 degs, abduction 15 degs (slid the arm), ER cannot even get to 0 (about 8 degs from 0), 62 IR Assessment: 06/04: Patient has come to 15 sessions of PT. She has made very little gains with her function, ROM, pain and strength. Re-eval was performed above which can be noted. At this time PT does not seem to be the answer. I am referring her back to ortho at this time as she has plateaued in progress and she is not meeting her goals. She will be placed on a PT hold. PT Plan: Hold PT Frequency and Duration: The patient will be seen 2x/wk for 6 wks Treatment Plan: Therapeutic Exercise Dynamic Therapeutic Activities Neuromuscular Re-ed Manual Therapies Taping Gait Home Exercise Program Patient Education Hot or Cold Pack refer back to Reviewed/ Agreed with Student Documentation: Therapist: Thank you once again for your referral.
--- NOTE | 2024-07-10 10:08 | MHC.PT.DC ---
[facility] [place] Office [place] Office [place] Office [address] Dilan Chandra [address] [phone] F: [phone] F: [phone] F: [phone] F: [phone] Physical Therapy Discharge Report Diagnosis: This is a 68 yo female presenting to skilled PT with a script for fracture of surgical neck of R humerus. Date of Surgery: Date of Evaluation: 03/14/24 Date of Discharge: 07/10/24 Treatments to Date: 16 Cancellations to Date: 0 No Shows to Date: 0 Discharge Status: Independent with HEP Patient Elected to Stop Recommend MD Follow-up Discharge Summary: 06/11: Patient has been coming to PT since the beginning of March 2024. We spent a lot of time going through her HEP today. At this time, I educated that I do not think she should continue skilled PT in the clinic as she is not doing her HEP at home on her own. At this point, her time would be better spent trying to start a good routine on her own and I did state to her that if she does not do her exercises now she is less likely to be compliant after surgery when recovery is at the most important. She understands. She has a good HEP to continue on her own at this time. We will eval again when medically appropriate after surgery. Chart closed after 30 days. Electronically signed by: Anitha Leyva PT Please sign and return to therapist. Thank you for your referral.
== END 2024-07-10 10:08 | disposition home or self-care (01) ==
LOC: HO.PTCHIC 11:00
PROVIDERS: PCP Internal Medicine; Visit Provider Physician Assistant
DX: S42.211A Unspecified displaced fracture of surgical neck of right humerus, initial encounter for closed fracture (principal); X58.XXXA Exposure to other specified factors, initial encounter
CPT/HCPCS: 97110; 97140; 97162; 97164

== ENCOUNTER 2024-07-21 10:09 | Outpatient (AMB) | payer MEDICARE, MEDICAID, SELFPAY ==
--- NOTE | 2024-07-21 10:26 | A.OFFPC_ITS ---
Vital Signs 07/21/24 10:27 Height 5 ft 5 in Weight 138 lb BMI 23.0 BP 122/70 Blood Pressure Location Lt brachial Position Sitting Pulse 62 Pulse Source Pulse Oximeter Pulse Oximetry (%) 97 Oxygen Delivery Method Room Air Intake Visit Reasons: Renato mares/Dr. Rodriguez 09/16/24 Realtime Captioner Required: No Accompanied by: Daughter Allergies No Known Allergies Allergy (Verified 07/21/24 10:48) Medication List - Last Reconciled 07/21/24 by Tena Wright MD acetaminophen 975 mg (3 x 325 mg) PO Q8H PRN albuterol sulfate 90 mcg/actuation 2 puffs inhalation QID PRN budesonide-formoterol 160-4.5 mcg/actuation inhalation calcium carbonate-vit D3-min 600 mg-10 mcg (400 unit) 1 tab PO BID celecoxib (Celebrex) 200 mg PO BID 30 days citalopram 20 mg PO DAILY 30 days clonidine HCl 0.1 mg PO TID 30 days fluticasone propionate 50 mcg/actuation 1 spray intranasal BID lisinopril 40 mg PO DAILY magnesium oxide 200 mg PO DAILY multivitamin with minerals 1 tab PO DAILY tramadol 100 mg (2 x 50 mg) PO Q8H PRN 30 days Tobacco use date assessed: 03/06/24 Dental Screening Dental Screen Date: 03/06/24 HPI HPI Comments History of Present Illness Details The patient is a 69-year-old female presenting for preoperative evaluation related to right shoulder arthroplasty, necessitated by a fracture sustained after a fall in February. Since the fracture, the patient has reported ongoing pain and functional limitations, with current management including tramadol and juge-cwy-othdchn medications. She has a history of opioid overdose and expresses caution with such medications, favoring non-opioid pain management strategies when possible. Additionally, she has ongoing management for anxiety and depression, the medications and doses of which are under consideration for adjustment due to amplified anxiety levels linked with her limited activity and social engagement. The patient is no longer consuming alcohol or smoking, and minimal cannabis use is reported. EKG and labs pending for medical clearance. Emphysema stable with long-acting inhaler. Patient has 5-7 Mets of ADLs. [facility] Medical History Fracture of surgical neck of right humerus Chronic bronchitis Bronchiectasis Depression Emphysema of lung Surgical History History of ear surgery Family History Mother No problems noted. Father Emphysema lung Family/Other Mental health disorder Substance use disorder Social History (Updated 07/21/24 @ 10:58 by Tena Wright MD) Housing: Apartment Alcohol intake: current Alcohol intake frequency: holidays/special occasions only Alcohol type: beer and hard liquor Patient Tobacco Use Status: Former Tobacco user Tobacco use type: Cigarette e-Cigarette/Vaping Use: Never Used Second Hand Smoke Exposure: Yes service: No Current occupational status: employed Current occupation: left hand dominant Current occupational exposures/hazards: No Cognitive needs: No Hearing needs: No Vision needs: Yes (Glasses) Questionnaire PHQ-9 Over the last 2 weeks, how often have you been bothered by any of the following problems? 1. Little interest or pleasure in doing things: not at all 2. Feeling down, depressed, or hopeless: not at all 3. Trouble falling or staying asleep, or sleeping too much: not at all 4. Feeling tired or having little energy: not at all 5. Poor appetite or overeating: not at all 6. Feeling bad about yourself - or that you are a failure or have let yourself or your family down: not at all 7. Trouble concentrating on things, such as reading the newspaper or watching television: not at all 8. Moving or speaking so slowly that other people could have noticed. Or the opposite - being so fidgety or restless that you have been moving around a lot more than usual: not at all 9. Thoughts that you would be better off or of hurting yourself in some way: not at all Total score: 0 Depression Screening Interpretation: Negative Depression Screening Done: Yes 47562 - PHQ-9 Billing: Yes Source: Developed by Drs. Justen Katz, Elba Benavides, Rafa Walter and colleagues, with an educational dionte from [employer]. Thrive Questionnaire Date Thrive assessed: 07/21/24 I am a: Patient What is your living situation today?: I have a steady place to live Within the past 12 months, did the food you bought not last and you didn't have the money to get more?: Never true Within the past 12 months, did you worry whether your food would run out before you got money to buy more?: Never true Do you have trouble paying for medicines?: No Do you have trouble getting transportation to medical appointments?: No Do you have trouble paying your heating and electricity bill?: No Do you have trouble taking care of your child, family member or friend?: No Do you have trouble with day-to-day activities such as bathing, preparing meals, shopping, managing finances, etc.?: No Are you currently unemployed and looking for a job?: No Are you interested in more education?: No Please select the resources that you would like help with: None Currently or been in a relationship where the following occur: No concerns reported THRIVE Score: 0 AUDIT C Alcohol Use Questionnaire (AUDIT-C) 1. How often do you have a drink containing alcohol?: Monthly or less 2. How many drinks containing alcohol do you have on a typical day when you are drinking?: 1 or 2 3. How often do you have six or more drinks on one occasion?: Never Total Score: 1 Score Reviewed/Action Taken: No MADINA-7 AMB Questionnaire MADINA-7 Date MADINA - 7 assessed: 07/21/24 Feeling nervous, anxious, or on edge: 0 = Not at all Not being able to stop or control worryin = Not at all Worrying too much about different things: 0 = Not at all Trouble relaxin = Not at all Being so restless that it is hard to sit still: 0 = Not at all Becoming easily annoyed or irritable: 0 = Not at all Feeling afraid as if something awful might happen: 0 = Not at all Total MADINA-7 score (0-4 normal; 5-9 mild; 10-14 moderate; 15-21 severe): 0 Source: Developed by Drs. Justen Katz, Elba Benavides, Rafa Walter and colleagues, with an educational dionte from [employer]. MADINA-7 Assessment Billing MADINA-7 Assessment Tool: MADINA-7 Assessment 47305 Review of Systems Const All systems reviewed & are unremarkable except as noted in HPI and below Card Denies chest pain at rest, Denies chest pain with activity, Denies edema, Denies irregular heart rhythm, Denies claudication, Denies dyspnea, Denies dyspnea on exertion, Denies orthopnea, Denies paroxysmal nocturnal dyspnea and Denies slow heart rate Resp Denies cough, Denies dyspnea and Denies dyspnea on exertion GI Denies abdominal pain, Denies change in bowel habits, Denies excessive flatus, Denies nausea and Denies vomiting Neuro Denies lack of coordination Physical exam (Primary Care) Vital Signs: Last Vital Signs Pulse 62 07/21/24 10:27 BP 122/70 07/21/24 10:27 Pulse Ox 97 07/21/24 10:27 Oxygen Delivery Method Room Air 07/21/24 10:27 BMI result Body Mass Index 23.0 Tobacco/Smoking Status: Tobacco use Status Tobacco use date assessed 03/06/24 07/21/24 10:32 Patient Tobacco Use Status Former Tobacco user 07/21/24 10:58 Tobacco use type Cigarette 07/21/24 10:58 e-Cigarette/Vaping Use Never Used 07/21/24 10:58 PHQ-9: PHQ-9 Score PHQ-9: Total score 0 07/21/24 12:52 Depression Screening Interpretation: Negative Thrive Assessment: Date of Thrive Assessment Date Thrive assessed 07/21/24 07/21/24 10:32 Currently or been in a relationship where the following occur: No concerns reported Resp Effort & Inspection: normal respiratory effort Auscultation: clear to auscultation bilaterally Cardio Jugular venous distension: no JVD Rate: regular rate Rhythm: regular rhythm Heart sounds: S1 normal heart sound present and S2 normal heart sound present Extrem General: Yes full ROM Coding Level of Care Code Est Pt Level 4 (58473) Complex EM visit Add On G2211 Diagnoses Pre-op chest exam Z01.811 Essential hypertension I10 Emphysema of lung J43.9 MADINA (generalized anxiety disorder) F41.1 Additional Codes MADINA-7 Assessment Billing - MADINA-7 Assessment Tool: MADINA-7 Assessment 33041 ([id number]) PHQ-9 - 74789 - PHQ-9 Billing: Yes ([id number]) Time Spent (min) 24 Assessment & Plan Assessment & Plan (1) Pre-op chest exam: Code(s): Z01.811 - Encounter for preprocedural respiratory examination Category: Medical (2) Essential hypertension: Code(s): I10 - Essential (primary) hypertension Category: Medical (3) Emphysema of lung: Code(s): J43.9 - Emphysema, unspecified Category: Medical (4) MADINA (generalized anxiety disorder): Code(s): F41.1 - Generalized anxiety disorder Category: Medical Plan Preoperative evaluation for the right shoulder arthroplasty will proceed with an EKG and fasting labs planned closer to the surgery date. Narcan will be provided due to past opioid overdose, and adjustments in anxiety medication will be initiated. Lifestyle changes such as cessation of alcohol and reduced cannabis use will be maintained, alongside observing dietary intake to manage gastrointestinal symptoms. Patient was informed and verbally consented to the use of an ambient scribe for clinic note documentation during this visit. I discussed with the patient the necessity for preoperative evaluation including lab work and EKG to ensure readiness for the scheduled shoulder surgery in September. We reviewed her medication history, including the adverse reaction to oxycodone and the current plan to manage pain with tramadol cautiously. Options around managing anxiety and depression were reviewed with an increase in citalopram proposed. The patient has voluntarily ceased alcohol and minimized cannabis use, aligning with discussions about potential impacts during surgery preparation. I also recommended continuation of effective dietary management to address episodes of nausea and diaphoresis related to her eating habits. Follow-up plans are oriented towards postoperative care and the management of her psychiatric well-being. Orders: Orders ECG 12 lead EKG Today Z01.811 - Encounter for preprocedural respiratory examination Vitamin B12 and Folate Today E53.8 - Deficiency of other specified B group vitamins Vitamin D 25-OH Total Today E55.9 - Vitamin D deficiency, unspecified Complete Blood Count Auto Diff Today D64.9 - Anemia, unspecified IRON PROFILE Today D64.9 - Anemia, unspecified Lipid Panel Today E78.5 - Hyperlipidemia, unspecified Comprehensive [place]. Panel Fast Today Z01.811 - Encounter for preprocedural respiratory examination Medications: New naloxone 4 mg/actuation (Narcan) spray 1 dose into ONE nostril; alternate nostrils w each dose until help arrives 4 mg intranasal Q2M 2 ea 0RF 30 days Changed From citalopram 20 mg PO DAILY 30 days 30 tabs 0RF F41.9 - Anxiety disorder, unspecified To citalopram 30 mg (1.5 x 20 mg) PO DAILY 45 tabs 3RF 30 days F41.9 - Anxiety disorder, unspecified Discontinued clonidine HCl Discontinued Reason: Patient Completed Course 0.1 mg PO TID 30 days 90 tabs 2RF I10 - Essential (primary) hypertension Patient Instructions: - Complete EKG and fasting labs as scheduled before surgery. - Use tramadol for pain with caution; have Narcan available. - Continue avoiding alcohol and limit cannabis. - Adjust diet to manage digestive symptoms; include a balanced variety of foods. - Follow up on medication adjustment for anxiety if symptoms persist. - Contact if experiencing new or worsening symptoms prior to surgery.
[2024-07-21 10:27] VITALS: BP 122/70; PULSE 62; O2SAT 97; BMI 23.0
--- OUTSIDE RECORDS SUMMARY | 2024-07-21 10:44 | XMS_ITS | Encounter Summary ---
Author Organization [facility] Address [address] [place] [address] Care Team Providers Care Sales Representative Consultant Name Role Phone Angelica Duke MD Primary Care Provider Unavail able Park Hong MD Primary Care Provider [phone] Jackeline Saha MD Primary Care Provider + [facility], Pcp [facility] Encounter Details Date Type Department Care Team Description 03/30/2017 Release of Information Medical Records [address] [place], [place] [id number] Abstract, Provider Social History Tobacco Use Types [...] on filedocumented in this encounter Care Teams Sales Representative Consultant Relationship Specialty Start Date End Date Angelica Duke MD PCP - General Internal Medicine 12/13/16 01/30/21 Park Hong MD [address] [place] [address] PCP - General Internal Medicine 01/31/21 09/22/21 Jackeline Saha MD [address] [place] [address] PCP - General Internal Medicine 09/23/21 03/30/22 [facility], Pcp [address] [place] [address] PCP - General Internal Medicine 03/31/22 documented as of this encounter
--- OUTSIDE RECORDS SUMMARY | 2024-07-21 10:44 | XMS_ITS | Encounter Summary ---
Author Organization [facility] Address [address] [place] [address] Care Team Providers Care Combination Operator Name Role Phone Park Hong MD Primary Care Provider [phone] Jackeline Saha MD Primary Care Provider + [facility], Pcp Primary Care Provider Unavailabl e Reason for Referral * EXTERNAL (Routine) - Authorized/Booked Specialty Diagnoses / Procedures Referred By Dwayne quesada Referred To Contact Physiatry Procedures REFERRAL TO PHYSIATRY Karely Greenberg PA-C [address] [place] [address] Bony Hughes DO [address] [address] Referral ID Status Reason Start Date Expiration Date V isits Requested Visits Authorized [id number] Authorized/B ooked 07/25/2021 10/29/2021 1 1 Reason for Visit * Reason Onset Date Comments Ammonium Nitrate Crystallizer Feedback 07/25/2021 physiatry Encounter Details Date Type Department Care Team Description 07/25/2021 Telephone Adult Medicine [facility] [address] [place] [address] Karely Greenberg PA-C Ammonium Nitrate Crystallizer Feedback (physiatry) Social History Tobacco Use Types Packs/Day Years [...] encounter Miscellaneous Notes * Telephone Encounter - Laura Sussy - 07/25/2021 10:07 AM EDT Updated order to physiatry is needed Order has been pended. Thank you Reason for referral: chornic low back pain documented in this encounter Plan of Treatment Not on file documented as of this encounter Visit Diagnoses Not on filedocumented in this encounter Care Teams Combination Operator Relationship Specialty Start Date End Date Park Hong MD [address] [place] [address] PCP - General Internal Medicine 01/31/21 09/22/21 Jackeline Saha MD [address] [place] [address] PCP - General Internal Medicine 09/23/21 03/30/22 [facility], [address] [address] PCP - General Internal Medicine 03/31/22 documented as of this encounter
--- OUTSIDE RECORDS SUMMARY | 2024-07-21 10:44 | XMS_ITS | Encounter Summary ---
Author Organization [facility] Address [address] [place] [address] Care Team Providers Care Software Qa System Specialist Name Role Phone Jackeline Saha MD Primary Care Pr ovider Encounter Details Date Type Department Care Team (Late st Contact Info) Description 02/21/2024 Lab Requisition [facility] - Main Lab [address] [facility] [employer] [place] [address] De Snyder MD [address] [place] [address] Encounter for other general examination Social History [...] CBC auto differential (02/21/2024 7:10 AM EST) [facility] WBC 5.8 4.8 - 10.8 K/mcL LAB HEMETOLOGY METHOD 02/21/2024 11:19 AM [facility] RBC 2.80(L) 3.80 - 4.80 M/mcL LAB HEMETOLOGY METHOD 02/21/2024 11:19 AM [facility] Hemoglobin 9.8(L) 11.5 - 16.0 g/dL LAB HEMETOLOGY METHOD 02/21/2024 11:19 AM [facility] Hematocrit 29.7(L) 35.0 - 47.0 % LAB HEMETOLOGY METHOD 02/21/2024 11:19 AM [facility] MCV 105.3(H) 79.0 - 98.0 FL LAB HEMETOLOGY METHOD 02/21/2024 11:19 AM [facility] MCH 34.8(H) 27.0 - 32.0 pcg LAB HEMETOLOGY METHOD 02/21/2024 11:19 AM [facility] MCHC 33.0 32.0 - 37.0 g/dL LAB HEMETOLOGY METHOD 02/21/2024 11:19 AM [facility] RDW 13.4 11.0 - 15.0 % LAB HEMETOLOGY METHOD 02/21/2024 11:19 AM [facility] Platelets 201 130 - 400 K/mcL LAB HEMETOLOGY METHOD 02/21/2024 11:19 AM [facility] MPV 10.3 7.0 - 11.0 FL LAB HEMETOLOGY METHOD 02/21/2024 11:19 AM [facility] NRBC 0.0 <1.0 % LAB HEMETOLOGY METHOD 02/21/2024 11:19 AM [facility] NRBC Absolute 0.00 <0.10 K/mcL LAB HEMETOLOGY METHOD 02/21/2024 11:19 AM [facility] Neutrophils Relative 67.8 % LAB HEMETOLOGY METHOD 02/21/2024 11:19 AM [facility] Lymphocytes Relative 15.7 % LAB HEMETOLOGY METHOD 02/21/2024 11:19 AM [facility] Monocytes Relative 15.7 % LAB HEMETOLOGY METHOD 02/21/2024 11:19 AM [facility] Eosinophils Relative 0.2 % LAB HEMETOLOGY METHOD 02/21/2024 11:19 AM [facility] Basophils Relative 0.3 % LAB HEMETOLOGY METHOD 02/21/2024 11:19 AM [facility] Immature Granulocytes Relative 0.3 % LAB HEMETOLOGY METHOD 02/21/2024 11:19 AM [facility] Neutrophils Absolute 3.90 1.50 - 7.00 K/mcL LAB HEMETOLOGY METHOD 02/21/2024 11:19 AM [facility] Lymphocytes Absolute 0.90(L) 1.00 - 5.00 K/mcL LAB HEMETOLOGY METHOD 02/21/2024 11:19 AM [facility] Monocytes Absolute 0.90 0.20 - 1.00 K/mcL LAB HEMETOLOGY METHOD 02/21/2024 11:19 AM [facility] Eosinophils Absolute 0.01 0.00 - 0.50 K/mcL LAB HEMETOLOGY METHOD 02/21/2024 11:19 AM [facility] Basophils Absolute 0.02 0.00 - 0.20 K/mcL LAB HEMETOLOGY METHOD 02/21/2024 11:19 AM [facility] Immature Granulocytes Absolute 0.02 0.00 - 0.03 K/mcL LAB HEMETOLOGY METHOD 02/21/2024 11:19 AM [facility] Blood Venous blood specimen / Unknown Venipuncture / Unknown 02/21/2024 7:10 AM EST 02/21/2024 10:45 AM EST us De Snyder MD LAB BLOOD ORDERABLES Final Resu lt [facility] [address] [place] [address], [place] [phone] * Magnesium (02/21/2024 7:10 AM EST) Magnesium 1.9 1.9 - 2.6 mg/dL LAB CHEMISTRY METHOD 02/21/2024 11:47 AM EST [facility] Blood Venous blood specimen / Unknown Venipuncture / Unknown 02/21/2024 7:10 AM EST 02/21/2024 10:45 AM EST us De Snyder MD LAB BLOOD ORDERABLES Final Resu lt Performing Organization Address City/[facility]/ZIP Co de Phone Number [facility] [address] [place] [address], [place] [phone] * (ABNORMAL) Comprehensive metabolic panel (02/21/2024 7:10 [...] mg/dL LAB CHEMISTRY METHOD 02/21/2024 11:49 AM [facility] BUN 18 5 - 25 mg/dL LAB CHEMISTRY METHOD 02/21/2024 11:49 AM [facility] Creatinine 0.86 0.50 - 1.10 mg/dL LAB CHEMISTRY METHOD 02/21/2024 11:49 AM [facility] eGFR 73 >=60 mL/min/1. 73m2 LAB CHEMISTRY METHOD 02/21/2024 11:49 AM [facility] Comment:Calculation based on the??Chronic Kidney Disease Epidemiology Collaboration (CKD-EPI) equation refit??without adjustment for race. BUN/Creatinine Ratio 20.9 LAB CHEMISTRY METHOD 02/21/2024 11:49 AM [facility] Calcium 9.3 8.5 - 10.5 mg/dL LAB CHEMISTRY METHOD 02/21/2024 11:49 AM [facility] AST (SGOT) 18 10 - 42 unit/L LAB CHEMISTRY METHOD 02/21/2024 11:49 AM [facility] ALT (SGPT) 14 10 - 60 unit/L LAB CHEMISTRY METHOD 02/21/2024 11:49 AM [facility] Alkaline Phosphatase 55 42 - 121 unit/L LAB CHEMISTRY METHOD 02/21/2024 11:49 AM [facility] Total Protein 7.0 6.0 - 8.0 g/dL LAB CHEMISTRY METHOD 02/21/2024 11:49 AM [facility] Albumin 3.8 3.2 - 5.0 g/dL LAB CHEMISTRY METHOD 02/21/2024 11:49 AM [facility] Total Bilirubin 0.8 0.0 - 1.4 mg/dL LAB CHEMISTRY METHOD 02/21/2024 11:49 AM [facility] Blood Venous blood specimen / Unknown Venipuncture / Unknown 02/21/2024 7:10 AM EST 02/21/2024 10:45 AM EST us De Snyder MD LAB BLOOD ORDERABLES Final Resu lt [facility] [address] [place] [address], documented in this encounter Visit Diagnoses Diagnosis Encounter for other general examination documented in this encounter Care Teams Software Qa System Specialist Relationship Specialty Start Date End Date Jackeline Saha MD [address] [facility] [place], [place] PCP - General Internal Medicine 09/23/21 documented as of this encounter
--- OUTSIDE RECORDS SUMMARY | 2024-07-21 10:44 | XMS_ITS | Encounter Summary ---
Author Organization [facility] Address [address] [place] [address] Care Team Providers Care Manager Quantitative Name Role Phone Jackeline Saha MD Primary Care Pr ovider Encounter Details Date Type Department Care Team (Late st Contact Info) Description 02/25/2024 Lab Requisition [facility] - Main Lab [address] [facility] [place] [address] De Snyder MD [address] [place] [address] Encounter for other general examination Social History [...] LAB HEMETOLOGY METHOD 02/25/2024 11:05 AM [facility] RBC 2.30(L) 3.80 - 4.80 M/mcL LAB HEMETOLOGY METHOD 02/25/2024 11:05 AM [facility] Hemoglobin 8.1(L) 11.5 - 16.0 g/dL LAB HEMETOLOGY METHOD 02/25/2024 11:05 AM [facility] Hematocrit 24.5(L) 35.0 - 47.0 % LAB HEMETOLOGY METHOD 02/25/2024 11:05 AM [facility] MCV 106.1(H) 79.0 - 98.0 FL LAB HEMETOLOGY METHOD 02/25/2024 11:05 AM [facility] MCH 35.1(H) 27.0 - 32.0 pcg LAB HEMETOLOGY METHOD 02/25/2024 11:05 AM [facility] MCHC 33.1 32.0 - 37.0 g/dL LAB HEMETOLOGY METHOD 02/25/2024 11:05 AM [facility] RDW 13.3 11.0 - 15.0 % LAB HEMETOLOGY METHOD 02/25/2024 11:05 AM [facility] Platelets 257 130 - 400 K/mcL LAB HEMETOLOGY METHOD 02/25/2024 11:05 AM [facility] MPV 10.0 7.0 - 11.0 FL LAB HEMETOLOGY METHOD 02/25/2024 11:05 AM [facility] NRBC 0.0 <1.0 % LAB HEMETOLOGY METHOD 02/25/2024 11:05 AM [facility] NRBC Absolute 0.00 <0.10 K/mcL LAB HEMETOLOGY METHOD 02/25/2024 11:05 AM [facility] Neutrophils Relative 70.6 % LAB HEMETOLOGY METHOD 02/25/2024 11:05 AM [facility] Lymphocytes Relative 11.6 % LAB HEMETOLOGY METHOD 02/25/2024 11:05 AM [facility] Monocytes Relative 16.8 % LAB HEMETOLOGY METHOD 02/25/2024 11:05 AM [facility] Eosinophils Relative 0.3 % LAB HEMETOLOGY METHOD 02/25/2024 11:05 AM [facility] Basophils Relative 0.4 % LAB HEMETOLOGY METHOD 02/25/2024 11:05 AM [facility] Immature Granulocytes Relative 0.3 % LAB HEMETOLOGY METHOD 02/25/2024 11:05 AM [facility] Neutrophils Absolute 5.28 1.50 - 7.00 K/mcL LAB HEMETOLOGY METHOD 02/25/2024 11:05 AM [facility] Lymphocytes Absolute 0.87(L) 1.00 - 5.00 K/mcL LAB HEMETOLOGY METHOD 02/25/2024 11:05 AM [facility] Monocytes Absolute 1.26(H) 0.20 - 1.00 K/mcL LAB HEMETOLOGY METHOD 02/25/2024 11:05 AM [facility] Eosinophils Absolute 0.02 0.00 - 0.50 K/mcL LAB HEMETOLOGY METHOD 02/25/2024 11:05 AM [facility] Basophils Absolute 0.03 0.00 - 0.20 K/mcL LAB HEMETOLOGY METHOD 02/25/2024 11:05 AM [facility] Immature Granulocytes Absolute 0.02 0.00 - 0.03 K/mcL LAB HEMETOLOGY METHOD 02/25/2024 11:05 AM [facility] Blood Venous blood specimen / Unknown Venipuncture / Unknown 02/25/2024 5:50 AM EST 02/25/2024 9:25 AM EST us De Snyder MD LAB BLOOD ORDERABLES Final Resu lt [facility] [address] [place] [address], [place] [phone] * (ABNORMAL) Comprehensive metabolic panel (02/25/2024 5:50 AM EST) Sodium 132(L) 133 - 145 mmol/L LAB CHEMISTRY METHOD 02/25/2024 11:27 AM [facility] Potassium 4.4 3.5 - 5.5 mmol/L LAB CHEMISTRY METHOD 02/25/2024 11:27 AM [facility] Chloride 98 96 - 110 mmol/L LAB CHEMISTRY METHOD 02/25/2024 11:27 AM [facility] CO2 27 21 - 32 mmol/L LAB CHEMISTRY METHOD 02/25/2024 11:27 AM EST [facility] Anion Gap 7 3 - 11 LAB CHEMISTRY METHOD 02/25/2024 11:27 AM [facility] Glucose 90 70 - 100 mg/dL LAB CHEMISTRY METHOD 02/25/2024 11:27 AM [facility] BUN 48(H) 5 - 25 mg/dL LAB CHEMISTRY METHOD 02/25/2024 11:27 AM [facility] Creatinine 1.93(H) 0.50 - 1.10 mg/dL LAB CHEMISTRY METHOD 02/25/2024 11:27 AM [facility] eGFR 28(L) >=60 mL/min/1. 73m2 LAB CHEMISTRY METHOD 02/25/2024 11:27 AM [facility] Comment:Calculation based on the??Chronic Kidney Disease Epidemiology Collaboration (CKD-EPI) equation refit??without adjustment for race. BUN/Creatinine Ratio 24.9 LAB CHEMISTRY METHOD 02/25/2024 11:27 AM [facility] Calcium 9.8 8.5 - 10.5 mg/dL LAB CHEMISTRY METHOD 02/25/2024 11:27 AM [facility] AST (SGOT) 25 10 - 42 unit/L LAB CHEMISTRY METHOD 02/25/2024 11:27 AM [facility] ALT (SGPT) 17 10 - 60 unit/L LAB CHEMISTRY METHOD 02/25/2024 11:27 AM [facility] Alkaline Phosphatase 68 42 - 121 unit/L LAB CHEMISTRY METHOD 02/25/2024 11:27 AM [facility] Total Protein 6.3 6.0 - 8.0 g/dL LAB CHEMISTRY METHOD 02/25/2024 11:27 AM [facility] Albumin 3.0(L) 3.2 - 5.0 g/dL LAB CHEMISTRY METHOD 02/25/2024 11:27 AM [facility] Total Bilirubin 0.7 0.0 - 1.4 mg/dL LAB CHEMISTRY METHOD 02/25/2024 11:27 AM [facility] Blood Venous blood specimen / Unknown Venipuncture / Unknown 02/25/2024 5:50 AM EST 02/25/2024 9:25 AM EST us De Snyder MD LAB BLOOD ORDERABLES Final Resu lt [facility] [address] [place] [address], documented in this encounter Visit Diagnoses Diagnosis Encounter for other general examination documented in this encounter Care Teams Manager Quantitative Relationship Specialty Start Date End Date Jackeline Saha MD [address] [place], [place] PCP - General Internal Medicine 09/23/21 documented as of this encounter
--- OUTSIDE RECORDS SUMMARY | 2024-07-21 10:44 | XMS_ITS | Clinical Summary ---
Author Organization [facility] Address [address] [place] [address] Care Team Providers Care Thermodynamics Engineer Name Role Phone Community, Pcp Primary Care Provider Unavailabl e Allergies Active Allergy Reactions Severity Noted Date Comments Seasonal Allergies 09/11/2017 Medications Medication Sig Dispensed Refills Start Date End Date Status loratadine (CLARITIN) 10 MG tablet Take 1 tablet by mouth daily for 360 days. 30 tablet 11 04/06/2021 Active fluticasone (Flonase) 50 MCG/ACT nasal spray 1 pump in each nostril each morning 15 mL 0 04/06/2021 Active hydrocortisone 2.5 % cream Apply twice daily to affected areas 30 g 0 04/06/2021 Active sertraline (ZOLOFT) 100 MG tablet Take 1 Tablet by mouth daily. 30 Tablet 0 01/30/2022 Active lisinopril (PRINIVIL,ZESTRIL) 20 MG tablet Take 1 Tablet by mouth daily. 30 Tablet 0 01/30/2022 Active vitamin D (ERGOCALCIFEROL) 1.25 MG (60015 UT) capsule Take 1 Capsule by mouth once a week. 4 Capsule 0 01/30/2022 Active fluticasone (Flovent HFA) 220 MCG/ACT inhaler Inhale 1 Puff into the lungs 2 times daily for 360 days. 12 g 0 01/30/2022 Active Ventolin HFA 108 (90 Base) MCG/ACT Aero Soln Inhale 2 Puffs into the lungs every 4 hours as needed for Cough or Wheezing. 18 g 0 01/30/2022 Active Meclizine HCl 25 MG Tab Take 1 Tablet by mouth 3 times daily. 30 Tablet 0 03/01/2022 Active Active Problems Problem Noted Date Multiple pulmonary nodules 10/10/2021 COVID-19 virus infection 03/19/2020 Medical non-compliance 08/19/2018 Overview: Exhausted attempts to have colonoscopy scheduled. 08/2018 letter sent Hypertensive retinopathy of both eyes, g rade 1 06/28/2018 Cervical stenosis of spinal canal 2018 Overview: Mild, xray 03/2018 AC (acromioclavicular) arthritis 019 Overview: Right; s/p xray 03/2018 Essential hypertension 01/03/2018 Degenerative disc disease, lumbar 2017 Overview: 04/2016 MRI COPD (chronic obstructive pulmonary dise ase) 09/14/2017 Depression 09/14/2017 Hyperlipidemia 09/14/2017 Vitamin D deficiency 09/14/2017 Asthma 09/14/2017 Herpes zoster 09/14/2017 Overview: 09/11/2017 Osteopenia 09/14/2017 Anxiety 03/28/2017 Overview: Referred to behavioral health Glaucoma Resolved Problems Problem Noted Date Resolved Date ZUNILDA (acute kidney injury) 05/11/20202020 COVID-19 virus infection 03/20/2020 021 Abnormal mammogram of right breast 05/24/2017 09/14/2017 Overview: US pending Former tobacco use 03/28/2017 09/14/2017 Overview: Smoked for 20 yrs quit age 46 Mild emphysema 03/28/2017 03/28/2017 Overview: S/p PFT Immunizations Name Administration Dates Next Due COVID-19 (Pfizer) 03/25/2021,10/09/2020,09/19/19 21 Influenza vaccine high dose age 65 and over 12/04,12/08/2020,11/20/2019 Pneumoccoccal(Adult) Polysaccharide PPSV23 01/29 Shingrix (Recombinant zoster vaccine) 12/21/2018 Tdap 09/03/2017 Family History Medical History Relation Name Comments Emphysema Father Tobacco, COPD Hypertension Mother HLD, Diabetes Bipolar Disorder Sister Suicide, [place] PD CA Breast Negative Hx Relation Name Status Comments Father Mother Sister Social History Tobacco Use Types Packs/Day Years Used Date Smoking Tobacco: Former Cigarettes Q uit: 2007 Smokeless Tobacco: Never Tobacco Cessation:Counseling Given: Not Answered Alcohol Use Standard Drinks/Week Comments Yes 0 (1 standard drink = 0.6 oz pur e alcohol) Social Sex Assigned at Date Recorded Not on file Job Start Date Occupation Industry Not on file Not on file Not on file Last Filed Vital Signs Vital Sign Reading Time Taken Comments Blood Pressure 136/80 03/01/2022 11:36 AM EST Pulse 84 03/01/2022 11:36 AM EST Temperature 36.6 ??C (97.9 ??F) 03/01/2022 11:[address] Respiratory Rate 16 03/01/2022 11:36 AM EST Oxygen Saturation 98% 04/06/2021 2:17 PM EST Inhaled Oxygen Concentration - - Weight 68.5 kg (151 lb) 03/01/2022 11:36 AM EST Height 167.6 cm (5' 6 ) 03/01/2022 11:36 AM EST Body Mass Index 24.37 03/01/2022 11:36 AM EST Plan of Treatment Health Maintenance Due Date Last Done Comments BONE DENSITY SCREENING 02/17/2015 4 (External Completion) COLON CANCER SCREEN WITH STOOL CARD 07/21/2021 07/21/2020 (Refused) DEPRESSION SCREEN 04/08/2022 04/08/2021 MAMMOGRAM 06/22/2022 06/22/2021, 07/03 (Refused), 06/12/2017, Additional history exists FALL RISK ASSESSMENT 03/01/2023 03/01/2022, 07/22/19 21 Covid-19 Vaccine ( season) 2023 03/25/2021, 10/09/2020, 09/18/2020 DEPRESSION SCREENING/FOLLOWUP 03/05/2024 04/06/2021, 07/21/2020, 05/27/2020, Additional history exists INFLUENZA (Season Ended) 2024 022, 12/08/2020, 05/27/2020 (External Completion of Vaccination per patient), Additional history exists CHOLESTEROL SCREENING 01/20/2025 01/21/2020, 018 DTAP/TDAP/TD (2 - Td or Tdap) 09/04/2027 09/03/2017 HEPATITIS C SCREENING Addressed 06/06/2018 (Refused ) Overridden with the intention of not completing the topic SHINGLES VACCINE Addressed 05/27/2020 (Ext ernal Completion), 12/21/2018 Overridden with the intention of not completing the topic PNEUMOCOCCAL VACCINE Completed 01/29/2021, 11/17/19 19 Care Teams Thermodynamics Engineer Relationship Specialty Start Date End Date Community, Pcp PCP - General Internal Medicine 03/31/22
--- OUTSIDE RECORDS SUMMARY | 2024-07-21 10:44 | XMS_ITS | Clinical Summary ---
Author Organization [address] [facility] Address [address] [place] [address] Phone Care Team Providers Care Boat Canvas Maker Installer Name Role Phone Jackeline Saha MD Primary [...] 09/14/2017 COPD (chronic obstructive pu lmonary disease) ([facility] V24, [facility] V28) 09/14/2017 Degenerative disc disease, lumbar 09/14/2017 [...] MRI COPD (chronic obstructive pu lmonary disease) ([facility] V24, [facility] V28) 09/14/2017 DX:COPD (chronic o bstructive pulmonary disease) ([facility]) Depression 09/14/2017 DX:Depression Hyperlipidemia 09/14/2017 DX:Hyperlipidemi a [...] metabolic panel (02/26/2024 5:45 AM EST) Pathologist [facility] Sodium 134 133 - 145 mmol/L LAB [...] LAB CHEMISTRY METHOD 02/26/2024 10:[address] [facility] Calcium 9.7 8.5 - 10.5 mg/dL LAB CHEMISTRY METHOD 02/26/2024 10:[address] [facility] Blood Venous blood specimen / Unknown Venipuncture / Unknown 02/26/2024 5:45 AM EST 02/26/2024 9:44 AM EST us De Snyder MD LAB BLOOD ORDERABLES Final Resu lt [facility] [address] [place] [address], [place] [phone] * DIAGNOSTIC MAMMOGRAPHY INCLUDING CAD BILATERAL (06/22/2021 [...] (ABNORMAL) Lipid panel (01/21/2020) Pathologist [facility] LDL/HDL Ratio 2 0 - 4 Triglycerides 223(A) 0 - 150 mg/dL Cholesterol 212(A) 0 - 200 mg/dL HDL 129 >=40 mg/dL LDL Cholesterol 39 0 - 100 mg/dL Blood Venous blood specimen / Unknown Result [facility] Historical Provider LAB BLOOD ORDERABLES Galilea l Result * Hepatitis C Screening (06/06/2018) Pathologist [facility] Hepatitis C Screening abstracted Result [facility] Historical Ashley [facility] Final Result from Last 3 Months or Most Recently Relevant to Health Maintenance Insurance MEDICARE MEDICAID - [place] Care Teams Boat Canvas Maker Installer Relationship Specialty Start Date End Date Jackeline Saha MD [address] [facility], [place] PCP - General Internal Medicine 09/23/21
--- OUTSIDE RECORDS SUMMARY | 2024-07-21 10:44 | XMS_ITS | Encounter Summary ---
Author Organization [facility] Address [address] [place] [address] Care Team Providers Care Toter Name Role Phone Angelica Duke MD Primary Care Provider Unavail able Park Hong MD Primary Care Provider [phone] Jackeline Saha MD Primary Care Provider + [facility], Pcp Primary Care Provider Unavailabl e Encounter Details Date Type Department Care Team Description 04/16/2019 Orders Only Adult Medicine [address] [address] Angelica Duke MD Social History Tobacco Use Types Packs/Day Years [...] on filedocumented in this encounter Care Teams Toter Relationship Specialty Start Date End Date Angelica Duke MD PCP - General Internal Medicine 12/13/16 01/30/21 Park Hong MD [address] [place] [address] PCP - General Internal Medicine 01/31/21 09/22/21 Jackeline Saha MD [address] [place] [address] PCP - General Internal Medicine 09/23/21 03/30/22 [facility], Pcp [address] [place] [address] PCP - General Internal Medicine 03/31/22 documented as of this encounter
--- OUTSIDE RECORDS SUMMARY | 2024-07-21 10:44 | XMS_ITS | Encounter Summary ---
Author Organization [facility] Address [address] [place] [address] Care Team Providers Care Press Secretary Name Role Phone Jackeline Saha MD Primary Care Pr ovider Encounter Details Date Type Department Care Team (Late st Contact Info) Description 02/26/2024 Lab Requisition [facility] - Main Lab [address] [facility] [place] [address] De Snyder MD [address] [place] [address] Encounter for other general examination Social History [...] K/mcL LAB HEMETOLOGY METHOD 02/26/2024 11:31 AM [facility] RBC 2.50(L) 3.80 - 4.80 M/mcL LAB HEMETOLOGY METHOD 02/26/2024 11:31 AM [facility] Hemoglobin 8.6(L) 11.5 - 16.0 g/dL LAB HEMETOLOGY METHOD 02/26/2024 11:31 AM [facility] Hematocrit 26.2(L) 35.0 - 47.0 % LAB HEMETOLOGY METHOD 02/26/2024 11:31 AM [facility] MCV 104.4(H) 79.0 - 98.0 FL LAB HEMETOLOGY METHOD 02/26/2024 11:31 AM [facility] MCH 34.3(H) 27.0 - 32.0 pcg LAB HEMETOLOGY METHOD 02/26/2024 11:31 AM [facility] MCHC 32.8 32.0 - 37.0 g/dL LAB HEMETOLOGY METHOD 02/26/2024 11:31 AM [facility] RDW 13.2 11.0 - 15.0 % LAB HEMETOLOGY METHOD 02/26/2024 11:31 AM [facility] Platelets 302 130 - 400 K/mcL LAB HEMETOLOGY METHOD 02/26/2024 11:31 AM [facility] MPV 10.0 7.0 - 11.0 FL LAB HEMETOLOGY METHOD 02/26/2024 11:31 AM [facility] NRBC 0.0 <1.0 % LAB HEMETOLOGY METHOD 02/26/2024 11:31 AM [facility] NRBC Absolute 0.00 <0.10 K/mcL LAB HEMETOLOGY METHOD 02/26/2024 11:31 AM [facility] Neutrophils Relative 77.3 % LAB HEMETOLOGY METHOD 02/26/2024 11:31 AM [facility] Lymphocytes Relative 8.1 % LAB HEMETOLOGY METHOD 02/26/2024 11:31 AM [facility] Monocytes Relative 12.7 % LAB HEMETOLOGY METHOD 02/26/2024 11:31 AM [facility] Eosinophils Relative 1.3 % LAB HEMETOLOGY METHOD 02/26/2024 11:31 AM [facility] Basophils Relative 0.3 % LAB HEMETOLOGY METHOD 02/26/2024 11:31 AM [facility] Immature Granulocytes Relative 0.3 % LAB HEMETOLOGY METHOD 02/26/2024 11:31 AM [facility] Neutrophils Absolute 6.88 1.50 - 7.00 K/mcL LAB HEMETOLOGY METHOD 02/26/2024 11:31 AM [facility] Lymphocytes Absolute 0.72(L) 1.00 - 5.00 K/mcL LAB HEMETOLOGY METHOD 02/26/2024 11:31 AM [facility] Monocytes Absolute 1.13(H) 0.20 - 1.00 K/mcL LAB HEMETOLOGY METHOD 02/26/2024 11:31 AM [facility] Eosinophils Absolute 0.12 0.00 - 0.50 K/mcL LAB HEMETOLOGY METHOD 02/26/2024 11:31 AM [facility] Basophils Absolute 0.03 0.00 - 0.20 K/mcL LAB HEMETOLOGY METHOD 02/26/2024 11:31 AM [facility] Immature Granulocytes Absolute 0.03 0.00 - 0.03 K/mcL LAB HEMETOLOGY METHOD 02/26/2024 11:31 AM [facility] Blood Venous blood specimen / Unknown Venipuncture / Unknown 02/26/2024 5:45 AM EST 02/26/2024 9:44 AM EST us De Snyder MD LAB BLOOD ORDERABLES Final Resu lt [facility] [address] [place] [address], [place] [phone] * (ABNORMAL) Basic metabolic panel (02/26/2024 5:45 [...] 10:36 AM EST [facility] Blood Venous blood specimen / Unknown Venipuncture / Unknown 02/26/2024 5:45 AM EST 02/26/2024 9:44 AM EST us De Snyder MD LAB BLOOD ORDERABLES Final Resu lt [facility] [address] [place] [address], documented in this encounter Visit Diagnoses Diagnosis Encounter for other general examination documented in this encounter Care Teams Press Secretary Relationship Specialty Start Date End Date Jackeline Saha MD [address] [facility], [place] PCP - General Internal Medicine 09/23/21 documented as of this encounter
--- OUTSIDE RECORDS SUMMARY | 2024-07-21 10:44 | XMS_ITS | Encounter Summary ---
Author Organization [facility] Address [address] [place] [address] Care Team Providers Care Registry Nurse Name Role Phone Makeda Duke MD Primary Care Provider Unavail able Park Hong MD Primary Care Provider [phone] Jackeline Saha MD Primary Care Provider + [facility], Pcp Primary Care Provider Unavailabl e Reason for Visit * Reason Onset Date Comments Provider Call Back 07/18/2017 Encounter Details Date Type Department Care Team Description 07/18/2017 Telephone Adult Medicine [address] [address] Makeda Duke MD Provider Call Back Social [...] with provider , was being seen at [facility] Advised to have sleep study for fatigue [...] on filedocumented in this encounter Care Teams Registry Nurse Relationship Specialty Start Date End Date Makeda Duke MD PCP - General Internal Medicine 12/13/16 01/30/21 Park Hong MD [address] [place], [place] [phone] PCP - General Internal Medicine 01/31/21 09/22/21 Jackeline Saha MD [address] [place] [address] PCP - General Internal Medicine 09/23/21 03/30/22 [facility], [address] [address] PCP - General Internal Medicine 03/31/22 documented as of this encounter
--- OUTSIDE RECORDS SUMMARY | 2024-07-21 10:44 | XMS_ITS | Encounter Summary ---
Author Organization [facility] [address] Address [address] [place] [address] Care Team Providers Care Experimental Mechanic [employer] Name Role Phone Jackeline Saha MD Primary Care Pr ovider Encounter Details Date Type Department Care Team (Late st Contact Info) Description 02/24/2024 Lab Requisition [facility] - Main Lab [address] [facility] [place] [address] De Snyder MD [address] [place] [id number] Encounter for other general examination Social History [...] K/mcL LAB HEMETOLOGY METHOD 02/24/2024 11:31 AM [facility] RBC 2.60(L) 3.80 - 4.80 M/mcL LAB HEMETOLOGY METHOD 02/24/2024 11:31 AM [facility] Hemoglobin 9.1(L) 11.5 - 16.0 g/dL LAB HEMETOLOGY METHOD 02/24/2024 11:31 AM [facility] Hematocrit 27.8(L) 35.0 - 47.0 % LAB HEMETOLOGY METHOD 02/24/2024 11:31 AM [facility] MCV 108.2(H) 79.0 - 98.0 FL LAB HEMETOLOGY METHOD 02/24/2024 11:31 AM [facility] MCH 35.4(H) 27.0 - 32.0 pcg LAB HEMETOLOGY METHOD 02/24/2024 11:31 AM [facility] LAB MCHC 32.7 32.0 - 37.0 g/dL LAB HEMETOLOGY METHOD 02/24/2024 11:31 AM [facility] RDW 13.1 11.0 - 15.0 % LAB HEMETOLOGY METHOD 02/24/2024 11:31 AM [facility] LAB Platelets 296 130 - 400 K/mcL LAB HEMETOLOGY METHOD 02/24/2024 11:31 AM [facility] MPV 10.4 7.0 - 11.0 FL LAB HEMETOLOGY METHOD 02/24/2024 11:31 AM [facility] NRBC 0.0 <1.0 % LAB HEMETOLOGY METHOD 02/24/2024 11:31 AM [facility] NRBC Absolute 0.00 <0.10 K/mcL LAB HEMETOLOGY METHOD 02/24/2024 11:31 AM [facility] Neutrophils Relative 77.1 % LAB HEMETOLOGY METHOD 02/24/2024 11:31 AM [facility] Lymphocytes Relative 7.3 % LAB HEMETOLOGY METHOD 02/24/2024 11:31 AM [facility] Monocytes Relative 14.7 % LAB HEMETOLOGY METHOD 02/24/2024 11:31 AM [facility] Eosinophils Relative 0.2 % LAB HEMETOLOGY METHOD 02/24/2024 11:31 AM [facility] Basophils Relative 0.4 % LAB HEMETOLOGY METHOD 02/24/2024 11:31 AM [facility] Immature Granulocytes Relative 0.3 % LAB HEMETOLOGY METHOD 02/24/2024 11:31 AM [facility] Neutrophils Absolute 7.15(H) 1.50 - 7.00 K/mcL LAB HEMETOLOGY METHOD 02/24/2024 11:31 AM [facility] Lymphocytes Absolute 0.68(L) 1.00 - 5.00 K/mcL LAB HEMETOLOGY METHOD 02/24/2024 11:31 AM [facility] Monocytes Absolute 1.37(H) 0.20 - 1.00 K/mcL LAB HEMETOLOGY METHOD 02/24/2024 11:31 AM [facility] Eosinophils Absolute 0.02 0.00 - 0.50 K/mcL LAB HEMETOLOGY METHOD 02/24/2024 11:31 AM [facility] Basophils Absolute 0.04 0.00 - 0.20 K/mcL LAB HEMETOLOGY METHOD 02/24/2024 11:31 AM [facility] Immature Granulocytes Absolute 0.03 0.00 - 0.03 K/mcL LAB HEMETOLOGY METHOD 02/24/2024 11:31 AM EST [facility] Blood Venous blood specimen / Unknown Venipuncture / Unknown 02/24/2024 10:46 AM EST 02/24/2024 11:17 AM EST us De Snyder MD LAB BLOOD ORDERABLES Final Resu lt Performing Organization Address City/[facility]/ZIP Co de Phone Number [facility] LAB [address] [place] [address], [place] [phone] * B-type natriuretic peptide (02/24/2024 10:46 AM EST) BNP 98 <=100 pcg/mL LAB CHEMISTRY METHOD 02/24/2024 12:11 PM EST [facility] Blood Venous blood specimen / Unknown Venipuncture / Unknown 02/24/2024 10:46 AM EST 02/24/2024 11:17 AM EST us De Snyder MD LAB BLOOD ORDERABLES Final Resu lt Performing Organization Address [facility]/ZIP Co de Phone Number [facility] [address] [place] [address], [place] [phone] * Ammonia (02/24/2024 10:46 AM EST) Ammonia 24 11 - 35 mcmol/L LAB CHEMISTRY METHOD 02/24/2024 12:10 PM EST [facility] Blood Venous blood specimen / Unknown Venipuncture / Unknown 02/24/2024 10:46 AM EST 02/24/2024 11:17 AM EST us De Snyder MD LAB BLOOD ORDERABLES Final Resu lt Performing Organization Address City/[facility]/ZIP Co de Phone Number [facility] [address] [place] [address], [place] [phone] * (ABNORMAL) Comprehensive metabolic panel (02/24/2024 10:46 AM EST) Sodium 126(L) 133 - 145 mmol/L LAB CHEMISTRY METHOD 02/24/2024 12:11 PM [facility] Potassium 4.7 3.5 - 5.5 mmol/L LAB CHEMISTRY METHOD 02/24/2024 12:11 PM [facility] Chloride 92(L) 96 - 110 mmol/L LAB CHEMISTRY METHOD 02/24/2024 12:11 PM [facility] CO2 27 21 - 32 mmol/L LAB CHEMISTRY METHOD 02/24/2024 12:11 PM [facility] Anion Gap 7 3 - 11 LAB CHEMISTRY METHOD 02/24/2024 12:11 PM [facility] Glucose 107(H) 70 - 100 mg/dL LAB CHEMISTRY METHOD 02/24/2024 12:11 PM [facility] BUN 61(H) 5 - 25 mg/dL LAB CHEMISTRY METHOD 02/24/2024 12:11 PM [facility] Comment:Results verified by repeat testing Creatinine 5.80(H) 0.50 - 1.10 mg/dL LAB CHEMISTRY METHOD 02/24/2024 12:11 PM [facility] Comment:Results verified by repeat testing eGFR 7(L) >=60 mL/min/1. 73m2 LAB CHEMISTRY METHOD 02/24/2024 12:11 PM [facility] Comment:Calculation based on the??Chronic Kidney Disease Epidemiology Collaboration (CKD-EPI) equation refit??without adjustment for race. BUN/Creatinine Ratio 10.5 LAB CHEMISTRY METHOD 02/24/2024 12:11 PM [facility] Calcium 10.7(H) 8.5 - 10.5 mg/dL LAB CHEMISTRY METHOD 02/24/2024 12:11 PM [facility] AST (SGOT) 23 10 - 42 unit/L LAB CHEMISTRY METHOD 02/24/2024 12:11 PM [facility] ALT (SGPT) 14 10 - 60 unit/L LAB CHEMISTRY METHOD 02/24/2024 12:11 PM [facility] Alkaline Phosphatase 68 42 - 121 unit/L LAB CHEMISTRY METHOD 02/24/2024 12:11 PM [facility] Total Protein 7.4 6.0 - 8.0 g/dL LAB CHEMISTRY METHOD 02/24/2024 12:11 PM [facility] Albumin 3.5 3.2 - 5.0 g/dL LAB CHEMISTRY METHOD 02/24/2024 12:11 PM [facility] Total Bilirubin 0.7 0.0 - 1.4 mg/dL LAB CHEMISTRY METHOD 02/24/2024 12:11 PM [facility] Blood Venous blood specimen / Unknown Venipuncture / Unknown 02/24/2024 10:46 AM EST 02/24/2024 11:17 AM EST us De Snyder MD LAB BLOOD ORDERABLES Final Resu lt [facility] [address] [place] [address], documented in this encounter Visit Diagnoses Diagnosis Encounter for other general examination documented in this encounter Care Teams Experimental [employer] Relationship Specialty Start Date End Date Jackeline Saha MD [address] [facility] [place] PCP - General Internal Medicine 09/23/21 documented as of this encounter
--- OUTSIDE RECORDS SUMMARY | 2024-07-21 10:45 | XMS_ITS | Encounter Summary ---
Author Organization [facility] Address [address] [place] [address] Care Team Providers Care Sales Ambassador Name Role Phone Park Hong MD Primary Care Provider [phone] Jackeline Saha MD Primary Care Provider + [facility], Pcp Primary Care Provider Unavailabl e Reason for Visit * Reason Onset Date Comments refill request 03/23/2021 Encounter Details Date Type Department Care Team Description 03/23/2021 Refill Adult Medicine [address] [address] Park Hong MD [address] [place] [phone] refill request Social History Tobacco Use Types [...] Telephone Encounter - Cathleen Casillas M.A. - 03/23/2021 4:33 PM EST Last office visit 07/21/20 Next office visit 04/06/21 with new Care team Lab Results Component Value Date NA 139 03/30/2020 K 4.9 03/30/2020 CO2 30 03/30/2020 CL 103 03/30/2020 BUN 14 03/30/2020 CREAT 0.95 03/30/2020 GLU 98 03/30/2020 CA 9.9 03/30/2020 GFR 59 03/30/2020 * Telephone Encounter - Lashay Bush - 03/23/2021 4:01 PM EST Patient would like script to be: E-PRESCRIBED/FAXED TO PHARMACY WHEN WAS THE PATIENT'S LAST APPOINTMENT IN ADULT MEDICINE? 07/21/20 WHEN WAS THE LAST TIME THE PATIENT SAW THEIR PCP? Same as above Does patient have an upcoming appointment? Yes 04/06/21 (THE MEDICATION REQUESTED IS ON THE MED LIST ABOVE) All of the medications requested were on the CURRENT MEDS list Did you check the Pharmacy information above?: YES Patient wants: 90 -day supply Is this a mail order prescription request ? NO If the refill is from a FAXED refill request what is the RX # listed on the fax? N/A Patients current insurance carrier is: [place] / [place] / Product Type: MEDICARE [id number] documented in this encounter Plan of Treatment Not on file documented as of this encounter Visit Diagnoses Not on filedocumented in this encounter Care Teams Sales Ambassador Relationship Specialty Start Date End Date Park Hong MD [address] [place] [address] PCP - General Internal Medicine 01/31/21 09/22/21 Jackeline Saha MD [address] [place] [address] PCP - General Internal Medicine 09/23/21 03/30/22 [facility], Pcp [address] [place] [phone] PCP - General Internal Medicine 03/31/22 documented as of this encounter
== END 2024-07-21 11:06 | disposition home or self-care (01) ==
LOC: HO.HMCH 10:10
PROVIDERS: Visit Provider Internal Medicine
DX: Z01.811 Encounter for preprocedural respiratory examination (principal); I10 Essential (primary) hypertension; J43.9 Emphysema, unspecified; F41.1 Generalized anxiety disorder

== ENCOUNTER → 2024-07-21 10:09 | Outpatient (BNVA) | payer MEDICARE, MEDICAID, SELFPAY | PROVIDERS: Visit Provider Internal Medicine | DX: Z01.811 Encounter for preprocedural respiratory examination (principal); I10 Essential (primary) hypertension; F41.1 Generalized anxiety disorder; F43.9 Reaction to severe stress, unspecified | CPT/HCPCS: 96127; 99212 ==

== ENCOUNTER 2024-08-18 10:17 | Outpatient (REF) | payer MEDICARE, MEDICAID, SELFPAY ==
[2024-08-18 10:40] LABS: MANUAL DIFF FLAG NO
[2024-08-18 11:27] LABS: Basophils Percent Auto 0.7 % (0-2); Eosinophils Absolute Auto 0.1 X10*3/uL (0.0-0.4); Eosinophils Percent Auto 1.8 % (0-4); Hemoglobin 11.3 g/dl (12.0-16.0); Lymphocytes Absolute Auto 1.9 X10*3/uL (1.2-4.9); Lymphocytes Percent Auto 41.8 % (20-40); Mean Corpuscular HGB Conc 33.2 g/dl (31.0-35.0); Mean Corpuscular Hemoglobin 32.3 pg (27.0-33.0); Mean Corpuscular Volume 97.1 fL (80.0-98.0); Mean Platelet Volume 9.9 fL (9.4-12.3); Monocytes Absolute Auto 0.5 X10*3/uL (0.1-1.2); Neutrophils Absolute Auto 2.1 x10*3/uL (2.0-8.3); Neutrophils Percent Auto 45.7 % (45-73); Platelet Count 244 X10*3/uL (160-400); Red Cell Distribution Width 14.2 % (11.0-16.0); White Blood Count 4.5 X10*3/uL (4.8-10.8)
--- OUTSIDE RECORDS SUMMARY | 2024-08-18 11:35 | XMS_ITS | Encounter Summary ---
Author Organization [facility] Address [address] [place] [address] Care Team Providers Care Auto Locator Name Role Phone Jackeline Saha MD Primary Care Pr ovider Encounter Details Date Type Department Care Team (Late st Contact Info) Description 02/21/2024 Lab Requisition [facility] - Main Lab [address] [facility] [place] [address] De Snyder MD [address] [place] [phone] Encounter for other general examination Social History [...] auto differential (02/21/2024 7:10 AM EST) [facility] WBC 5.8 4.8 - 10.8 K/mcL LAB HEMETOLOGY METHOD 02/21/2024 11:19 AM [facility] RBC 2.80(L) 3.80 - 4.80 M/mcL LAB HEMETOLOGY METHOD 02/21/2024 11:19 AM [facility] Hemoglobin 9.8(L) 11.5 - 16.0 g/dL LAB HEMETOLOGY METHOD 02/21/2024 11:19 AM [facility] Hematocrit 29.7(L) 35.0 - 47.0 % LAB HEMETOLOGY METHOD 02/21/2024 11:19 AM [facility] MCV 105.3(H) 79.0 - 98.0 FL LAB HEMETOLOGY METHOD 02/21/2024 11:19 AM [facility] MCH 34.8(H) 27.0 - 32.0 pcg LAB HEMETOLOGY METHOD 02/21/2024 11:19 AM [facility] MCHC 33.0 32.0 - 37.0 g/dL LAB HEMETOLOGY METHOD 02/21/2024 11:19 AM [facility] RDW 13.4 11.0 - 15.0 % LAB HEMETOLOGY METHOD 02/21/2024 11:19 AM [facility] Platelets 201 130 - 400 K/mcL LAB HEMETOLOGY METHOD 02/21/2024 11:19 AM [facility] MPV 10.3 7.0 - 11.0 FL LAB HEMETOLOGY METHOD 02/21/2024 11:19 AM [facility] NRBC 0.0 <1.0 % LAB HEMETOLOGY METHOD 02/21/2024 11:19 AM [facility] NRBC Absolute 0.00 <0.10 K/mcL LAB HEMETOLOGY METHOD 02/21/2024 11:19 AM [facility] Neutrophils Relative 67.8 % LAB HEMETOLOGY METHOD 02/21/2024 11:19 AM [facility] Lymphocytes Relative 15.7 % LAB HEMETOLOGY METHOD 02/21/2024 11:19 AM [facility] Monocytes Relative 15.7 % LAB HEMETOLOGY METHOD 02/21/2024 11:19 AM [facility] Eosinophils Relative 0.2 % LAB HEMETOLOGY METHOD 02/21/2024 11:19 AM [facility] Basophils Relative 0.3 % LAB HEMETOLOGY METHOD 02/21/2024 11:19 AM [facility] Immature Granulocytes Relative 0.3 % LAB HEMETOLOGY METHOD 02/21/2024 11:19 AM [facility] Neutrophils Absolute 3.90 1.50 - 7.00 K/mcL LAB HEMETOLOGY METHOD 02/21/2024 11:19 AM [facility] Lymphocytes Absolute 0.90(L) 1.00 - 5.00 K/mcL LAB HEMETOLOGY METHOD 02/21/2024 11:19 AM [facility] Monocytes Absolute 0.90 0.20 - 1.00 K/mcL LAB HEMETOLOGY METHOD 02/21/2024 11:19 AM [facility] Eosinophils Absolute 0.01 0.00 - 0.50 K/mcL LAB HEMETOLOGY METHOD 02/21/2024 11:19 AM [facility] Basophils Absolute 0.02 0.00 - 0.20 K/mcL LAB HEMETOLOGY METHOD 02/21/2024 11:19 AM [facility] Immature Granulocytes Absolute 0.02 0.00 - 0.03 K/mcL LAB HEMETOLOGY METHOD 02/21/2024 11:19 AM [facility] Blood Venous blood specimen / Unknown Venipuncture / Unknown 02/21/2024 7:10 AM EST 02/21/2024 10:45 AM EST us De Snyder MD LAB BLOOD ORDERABLES Final Resu lt [facility] [address] [place] [address], [place] [phone] * Magnesium (02/21/2024 7:10 AM EST) Magnesium 1.9 1.9 - 2.6 mg/dL LAB CHEMISTRY METHOD 02/21/2024 11:47 AM EST [facility] Blood Venous blood specimen / Unknown Venipuncture / Unknown 02/21/2024 7:10 AM EST 02/21/2024 10:45 AM EST us De Snyder MD LAB BLOOD ORDERABLES Final Resu lt Performing Organization Address City/[facility]/ZIP Co de Phone Number [facility] [address] [place] [address], [place] [phone] * (ABNORMAL) Comprehensive metabolic panel (02/21/2024 7:10 [...] mg/dL LAB CHEMISTRY METHOD 02/21/2024 11:49 AM [facility] BUN 18 5 - 25 mg/dL LAB CHEMISTRY METHOD 02/21/2024 11:49 AM [facility] Creatinine 0.86 0.50 - 1.10 mg/dL LAB CHEMISTRY METHOD 02/21/2024 11:49 AM [facility] eGFR 73 >=60 mL/min/1. 73m2 LAB CHEMISTRY METHOD 02/21/2024 11:49 AM [facility] Comment:Calculation based on the??Chronic Kidney Disease Epidemiology Collaboration (CKD-EPI) equation refit??without adjustment for race. BUN/Creatinine Ratio 20.9 LAB CHEMISTRY METHOD 02/21/2024 11:49 AM [facility] Calcium 9.3 8.5 - 10.5 mg/dL LAB CHEMISTRY METHOD 02/21/2024 11:49 AM [facility] AST (SGOT) 18 10 - 42 unit/L LAB CHEMISTRY METHOD 02/21/2024 11:49 AM [facility] ALT (SGPT) 14 10 - 60 unit/L LAB CHEMISTRY METHOD 02/21/2024 11:49 AM [facility] Alkaline Phosphatase 55 42 - 121 unit/L LAB CHEMISTRY METHOD 02/21/2024 11:49 AM [facility] Total Protein 7.0 6.0 - 8.0 g/dL LAB CHEMISTRY METHOD 02/21/2024 11:49 AM [facility] Albumin 3.8 3.2 - 5.0 g/dL LAB CHEMISTRY METHOD 02/21/2024 11:49 AM [facility] Total Bilirubin 0.8 0.0 - 1.4 mg/dL LAB CHEMISTRY METHOD 02/21/2024 11:49 AM [facility] Blood Venous blood specimen / Unknown Venipuncture / Unknown 02/21/2024 7:10 AM EST 02/21/2024 10:45 AM EST us De Snyder MD LAB BLOOD ORDERABLES Final Resu lt [facility] [address] [place] [address], documented in this encounter Visit Diagnoses Diagnosis Encounter for other general examination documented in this encounter Care Teams Auto Locator Relationship Specialty Start Date End Date Jackeline Saha MD [address] [facility] [place], [place] PCP - General Internal Medicine 09/23/21 documented as of this encounter
[2024-08-18 11:49] LABS: Troponin-I High Sensitivity 6.1 ng/L (<3.5-17.0)
[2024-08-18 12:04] LABS: Alanine Aminotransferase 27 U/L (0-31); Albumin Level 4.5 g/dL (3.5-5.0); Alkaline Phosphatase 69 U/L (39-117); Anion Gap 12 (12-20); Aspartate Amino Transferase 29 U/L (5-31); Bilirubin Total 0.5 mg/dL (0.0-1.0); Blood Urea Nitrogen 25 mg/dL (9-16); Calcium 9.9 mg/dL (8.4-10.2); Carbon Dioxide 26 mmol/L (22-29); Chloride 106 mmol/L (96-108); Cholesterol 204 mg/dL (<200); Estimated Glomerular Filt Rate > 60; Glucose Fasting 95 mg/dL (60-99); HDL Cholesterol 68 mg/dL (>40); Iron 87 mcg/dL (30-160); LDL Cholesterol Calculated 118 mg/dL (<100); Magnesium 1.7 mg/dL (1.6-2.6); Percent Iron Saturation 35 % (15-50); Potassium 4.3 mmol/L (3.3-5.1); Sodium 140 mmol/L (135-145); Total Iron Binding Capacity 246 mcg/dL (228-428); Total Protein 7.5 g/dL (6.5-8.0); Triglycerides 90 mg/dL (<150); Unsaturated Iron Binding 159 ug/dL
[2024-08-18 12:08] LABS: Vitamin D 25-OH Total 31.6 ng/mL (>30)
[2024-08-18 12:29] LABS: Folate 13.6 ng/mL (> or = 4.0); Vitamin B12 496 pg/mL (200-900)
[2024-08-20 16:38] LABS: Prot Elec - Albumin 4.6 g/dL (3.8-4.8); Prot Elec - Alpha1 0.2 g/dL (0.2-0.3); Prot Elec - Alpha2 0.7 g/dL (0.5-0.9); Prot Elec - Beta 1 0.4 g/dL (0.4-0.6); Prot Elec - Beta 2 0.5 g/dL (0.2-0.5); Prot Elec - Gamma 1.3 g/dL (0.8-1.7); Prot Elec - Total Protein 7.6 g/dL (6.1-8.1)
== END 2024-08-18 10:18 | disposition home or self-care (01) ==
LOC: HO.CT 10:17
PROVIDERS: Absent Provider Internal Medicine; PCP Internal Medicine; Visit Provider Physician Assistant
DX: M12.819 Other specific arthropathies, not elsewhere classified, unspecified shoulder (principal); E55.9 Vitamin D deficiency, unspecified; D64.9 Anemia, unspecified; R79.89 Other specified abnormal findings of blood chemistry; R77.8 Other specified abnormalities of plasma proteins; E78.5 Hyperlipidemia, unspecified; E53.8 Deficiency of other specified B group vitamins
CPT/HCPCS: 36415; 73200; 80053; 80061; 82306; 82607; 82746; 83540; 83735; 84165; 84484; 85025

== ENCOUNTER → 2024-08-25 12:49 | Outpatient (REF) | payer MEDICARE, MEDICAID, SELFPAY ==
--- NOTE | 2024-08-25 12:56 | ECG_ITS ---
Test Reason : PREOP Blood Pressure : */* mmHG Vent. Rate : 65 BPM Atrial Rate : 65 BPM P-R Int : 144 ms QRS Dur : 94 ms QT Int : 376 ms P-R-T Axes : 57 56 60 degrees QTcB Int : 391 ms Normal sinus rhythm Normal ECG When compared with ECG of 19-Feb-2024 20:57, No significant change was found Referred By: Tena Wright Electronically Signed By: JOSS FISHER
== END ==
LOC: HO.CARD 12:49
PROVIDERS: PCP Internal Medicine; Visit Provider Internal Medicine
DX: Z01.811 Encounter for preprocedural respiratory examination (principal); R91.8 Other nonspecific abnormal finding of lung field; J47.9 Bronchiectasis, uncomplicated; J41.8 Mixed simple and mucopurulent chronic bronchitis
CPT/HCPCS: 93005; 94010; 99212

== ENCOUNTER → 2024-08-25 12:56 | Outpatient (BNV) | payer MEDICARE, MEDICAID, SELFPAY | PROVIDERS: PCP Internal Medicine; Visit Provider Internal Medicine | DX: Z01.818 Encounter for other preprocedural examination (principal); I34.1 Nonrheumatic mitral (valve) prolapse | CPT/HCPCS: 93010 ==

== ENCOUNTER 2024-08-25 13:14 | Outpatient (AMB) | payer MEDICARE, MEDICAID, SELFPAY ==
[2024-08-25 13:17] VITALS: BP 110/50; PULSE 73; O2SAT 98; BMI 23.8
--- NOTE | 2024-08-25 13:17 | A.OFFVIS_ITS ---
Vital Signs 08/25/24 13:17 Height 5 ft 5 in Weight 143 lb 4.807 oz BMI 23.8 BP 110/50 L Blood Pressure Location Lt brachial Position Sitting Pulse 73 Pulse Source Pulse Oximeter Pulse Oximetry (%) 98 Oxygen Delivery Method Room Air Intake Visit Reasons: Pulm clearance R rTSA Dr. Rodriguez 09/16/24. Hospital Insurance Representative Required: No Accompanied by: Self / Same As Patient Allergies No Known Allergies Allergy (Verified 08/25/24 13:21) HPI Comments Details: The patient is a 69 year woman with a known history of asthma and also exposure to secondhand smoke. Per the patient had a CTA back in May 2021 after having an elevated D-dimer. The CT scan I did personally with her. Demonstrated nodular densities but she had a larger density in the lingular area with some bronchiectatic changes. The patient subsequently had a repeat CT scan May 2022 that we also personally reviewed and appear that the larger area in the lingula had Ms. Although she still have bronchiectatic changes and also micro nodules in the form of treating budding suggesting bronchiolitis. The patient a lso complains of chronic cough. Typically in the morning. She attributes that to mainly sinus congestion and postnasal drip. I explained to her that the findings are more consistent with smoldering lower respiratory infection. The patient has been on Flovent and also on rescue therapy. Will go ahead and optimize therapy since she is also complaining some dyspnea on exertion. She does have some prolonged expiratory phase on examination. Therefore a combination inhaler will work better for her I believe at this time. The patient also needs chest PT with an Acapella valve specially because she does bronchiectatic changes and evidence of chronic bronchitis. Will request an Acapella valve from the local pharmacy. The patient also will be able to provide us with a sputum culture to assess for AFB assessing for mycobacterial disease which is likely the culprit in her case. 08/25/2024 the patient is here for a pulmonary follow-up visit. Overall the patient is doing okay she does complaint of increasing dyspnea and chest tightness. Mild in severity. She was started on Symbicort and she also has a rescue inhaler that she typically uses a couple times a week. Unfortunately she did have a bad fall fractured her right humerus. He has never healed well. The last time she has the surgeons she had imaging studies demonstrating a very fragmented fracture of her proximal humerus. Now she is going to undergo orthopedic surgery. Overall she is doing okay from a respiratory status. Will go ahead and perform spirometry and subsequently optimize her respiratory medications in order for her to proceed with surgery and anesthesia this time. [facility] Medical History (Updated 08/19/24 @ 08:22 by Tena Wright MD) COPD (chronic obstructive pulmonary disease) Arthritis Back pain Numbness and tingling in both hands Hx of febrile seizure Seasonal allergies PND (post-nasal drip) Opioid use Fracture of surgical neck of right humerus Chronic bronchitis Bronchiectasis Depression Emphysema of lung Surgical History History of ear surgery Family History Mother No problems noted. Father Emphysema lung Family/Other Mental health disorder Substance use disorder Social History Household Members: None Housing: Apartment Are you a primary family day carer to a significant other at home: No Do you presently have visiting nurse or other home services: No 75 years or older and lives alone: No Alcohol intake: current Alcohol intake frequency: former alcohol drinker Alcohol type: beer and hard liquor Patient Tobacco Use Status: Former Tobacco user Tobacco use type: Cigarette e-Cigarette/Vaping Use: Never Used Second Hand Smoke Exposure: Yes Substance Use Type: Marijuana service: No Current occupational status: employed Current occupation: left hand dominant Current occupational exposures/hazards: No Cognitive needs: No Hearing needs: No Vision needs: Yes (Glasses) Review of Systems Const Denies fatigue, Denies fever(s) and Denies night sweats Eyes Reports no additional complaints ENT Denies nasal congestion Card Denies chest pain Resp Reports chest congestion, Reports cough and Reports wheezing GI Denies abdominal pain Musc Denies myalgias Skin/Breast Denies rash Neuro Reports no additional complaints Endo Denies fatigue Reynold/Lymph Denies lymphadenopathy Aller/Immun Reports wheezing Physical Exam Vital Signs: Last Vital Signs Pulse 73 08/25/24 13:17 BP 110/50 L 08/25/24 13:17 Pulse Ox 98 08/25/24 13:17 Oxygen Delivery Method Room Air 08/25/24 13:17 BMI result Body Mass Index 23.8 Const General: comfortable HEENT Head: Yes normocephalic Neck Neck: Yes supple Chest Chest palpation & inspection: normal inspection of the chest Resp Effort & Inspection: normal respiratory effort and prolonged expiratory phase Auscultation: diminished lung sounds Cardio Rate: regular rate Rhythm: regular rhythm Heart sounds: S1 normal heart sound present and S2 normal heart sound present GI Palpation (GI): Soft to palpation Skin General skin exam: no rashes or lesions noted Extrem General: Yes no clubbing, cyanosis or edema Office Procedures Spirometry Testing Spirometry Comments: Spirometry done in the office, Dr. Manuel has the results results scanned to her chart. No obstruction 81259- Spirometry Assessment & Plan Assessment & Plan (1) Pulmonary nodules: Code(s): R91.8 - Other nonspecific abnormal finding of lung field Category: Medical (2) Bronchiectasis: Code(s): J47.9 - Bronchiectasis, uncomplicated Category: Medical Qualifiers: Bronchiectasis type: uncomplicated Qualified Code(s): J47.9 - Bronchiectasis, uncomplicated (3) Chronic bronchitis: Code(s): J42 - Unspecified chronic bronchitis Category: Medical Qualifiers: Chronic bronchitis type: mixed simple and mucopurulent Qualified Code(s): J41.8 - Mixed simple and mucopurulent chronic bronchitis (4) Pre-op chest exam: Code(s): Z01.811 - Encounter for preprocedural respiratory examination Category: Medical Plan Proceed with anesthesia and orthopedic surgery from a pulmonary standpoint Stop Symbicort Start Breztri BID HENRY as needed CPT with acapella valve Spirmetry with no obstruction F/u 4-6 months Orders: Orders AMB Spirometry Testing Today J41.8 - Mixed simple and mucopurulent chronic bronchitis Medications: New bybjxbbzmq-larondns-rgwmscnskz 160-9-4.8 mcg/actuation (Breztri Aerosphere) 2 inhalations inhalation BID 10.7 grams 0RF 30 days Coding Level of Care Code Est Pt Level 4 (56471) Complex EM visit Add On G2211 Diagnoses Pulmonary nodules R91.8 Bronchiectasis without complication J47.9 Bronchiectasis type: uncomplicated Mixed simple and mucopurulent chronic bronchitis J41.8 Chronic bronchitis type: mixed simple and mucopurulent Pre-op chest exam Z01.811 CPT Codes Spirometry - CPT: 18943- Spirometry ([id number]) Time Spent (min) 17
== END 2024-08-25 14:00 | disposition home or self-care (01) ==
LOC: HO.HPS 13:15
PROVIDERS: PCP Internal Medicine; Visit Provider Hospitalist
DX: R91.8 Other nonspecific abnormal finding of lung field (principal); J47.9 Bronchiectasis, uncomplicated; J41.8 Mixed simple and mucopurulent chronic bronchitis; Z01.811 Encounter for preprocedural respiratory examination
CPT/HCPCS: 94010; 99214; G2211

== ENCOUNTER 2024-09-11 08:21 | Outpatient (REF) | payer MEDICARE, MEDICAID, SELFPAY ==
[2024-09-11 11:34] LABS: Anion Gap 11 (12-20); Blood Urea Nitrogen 27 mg/dL (9-16); Calcium 9.8 mg/dL (8.4-10.2); Carbon Dioxide 27 mmol/L (22-29); Chloride 104 mmol/L (96-108); Estimated Glomerular Filt Rate 55; Potassium 4.8 mmol/L (3.3-5.1); Sodium 137 mmol/L (135-145)
== END 2024-09-11 08:22 | disposition home or self-care (01) ==
LOC: HO.LAB 08:21
PROVIDERS: PCP Internal Medicine; Visit Provider Physician Assistant
DX: Z01.818 Encounter for other preprocedural examination (principal); S42.211A Unspecified displaced fracture of surgical neck of right humerus, initial encounter for closed fracture; X58.XXXA Exposure to other specified factors, initial encounter; Y93.9 Activity, unspecified; Y92.9 Unspecified place or not applicable; Y99.9 Unspecified external cause status
CPT/HCPCS: 36415; 80048; 99212

== ENCOUNTER 2024-09-11 08:21 | Outpatient (AMB) | payer MEDICARE, MEDICAID, SELFPAY ==
--- NOTE | 2024-09-11 08:23 | MHC.OFFVIS ---
Vital Signs 09/11/24 08:24 Height 5 ft 5 in Weight 143 lb BMI 23.8 Intake Visit Reasons: Pre-Op: R rTSA w/NE 09/16/24 Intake Note: Monique is a 69 year old left hand dominant female who presents today for a preoperative visit to discuss right TSA, scheduled for 09/16/[address] Rodriguez. Pain management agreement reviewed and signed. Patient had x-rays 03/29,04/29 and 06/[address] 08/18/24 of the right shoulder done. Patient expressed concerns of some recent lab work results, it was reveiwed by hematology who states that she does not need to see as a patient. Patient would like to make sure that these results do not impact her upcoming surgey. Notified that she will need to report to the lab for a Type & Screen Allergies No Known Allergies Allergy (Verified 09/11/24 08:25) Medication List - Last Reconciled 09/11/24 by Kalyn Barraza PA-C acetaminophen 975 mg (3 x 325 mg) PO Q8H PRN albuterol sulfate 90 mcg/actuation 2 puffs inhalation QID PRN budesonide-formoterol 160-4.5 mcg/actuation 2 puffs inhalation DAILY pulacjfwbp-dlkcpgcb-ljtewvisyx 160-9-4.8 mcg/actuation (Breztri Aerosphere) 2 inhalations inhalation BID 30 days calcium carbonate-vit D3-min 600 mg-10 mcg (400 unit) 1 tab PO BID celecoxib (Celebrex) 200 mg PO BID PRN citalopram 40 mg PO DAILY fluticasone propionate 50 mcg/actuation 1 spray intranasal BID lisinopril 40 mg PO DAILY 90 days magnesium oxide 200 mg PO DAILY multivitamin with minerals 1 tab PO DAILY naloxone 4 mg/actuation (Narcan) 4 mg intranasal Q2M 30 days tramadol 100 mg (2 x 50 mg) PO Q8H PRN 30 days HPI Comments Details: Ms. Blackburn presents to the office today for preop visit. She is scheduled for reverse right total shoulder arthroplasty with Dr. Rodriguez. She continues to have ongoing pain and difficulty with in the right shoulder, which is affecting her quality of life; therefore, she has elected to move forward with surgery. [facility] Medical History (Updated 08/19/24 @ 08:22 by Tena Wright MD) COPD (chronic obstructive pulmonary disease) Arthritis Back pain Numbness and tingling in both hands Hx of febrile seizure Seasonal allergies PND (post-nasal drip) Opioid use Fracture of surgical neck of right humerus Chronic bronchitis Bronchiectasis Depression Emphysema of lung Surgical History History of ear surgery Family History Mother No problems noted. Father Emphysema lung Family/Other Mental health disorder Substance use disorder Social History Household Members: None Housing: Apartment Are you a primary animal care assistant to a significant other at home: No Do you presently have visiting nurse or other home services: No 75 years or older and lives alone: No Alcohol intake: current Alcohol intake frequency: former alcohol drinker Alcohol type: beer and hard liquor Patient Tobacco Use Status: Former Tobacco user Tobacco use type: Cigarette e-Cigarette/Vaping Use: Never Used Second Hand Smoke Exposure: Yes Substance Use Type: Marijuana service: No Current occupational status: employed Current occupation: left hand dominant Current occupational exposures/hazards: No Cognitive needs: No Hearing needs: No Vision needs: Yes (Glasses) Review of Systems Const All systems reviewed & are unremarkable except as noted in HPI and below Physical Exam Vital Signs: BMI result Body Mass Index 23.8 Const General: cooperative and no acute distress Orientation/consciousness: patient oriented x3 HEENT Head: Yes normal to inspection, Yes normocephalic and Yes atraumatic Eyes General: appearance normal, both eyes and all related structures Neck Neck: Yes normal visual inspection and Yes no lymphadenopathy Resp Effort & Inspection: normal respiratory effort and able to speak in complete sentences Cardio Rate: regular rate Peripheral pulses: Peripheral pulses 2+ throughout GI Inspection: Yes normal to inspection Palpation (GI): Soft to palpation Skin General skin exam: no rashes or lesions noted Neuro General: patient oriented x3 Extrem Other: Right shoulder no tenderness over the proximal humerus. No tenderness over the elbow. She is able to bring her palm to her face. She can not reach the top of her head without bringing her head forward. She is unable to perform any type of active range of motion of the shoulder. Range of motion of the wrist and digits intact. Neurovascularly intact. Psych Appearance: grossly normal Mental Status: mental status grossly normal Assessment & Plan Assessment & Plan (1) Fracture of surgical neck of right humerus: Code(s): S42.211A - Unspecified displaced fracture of surgical neck of right humerus, initial encounter for closed fracture Category: Medical Qualifiers: Encounter type: subsequent encounter Fracture type: closed Fracture morphology: unspecified fracture morphology Fracture alignment: displaced Plan: I discussed in detail the procedure and what to expect pre and post operatively.? We discussed the risks, benefits and alternatives to the surgery as well as the rehabilitation course. The risks; which include, but are not limited to infection, bleeding, nerve injury, ongoing pain, swelling, and stiffness, perioperative risk of injury to bones and soft tissues, and blood clots. ? I?ve answered all questions and with their understanding they have consented to move forward with reverse Right total shoulder arthroplasty with Dr. Rodriguez. The patient was fit for a sling in the office today for postop use. I did explain she will be using this for at least 6 weeks postop. She was given a an order for physical therapy to make an appointment beginning after her 1st postop appointment on October 02. She does have a history of opiate sensitivity and has been administered Narcan while at rehab due to this. Patient is concerned along with the daughter about opiate use while in the hospital and postoperatively. Orders: Orders Basic Metabolic Panel Today Z01.818 - Encounter for other preprocedural examination PT Evaluation and Treatment Today Z96.611 - Presence of right artificial shoulder joint Type and Screen Today Z01.818 - Encounter for other preprocedural examination Coding Level of Care Code Est Pt Level 3 (38173) Complex EM visit Add On G2211 Diagnoses Fracture of surgical neck of right humerus S42.211A Encounter type: subsequent encounter Fracture type: closed Fracture morphology: unspecified fracture morphology Fracture alignment: displaced
[2024-09-11 08:24] VITALS: BMI 23.8
--- OUTSIDE RECORDS SUMMARY | 2024-09-11 08:32 | XMS_ITS | Clinical Summary ---
Author Organization [address] [facility] Address [address] [place] [address] Phone Care Team Providers Care Mobile Web Application Developer Name Role Phone Jackeline Saha MD Primary [...] 09/14/2017 COPD (chronic obstructive pu lmonary disease) ([facility] V24, [facility] V28) 09/14/2017 Degenerative disc disease, lumbar 09/14/2017 [...] MRI COPD (chronic obstructive pu lmonary disease) ([facility] V24, [facility] V28) 09/14/2017 DX:COPD (chronic o bstructive pulmonary disease) ([facility]) Depression 09/14/2017 DX:Depression Hyperlipidemia 09/14/2017 [...] 2023 03/25/2021, 10/09/2020, 09/18/2020 Influenza Vaccine (#1) 2024 2, 12/08/2020, 11/20/2019, Additional history exists Cholesterol [...] (02/26/2024 5:45 AM EST) Pathologist [facility] Sodium 134 133 - 145 mmol/L LAB CHEMISTRY METHOD 02/26/2024 10:36 AM [facility] Potassium 4.8 3.5 - 5.5 mmol/L LAB CHEMISTRY METHOD 02/26/2024 10:36 AM [facility] Chloride 100 96 - 110 mmol/L LAB CHEMISTRY METHOD 02/26/2024 10:36 AM [facility] CO2 27 21 - 32 mmol/L LAB CHEMISTRY METHOD 02/26/2024 10:36 AM [facility] Anion Gap 7 3 - 11 LAB CHEMISTRY METHOD 02/26/2024 10:36 AM [facility] Glucose 97 70 - 100 mg/dL LAB CHEMISTRY METHOD 02/26/2024 10:36 AM [facility] BUN 30(H) 5 - 25 mg/dL LAB CHEMISTRY METHOD 02/26/2024 10:36 AM [facility] Creatinine 0.85 0.50 - 1.10 mg/dL LAB CHEMISTRY METHOD 02/26/2024 10:36 AM [facility] eGFR 74 >=60 mL/min/1. 73m2 LAB CHEMISTRY METHOD 02/26/2024 10:36 AM [facility] Comment:Calculation based on the Chronic Kidney Disease Epidemiology Collaboration (CKD-EPI) equation refit without adjustment for race. BUN/Creatinine Ratio 35.3 LAB CHEMISTRY METHOD 02/26/2024 10:36 AM [facility] Calcium 9.7 8.5 - 10.5 mg/dL LAB CHEMISTRY METHOD 02/26/2024 10:36 AM EST [facility] Blood Venous blood specimen / Unknown Venipuncture / Unknown 02/26/2024 5:45 AM EST 02/26/2024 9:44 AM EST us De Snyder MD LAB BLOOD ORDERABLES Final Resu lt [facility]) [facility] [address] [place] [address], [place] [phone] * DIAGNOSTIC MAMMOGRAPHY INCLUDING CAD BILATERAL (06/22/2021 [...] and corresponds with the abnormality on CT. Ultrasound performed in the left upper outer quadrant due to dense breast tissue without a solid or cystic lesion identified. Additional fibroglandular asymmetries in the upper left breast, 12 o'clock position of the right breast, and inner right breast are stable. No new suspicious mass, architectural distortion, or suspicious calcifications. Impression: No mammographic evidence of malignancy in either breast. The abnormality in the upper outer left breast [...] Final Result * (ABNORMAL) Lipid panel (01/21/2020) [facility] LDL/HDL Ratio 2 0 - 4 Triglycerides 223(A) 0 - 150 mg/dL Cholesterol 212(A) 0 - 200 mg/dL HDL 129 >=40 mg/dL LDL Cholesterol 39 0 - 100 mg/dL Blood Venous blood specimen / Unknown Historical Provider LAB BLOOD ORDERABLES Galilea l Result * Hepatitis C Screening (06/06/2018) [facility] Hepatitis C Screening abstracted Historical Provider HEALTH MAINTENANCE Final Result from Last 3 Months or Most Recently Relevant to Health Maintenance Insurance MEDICARE [place]ICA[place] - [place] Care Teams Mobile Web Application Developer Relationship Specialty Start Date End Date Jackeline Saha MD [address] [facility] [place] PCP - General Internal Medicine 09/23/21
--- OUTSIDE RECORDS SUMMARY | 2024-09-11 08:32 | XMS_ITS | Encounter Summary ---
Author Organization [facility] Address [address] [place] [address] Care Team Providers Care Separator Operator Name Role Phone Angelica Duke MD Primary Care Provider Unavail able Park Hong MD Primary Care Provider [phone] Jackeline Saha MD Primary Care Provider + [facility], Pcp Primary Care Provider Unavailabl e Encounter Details Date Type Department Care Team Description 08/18/2018 Telephone Gastroenterology - [address] [place] [address] Malik Adames MD [address] [place] [id number] Social History Tobacco Use Types Packs/Day Years [...] on filedocumented in this encounter Care Teams Separator Operator Relationship Specialty Start Date End Date Angelica Duke MD PCP - General Internal Medicine 12/13/16 01/30/21 Park Hong MD [address] [place] [id number] PCP - General Internal Medicine 01/31/21 09/22/21 Jackeline Saha MD [address] [place] [id number] PCP - General Internal Medicine 09/23/21 03/30/22 [facility], Pcp [address] [place] [address] PCP - General Internal Medicine 03/31/22 documented as of this encounter
== END 2024-09-11 09:22 | disposition home or self-care (01) ==
LOC: HO.HOS 08:22
PROVIDERS: Visit Provider Physician Assistant
DX: S42.211A Unspecified displaced fracture of surgical neck of right humerus, initial encounter for closed fracture (principal)
CPT/HCPCS: 99024

== ENCOUNTER 2024-09-16 06:07 | Day surgery (SDC) | payer MEDICARE, MEDICAID, SELFPAY ==
--- OUTSIDE RECORDS SUMMARY | 2024-06-30 11:20 | XMS_ITS | Encounter Summary ---
Author Organization [facility] Address [address] [place] [address] Care Team Providers Care Sewing Machine Mechanic Name Role Phone Jackeline Saha MD Primary Care Pr ovider Encounter Details Date Type Department Care Team (Late st Contact Info) Description 02/26/2024 Lab Requisition [facility] - Main Lab [address] [facility] [place] [address] De Snyder MD [address] [place] [id number] Encounter for other general examination Social History [...] K/mcL LAB HEMETOLOGY METHOD 02/26/2024 11:31 AM [facility] RBC 2.50(L) 3.80 - 4.80 M/mcL LAB HEMETOLOGY METHOD 02/26/2024 11:31 AM [facility] Hemoglobin 8.6(L) 11.5 - 16.0 g/dL LAB HEMETOLOGY METHOD 02/26/2024 11:31 AM [facility] Hematocrit 26.2(L) 35.0 - 47.0 % LAB HEMETOLOGY METHOD 02/26/2024 11:31 AM [facility] MCV 104.4(H) 79.0 - 98.0 FL LAB HEMETOLOGY METHOD 02/26/2024 11:31 AM [facility] MCH 34.3(H) 27.0 - 32.0 pcg LAB HEMETOLOGY METHOD 02/26/2024 11:31 AM [facility] MCHC 32.8 32.0 - 37.0 g/dL LAB HEMETOLOGY METHOD 02/26/2024 11:31 AM [facility] RDW 13.2 11.0 - 15.0 % LAB HEMETOLOGY METHOD 02/26/2024 11:31 AM [facility] Platelets 302 130 - 400 K/mcL LAB HEMETOLOGY METHOD 02/26/2024 11:31 AM [facility] MPV 10.0 7.0 - 11.0 FL LAB HEMETOLOGY METHOD 02/26/2024 11:31 AM [facility] NRBC 0.0 <1.0 % LAB HEMETOLOGY METHOD 02/26/2024 11:31 AM [facility] NRBC Absolute 0.00 <0.10 K/mcL LAB HEMETOLOGY METHOD 02/26/2024 11:31 AM [facility] Neutrophils Relative 77.3 % LAB HEMETOLOGY METHOD 02/26/2024 11:31 AM [facility] Lymphocytes Relative 8.1 % LAB HEMETOLOGY METHOD 02/26/2024 11:31 AM [facility] Monocytes Relative 12.7 % LAB HEMETOLOGY METHOD 02/26/2024 11:31 AM [facility] Eosinophils Relative 1.3 % LAB HEMETOLOGY METHOD 02/26/2024 11:31 AM [facility] Basophils Relative 0.3 % LAB HEMETOLOGY METHOD 02/26/2024 11:31 AM [facility] Immature Granulocytes Relative 0.3 % LAB HEMETOLOGY METHOD 02/26/2024 11:31 AM [facility] Neutrophils Absolute 6.88 1.50 - 7.00 K/mcL LAB HEMETOLOGY METHOD 02/26/2024 11:31 AM [facility] Lymphocytes Absolute 0.72(L) 1.00 - 5.00 K/mcL LAB HEMETOLOGY METHOD 02/26/2024 11:31 AM [facility] Monocytes Absolute 1.13(H) 0.20 - 1.00 K/mcL LAB HEMETOLOGY METHOD 02/26/2024 11:31 AM [facility] Eosinophils Absolute 0.12 0.00 - 0.50 K/mcL LAB HEMETOLOGY METHOD 02/26/2024 11:31 AM [facility] Basophils Absolute 0.03 0.00 - 0.20 K/mcL LAB HEMETOLOGY METHOD 02/26/2024 11:31 AM [facility] Immature Granulocytes Absolute 0.03 0.00 - 0.03 K/mcL LAB HEMETOLOGY METHOD 02/26/2024 11:31 AM [facility] Blood Venous blood specimen / Unknown Venipuncture / Unknown 02/26/2024 5:45 AM EST 02/26/2024 9:44 AM EST us De Snyder MD LAB BLOOD ORDERABLES Final Resu lt [facility] [address] [place] [address], [place] [phone] * (ABNORMAL) Basic metabolic panel (02/26/2024 5:45 AM EST) Sodium 134 133 - 145 mmol/L LAB CHEMISTRY METHOD 02/26/2024 10:36 AM [facility] Potassium 4.8 3.5 - 5.5 mmol/L LAB CHEMISTRY METHOD 02/26/2024 10:36 AM [facility] Chloride 100 96 - 110 mmol/L LAB CHEMISTRY METHOD 02/26/2024 10:36 AM [facility] CO2 27 21 - 32 mmol/L LAB CHEMISTRY METHOD 02/26/2024 10:36 AM [facility] Anion Gap 7 3 - 11 LAB CHEMISTRY METHOD 02/26/2024 10:36 AM [facility] Glucose 97 70 - 100 mg/dL LAB CHEMISTRY METHOD 02/26/2024 10:36 AM [facility] BUN 30(H) 5 - 25 mg/dL LAB CHEMISTRY METHOD 02/26/2024 10:36 AM [facility] Creatinine 0.85 0.50 - 1.10 mg/dL LAB CHEMISTRY METHOD 02/26/2024 10:36 AM [facility] eGFR 74 >=60 mL/min/1. 73m2 LAB CHEMISTRY METHOD 02/26/2024 10:36 AM [facility] Comment:Calculation based on the??Chronic Kidney Disease Epidemiology Collaboration (CKD-EPI) equation refit??without adjustment for race. BUN/Creatinine Ratio 35.3 LAB CHEMISTRY METHOD 02/26/2024 10:36 AM [facility] Calcium 9.7 8.5 - 10.5 mg/dL LAB CHEMISTRY METHOD 02/26/2024 10:36 AM EST [facility] Blood Venous blood specimen / Unknown Venipuncture / Unknown 02/26/2024 5:45 AM EST 02/26/2024 9:44 AM EST us De Snyder MD LAB BLOOD ORDERABLES Final Resu lt [facility] [address] [place] [address], documented in this encounter Visit Diagnoses Diagnosis Encounter for other general examination documented in this encounter Care Teams Sewing Machine Mechanic Relationship Specialty Start Date End Date Jackeline Saha MD [address] [facility], [place] PCP - General Internal Medicine 09/23/21 documented as of this encounter
--- OUTSIDE RECORDS SUMMARY | 2024-06-30 11:20 | XMS_ITS | Encounter Summary ---
Author Organization [facility] Address [address] [place] [address] Care Team Providers Care Sheet Tester Name Role Phone Jackeline Saha MD Primary Care Pr ovider Encounter Details Date Type Department Care Team (Late st Contact Info) Description 02/21/2024 Lab Requisition [facility] - Main Lab [address] [facility] [place] [address] De Snyder MD [address] [place] [address] Encounter for other general examination Social History [...] CBC auto differential (02/21/2024 7:10 AM EST) [facility] WBC 5.8 4.8 - 10.8 K/mcL LAB HEMETOLOGY METHOD 02/21/2024 11:19 AM [facility] RBC 2.80(L) 3.80 - 4.80 M/mcL LAB HEMETOLOGY METHOD 02/21/2024 11:19 AM [facility] Hemoglobin 9.8(L) 11.5 - 16.0 g/dL LAB HEMETOLOGY METHOD 02/21/2024 11:19 AM [facility] LAB Hematocrit 29.7(L) 35.0 - 47.0 % LAB HEMETOLOGY METHOD 02/21/2024 11:19 AM [facility] MCV 105.3(H) 79.0 - 98.0 FL LAB HEMETOLOGY METHOD 02/21/2024 11:19 AM [facility] LAB MCH 34.8(H) 27.0 - 32.0 pcg LAB HEMETOLOGY METHOD 02/21/2024 11:19 AM [facility] MCHC 33.0 32.0 - 37.0 g/dL LAB HEMETOLOGY METHOD 02/21/2024 11:19 AM [facility] RDW 13.4 11.0 - 15.0 % LAB HEMETOLOGY METHOD 02/21/2024 11:19 AM [facility] Platelets 201 130 - 400 K/mcL LAB HEMETOLOGY METHOD 02/21/2024 11:19 AM [facility] MPV 10.3 7.0 - 11.0 FL LAB HEMETOLOGY METHOD 02/21/2024 11:19 AM [facility] NRBC 0.0 <1.0 % LAB HEMETOLOGY METHOD 02/21/2024 11:19 AM [facility] NRBC Absolute 0.00 <0.10 K/mcL LAB HEMETOLOGY METHOD 02/21/2024 11:19 AM [facility] Neutrophils Relative 67.8 % LAB HEMETOLOGY METHOD 02/21/2024 11:19 AM [facility] Lymphocytes Relative 15.7 % LAB HEMETOLOGY METHOD 02/21/2024 11:19 AM [facility] Monocytes Relative 15.7 % LAB HEMETOLOGY METHOD 02/21/2024 11:19 AM [facility] Eosinophils Relative 0.2 % LAB HEMETOLOGY METHOD 02/21/2024 11:19 AM [facility] Basophils Relative 0.3 % LAB HEMETOLOGY METHOD 02/21/2024 11:19 AM [facility] Immature Granulocytes Relative 0.3 % LAB HEMETOLOGY METHOD 02/21/2024 11:19 AM [facility] Neutrophils Absolute 3.90 1.50 - 7.00 K/mcL LAB HEMETOLOGY METHOD 02/21/2024 11:19 AM [facility] Lymphocytes Absolute 0.90(L) 1.00 - 5.00 K/mcL LAB HEMETOLOGY METHOD 02/21/2024 11:19 AM [facility] Monocytes Absolute 0.90 0.20 - 1.00 K/mcL LAB HEMETOLOGY METHOD 02/21/2024 11:19 AM [facility] Eosinophils Absolute 0.01 0.00 - 0.50 K/mcL LAB HEMETOLOGY METHOD 02/21/2024 11:19 AM [facility] Basophils Absolute 0.02 0.00 - 0.20 K/mcL LAB HEMETOLOGY METHOD 02/21/2024 11:19 AM [facility] Immature Granulocytes Absolute 0.02 0.00 - 0.03 K/mcL LAB HEMETOLOGY METHOD 02/21/2024 11:19 AM [facility] Blood Venous blood specimen / Unknown Venipuncture / Unknown 02/21/2024 7:10 AM EST 02/21/2024 10:45 AM EST us De Snyder MD LAB BLOOD ORDERABLES Final Resu lt [facility] [address] [place] [address], [place] [phone] * Magnesium (02/21/2024 7:10 AM EST) Magnesium 1.9 1.9 - 2.6 mg/dL LAB CHEMISTRY METHOD 02/21/2024 11:47 AM EST [facility] Blood Venous blood specimen / Unknown Venipuncture / Unknown 02/21/2024 7:10 AM EST 02/21/2024 10:45 AM EST us De Snyder MD LAB BLOOD ORDERABLES Final Resu lt Performing Organization Address City/[facility]/ZIP Co de Phone Number [facility] [address] [place] [address], [place] [phone] * (ABNORMAL) Comprehensive metabolic panel (02/21/2024 7:10 AM EST) Sodium 133 133 - 145 mmol/L LAB CHEMISTRY METHOD 02/21/2024 11:49 AM EST [facility] Potassium 4.6 3.5 - 5.5 mmol/L LAB CHEMISTRY METHOD 02/21/2024 11:49 AM EST [facility] Chloride 101 96 - 110 mmol/L LAB CHEMISTRY METHOD 02/21/2024 11:49 AM EST [facility] CO2 28 21 - 32 mmol/L LAB CHEMISTRY METHOD 02/21/2024 11:49 AM EST [facility] Anion Gap 4 3 - 11 LAB CHEMISTRY METHOD 02/21/2024 11:49 AM EST [facility] Glucose 113(H) 70 - 100 mg/dL LAB CHEMISTRY METHOD 02/21/2024 11:49 AM [facility] BUN 18 5 - 25 mg/dL LAB CHEMISTRY METHOD 02/21/2024 11:49 AM [facility] Creatinine 0.86 0.50 - 1.10 mg/dL LAB CHEMISTRY METHOD 02/21/2024 11:49 AM [facility] eGFR 73 >=60 mL/min/1. 73m2 LAB CHEMISTRY METHOD 02/21/2024 11:49 AM [facility] Comment:Calculation based on the??Chronic Kidney Disease Epidemiology Collaboration (CKD-EPI) equation refit??without adjustment for race. BUN/Creatinine Ratio 20.9 LAB CHEMISTRY METHOD 02/21/2024 11:49 AM [facility] Calcium 9.3 8.5 - 10.5 mg/dL LAB CHEMISTRY METHOD 02/21/2024 11:49 AM [facility] AST (SGOT) 18 10 - 42 unit/L LAB CHEMISTRY METHOD 02/21/2024 11:49 AM [facility] ALT (SGPT) 14 10 - 60 unit/L LAB CHEMISTRY METHOD 02/21/2024 11:49 AM [facility] Alkaline Phosphatase 55 42 - 121 unit/L LAB CHEMISTRY METHOD 02/21/2024 11:49 AM [facility] Total Protein 7.0 6.0 - 8.0 g/dL LAB CHEMISTRY METHOD 02/21/2024 11:49 AM [facility] Albumin 3.8 3.2 - 5.0 g/dL LAB CHEMISTRY METHOD 02/21/2024 11:49 AM [facility] Total Bilirubin 0.8 0.0 - 1.4 mg/dL LAB CHEMISTRY METHOD 02/21/2024 11:49 AM [facility] Blood Venous blood specimen / Unknown Venipuncture / Unknown 02/21/2024 7:10 AM EST 02/21/2024 10:45 AM EST us De Snyder MD LAB BLOOD ORDERABLES Final Resu lt [facility] [address] [place] [address], documented in this encounter Visit Diagnoses Diagnosis Encounter for other general examination documented in this encounter Care Teams Sheet Tester Relationship Specialty Start Date End Date Jackeline Saha MD [address] [facility] [place], [place] PCP - General Internal Medicine 09/23/21 documented as of this encounter
--- OUTSIDE RECORDS SUMMARY | 2024-06-30 11:20 | XMS_ITS | Encounter Summary ---
Author Organization [facility] Address [address] [place] [address] Care Team Providers Care Oil Well Drilling Manager Name Role Phone Jackeline Saha MD Primary Care Pr ovider Encounter Details Date Type Department Care Team (Late st Contact Info) Description 02/25/2024 Lab Requisition [facility] - Main Lab [address] [facility] [place] [address] De Snyder MD [address] [place] [id number] Encounter for other general examination Social History [...] K/mcL LAB HEMETOLOGY METHOD 02/25/2024 11:05 AM [facility] RBC 2.30(L) 3.80 - 4.80 M/mcL LAB HEMETOLOGY METHOD 02/25/2024 11:05 AM [facility] Hemoglobin 8.1(L) 11.5 - 16.0 g/dL LAB HEMETOLOGY METHOD 02/25/2024 11:05 AM [facility] Hematocrit 24.5(L) 35.0 - 47.0 % LAB HEMETOLOGY METHOD 02/25/2024 11:05 AM [facility] LAB MCV 106.1(H) 79.0 - 98.0 FL LAB HEMETOLOGY METHOD 02/25/2024 11:05 AM [facility] MCH 35.1(H) 27.0 - 32.0 pcg LAB HEMETOLOGY METHOD 02/25/2024 11:05 AM [facility] MCHC 33.1 32.0 - 37.0 g/dL LAB HEMETOLOGY METHOD 02/25/2024 11:05 AM [facility] RDW 13.3 11.0 - 15.0 % LAB HEMETOLOGY METHOD 02/25/2024 11:05 AM [facility] Platelets 257 130 - 400 K/mcL LAB HEMETOLOGY METHOD 02/25/2024 11:05 AM [facility] MPV 10.0 7.0 - 11.0 FL LAB HEMETOLOGY METHOD 02/25/2024 11:05 AM [facility] NRBC 0.0 <1.0 % LAB HEMETOLOGY METHOD 02/25/2024 11:05 AM [facility] NRBC Absolute 0.00 <0.10 K/mcL LAB HEMETOLOGY METHOD 02/25/2024 11:05 AM [facility] Neutrophils Relative 70.6 % LAB HEMETOLOGY METHOD 02/25/2024 11:05 AM [facility] Lymphocytes Relative 11.6 % LAB HEMETOLOGY METHOD 02/25/2024 11:05 AM [facility] Monocytes Relative 16.8 % LAB HEMETOLOGY METHOD 02/25/2024 11:05 AM [facility] Eosinophils Relative 0.3 % LAB HEMETOLOGY METHOD 02/25/2024 11:05 AM [facility] Basophils Relative 0.4 % LAB HEMETOLOGY METHOD 02/25/2024 11:05 AM [facility] Immature Granulocytes Relative 0.3 % LAB HEMETOLOGY METHOD 02/25/2024 11:05 AM [facility] Neutrophils Absolute 5.28 1.50 - 7.00 K/mcL LAB HEMETOLOGY METHOD 02/25/2024 11:05 AM [facility] Lymphocytes Absolute 0.87(L) 1.00 - 5.00 K/mcL LAB HEMETOLOGY METHOD 02/25/2024 11:05 AM [facility] Monocytes Absolute 1.26(H) 0.20 - 1.00 K/mcL LAB HEMETOLOGY METHOD 02/25/2024 11:05 AM [facility] Eosinophils Absolute 0.02 0.00 - 0.50 K/mcL LAB HEMETOLOGY METHOD 02/25/2024 11:05 AM [facility] Basophils Absolute 0.03 0.00 - 0.20 K/mcL LAB HEMETOLOGY METHOD 02/25/2024 11:05 AM [facility] Immature Granulocytes Absolute 0.02 0.00 - 0.03 K/mcL LAB HEMETOLOGY METHOD 02/25/2024 11:05 AM [facility] Blood Venous blood specimen / Unknown Venipuncture / Unknown 02/25/2024 5:50 AM EST 02/25/2024 9:25 AM EST us De Snyder MD LAB BLOOD ORDERABLES Final Resu lt [facility] [address] [place] [address], [place] [phone] * (ABNORMAL) Comprehensive metabolic panel (02/25/2024 5:50 AM EST) Sodium 132(L) 133 - 145 mmol/L LAB CHEMISTRY METHOD 02/25/2024 11:27 AM [facility] Potassium 4.4 3.5 - 5.5 mmol/L LAB CHEMISTRY METHOD 02/25/2024 11:27 AM [facility] Chloride 98 96 - 110 mmol/L LAB CHEMISTRY METHOD 02/25/2024 11:27 AM [facility] CO2 27 21 - 32 mmol/L LAB CHEMISTRY METHOD 02/25/2024 11:27 AM EST [facility] Anion Gap 7 3 - 11 LAB CHEMISTRY METHOD 02/25/2024 11:27 AM [facility] Glucose 90 70 - 100 mg/dL LAB CHEMISTRY METHOD 02/25/2024 11:27 AM [facility] BUN 48(H) 5 - 25 mg/dL LAB CHEMISTRY METHOD 02/25/2024 11:27 AM [facility] Creatinine 1.93(H) 0.50 - 1.10 mg/dL LAB CHEMISTRY METHOD 02/25/2024 11:27 AM [facility] eGFR 28(L) >=60 mL/min/1. 73m2 LAB CHEMISTRY METHOD 02/25/2024 11:27 AM [facility] Comment:Calculation based on the??Chronic Kidney Disease Epidemiology Collaboration (CKD-EPI) equation refit??without adjustment for race. BUN/Creatinine Ratio 24.9 LAB CHEMISTRY METHOD 02/25/2024 11:27 AM [facility] Calcium 9.8 8.5 - 10.5 mg/dL LAB CHEMISTRY METHOD 02/25/2024 11:27 AM [facility] AST (SGOT) 25 10 - 42 unit/L LAB CHEMISTRY METHOD 02/25/2024 11:27 AM [facility] ALT (SGPT) 17 10 - 60 unit/L LAB CHEMISTRY METHOD 02/25/2024 11:27 AM [facility] Alkaline Phosphatase 68 42 - 121 unit/L LAB CHEMISTRY METHOD 02/25/2024 11:27 AM [facility] Total Protein 6.3 6.0 - 8.0 g/dL LAB CHEMISTRY METHOD 02/25/2024 11:27 AM [facility] Albumin 3.0(L) 3.2 - 5.0 g/dL LAB CHEMISTRY METHOD 02/25/2024 11:27 AM [facility] Total Bilirubin 0.7 0.0 - 1.4 mg/dL LAB CHEMISTRY METHOD 02/25/2024 11:27 AM [facility] Blood Venous blood specimen / Unknown Venipuncture / Unknown 02/25/2024 5:50 AM EST 02/25/2024 9:25 AM EST us De Snyder MD LAB BLOOD ORDERABLES Final Resu lt [facility] [address] [place] [address], documented in this encounter Visit Diagnoses Diagnosis Encounter for other general examination documented in this encounter Care Teams Oil Well Drilling Manager Relationship Specialty Start Date End Date Jackeline Saha MD [address] [place], [place] PCP - General Internal Medicine 09/23/21 documented as of this encounter
--- OUTSIDE RECORDS SUMMARY | 2024-06-30 11:20 | XMS_ITS | Encounter Summary ---
Author Organization [facility] Address [address] [place] [address] Care Team Providers Care Piano Instructor Name Role Phone Jackeline Saha MD Primary Care Pr ovider Encounter Details Date Type Department Care Team (Late st Contact Info) Description 02/24/2024 Lab Requisition [facility] - Main Lab [address] [facility] [place] [address] De Snyder MD [address] [place] [id number] Encounter for other general examination Social History [...] K/mcL LAB HEMETOLOGY METHOD 02/24/2024 11:31 AM [facility] RBC 2.60(L) 3.80 - 4.80 M/mcL LAB HEMETOLOGY METHOD 02/24/2024 11:31 AM [facility] Hemoglobin 9.1(L) 11.5 - 16.0 g/dL LAB HEMETOLOGY METHOD 02/24/2024 11:31 AM [facility] Hematocrit 27.8(L) 35.0 - 47.0 % LAB HEMETOLOGY METHOD 02/24/2024 11:31 AM [facility] MCV 108.2(H) 79.0 - 98.0 FL LAB HEMETOLOGY METHOD 02/24/2024 11:31 AM [facility] MCH 35.4(H) 27.0 - 32.0 pcg LAB HEMETOLOGY METHOD 02/24/2024 11:31 AM [facility] MCHC 32.7 32.0 - 37.0 g/dL LAB HEMETOLOGY METHOD 02/24/2024 11:31 AM [facility] RDW 13.1 11.0 - 15.0 % LAB HEMETOLOGY METHOD 02/24/2024 11:31 AM [facility] Platelets 296 130 - 400 K/mcL LAB HEMETOLOGY METHOD 02/24/2024 11:31 AM [facility] MPV 10.4 7.0 - 11.0 FL LAB HEMETOLOGY METHOD 02/24/2024 11:31 AM [facility] NRBC 0.0 <1.0 % LAB HEMETOLOGY METHOD 02/24/2024 11:31 AM [facility] NRBC Absolute 0.00 <0.10 K/mcL LAB HEMETOLOGY METHOD 02/24/2024 11:31 AM [facility] Neutrophils Relative 77.1 % LAB HEMETOLOGY METHOD 02/24/2024 11:31 AM [facility] Lymphocytes Relative 7.3 % LAB HEMETOLOGY METHOD 02/24/2024 11:31 AM [facility] Monocytes Relative 14.7 % LAB HEMETOLOGY METHOD 02/24/2024 11:31 AM [facility] Eosinophils Relative 0.2 % LAB HEMETOLOGY METHOD 02/24/2024 11:31 AM [facility] Basophils Relative 0.4 % LAB HEMETOLOGY METHOD 02/24/2024 11:31 AM [facility] Immature Granulocytes Relative 0.3 % LAB HEMETOLOGY METHOD 02/24/2024 11:31 AM [facility] Neutrophils Absolute 7.15(H) 1.50 - 7.00 K/mcL LAB HEMETOLOGY METHOD 02/24/2024 11:31 AM [facility] Lymphocytes Absolute 0.68(L) 1.00 - 5.00 K/mcL LAB HEMETOLOGY METHOD 02/24/2024 11:31 AM [facility] Monocytes Absolute 1.37(H) 0.20 - 1.00 K/mcL LAB HEMETOLOGY METHOD 02/24/2024 11:31 AM [facility] Eosinophils Absolute 0.02 0.00 - 0.50 K/mcL LAB HEMETOLOGY METHOD 02/24/2024 11:31 AM [facility] Basophils Absolute 0.04 0.00 - 0.20 K/mcL LAB HEMETOLOGY METHOD 02/24/2024 11:31 AM [facility] Immature Granulocytes Absolute 0.03 0.00 - 0.03 K/mcL LAB HEMETOLOGY METHOD 02/24/2024 11:31 AM EST [facility] Blood Venous blood specimen / Unknown Venipuncture / Unknown 02/24/2024 10:46 AM EST 02/24/2024 11:17 AM EST us De Snyder MD LAB BLOOD ORDERABLES Final Resu lt Performing Organization Address City/[facility]/ZIP Co de Phone Number [facility] [address] [place] [address], [place] [phone] * B-type natriuretic peptide (02/24/2024 10:46 AM EST) BNP 98 <=100 pcg/mL LAB CHEMISTRY METHOD 02/24/2024 12:11 PM EST [facility] Blood Venous blood specimen / Unknown Venipuncture / Unknown 02/24/2024 10:46 AM EST 02/24/2024 11:17 AM EST us De Snyder MD LAB BLOOD ORDERABLES Final Resu lt Performing Organization Address [facility]/ZIP Co de Phone Number [facility] [address] [place] [address], [place] [phone] * Ammonia (02/24/2024 10:46 AM EST) Ammonia 24 11 - 35 mcmol/L LAB CHEMISTRY METHOD 02/24/2024 12:10 PM EST [facility] Blood Venous blood specimen / Unknown Venipuncture / Unknown 02/24/2024 10:46 AM EST 02/24/2024 11:17 AM EST us De Snyder MD LAB BLOOD ORDERABLES Final Resu lt Performing Organization Address City/[facility]/ZIP Co de Phone Number [facility] [address] [place] [address], [place] [phone] * (ABNORMAL) Comprehensive metabolic panel (02/24/2024 10:46 AM EST) Sodium 126(L) 133 - 145 mmol/L LAB CHEMISTRY METHOD 02/24/2024 12:11 PM [facility] Potassium 4.7 3.5 - 5.5 mmol/L LAB CHEMISTRY METHOD 02/24/2024 12:11 PM [facility] Chloride 92(L) 96 - 110 mmol/L LAB CHEMISTRY METHOD 02/24/2024 12:11 PM [facility] CO2 27 21 - 32 mmol/L LAB CHEMISTRY METHOD 02/24/2024 12:11 PM [facility] Anion Gap 7 3 - 11 LAB CHEMISTRY METHOD 02/24/2024 12:11 PM [facility] Glucose 107(H) 70 - 100 mg/dL LAB CHEMISTRY METHOD 02/24/2024 12:11 PM [facility] BUN 61(H) 5 - 25 mg/dL LAB CHEMISTRY METHOD 02/24/2024 12:11 PM [facility] Comment:Results verified by repeat testing Creatinine 5.80(H) 0.50 - 1.10 mg/dL LAB CHEMISTRY METHOD 02/24/2024 12:11 PM [facility] Comment:Results verified by repeat testing eGFR 7(L) >=60 mL/min/1. 73m2 LAB CHEMISTRY METHOD 02/24/2024 12:11 PM [facility] Comment:Calculation based on the??Chronic Kidney Disease Epidemiology Collaboration (CKD-EPI) equation refit??without adjustment for race. BUN/Creatinine Ratio 10.5 LAB CHEMISTRY METHOD 02/24/2024 12:11 PM [facility] Calcium 10.7(H) 8.5 - 10.5 mg/dL LAB CHEMISTRY METHOD 02/24/2024 12:11 PM [facility] AST (SGOT) 23 10 - 42 unit/L LAB CHEMISTRY METHOD 02/24/2024 12:11 PM [facility] ALT (SGPT) 14 10 - 60 unit/L LAB CHEMISTRY METHOD 02/24/2024 12:11 PM [facility] Alkaline Phosphatase 68 42 - 121 unit/L LAB CHEMISTRY METHOD 02/24/2024 12:11 PM [facility] Total Protein 7.4 6.0 - 8.0 g/dL LAB CHEMISTRY METHOD 02/24/2024 12:11 PM [facility] Albumin 3.5 3.2 - 5.0 g/dL LAB CHEMISTRY METHOD 02/24/2024 12:11 PM [facility] Total Bilirubin 0.7 0.0 - 1.4 mg/dL LAB CHEMISTRY METHOD 02/24/2024 12:11 PM [facility] Blood Venous blood specimen / Unknown Venipuncture / Unknown 02/24/2024 10:46 AM EST 02/24/2024 11:17 AM EST us De Snyder MD LAB BLOOD ORDERABLES Final Resu lt [facility] [address] [place] [address], documented in this encounter Visit Diagnoses Diagnosis Encounter for other general examination documented in this encounter Care Teams Piano Instructor Relationship Specialty Start Date End Date Jackeline Saha MD [address] [facility] [place] PCP - General Internal Medicine 09/23/21 documented as of this encounter
--- OUTSIDE RECORDS SUMMARY | 2024-06-30 11:20 | XMS_ITS | Clinical Summary ---
Author Organization [address] Address [address] [place] [address] Phone Care Team Providers Care Caregiver Services Home Name Role Phone Jackeline Saha MD Primary [...] hypertension 01/03/2018 Asthma 09/14/2017 COPD (chronic obstructive pu lmonary disease) ([facility] V24, [facility] V28) 09/14/2017 Degenerative disc disease, lumbar 09/14/2017 Overview (03/06/2024): [...] MRI COPD (chronic obstructive pu lmonary disease) ([facility] V24, [facility] V28) 09/14/2017 DX:COPD (chronic o bstructive pulmonary disease) ([facility]) Depression 09/14/2017 DX:Depression Hyperlipidemia 09/14/2017 DX:Hyperlipidemi [...] season) 2023 03/25/2021, 10/09/2020, 09/18/2020 Influenza Vaccine (Season Ended) 2024 12/30/2021, 12/08/2020, 11/20/2019, Additional history exists Cholesterol Screening [...] age to complete this topic Meningococcal B Vaccine Aged Out No l onger eligible based on patient's age to complete [...] Basic metabolic panel (02/26/2024 5:45 AM EST) Pathologist [facility] Sodium 134 133 - 145 mmol/L LAB CHEMISTRY METHOD 02/26/2024 10:36 AM [facility] Potassium 4.8 3.5 - 5.5 mmol/L LAB CHEMISTRY METHOD 02/26/2024 10:36 AM [facility] Chloride 100 96 - 110 mmol/L LAB CHEMISTRY METHOD 02/26/2024 10:36 AM [facility] CO2 27 21 - 32 mmol/L LAB CHEMISTRY METHOD 02/26/2024 10:36 AM [facility] Anion Gap 7 3 - 11 LAB CHEMISTRY METHOD 02/26/2024 10:36 AM [facility] Glucose 97 70 - 100 mg/dL LAB CHEMISTRY METHOD 02/26/2024 10:36 AM [facility] BUN 30(H) 5 - 25 mg/dL LAB CHEMISTRY METHOD 02/26/2024 10:36 AM [facility] Creatinine 0.85 0.50 - 1.10 mg/dL LAB CHEMISTRY METHOD 02/26/2024 10:36 AM [facility] eGFR 74 >=60 mL/min/1. 73m2 LAB CHEMISTRY METHOD 02/26/2024 10:36 AM [facility] Comment:Calculation based on the??Chronic Kidney Disease Epidemiology Collaboration (CKD-EPI) equation refit??without adjustment for race. BUN/Creatinine Ratio 35.3 LAB CHEMISTRY METHOD 02/26/2024 10:36 AM EST [facility] Calcium 9.7 8.5 - 10.5 mg/dL LAB CHEMISTRY METHOD 02/26/2024 10:36 AM EST [facility] Blood Venous blood specimen / Unknown Venipuncture / Unknown 02/26/2024 5:45 AM EST 02/26/2024 9:44 AM EST us De Snyder MD LAB BLOOD ORDERABLES Final Resu lt [facility] [address] [place] [address], [place] [phone] * DIAGNOSTIC MAMMOGRAPHY INCLUDING CAD BILATERAL (06/22/2021 [...] Result * (ABNORMAL) Lipid panel (01/21/2020) Pathologist [facility] LDL/HDL Ratio 2 0 - 4 Triglycerides 223(A) 0 - 150 mg/dL Cholesterol 212(A) 0 - 200 mg/dL HDL 129 >=40 mg/dL LDL Cholesterol 39 0 - 100 mg/dL Blood Venous blood specimen / Unknown Result [facility] Historical Provider LAB BLOOD ORDERABLES Galilea l Result * Hepatitis C Screening (06/06/2018) Pathologist [facility] Hepatitis C Screening abstracted Result [facility] Historical [facility] Final Result from Last 3 Months or Most Recently Relevant to Health Maintenance Insurance MEDICARE [place]ICAID - [place] Care Teams Caregiver Services Home Relationship Specialty Start Date End Date Jackeline Saha MD [address] [facility], [place] PCP - General Internal Medicine 09/23/21
[2024-08-18 11:46] VITALS: BP 143/83; PULSE 63; RESP 16; O2SAT 98; BMI 23.6
--- NOTE | 2024-08-18 12:23 | HO.ANESPROP2 ---
Documented by User: Zena Johnson NP 09/15/24 09:26 HPI - Anesthesia Eval Consult details Narrative: 69yo F for Right Reverse Shoulder Total Arthroplasty, 09/16/24 No recent illness No CP. No SOB. Breathing feels tight . Pt questioning allergies Pulmo optimized. [place]s [facility] Pulmo for: Bronchiectasis/Emphysema. Albuterol 1-2 x daily. Preop visit 08/2024 with med changes for mild dyspnea/tightness PMFSH Active Problems Active Problems: All Active Problems MADINA (generalized anxiety disorder) (Acute) Pre-op chest exam (Acute) Physical deconditioning (Acute) Elevated total protein (Acute) Macrocytic anemia (Acute) Chronic back pain greater than 3 months duration (Acute) Elevated troponin level not due myocardial infarction (Acute) Hypomagnesemia (Acute) Right ankle sprain (Acute) Pulmonary nodules (Acute) Chronic sinusitis (Acute) Sinusitis (Acute) Anxiety (Acute) Anemia (Acute) Scarring of lung (Acute) Weight gain (Acute) Essential hypertension (Acute) Vertigo (Acute) Left ankle swelling (Acute) Ankle pain, left (Acute) Urinary tract infection (Acute) Dry cough (Acute) Acute sinusitis (Acute) Abnormal laboratory test (Acute) Fracture of surgical neck of right humerus (Acute) Chronic bronchitis (Acute) Bronchiectasis (Acute) Emphysema of lung (Acute) Past Medical History Medical History COPD (chronic obstructive pulmonary disease) Arthritis Back pain Numbness and tingling in both hands Hx of febrile seizure Seasonal allergies PND (post-nasal drip) Opioid use Fracture of surgical neck of right humerus Chronic bronchitis Bronchiectasis Depression Emphysema of lung Family History Family History Mother No problems noted. Father Emphysema lung Family/Other Mental health disorder Substance use disorder Family history of problems with anesthesia: No Surgical History Surgical History History of ear surgery History of Problems with Anesthesia: No Social History Social History Household Members: None Housing: Apartment Are you a primary childbirth and infant care teacher to a significant other at home: No Do you presently have visiting nurse or other home services: No Alcohol intake: current Alcohol intake frequency: former alcohol drinker Alcohol type: beer and hard liquor Patient Tobacco Use Status: Former Tobacco user Tobacco use type: Cigarette e-Cigarette/Vaping Use: Never Used Second Hand Smoke Exposure: Yes Use of substances other than those prescribed or required for medical reasons: Yes Substance Use Type: Marijuana Substance Use Frequency: Occasionally Have you been hit, kicked, punched, or otherwise hurt by someone within the past year? If so, by whom?: No Are you DNR?: No Advance Directives: No Advance Directives Information Provided: Yes Advance Directives on File: No Poor oral hygiene: Yes (upper denture, lower some missing) service: No Current occupational status: employed Current occupation: left hand dominant Current occupational exposures/hazards: No Cognitive needs: No Hearing needs: No Vision needs: Yes (Glasses) Meds Allergies Allergy/AdvReac Type Severity Reaction Status Date / Time No Known Allergies Allergy Verified 09/16/24 06:24 Home Medications ?Medication ?Instructions ?Recorded ?Confirmed ?Last Taken ?Type albuterol sulfate 90 mcg/actuation 2 puff inhalation QID PRN wheezing 02/20/24 09/11/24 Unknown History aerosol inhaler budesonide-formoterol HFA 160 2 puff inhalation DAILY 03/07/24 09/11/24 Unknown History mcg-4.5 mcg/actuation aerosol inhaler celecoxib 200 mg capsule (Celebrex) 200 mg PO BID PRN Pain 08/18/24 09/11/24 09/09/24 History citalopram 40 mg tablet 40 mg PO DAILY 08/18/24 09/11/24 Unknown History Exam Height,Weight and Vital Signs: Height 5 ft 5 in Weight 64.41 kg Last Vital Signs Pulse 63 08/18/24 11:46 Resp 16 08/18/24 11:46 BP 143/83 H 08/18/24 11:46 Pulse Ox 98 08/18/24 11:46 O2 Del Method Room Air 08/18/24 11:46 Pertinent Lab Results Pertinent Lab Results: Lab Results 08/18/24 09/11/24 Range/Units 12:30 09:52 Nasal Screen MRSA (PCR) NEGATIVE (Negative) Nasal S. aureus Screen NEGATIVE (Negative) Nasal MRSA/S.aureus Interp SEE NOTE Blood Type O Positive Antibody Screen NEGATIVE Laboratory Tests 08/18/24 09/11/24 10:37 10:00 WBC 4.5 L Hgb 11.3 L Hct 34.0 L Plt Count 244 Sodium 137 Potassium 4.8 Chloride 104 Carbon Dioxide 27 BUN 27 H Creatinine 0.99 Airway TM Dist: >3cm Neck ROM: Full Denture: Upper Loose/Missing/Broken Teeth: Yes (Missing lower side molars) Heart: RRR Lungs: CTAB Assessment and Plan Assessment Anesthesia Assessment: Anesthesia Plan Discussed and PAT Visit Final Anesthetic Review Family History of Problems with Anesthesia: No History of Problems with Anesthesia: No Documented by User: Stephanie Contreras MD 09/16/24 08:02 [facility] Past Medical History Medical History COPD (chronic obstructive pulmonary disease) Arthritis Back pain Numbness and tingling in both hands Hx of febrile seizure Seasonal allergies PND (post-nasal drip) Opioid use Fracture of surgical neck of right humerus Chronic bronchitis Bronchiectasis Depression Emphysema of lung Family History Family History Mother No problems noted. Father Emphysema lung Family/Other Mental health disorder Substance use disorder Surgical History Surgical History History of ear surgery Social History Social History Household Members: None Housing: Apartment Are you a primary childbirth and infant care teacher to a significant other at home: No Do you presently have visiting nurse or other home services: No Alcohol intake: current Alcohol intake frequency: former alcohol drinker Alcohol type: beer and hard liquor Patient Tobacco Use Status: Former Tobacco user Tobacco use type: Cigarette e-Cigarette/Vaping Use: Never Used Second Hand Smoke Exposure: Yes Use of substances other than those prescribed or required for medical reasons: Yes Substance Use Type: Marijuana Substance Use Frequency: Occasionally Have you been hit, kicked, punched, or otherwise hurt by someone within the past year? If so, by whom?: No Are you DNR?: No Advance Directives: No Advance Directives Information Provided: Yes Advance Directives on File: No Poor oral hygiene: Yes (upper denture, lower some missing) service: No Current occupational status: employed Current occupation: left hand dominant Current occupational exposures/hazards: No Cognitive needs: No Hearing needs: No Vision needs: Yes (Glasses) Meds Allergies Allergy/AdvReac Type Severity Reaction Status Date / Time No Known Allergies Allergy Verified 09/16/24 06:24 Home Medications ?Medication ?Instructions ?Recorded ?Confirmed ?Last Taken ?Type albuterol sulfate 90 mcg/actuation 2 puff inhalation QID PRN wheezing 02/20/24 09/11/24 Unknown History aerosol inhaler budesonide-formoterol HFA 160 2 puff inhalation DAILY 03/07/24 09/11/24 Unknown History mcg-4.5 mcg/actuation aerosol inhaler celecoxib 200 mg capsule (Celebrex) 200 mg PO BID PRN Pain 08/18/24 09/11/24 09/09/24 History citalopram 40 mg tablet 40 mg PO DAILY 08/18/24 09/11/24 Unknown History Assessment and Plan Assessment Anesthesia Assessment: Chart Reviewed Final Anesthetic Review NPO: Yes ASA Class: III Final Preanesthetic Review: No Changes in Pt Med Stat, Meds/Allgs Chart Reviewed, Consent Obtained/Reviewed and Anes Risks/Benef Reviewed Patient Risk: Intermediate Procedure Risk: Intermediate Anesthetic Plan Anesthetic Plan: GA, Regional Block and Agree w/ Assess. and Plan Disposition: Standard PACU
[2024-08-18 14:13] LABS: MRSA Nasal PCR NEGATIVE (Negative); SA Nasal PCR NEGATIVE (Negative)
[2024-09-16] VITALS (15 sets, daily range): BP systolic 92–121; BP diastolic 50–77; PULSE 70–102; RESP 16–20; TEMP 36.1–36.8; O2SAT 94–100; BMI 24.2; BMI 25.5
--- NOTE | ~2024-09-16 | XR_ITS ---
EXAMINATION: XR SHOULDER, RIGHT CLINICAL INFORMATION: RIGHT TOTAL SHOULDER COMPARISON: June 09, 2024 TECHNIQUE: Single AP external rotation view of the right shoulder. FINDINGS: Total reversal of the performed. Surgical peyton in place overlying the joint. There is visible periprosthetic fracture. There is mild AC joint arthropathy. XR/XR shoulder RT 1V IMPRESSION: Reverse arthroplasty, right shoulder. Limited to a single view only Electronically signed by: Kan Mcpherson MD 09/16/2024 02:03 PM EDT
--- NOTE | ~2024-09-16 | FL_ITS ---
EXAMINATION: FL GUIDANCE ONLY HISTORY: RIGHT TOTAL SHOULDER COMPARISON: Correlation is made with plain films of the right shoulder dated 06/09/2024. TECHNIQUE: Fluoroscopy time: Less than 1 minute. Cumulative Dose: 0.0361 mGy. DAP: [id number] mGym2 Images: 1. FINDINGS: A single fluoroscopic spot film of the right shoulder demonstrates changes of reverse total shoulder arthroplasty. FL/FL guidance in OR IMPRESSION: Fluoroscopy during procedure. Please see procedure report for additional information. Electronically signed by: Justen Pinto MD 09/16/2024 11:06 AM EDT
[2024-09-16] MEDS: Lactated Ringers 1,000 ML 100 ML IVCONT ×2 (06:38→14:14)
[2024-09-16 07:09] LABS: Hematocrit 31.5 % (37.0-47.0); Hemoglobin 10.5 g/dl (12.0-16.0)
--- NOTE | 2024-09-16 07:23 | MHC.SHP ---
Pre-Procedural Eval Section A - 24 Hr Update-Section A only Date of Service: 09/16/24 The patient is an INPATIENT: No Changes since office visit: No Cold of Flu in the past 2 weeks, No New Medical Problems, No Changes in Medication and No Patient answered all questions The patient has been examined within 24 hours of the surgical procedure. The History & Physical has been completed within 30 days and I have reviewed it.: Yes Section B - Complete if H&P > 30 days Chief Complaint: Unspecified displaced fracture of surgical neck of Allergies: Allergies Allergy/AdvReac Type Severity Reaction Status Date / Time No Known Allergies Allergy Verified 09/16/24 06:24 Plan I have reviewed the history and physical and performed a pertinent physical examination on my patient. No changes have occurred unless specified. Time Spent With Patient Time: Total time managing care of this patient today ____ minutes.
--- NOTE | 2024-09-16 08:32 | P.DS_ITS ---
DS: Providers Provider Date of Service: 09/16/24 <IGNACIO Samuels - Last Filed: 09/18/24 08:36> Date of discharge: 09/18/24 <IGNACIO Samuels - Last Filed: 09/18/24 08:36> Primary care physician: Tena Wright MD <Whit Dexter PA-C - Last Filed: 09/18/24 08:35> DS: Summary Hospital Course Hospital Course: The patient underwent a successful right reverse total shoulder arthroplasty, they were transferred to PACU and then to the floor to recover. During their stay, their vitals were stable, afebrile at 99.8. POD1 the patient's H&H was 7.1/21.4. Therefor, two units of packed red blood cells. H&H on day of discharge was 10.5/31/.POD 1 they were started on Aspirin 325mg po bid for DVT ppx, they also received Physical Therapy services twice a day. Prior to discharge, their dressing was clean dry and intact, and the plan was to be discharged home with VNA services. <Whit Dexter PA-C - Last Filed: 09/18/24 08:35> Time Attestation Discharge Coordination Time (in mins): 30 <SARATH Gonzalez Last Filed: 09/18/24 08:35> Quality: Safe Use of Opioids Does Pt have an Active Cancer Diagnosis on the Problem List?: No <Whit Dexter PA-C - Last Filed: 09/18/24 08:35> Quality: Stroke Does the patient have a stroke diagnosis?: No <Whit Dexter PA-C - Last Filed: 09/18/24 08:35> Physical Exam Vital Signs: Vital Signs: Last Vital Signs Temp 98.2 F 09/16/24 06:46 Pulse 70 09/16/24 06:46 Resp 18 09/16/24 06:46 BP 121/69 09/16/24 06:46 Pulse Ox 100 09/16/24 06:46 O2 Del Method Room Air 09/16/24 06:46 BMI result Body Mass Index 24.2 <SARATH Gonzalez Last Filed: 09/18/24 08:35> Extrem: Other: right shoulder dressing is c/d/i. Able to flex and extend at the wrist. Able to extend all digits and make a closed fist. Sensation intact. Radial pulse intact. Cap refill brisk. <Whit Dexter PA-C - Last Filed: 09/18/24 08:35> DS: Data Data Completed and Pending Labs on day of discharge: Laboratory Results - last 24 hr 09/16/24 06:48 Hgb 10.5 L Hct 31.5 L <Whit Dexter PA-C - Last Filed: 09/18/24 08:35> Discharge Plan Discharge Patient Disposition: Home Health Service <Whit Dexter PA-C - Last Filed: 09/18/24 08:35> Referrals: Josie YANG [Outside] - 1 Week Arik Barraza PA-C [Physician Java Lead Engineer, Orthopedics] - 10/02/24 2:15 pm <Whit Dexter PA-C - Last Filed: 09/18/24 08:35> Discharge Medications: New celecoxib 200 mg Capsule 200 mg PO BID 30 Days Qty: 60 0RF docusate sodium 100 mg Capsule 100 mg PO BID 30 Days Qty: 60 0RF oxycodone 5 mg Tablet 10 mg PO Q4H PRN (Reason: Pain, Moderate(Pain Scale 4-6)) 7 Days Qty: 84 0RF Rx Instructions: Partial Fill upon patient request. Continued calcium carbonate-vit D3-min 600 mg-10 mcg (400 unit) tablet 1 tab PO BID Qty: 60 0RF multivitamin with minerals Tablet 1 tab PO DAILY Qty: 30 0RF lisinopril 40 mg tablet 40 mg PO DAILY 90 Days Qty: 90 1RF magnesium oxide 200 mg magnesium tablet 200 mg PO DAILY Qty: 10 0RF albuterol sulfate 90 mcg/actuation HFA aerosol inhaler 2 puff inhalation QID PRN (Reason: wheezing) citalopram 40 mg tablet 40 mg PO DAILY acetaminophen 500 mg Tablet 1,500 mg PO BID fluticasone propionate 50 mcg/actuation [place],Suspension 1 spray INTRANASAL BID PRN (Reason: Allergic Symptoms) Rx Instructions: administer into each nostril naloxone [Narcan] 4 mg/actuation spray,non-aerosol 4 mg intranasal Q2M 30 Days Qty: 2 0RF Rx Instructions: spray 1 dose into ONE nostril; alternate nostrils w each dose until help arrives Held tramadol 50 mg tablet 100 mg PO Q8H PRN (Reason: pain) 30 Days Qty: 180 0RF No Action celecoxib [Celebrex] 200 mg capsule 200 mg PO BID PRN (Reason: Pain) <Whit Dexter PA-C - Last Filed: 09/18/24 08:35> Discharge Orders: Discharge Order (Routine); Ordered 09/18/24 Ordered By: Meek Coffey <Whit Dexter PA-C - Last Filed: 09/18/24 08:35> Diet: Advance to usual diet <Whit Dexter PA-C - Last Filed: 09/18/24 08:35> Advance to usual diet <IGNACIO Samuels Last Filed: 09/18/24 08:36> Activity on Discharge: Use Splints or Immobilizers <Whit Dexter PA-C - Last Filed: 09/18/24 08:35> Use Splints or Immobilizers <IGNACIO Samuels Last Filed: 09/18/24 08:36> Activity Restrictions/Additional Instructions: Wear sling at all times No Driving Do not bathe or shower Keep bandage clean, dry, and intact - Call orthopedics if there are any concerns about the bandage Call [facility] orth[facility]ics with any questions or concerns. Follow up with orthopedics 10/02/24 at 2:15pm with Arik Barraza PA-C <Whit Dexter PA-C - Last Filed: 09/18/24 08:35> Print Language: Macedonian <Whit Dexter PA-C - Last Filed: 09/18/24 08:35>
--- NOTE | 2024-09-16 08:34 | P.F2F_ITS ---
Service Date Service Date: 09/16/24 Encounter Date of encounter: 09/17/24 Reasons for Services Signs and symptoms assessed: s/p right reverse total shoulder arthroplasty Pt. is considered homebound due to recent surgery. Unable to drive, poor balance, poor gait mechanics. Reason for occupational therapy: home safety and mobility, therapeutic exercises, restore joint function, gait/transfer training and ADL training Homebound: Leaving the home is medically contraindicated at this time without the asist of a device and/or another person due th the listed conditions above and below. Reason homebound: pain with ambulation, pain with transfers, poor balance / fall risk and unable to drive Certification: Based on the above findings, I certify that this patient is confined to the home and needs intermittent long term care, physical therapy and/or speech th erapy, or continues to need occupational therapy. The patient is under my care, and I have initiated the establishment of the plan of care. The patient will be followed by a physician who will periodically review the plan of care. Time Spent With Patient Time: Total time managing care of this patient today ____ minutes.
--- NOTE | 2024-09-16 11:29 | PM.OP ---
Brief Operative Note Date of Service: 09/16/24 Pre-op diagnosis: 4-part proximal humerus fracture Post-op diagnosis: same Procedure: revers TSA right shoulder Implants: Tournier Surgeon: José Rodriguez MD Anesthesia: GETA and regional Was an Ambulance Dispatcher used for this Procedure?: Yes Ambulance Dispatcher: Kalyn Barraza Estimated blood loss (mL): 350 IV fluids (mL): 1,500 Pathology: other Condition: stable Disposition: PACU
--- NOTE | 2024-09-16 14:19 | P.CONHOSP_ITS ---
History of Present Illness Data of Consult Service Date: 09/16/24 Primary Care Provider: Tena Wright MD HPI 69-year-old woman admitted by Orthopedic surgery and is status post right shoulder arthroplasty. Surgery was unremarkable. Patient denies any nausea or vomiting. She is currently resting in bed with minimal amount of pain. Vital signs are stable, recent labs within normal limits. Review of Systems 2 Review of Systems: Denies any recent fever chills or decrease in appetite respiratory denies any shortness of breath or cough cardiovascular denied chest pain gastrointestinal denies any dysphagia abdominal pain nausea vomiting or diarrhea genitourinary denies any dysuria frequency or hematuria musculoskeletal right shoulder pain neuropsych denies any weakness or seizures all other systems reviewed are negative [facility] Medical History COPD (chronic obstructive pulmonary disease) Arthritis Back pain Numbness and tingling in both hands Hx of febrile seizure Seasonal allergies PND (post-nasal drip) Opioid use Fracture of surgical neck of right humerus Chronic bronchitis Bronchiectasis Depression Emphysema of lung Family History Mother No problems noted. Father Emphysema lung Family/Other Mental health disorder Substance use disorder Surgical History History of ear surgery Social History Household Members: None Housing: House Are you a primary director long term care to a significant other at home: No Do you presently have visiting nurse or other home services: No Alcohol intake: current Alcohol intake frequency: former alcohol drinker Alcohol type: beer and hard liquor Patient Tobacco Use Status: Former Tobacco user Tobacco use type: Cigarette e-Cigarette/Vaping Use: Never Used Second Hand Smoke Exposure: Yes Use of substances other than those prescribed or required for medical reasons: Yes Substance Use Type: Marijuana Substance Use Frequency: Occasionally Currently Displaying Signs/Symptoms of Drug Intoxication Withdrawal: No Have you been hit, kicked, punched, or otherwise hurt by someone within the past year? If so, by whom?: No Do you feel safe in your current relationship?: No Current Relationship Is there a partner from a previous relationship who is making you feel unsafe now?: No Are you made to feel afraid or neglected: No Are you DNR?: No Advance Directives: No Advance Directives Information Provided: Yes Advance Directives on File: No Do you have a plan to hurt others: No Plan Recently lost weight without trying: No Nutrition Risks: No Nutritional Risk Patient : No Poor oral hygiene: Yes (upper denture, lower some missing) service: No Current occupational status: employed Current occupation: left hand dominant Current occupational exposures/hazards: No Cognitive needs: No Hearing needs: No Vision needs: Yes (Glasses) Meds Allergies Allergy/AdvReac Type Severity Reaction Status Date / Time No Known Allergies Allergy Verified 09/16/24 06:24 Active Medications: Current Medications Acetaminophen (Acetaminophen 325 Mg Tablet) 650 mg PO Q6H PRN PRN Reason: Pain, Mild 1-3,fever,headache Albuterol Sulfate (Albuterol Sulfate 90 Mcg 8 Gm Inhaler) 2 puff INHALE QID PRN PRN Reason: Wheezing Celecoxib (Celecoxib 200 Mg Capsule) 200 mg PO BID ADDIE Docusate Sodium (Docusate Sodium 100 Mg Capsule) 100 mg PO BID ADDIE Fluticasone Propionate (Fluticasone Propionate Nasal 16 Gm [place]) 1 spray NOSTRIL-B BID ADDIE Hydromorphone HCl (Hydromorphone Hcl 0.5 Mg/0.5 Ml Syringe) 0.25 mg IVPUSH Q4H PRN; Protocol PRN Reason: Pain, Severe (Pain Scale 7-10) Lactated Ringer's (Lr) 1,000 mls @ 100 mls/hr IVCONT .Q10H ADDIE Stop: 09/17/24 08:00 Cefazolin Sodium/Dextrose (Ancef) 2 gm in 50 mls @ 100 mls/hr IV POSTOP@1400 ONE Stop: 09/16/24 14:29 Magnesium Oxide (Magnesium Oxide 400 Mg Tablet) 200 mg PO DAILY [facility] Multivitamins/Vitamin C (Multivitamin Tablet) 1 tab PO DAILY ADDIE Naloxone HCl (Naloxone Hcl Nasal 4 Mg [place]) 4 mg NOSTRILALT Q2M PRN PRN Reason: Opiate Reversal Non-Formulary Medication (Budesonide-Formoterol) 2 puff INHALE DAILY ADDIE Non-Formulary Medication (Gygcuaiwfa-Psfetoww-Horegvvjom [Breztri Aerosphere]) 2 inhalation INHALE BID [facility] Non-Formulary Medication (Calcium Carbonate-Vit D3-Min) 1 tab PO BID [facility] Non-Formulary Medication (Citalopram) 40 mg PO DAILY [facility] Ondansetron HCl (Ondansetron Hcl 4 Mg/2 Ml Vial) 4 mg IVPUSH Q8H PRN PRN Reason: Nausea and Vomiting Oxycodone HCl (Oxycodone Hcl Immed Release 5 Mg Tablet) 5 mg PO Q4H PRN PRN Reason: Pain, Moderate(Pain Scale 4-6) Sodium Chloride (0.9 % Sodium Chloride Flush 3 Ml Syringe) 3 ml IVFLUSH QSHIFT [facility] Home Medications ?Medication ?Instructions ?Recorded ?Confirmed ?Last Taken ?Type albuterol sulfate 90 mcg/actuation 2 puff inhalation Q ID PRN wheezing 02/20/24 09/16/24 Unknown History aerosol inhaler celecoxib 200 mg capsule (Celebrex) 200 mg PO BID PRN Pain 08/18/24 09/16/24 Unknown History citalopram 40 mg tablet 40 mg PO DAILY 08/18/2409/0209/15/24 History acetaminophen 500 mg tablet 1,500 mg PO BID 09/16/24 0 09/16/24 1 Week Ago History ~09/09/24 fluticasone propionate 50 1 spray intranasal BID PRN 0 09/16/24 09/16/24 Unknown History mcg/actuation nasal Allergic Symptoms spray,suspension Physical Exam 2 Vital Signs and Narrative: Vital Signs: Last Vital Signs Temp 97.5 F 09/16/24 14:11 Pulse 85 09/16/24 14:11 Resp 18 09/16/24 14:11 BP 95/51 L 09/16/24 14:11 Pulse Ox 97 09/16/24 14:11 O2 Del Method Room Air 09/16/24 14:11 O2 Flow Rate 4 09/16/24 11:52 BMI result Body Mass Index 25.5 Appearing in no acute distress head is normocephalic atraumatic eyes pupils are PERRLA sclera is anicteric mouth throat mucous membranes are intact and moist neck is supple no lymphadenopathy, no JVD noted lung sounds are clear to auscultation heart regular rate rhythm, clear S1, S2 positive bowel sounds, abdomen is soft, nontender neuro patient is alert x3, no focal deficits Sling on right arm Results Labs 09/17/24 05:22 09/17/24 05:22 Imaging Radiologist's Impressions: Impressions Guidance Fluoroscopy 09/16/24 10:40 IMPRESSION: Fluoroscopy during procedure. Please see procedure report for additional information. Electronically signed by: Justen Pinto MD 09/16/2024 11:06 AM EDT RP Shoulder X-Ray 09/16/24 13:50 IMPRESSION: Reverse arthroplasty, right shoulder. Limited to a single view only Electronically signed by: Kan Mcpherson MD 09/16/2024 02:03 PM EDT RP Assessment and Plan (1) Essential hypertension: Status: Acute Plan 69-year-old woman admitted by Orthopedic surgery and is status post shoulder arthroplasty Right shoulder arthroplasty Management as per surgical team Pain management Hypertension. Soft blood pressures likely postoperatively Hold lisinopril for now Mental health Continue home medications COPD. May use home inhalers as needed DVT prophylaxis as per surgical team Full code Medical consultation complete. Will sign off
--- NOTE | 2024-09-16 15:18 | PHA.MEDREC ---
Pharmacy Consult ? Medication Reconciliation Pharmacy has completed the medication reconciliation. Spoke with pt and she confirmed her medications.
--- NOTE | 2024-09-16 15:19 | PHA.MEDREC ---
Addendum entered by Edi Peoples RPh 09/16/24 15:47: MED REC CHECKED BY [facility] Original Note: Pharmacy Consult ? Medication Reconciliation Pharmacy has completed the medication reconciliation. Spoke with pt and she confirmed her medications. Pt stopped most of her medications except for Tylenol, Citalopram and Lisinopril about 1-2 weeks ago for the surgery today, pt took the Tylenol, Citalopram and Lisinopril yesterday.
[2024-09-16] MEDS: oxyCODONE HCl Immed Release 5 MG TABLET PO (16:47)
[2024-09-16] MEDS: Calcium + Vitamin D 250 MG TABLET 500 MG PO (20:00)
[2024-09-16] MEDS: [UNRECOGNIZED DRUG - OTHER] 2 EACH INHALE (20:19)
[2024-09-17] VITALS (11 sets, daily range): BP systolic 89–124; BP diastolic 49–77; PULSE 71–106; RESP 16–18; TEMP 35.8–37.2; O2SAT 92–97
[2024-09-17] MEDS: Lactated Ringers 1,000 ML 100 ML IVCONT (00:30)
[2024-09-17] MEDS: oxyCODONE HCl Immed Release 5 MG TABLET PO ×4 (05:21→15:19)
[2024-09-17 06:01] LABS: MANUAL DIFF FLAG NO
[2024-09-17 06:04] LABS: Hematocrit 21.4 % (37.0-47.0); Hemoglobin 7.2 g/dl (12.0-16.0); Imm Gran Abs Auto 0.03 X10*3/uL (0.00-0.03); Imm Gran Pct Auto 0.3 % (0.0-0.4); Lymphocytes Absolute Auto 1.1 X10*3/uL (1.2-4.9); Mean Corpuscular HGB Conc 33.6 g/dl (31.0-35.0); Mean Corpuscular Hemoglobin 32.7 pg (27.0-33.0); Mean Corpuscular Volume 97.3 fL (80.0-98.0); NRBC Abs Auto 0.000 X10*3/uL (0.0-0.012); NRBC Pct Auto 0.0 /100WBC (0.0-0.2); Platelet Count 153 X10*3/uL (160-400); Red Blood Count 2.20 X10*6/uL (4.20-5.50); White Blood Count 10.0 X10*3/uL (4.8-10.8)
[2024-09-17 06:16] LABS: Anion Gap 11 (12-20); Blood Urea Nitrogen 20 mg/dL (9-16); Calcium 9.0 mg/dL (8.4-10.2); Carbon Dioxide 23 mmol/L (22-29); Chloride 106 mmol/L (96-108); Creatinine Clr Calc Pharmacy 65.5; Estimated Glomerular Filt Rate > 60; Potassium 4.7 mmol/L (3.3-5.1); Sodium 135 mmol/L (135-145)
--- NOTE | 2024-09-17 07:51 | PM.PNORT ---
Subjective Subjective Date of Service: 09/17/24 Interval history: POD1 s/p right rTSA Patient is resting in bed comfortably No overnight events Pain is managed No additional complaints Physical Exam Vital Signs: Vital Signs: Last Vital Signs Temp 97.7 F 09/17/24 07:27 Pulse 71 09/17/24 07:27 Resp 16 09/17/24 07:27 BP 96/51 L 09/17/24 07:27 Pulse Ox 97 09/17/24 07:27 O2 Del Method Room Air 09/17/24 07:27 O2 Flow Rate 4 09/16/24 11:52 BMI result Body Mass Index 25.5 Extrem: Other: right shoulder: Full sensation in all digits. Able to flex and extend all digits. Deltoid sensation intact. Bandage is c/d/i. Sling in place. Procedures Date of Service Date of Service: 09/17/24 Progress Note: A&P Assessment and plan (1) Status post reverse total arthroplasty of right shoulder: Status: Acute Plan Continue pain mgmnt begin OT for right rTSA H&H: 7.2/21.4 - 2 units of pRBCs ordered Dispo planning-Pending PT eval, pain mgmnt Time Spent With Patient Time: Total time managing care of this patient today ____ minutes. Quality Stroke Does the patient have a stroke diagnosis?: No VTE Prior VTE?: No VTE Risk Level:: Medical - moderate - high VTE Device Contraindication: N/A - Device Ordered VTE Drug Contraindication: N/A - Med Ordered
--- NOTE | 2024-09-17 08:36 | HO.POSTANES ---
Post Anesthesia Evaluation Post Anesthesia Evaluation Date of Service: 09/17/24 Vital Signs: Vital Signs Temp Pulse Resp BP Pulse Ox O2 Del Method 09/17/24 07:27 97.7 F 71 16 96/51 L 97 Room Air 09/17/24 03:13 98.5 F 88 18 103/54 L 96 Room Air 09/16/24 23:10 98.0 F 95 18 97/60 94 Room Air Anesthesia: Nerve Block and General Mental Status: Awake Pain Control: Satisfactory Nausea/Vomiting: None Hydration: Adequate Anesthesia-Related Issues: No Anes. Related Issues
[2024-09-17] MEDS: [UNRECOGNIZED DRUG - OTHER] 2 EACH INHALE (08:49)
[2024-09-17] MEDS: Calcium + Vitamin D 250 MG TABLET 500 MG PO ×2 (10:17→19:42)
--- NOTE | 2024-09-17 12:02 | MHC.CM.PN ---
IMM 09/17/24 DX UTI Patient lives in a in-law apartment @ her dtr's house PMH MS WC bound DME Apartment is handicap equipped. A ceiling lift is in place. Power wheel chair [facility] in place, referral sent. SN Suprapubic catheter change Qmonth. REG[facility] IN CHANCERY 1/H 3 days a week. Patient private pays for REGISTER IN CHANCERY services from [facility], formerly [employer] [place]. They are scheduled BID on days the [facility] does not provide care. DP resume [facility] and private pay [facility]. Patients dtr will provide transportation home. She has a handicap accessible van.
[2024-09-17] MEDS: LORazepam 2 MG/ML VIAL 0.5 MG IVPUSH (18:53)
[2024-09-17] MEDS: oxyCODONE HCl Immed Release 5 MG TABLET 10 MG PO (19:41)
[2024-09-17] MEDS: 0.9 % Sodium Chloride Flush 3 ML SYRINGE IVFLUSH (22:05)
[2024-09-18 03:02] VITALS: BP 102/59; PULSE 94; RESP 18; TEMP 37.1; O2SAT 92
[2024-09-18] MEDS: oxyCODONE HCl Immed Release 5 MG TABLET 10 MG PO ×2 (03:08→09:03)
[2024-09-18 06:42] LABS: MANUAL DIFF FLAG NO
[2024-09-18 06:44] LABS: Hematocrit 31.1 % (37.0-47.0); Hemoglobin 10.5 g/dl (12.0-16.0); Imm Gran Abs Auto 0.02 X10*3/uL (0.00-0.03); Imm Gran Pct Auto 0.2 % (0.0-0.4); Lymphocytes Absolute Auto 1.9 X10*3/uL (1.2-4.9); Mean Corpuscular HGB Conc 33.8 g/dl (31.0-35.0); Mean Corpuscular Hemoglobin 31.9 pg (27.0-33.0); Mean Corpuscular Volume 94.5 fL (80.0-98.0); NRBC Abs Auto 0.000 X10*3/uL (0.0-0.012); NRBC Pct Auto 0.0 /100WBC (0.0-0.2); Platelet Count 150 X10*3/uL (160-400); Red Blood Count 3.29 X10*6/uL (4.20-5.50); White Blood Count 8.3 X10*3/uL (4.8-10.8)
[2024-09-18 07:04] LABS: Anion Gap 10 (12-20); Blood Urea Nitrogen 14 mg/dL (9-16); Calcium 9.1 mg/dL (8.4-10.2); Carbon Dioxide 29 mmol/L (22-29); Chloride 103 mmol/L (96-108); Creatinine Clr Calc Pharmacy 61.5; Estimated Glomerular Filt Rate > 60; Potassium 4.7 mmol/L (3.3-5.1); Sodium 137 mmol/L (135-145)
[2024-09-18 07:34] VITALS: BP 96/60; PULSE 84; TEMP 37.7; O2SAT 92
[2024-09-18] MEDS: Calcium + Vitamin D 250 MG TABLET 500 MG PO (07:46)
[2024-09-18] MEDS: 0.9 % Sodium Chloride Flush 3 ML SYRINGE IVFLUSH (07:47)
--- NOTE | 2024-09-18 09:32 | MHC.CM.PN ---
Patient comes from home alone. Independent at baseline. PCP Tena Wright MD Reports she has an HCP. Copy requested. DP: OT rec home w/ services. Patient prefers [facility], who has accepted and will provide PT/OT/FURNITURE SPRAYER while patient is recovering. Referral to [facility] to assess for ongoing service needs. Daughter will transport at 11am. RN aware.
[2024-09-18 10:08] VITALS: BP 96/53; RESP 16; TEMP 36.3; O2SAT 93
[2024-09-18 10:35] VITALS: BP 94/60
--- NOTE | 2024-09-19 11:23 | P.OP_ITS ---
Operative Note Operative Note Date of Service: 09/16/24 Narrative: Date of Service: 09/16/24 Pre-op diagnosis: 4-part proximal humerus fracture Post-op diagnosis: same Procedure: revers TSA right shoulder Implants: Tournier 25 standard baselplate with 36 standard glenosphere 9mm proximal body and distal stem with locking screw and cap; +12 high offset tray and 36+9 B poly Surgeon: José Rodriguez MD Anesthesia: GETA and regional Was an [employer] Insurance used for this Procedure?: Yes [employer] Insurance: Kalyn Barraza Estimated blood loss (mL): 350 IV fluids (mL): 1,500 Pathology: other Condition: stable Disposition: PACU Patient was brought to the operating room and placed in the beach chair position on the surgical table. The limb was prepped and draped in standard sterile fashion and a time out was called to identify proper site, proper procedure and IV antibiotics per weight were administered. I began by making a deltopectoral incision from the coracoid to the pectoralis insertion. Blunt dissection identified the cephalic vein which was retracted laterally. Blunt dissection was taken down to the capsule. The 3 sisters were cauterized. I then made a full-thickness capsulotomy involving the subscapularis. The normal anatomy was not present as this was a posttraumatic situation and so there was abundant scar tissue which required slow and meticulous dissection around the humeral head which was subluxed and partially healed posterior with the shaft anterior as well as portions of bone and tissue that had scarred in in the anterior and inferior glenohumeral space. After careful and slow dissection around the mouth unit I was able to remove the head and portions of the shaft revealing the glenoid. Care was taken to prevent the inferior glenoid neurovascular bundle. At this point I prepared my glenoid. Using my preoperative template I matched the bishop paiute version and place the glenosphere in a inferior position. I began this by placing a guidewire in the center of the glenoid and then over-reamed this. Once I had excellent contact I placed a 25 mm standard base plate using 1 central, to locking screws and 1 nonlocking screw. I then elected to place a standard glenosphere. This was inserted and I turned my attention to the humeral shaft. I located the canal and I gently reamed by hand.. I elected to place a long stem for stability. I placed a provisional long stem with a +6 high offset tray and a 36 +6 poly. I was satisfied with the stability although she wanted to dislocate anteriorly given that the shaft had been in a anterior position over the past 6 months relative to the joint into the posteriorly subluxed humeral head. Although the landmarks for alignment were not easily visualized I felt that this was a stable construct as I could create especially given the lack of stability of the trial. Therefore I removed all instrumentation and I mixed 2 bags of Simplex bone cement using 3rd generation cementation technique on the back table. In the meantime I prepared the canal with a cement restrictor and washed and dried it. I then used a cement gun to place a cement in the canal and placed my final shaft in approximately 40 degrees of version and at the level of the prior. This was held in place until the cement was dry. I then repeated my trials using of +6 and a +12 tray and ultimately required a +12 tray with a +9 poly. This was stable and did not dislocate easily. I placed the high offset tray posteriorly to further stabilize the construct. I placed my final implants and again re trialed and was satisfied with the range of motion and stability. Once I was satisfied with the range of motion and stability I irrigated copiously. Subscapularis was not repairable. I closed in a layered fashion with absorbable suture and peyton and the patient was placed in a sterile dressing and an abduction sling. She was extubated brought to recovery room stable condition there were no known complications.
== END 2024-09-18 11:37 | disposition home health service (06) ==
LOC: HO.SSS 08:32 → HO.S3 13:31
PROVIDERS: Physician Assistant; PCP Internal Medicine; Visit Provider Orthopaedic Surgery
PROC: (CPT 23472; principal; 2024-09-16 07:30)
DX: S42.211A Unspecified displaced fracture of surgical neck of right humerus, initial encounter for closed fracture (principal); Z96.611 Presence of right artificial shoulder joint; X58.XXXA Exposure to other specified factors, initial encounter; Y93.9 Activity, unspecified; Y92.9 Unspecified place or not applicable; Y99.9 Unspecified external cause status; I10 Essential (primary) hypertension; J42 Unspecified chronic bronchitis; J43.9 Emphysema, unspecified; M54.9 Dorsalgia, unspecified; J30.2 Other seasonal allergic rhinitis; F32.A Depression, unspecified; Z79.51 Long term (current) use of inhaled steroids; Z79.891 Long term (current) use of opiate analgesic; Z79.899 Other long term (current) drug therapy; Z87.891 Personal history of nicotine dependence
CPT/HCPCS: 23472; 36415; 73020; 80048; 85014; 85018; 85025; 86850; 86900; 86901; 86923; 87640; 87641; 88304; 88305; 88311; 94640; 97110; 97166; 97535; C1713; C1776; J0131; J0665; J0690; J1100; J1171; J2003; J2060; J2250; J2405; J2704; J3010; J7120; P9016

== ENCOUNTER → 2024-09-16 06:07 | Outpatient (BNV) | payer MEDICARE, MEDICAID, SELFPAY | PROVIDERS: PCP Internal Medicine; Visit Provider Nurse Practitioner Acute Care | DX: I10 Essential (primary) hypertension (principal) | CPT/HCPCS: 99222 ==

== ENCOUNTER → 2024-09-16 06:07 | Outpatient (BNV) | payer MEDICARE, MEDICAID, SELFPAY | PROVIDERS: PCP Internal Medicine; Visit Provider Orthopaedic Surgery | DX: Z96.611 Presence of right artificial shoulder joint (principal) | CPT/HCPCS: 23472; 99024 ==

== ENCOUNTER → 2024-09-16 09:47 | Outpatient (BNV) | payer MEDICARE, MEDICAID, SELFPAY | PROVIDERS: PCP Internal Medicine; Visit Provider Radiology Diagnostic Radiology | DX: M25.511 Pain in right shoulder (principal); Z96.611 Presence of right artificial shoulder joint | CPT/HCPCS: 73020 ==

== ENCOUNTER 2024-10-02 09:42 | Outpatient (REF) | payer MEDICARE, MEDICAID, SELFPAY ==
--- NOTE | ~2024-10-02 | XR_ITS ---
EXAMINATION: XR SHOULDER, RIGHT CLINICAL INFORMATION: M25.511 - Pain in right shoulder COMPARISON: 09/16/2024 TECHNIQUE: AP external rotation, Grashey, scapular Y, and axillary views of the right shoulder. FINDINGS: Total reverse arthroplasty of the right shoulder again demonstrated. Anatomic alignment of the glenoid and humeral prostheses. No periprosthetic fracture or complication evident. Skin peyton in place. Remainder of the osseous structures appear intact. XR/XR shoulder RT min 2V IMPRESSION: Total reverse shoulder arthroplasty without complication evident. Electronically signed by: Brad Shaver MD 10/02/2024 02:11 PM EDT
--- OUTSIDE RECORDS SUMMARY | 2024-10-02 10:10 | XMS_ITS ---
Author Name [facility] Organization Unknown Care Team Organization Name Specialty Phone Email Start Date End Da te [facility] Termed, PROVIDER Primary Care 01/10/202210/03
--- OUTSIDE RECORDS SUMMARY | 2024-10-02 10:10 | XMS_ITS | Clinical Summary ---
Author Organization [address] Address [address] [place] [address] Phone Care Team Providers Care Rod Buster Helper Name Role Phone Jackeline Saha MD [...] 09/14/2017 COPD (chronic obstructive pu lmonary disease) ([facility] V24, [facility] V28) 09/14/2017 Degenerative disc disease, [...] MRI COPD (chronic obstructive pu lmonary disease) ([facility] V24, [facility] V28) 09/14/2017 DX:COPD (chronic o bstructive pulmonary disease) ([facility]) Depression 09/14/2017 DX:Depression Hyperlipidemia 09/14/2017 [...] Cancer Screening: Stool Based Tests (FOBT/FIT) 02/11/2022 Falls Risk Assessment 02/11/2022 Osteoporosis Screening (Bone Density Screening) 02/11/2022 Social Influencers of Health Screening 02/11/2022 Breast Cancer Screening 06/23/2023 06/23/19, 06/12/2017, 05/23/2017 Medicare Annual Wellness Visit 08/26/2023 08/25/2022 COVID-19 Vaccine ( season) 2023 03/25/2021, 10/09/2020, 09/18/2020 Depression Screening 03/05/2024 Influenza Vaccine (#1) 2024 2, 12/08/2020, 11/20/2019, [...] panel (02/26/2024 5:45 AM EST) Pathologist [facility] Sodium 134 133 - 145 [...] AM [facility] Comment:Calculation based on the Chronic Kidney Disease Epidemiology Collaboration (CKD-EPI) equation refit without adjustment for race. BUN/Creatinine Ratio 35.3 LAB CHEMISTRY METHOD 02/26/2024 10:36 AM [facility] Calcium 9.7 8.5 - 10.5 mg/dL LAB CHEMISTRY METHOD 02/26/2024 10:36 AM EST [facility] Blood Venous blood specimen / Unknown Venipuncture / Unknown 02/26/2024 5:45 AM EST 02/26/2024 9:44 AM EST us De Snyder MD LAB BLOOD ORDERABLES Final Resu lt [facility]) [facility] [address] [place] [address], [place] [phone] * DIAGNOSTIC MAMMOGRAPHY INCLUDING CAD BILATERAL (06/22/2021 [...] Final Result * (ABNORMAL) Lipid panel (01/21/2020) [facility] LDL/HDL Ratio 2 0 - 4 Triglycerides 223(A) 0 - 150 mg/dL Cholesterol 212(A) 0 - 200 mg/dL HDL 129 >=40 mg/dL LDL Cholesterol 39 0 - 100 mg/dL Blood Venous blood specimen / Unknown Historical Provider LAB BLOOD ORDERABLES Galilea l Result * Hepatitis C Screening (06/06/2018) [facility] Hepatitis C Screening abstracted Historical Provider HEALTH MAINTENANCE Final Result from Last 3 Months or Most Recently Relevant to Health Maintenance Insurance MEDICARE MEDICAID - [place] Care Teams Rod Buster Helper Relationship Specialty Start Date End Date Jackeline Saha MD [address] [facility], [place] PCP - General Internal Medicine 09/23/21
== END 2024-10-02 09:43 | disposition home or self-care (01) ==
LOC: HO.HOSX 09:42
PROVIDERS: Visit Provider Physician Assistant
DX: M25.511 Pain in right shoulder (principal); Z96.611 Presence of right artificial shoulder joint; Z79.891 Long term (current) use of opiate analgesic; Z79.899 Other long term (current) drug therapy
CPT/HCPCS: 73030; 99212

== ENCOUNTER 2024-10-02 13:52 | Outpatient (AMB) | payer MEDICARE, MEDICAID, SELFPAY ==
--- NOTE | 2024-10-02 14:14 | MHC.OFFVIS ---
Intake Visit Reasons: 2WKPO: R rTSA w/NE 09/16/24 Intake Note: Monique is a 69 year old female who presents today post operatively after undergoing a reverse RT TSA, DOS: 09/16/24. Patient reports she is doing well, states feels comfortable with use of sling. She is scheduled for an evaluation with physical therapy. Allergies No Known Allergies Allergy (Verified 10/02/24 14:20) Medication List - Last Reconciled 10/02/24 by Kalyn Barraza PA-C acetaminophen 1,500 mg PO BID albuterol sulfate 90 mcg/actuation 2 puffs inhalation QID PRN calcium carbonate-vit D3-min 600 mg-10 mcg (400 unit) 1 tab PO BID celecoxib 200 mg PO BID 30 days citalopram 40 mg PO DAILY docusate sodium 100 mg PO BID 30 days fluticasone propionate 50 mcg/actuation 1 spray intranasal BID PRN lisinopril 40 mg PO DAILY 90 days magnesium oxide 200 mg PO DAILY multivitamin with minerals 1 tab PO DAILY naloxone 4 mg/actuation (Narcan) 4 mg intranasal Q2M 30 days oxycodone 5 mg PO Q6H 7 days HPI HPI 2WKPO: R rTSA w/NE 09/16/24: Details: 69-year-old female returns to the office today for a 2 week postop status post reverse right total shoulder arthroplasty with Dr. Rodriguez on 09/16/2024. The patient comes in today with the sling. She has been using it as instructed. She states she is taking oxycodone 5 mg once a day. She does begin physical therapy outpatient tomorrow. [facility] Medical History COPD (chronic obstructive pulmonary disease) Arthritis Back pain Numbness and tingling in both hands Hx of febrile seizure Seasonal allergies PND (post-nasal drip) Opioid use Fracture of surgical neck of right humerus Chronic bronchitis Bronchiectasis Depression Emphysema of lung Surgical History History of ear surgery Family History Mother No problems noted. Father Emphysema lung Family/Other Mental health disorder Substance use disorder Social History Household Members: None Housing: House Are you a primary healthcare facility administrator to a significant other at home: No Do you presently have visiting nurse or other home services: No 75 years or older and lives alone: No Alcohol intake: current Alcohol intake frequency: former alcohol drinker Alcohol type: beer and hard liquor Patient Tobacco Use Status: Former Tobacco user Tobacco use type: Cigarette e-Cigarette/Vaping Use: Never Used Second Hand Smoke Exposure: Yes Substance Use Type: Marijuana service: No Current occupational status: employed Current occupation: left hand dominant Current occupational exposures/hazards: No Cognitive needs: No Hearing needs: No Vision needs: Yes (Glasses) Review of Systems Const All systems reviewed & are unremarkable except as noted in HPI and below Physical Exam Extrem Other: Right shoulder incision is clean dry and intact. The patient does display good posture. No significant erythema or swelling. Neurovascularly intact. Results Reviewed Results Reviewed: X-rays of the right shoulder obtained in the office today and reviewed by me show intact shoulder prosthesis Assessment & Plan Assessment & Plan (1) Status post reverse total arthroplasty of right shoulder: Code(s): Z96.611 - Presence of right artificial shoulder joint Category: Surgical Plan: Ladarius removed today Steri-Strips applied. I stressed the importance of use with the sling when out of the house and with sleeping. She can remove the bump but she needs to avoid bringing the arm behind the plane of the body. She will prop pillows around her shoulder when she is in bed or sitting in a chair. She should not do any heavy lifting or any pushing off with the right shoulder. She will begin physical therapy outpatient tomorrow. She will keep the incision clean and dry for the next 2 weeks to allow for adequate healing. I did explain to her the importance of avoiding cross contamination between the incision and the armpit. She was given a refill of oxycodone to take once a day. She will see us back in [address] Rodriguez with x-rays, sooner if needed. Orders: Orders XR shoulder RT min 2V Today M25.511 - Pain in right shoulder Coding Level of Care Code Global (08168) Diagnoses Status post reverse total arthroplasty of right shoulder Z96.611
== END 2024-10-02 14:45 | disposition home or self-care (01) ==
LOC: HO.HOS 13:53
PROVIDERS: Visit Provider Physician Assistant
DX: Z96.611 Presence of right artificial shoulder joint (principal)
CPT/HCPCS: 99024

== ENCOUNTER → 2024-10-02 13:54 | Outpatient (BNV) | payer MEDICARE, MEDICAID, SELFPAY | PROVIDERS: Visit Provider Radiology Diagnostic Radiology | DX: M25.511 Pain in right shoulder (principal) | CPT/HCPCS: 73030 ==

== ENCOUNTER → 2024-10-06 23:59 | Outpatient (BNV) | payer MEDICARE, MEDICAID, SELFPAY | PROVIDERS: PCP Internal Medicine; Visit Provider Internal Medicine | DX: S42.241D 4-part fracture of surgical neck of right humerus, subsequent encounter for fracture with routine healing (principal); J43.9 Emphysema, unspecified | CPT/HCPCS: G0180 ==

== ENCOUNTER 2024-10-23 13:57 | Outpatient (REF) | payer MEDICARE, MEDICAID, SELFPAY ==
--- NOTE | ~2024-10-23 | XR_ITS ---
EXAMINATION: XR SHOULDER, RIGHT CLINICAL INFORMATION: M25.519 - Pain in unspecified shoulder COMPARISON: October 02, 2024 TECHNIQUE: Three views of the right shoulder. FINDINGS: Reverse shoulder arthroplasty is again noted. Hardware is intact without abnormal lucency at bone metal interfaces. Skin peyton have been removed since the prior study. Osteopenia is noted in the proximal humeral diaphysis. XR/XR shoulder RT min 2V IMPRESSION: Postoperative changes following reverse shoulder arthroplasty, right side. Humeral osteopenia. Electronically signed by: Kan Mcpherson MD 10/23/2024 02:43 PM EDT
--- OUTSIDE RECORDS SUMMARY | 2024-10-23 14:05 | XMS_ITS | Clinical Summary ---
Author Organization [address] Address [address] [place] [address] Phone Care Team Providers Care Beverage Inspection Machine Tender Name Role Phone Jackeline Saha MD Primary [...] 09/14/2017 COPD (chronic obstructive pu lmonary disease) ([facility] V24, [facility] V28) 09/14/2017 Degenerative disc disease, [...] MRI COPD (chronic obstructive pu lmonary disease) ([facility] V24, [facility] V28) 09/14/2017 DX:COPD (chronic o bstructive pulmonary disease) ([facility]) Depression 09/14/2017 DX:Depression Hyperlipidemia 09/14/2017 [...] metabolic panel (02/26/2024 5:45 AM EST) Pathologist [facility] Sodium 134 133 - 145 mmol/L LAB [...] AM [facility] Comment:Calculation based on the Chronic [...] MD LAB BLOOD ORDERABLES Final Resu lt [facility]) [facility] [address] [place] [address], [place] [phone] * DIAGNOSTIC MAMMOGRAPHY INCLUDING CAD BILATERAL (06/22/2021 [...] Final Result * (ABNORMAL) Lipid panel (01/21/2020) [facility] LDL/HDL Ratio 2 0 - 4 Triglycerides 223(A) 0 - 150 mg/dL Cholesterol 212(A) 0 - 200 mg/dL HDL 129 >=40 mg/dL LDL Cholesterol 39 0 - 100 mg/dL Blood Venous blood specimen / Unknown Historical Provider LAB BLOOD ORDERABLES Galilea l Result * Hepatitis C Screening (06/06/2018) [facility] Hepatitis C Screening abstracted Historical Provider HEALTH MAINTENANCE Final Result from Last 3 Months or Most Recently Relevant to Health Maintenance Insurance MEDICARE MEDICAID - [place] Care Teams Beverage Inspection Machine Tender Relationship Specialty Start Date End Date Jackeline Saha MD [address] [facility], [place] PCP - General Internal Medicine 09/23/21
== END 2024-10-23 13:58 | disposition home or self-care (01) ==
LOC: HO.HOSX 13:57
PROVIDERS: Visit Provider Orthopaedic Surgery
DX: Z47.89 Encounter for other orthopedic aftercare (principal); Z96.611 Presence of right artificial shoulder joint; M25.511 Pain in right shoulder
CPT/HCPCS: 73030; 99212

== ENCOUNTER 2024-10-23 14:15 | Outpatient (AMB) | payer MEDICARE, MEDICAID, SELFPAY ==
--- NOTE | 2024-10-23 14:16 | MHC.OFFVIS ---
Intake Visit Reasons: PO: Right rTSA 09/16/24 Intake Note: Layla is a 67 year old female who presents today for a follow up of her left knee s/p Left TKA 05/15/23. Patient reports that she has had continued pain of the knee. Patient reports that she is doing well. Allergies No Known Allergies Allergy (Verified 10/23/24 14:25) HPI HPI PO: Right rTSA 09/16/24: Details: Layla is a 67 year old female who presents today for a follow up of her left knee s/p Left TKA 05/15/23. Patient reports that she has had continued pain of the knee. Patient reports that she is doing well. [facility] Medical History COPD (chronic obstructive pulmonary disease) Arthritis Back pain Numbness and tingling in both hands Hx of febrile seizure Seasonal allergies PND (post-nasal drip) Opioid use Fracture of surgical neck of right humerus Chronic bronchitis Bronchiectasis Depression Emphysema of lung Surgical History History of ear surgery Family History Mother No problems noted. Father Emphysema lung Family/Other Mental health disorder Substance use disorder Social History Household Members: None Housing: House Are you a primary director of critical care to a significant other at home: No Do you presently have visiting nurse or other home services: No 75 years or older and lives alone: No Alcohol intake: current Alcohol intake frequency: former alcohol drinker Alcohol type: beer and hard liquor Patient Tobacco Use Status: Former Tobacco user Tobacco use type: Cigarette e-Cigarette/Vaping Use: Never Used Second Hand Smoke Exposure: Yes Substance Use Type: Marijuana service: No Current occupational status: employed Current occupation: left hand dominant Current occupational exposures/hazards: No Cognitive needs: No Hearing needs: No Vision needs: Yes (Glasses) Physical Exam Extrem Other: Incision clean dry and intact / deltoid intact Results Reviewed Results Reviewed: I personally reviewed relevant radiographs. Right reverse total shoulder arthroplasty in expected post operative position with no hardware complications or evidence of loosening Assessment & Plan Assessment & Plan (1) Status post reverse total arthroplasty of right shoulder: Code(s): Z96.611 - Presence of right artificial shoulder joint Category: Surgical Plan: Doing Monique is doing well. Six weeks status post right reverse for trauma. She should discontinue sling. Follow up 6 weeks. Instructed her on exercises and avoiding hyperextension. Orders: Orders XR shoulder RT min 2V Today M25.519 - Pain in unspecified shoulder Coding Level of Care Code Global (66611) Diagnoses Status post reverse total arthroplasty of right shoulder Z96.611
== END 2024-10-23 14:46 | disposition home or self-care (01) ==
LOC: HO.HOS 14:16
PROVIDERS: Visit Provider Orthopaedic Surgery
DX: Z96.611 Presence of right artificial shoulder joint (principal)
CPT/HCPCS: 99024

== ENCOUNTER → 2024-10-23 14:18 | Outpatient (BNV) | payer MEDICARE, MEDICAID, SELFPAY | PROVIDERS: Visit Provider Radiology Diagnostic Radiology | DX: M25.511 Pain in right shoulder (principal); M85.811 Other specified disorders of bone density and structure, right shoulder | CPT/HCPCS: 73030 ==

== ENCOUNTER 2024-12-01 10:06 | Outpatient (AMB) | payer MEDICARE, MEDICAID, SELFPAY ==
--- NOTE | 2024-12-01 10:09 | A.OFFVIS_ITS ---
Intake Visit Reasons: Right RTSA 09/16/24 Intake Note: Monique is a 69 year old left hand dominant female who presents today for a post operative appointment about 2 months s/p right reverse TSA, DOS: 09/16/24. At her last visit she was instructed to discontinue sling use and complete exercises while avoiding hyperextension. She continues to work with CORE therapy Allergies No Known Allergies Allergy (Verified 10/23/24 14:25) HPI HPI Right RTSA 09/16/24: Details: Monique is a 69 year old left hand dominant female who presents today for a post operative appointment about 3 months s/p right reverse TSA, DOS: 09/16/24. At her last visit she was instructed to discontinue sling use and complete exercises while avoiding hyperextension. She continues to work with CORE therapy. She states she is doing well. She does have some discomfort after PT or when she overdoes it. 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 [facility] Medical History COPD (chronic obstructive pulmonary disease) Arthritis Back pain Numbness and tingling in both hands Hx of febrile seizure Seasonal allergies PND (post-nasal drip) Opioid use Fracture of surgical neck of right humerus Chronic bronchitis Bronchiectasis Depression Emphysema of lung Surgical History History of ear surgery Family History Mother No problems noted. Father Emphysema lung Family/Other Mental health disorder Substance use disorder Social History Household Members: None Housing: House Are you a primary reproductive healthcare assistant to a significant other at home: No Do you presently have visiting nurse or other home services: No 75 years or older and lives alone: No Alcohol intake: current Alcohol intake frequency: former alcohol drinker Alcohol type: beer and hard liquor Patient Tobacco Use Status: Former Tobacco user Tobacco use type: Cigarette e-Cigarette/Vaping Use: Never Used Second Hand Smoke Exposure: Yes Substance Use Type: Marijuana service: No Current occupational status: employed Current occupation: left hand dominant Current occupational exposures/hazards: No Cognitive needs: No Hearing needs: No Vision needs: Yes (Glasses) Physical Exam Extrem Other: 70/100 inc c/d/i Assessment & Plan Assessment & Plan (1) Status post reverse total arthroplasty of right shoulder: Code(s): Z96.611 - Presence of right artificial shoulder joint Category: Surgical Plan: Gris is doing well status post reverse right total shoulder arthroplasty. She may continue her PT exercises and a refill of her PT prescription was written. I instructed her on activities to avoid and how to care for her shoulder. She can see me in 9 months or sooner if problems arise Orders: Orders PT Evaluation and Treatment Today Z96.611 - Presence of right artificial shoulder joint Coding Level of Care Code Global (29847) Diagnoses Status post reverse total arthroplasty of right shoulder Z96.611
--- OUTSIDE RECORDS SUMMARY | 2024-12-01 11:17 | XMS_ITS | Encounter Summary ---
Author Organization [facility] Address [address] [place] [address] Care Team Providers Care Consultant Education Name Role Phone Jackeline Saha MD Primary Care Pr ovider Encounter Details Date Type Department Care Team (Late st Contact Info) Description 02/21/2024 Lab Requisition [facility] Lab [address] [facility] [place] [address] De Snyder MD [address] [place] [id number] Encounter for other general examination Social History [...] CBC auto differential (02/21/2024 7:10 AM EST) [facility] WBC 5.8 4.8 - 10.8 K/mcL LAB [...] Resu lt [facility] [address] [place] [address], [place] [phone] * Magnesium (02/21/2024 7:10 AM EST) Magnesium 1.9 1.9 - 2.6 mg/dL LAB CHEMISTRY METHOD 02/21/2024 11:47 AM EST [facility] Blood Venous blood specimen / Unknown Venipuncture / Unknown 02/21/2024 7:10 AM EST 02/21/2024 10:45 AM EST us De Snyder MD LAB BLOOD ORDERABLES Final Resu lt Performing Organization Address City/[facility]/ZIP Co de Phone Number [facility] [address] [place] [address], [place] [phone] * (ABNORMAL) Comprehensive metabolic panel (02/21/2024 7:10 [...] [facility] Comment:Calculation based on the Chronic Kidney Disease Epidemiology Collaboration (CKD-EPI) equation refit without adjustment for race. BUN/Creatinine Ratio 20.9 LAB [...] MD LAB BLOOD ORDERABLES Final Resu lt [facility] [address] [place] [address], documented in this encounter Visit Diagnoses Diagnosis Encounter for other general examination documented in this encounter Care Teams Consultant Education Relationship Specialty Start Date End Date Jackeline Saha MD [address] [place], [place] PCP - General Internal Medicine 09/23/21 documented as of this encounter
--- OUTSIDE RECORDS SUMMARY | 2024-12-01 11:17 | XMS_ITS | Clinical Summary ---
Author Organization [address] Address [address] [place] [address] Phone Care Team Providers Care Vacuum Filter Operator Name Role Phone Jackeline Saha MD [...] COPD (chronic obstructive pu lmonary disease) ([facility] V24, [facility] V28) 09/14/2017 Degenerative disc disease, lumbar 09/14/2017 Overview (03/06/2024): 04/2016 MRI Depression 09/14/2017 Herpes zoster 09/14/2017 Overview (03/06/2024): 09/11/2017 Hyperlipidemia 09/14/2017 Osteopenia 09/14/2017 Vitamin D deficiency 09/14/2017 Anxiety 03/28/2017 Overview (03/06/2024): Referred to behavioral health Immunizations Immunization Administration Dates Next Due Influenza trivalent, 0.5mL [...] COPD (chronic obstructive pu lmonary disease) ([facility] V24, [facility] V28) 09/14/2017 DX:COPD (chronic o bstructive pulmonary disease) ([facility]) Depression 09/14/2017 DX:Depression Hyperlipidemia 09/14/2017 DX:Hyperlipidemi a [...] 05/23/2017 Medicare Annual Wellness Visit 08/26/2023 08/25/2022 Depression Screening 03/05/2024 COVID-19 Vaccine ( season) 2024 03/25/2021, 10/09/2020, 09/18/2020 Influenza Vaccine (#1) 2024 [...] metabolic panel (02/26/2024 5:45 AM EST) Pathologist [facility] Sodium 134 133 - 145 mmol/L LAB [...] [facility] Comment:Calculation based on the Chronic Kidney Disease Epidemiology Collaboration (CKD-EPI) equation refit without adjustment for race. BUN/Creatinine Ratio 35.3 LAB CHEMISTRY METHOD 02/26/2024 10:36 AM [facility] Calcium 9.7 8.5 - 10.5 mg/dL LAB CHEMISTRY METHOD 02/26/2024 10:36 AM EST [facility] Blood Venous blood specimen / Unknown Venipuncture / Unknown 02/26/2024 5:45 AM EST 02/26/2024 9:44 AM EST us De Snyder MD LAB BLOOD ORDERABLES Final Resu lt [facility]) [facility] [address] [place] [address], [place] [phone] * DIAGNOSTIC MAMMOGRAPHY INCLUDING CAD BILATERAL (06/22/2021 [...] Final Result * (ABNORMAL) Lipid panel (01/21/2020) [facility] LDL/HDL Ratio 2 0 - 4 Triglycerides 223(A) 0 - 150 mg/dL Cholesterol 212(A) 0 - 200 mg/dL HDL 129 >=40 mg/dL LDL Cholesterol 39 0 - 100 mg/dL Blood Venous blood specimen / Unknown Historical Provider LAB BLOOD ORDERABLES Galilea l Result * Hepatitis C Screening (06/06/2018) [facility] Hepatitis C Screening abstracted Historical Provider HEALTH MAINTENANCE Final Result from Last 3 Months or Most Recently Relevant to Health Maintenance Insurance MEDICARE [place]ICAID - [place] Care Teams Vacuum Filter Operator Relationship Specialty Start Date End Date Jackeline Saha MD [address] [facility], [place] PCP - General Internal Medicine 09/23/21
--- OUTSIDE RECORDS SUMMARY | 2024-12-01 11:17 | XMS_ITS | Encounter Summary ---
Author Organization [facility] Address [address] [place] [address] Care Team Providers Care Sewer Repairer Name Role Phone Jackeline Saha MD Primary Care Pr ovider Encounter Details Date Type Department Care Team (Late st Contact Info) Description 02/26/2024 Lab Requisition [facility] - Main Lab [address] [facility] [place] [address] De Snyder MD [address] [place] [address] Encounter for other general examination Social History [...] K/mcL LAB HEMETOLOGY METHOD 02/26/2024 11:31 AM [facility] RBC 2.50(L) 3.80 - 4.80 M/mcL LAB HEMETOLOGY METHOD 02/26/2024 11:31 AM [facility] Hemoglobin 8.6(L) 11.5 - 16.0 g/dL LAB HEMETOLOGY METHOD 02/26/2024 11:31 AM [facility] Hematocrit 26.2(L) 35.0 - 47.0 % LAB HEMETOLOGY METHOD 02/26/2024 11:31 AM [facility] MCV 104.4(H) 79.0 - 98.0 FL LAB HEMETOLOGY METHOD 02/26/2024 11:31 AM [facility] MCH 34.3(H) 27.0 - 32.0 pcg LAB HEMETOLOGY METHOD 02/26/2024 11:31 AM [facility] MCHC 32.8 32.0 - 37.0 g/dL LAB HEMETOLOGY METHOD 02/26/2024 11:31 AM [facility] RDW 13.2 11.0 - 15.0 % LAB HEMETOLOGY METHOD 02/26/2024 11:31 AM [facility] Platelets 302 130 - 400 K/mcL LAB HEMETOLOGY METHOD 02/26/2024 11:31 AM [facility] MPV 10.0 7.0 - 11.0 FL LAB HEMETOLOGY METHOD 02/26/2024 11:31 AM [facility] NRBC 0.0 <1.0 % LAB HEMETOLOGY METHOD 02/26/2024 11:31 AM [facility] NRBC Absolute 0.00 <0.10 K/mcL LAB HEMETOLOGY METHOD 02/26/2024 11:31 AM [facility] Neutrophils Relative 77.3 % LAB HEMETOLOGY METHOD 02/26/2024 11:31 AM [facility] Lymphocytes Relative 8.1 % LAB HEMETOLOGY METHOD 02/26/2024 11:31 AM [facility] Monocytes Relative 12.7 % LAB HEMETOLOGY METHOD 02/26/2024 11:31 AM [facility] Eosinophils Relative 1.3 % LAB HEMETOLOGY METHOD 02/26/2024 11:31 AM [facility] Basophils Relative 0.3 % LAB HEMETOLOGY METHOD 02/26/2024 11:31 AM [facility] Immature Granulocytes Relative 0.3 % LAB HEMETOLOGY METHOD 02/26/2024 11:31 AM [facility] Neutrophils Absolute 6.88 1.50 - 7.00 K/mcL LAB HEMETOLOGY METHOD 02/26/2024 11:31 AM [facility] Lymphocytes Absolute 0.72(L) 1.00 - 5.00 K/mcL LAB HEMETOLOGY METHOD 02/26/2024 11:31 AM [facility] Monocytes Absolute 1.13(H) 0.20 - 1.00 K/mcL LAB HEMETOLOGY METHOD 02/26/2024 11:31 AM [facility] Eosinophils Absolute 0.12 0.00 - 0.50 K/mcL LAB HEMETOLOGY METHOD 02/26/2024 11:31 AM [facility] Basophils Absolute 0.03 0.00 - 0.20 K/mcL LAB HEMETOLOGY METHOD 02/26/2024 11:31 AM [facility] Immature Granulocytes Absolute 0.03 0.00 - 0.03 K/mcL LAB HEMETOLOGY METHOD 02/26/2024 11:31 AM [facility] Blood Venous blood specimen / Unknown Venipuncture / Unknown 02/26/2024 5:45 AM EST 02/26/2024 9:44 AM EST us De Snyder MD LAB BLOOD ORDERABLES Final Resu lt [facility] [address] [place] [address], [place] [phone] * (ABNORMAL) Basic metabolic panel (02/26/2024 5:45 [...] lt [facility] [address] [place] [address], documented in this encounter Visit Diagnoses Diagnosis Encounter for other general examination documented in this encounter Care Teams Sewer Repairer Relationship Specialty Start Date End Date Jackeline Saha MD [address] [facility], [place] PCP - General Internal Medicine 09/23/21 documented as of this encounter
--- OUTSIDE RECORDS SUMMARY | 2024-12-01 11:17 | XMS_ITS | Encounter Summary ---
Author Organization [facility] Address [address] [place] [address] Care Team Providers Care Air Battle Manager Name Role Phone Jackeline Saha MD Primary Care Pr ovider Encounter Details Date Type Department Care Team (Late st Contact Info) Description 02/25/2024 Lab Requisition [facility] - Main Lab [address] [facility] [place] [address] De Snyder MD [address] [place] [address] Encounter for other general examination Social History [...] K/mcL LAB HEMETOLOGY METHOD 02/25/2024 11:[address] [facility] RBC 2.30(L) 3.80 - 4.80 M/mcL LAB HEMETOLOGY METHOD 02/25/2024 11:[address] [facility] Hemoglobin 8.1(L) 11.5 - 16.0 g/dL LAB HEMETOLOGY METHOD 02/25/2024 11:[address] [facility] Hematocrit 24.5(L) 35.0 - 47.0 % LAB HEMETOLOGY METHOD 02/25/2024 11:[address] [facility] MCV 106.1(H) 79.0 - 98.0 FL LAB HEMETOLOGY METHOD 02/25/2024 11:[address] [facility] MCH 35.1(H) 27.0 - 32.0 pcg LAB HEMETOLOGY METHOD 02/25/2024 11:[address] [facility] MCHC 33.1 32.0 - 37.0 g/dL LAB HEMETOLOGY METHOD 02/25/2024 11:[address] [facility] RDW 13.3 11.0 - 15.0 % LAB HEMETOLOGY METHOD 02/25/2024 11:[address] [facility] Platelets 257 130 - 400 K/mcL LAB HEMETOLOGY METHOD 02/25/2024 11:[address] [facility] MPV 10.0 7.0 - 11.0 FL LAB HEMETOLOGY METHOD 02/25/2024 11:[address] [facility] NRBC 0.0 <1.0 % LAB HEMETOLOGY METHOD 02/25/2024 11:[address] [facility] NRBC Absolute 0.00 <0.10 K/mcL LAB HEMETOLOGY METHOD 02/25/2024 11:[address] [facility] Neutrophils Relative 70.6 % LAB HEMETOLOGY METHOD 02/25/2024 11:[address] [facility] Lymphocytes Relative 11.6 % LAB HEMETOLOGY METHOD 02/25/2024 11:[address] [facility] Monocytes Relative 16.8 % LAB HEMETOLOGY METHOD 02/25/2024 11:[address] [facility] Eosinophils Relative 0.3 % LAB HEMETOLOGY METHOD 02/25/2024 11:[address] [facility] Basophils Relative 0.4 % LAB HEMETOLOGY METHOD 02/25/2024 11:[address] [facility] Immature Granulocytes Relative 0.3 % LAB HEMETOLOGY METHOD 02/25/2024 11:[address] [facility] Neutrophils Absolute 5.28 1.50 - 7.00 K/mcL LAB HEMETOLOGY METHOD 02/25/2024 11:[address] [facility] Lymphocytes Absolute 0.87(L) 1.00 - 5.00 K/mcL LAB HEMETOLOGY METHOD 02/25/2024 11:[address] [facility] Monocytes Absolute 1.26(H) 0.20 - 1.00 K/mcL LAB HEMETOLOGY METHOD 02/25/2024 11:[address] [facility] Eosinophils Absolute 0.02 0.00 - 0.50 K/mcL LAB HEMETOLOGY METHOD 02/25/2024 11:[address] [facility] Basophils Absolute 0.03 0.00 - 0.20 K/mcL LAB HEMETOLOGY METHOD 02/25/2024 11:[address] [facility] Immature Granulocytes Absolute 0.02 0.00 - 0.03 K/mcL LAB HEMETOLOGY METHOD 02/25/2024 11:[address] [facility] Blood Venous blood specimen / Unknown Venipuncture / Unknown 02/25/2024 5:50 AM EST 02/25/2024 9:25 AM EST us De Snyder MD LAB BLOOD ORDERABLES Final Resu lt [facility] [address] [place] [address], [place] [phone] * (ABNORMAL) Comprehensive metabolic panel (02/25/2024 5:50 AM EST) Sodium 132(L) 133 - 145 mmol/L LAB CHEMISTRY METHOD 02/25/2024 11:[address] [facility] Potassium 4.4 3.5 - 5.5 mmol/L LAB CHEMISTRY METHOD 02/25/2024 11:[address] [facility] Chloride 98 96 - 110 mmol/L LAB CHEMISTRY METHOD 02/25/2024 11:[address] [facility] CO2 27 21 - 32 mmol/L LAB CHEMISTRY METHOD 02/25/2024 11:[address] [facility] Anion Gap 7 3 - 11 LAB CHEMISTRY METHOD 02/25/2024 11:[address] [facility] Glucose 90 70 - 100 mg/dL LAB CHEMISTRY METHOD 02/25/2024 11:[address] [facility] BUN 48(H) 5 - 25 mg/dL LAB CHEMISTRY METHOD 02/25/2024 11:[address] [facility] Creatinine 1.93(H) 0.50 - 1.10 mg/dL LAB CHEMISTRY METHOD 02/25/2024 11:[address] [facility] eGFR 28(L) >=60 mL/min/1. 73m2 LAB CHEMISTRY METHOD 02/25/2024 11:[address] [facility] Comment:Calculation based on the Chronic Kidney Disease Epidemiology Collaboration (CKD-EPI) equation refit without adjustment for race. BUN/Creatinine Ratio 24.9 LAB CHEMISTRY METHOD 02/25/2024 11:[address] [facility] Calcium 9.8 8.5 - 10.5 mg/dL LAB CHEMISTRY METHOD 02/25/2024 11:[address] [facility] AST (SGOT) 25 10 - 42 unit/L LAB CHEMISTRY METHOD 02/25/2024 11:[address] [facility] ALT (SGPT) 17 10 - 60 unit/L LAB CHEMISTRY METHOD 02/25/2024 11:[address] [facility] Alkaline Phosphatase 68 42 - 121 unit/L LAB CHEMISTRY METHOD 02/25/2024 11:[address] [facility] Total Protein 6.3 6.0 - 8.0 g/dL LAB CHEMISTRY METHOD 02/25/2024 11:[address] [facility] Albumin 3.0(L) 3.2 - 5.0 g/dL LAB CHEMISTRY METHOD 02/25/2024 11:[address] [facility] Total Bilirubin 0.7 0.0 - 1.4 mg/dL LAB CHEMISTRY METHOD 02/25/2024 11:[address] [facility] Blood Venous blood specimen / Unknown Venipuncture / Unknown 02/25/2024 5:50 AM EST 02/25/2024 9:25 AM EST us De Snyder MD LAB BLOOD ORDERABLES Final Resu lt [facility] [address] [place] [address], documented in this encounter Visit Diagnoses Diagnosis Encounter for other general examination documented in this encounter Care Teams Air Battle Manager Relationship Specialty Start Date End Date Jackeline Saha MD [address] [place] PCP - General Internal Medicine 09/23/21 documented as of this encounter
--- OUTSIDE RECORDS SUMMARY | 2024-12-01 11:17 | XMS_ITS | Encounter Summary ---
Author Organization [facility] Address [address] [place] [address] Care Team Providers Care Principal Consulting Engineer Name Role Phone Jackeline Saha MD Primary Care Pr ovider Encounter Details Date Type Department Care Team (Late st Contact Info) Description 02/24/2024 Lab Requisition [facility] - Main Lab [address] [facility] [place] [address] De Snyder MD [address] [place] [address] Encounter for other general examination Social History [...] ORDERABLES Final Resu lt Performing Organization Address City/[facility]/ZIP Co de Phone Number [facility] [address] [place] [address], [place] [phone] * B-type natriuretic peptide (02/24/2024 10:46 AM EST) BNP 98 <=100 pcg/mL LAB CHEMISTRY METHOD 02/24/2024 12:11 PM EST [facility] Blood Venous blood specimen / Unknown Venipuncture / Unknown 02/24/2024 10:46 AM EST 02/24/2024 11:17 AM EST us De Snyder MD LAB BLOOD ORDERABLES Final Resu lt Performing Organization Address [facility]/ZIP Co de Phone Number [facility] [address] [place] [address], [place] [phone] * Ammonia (02/24/2024 10:46 AM EST) Ammonia 24 11 - 35 mcmol/L LAB CHEMISTRY METHOD 02/24/2024 12:10 PM EST [facility] Blood Venous blood specimen / Unknown Venipuncture / Unknown 02/24/2024 10:46 AM EST 02/24/2024 11:17 AM EST us De Snyder MD LAB BLOOD ORDERABLES Final Resu lt Performing Organization Address City/[facility]/ZIP Co de Phone Number [facility] [address] [place] [address], [place] [phone] * (ABNORMAL) Comprehensive metabolic panel (02/24/2024 10:46 [...] PM [facility] Comment:Calculation based on the Chronic Kidney Disease Epidemiology Collaboration (CKD-EPI) equation refit without adjustment for race. BUN/Creatinine Ratio 10.5 LAB [...] Resu lt [facility] [address] [place] [address], documented in this encounter Visit Diagnoses Diagnosis Encounter for other general examination documented in this encounter Care Teams Principal Consulting Engineer Relationship Specialty Start Date End Date Jackeline Saha MD [address] [place], [place] PCP - General Internal Medicine 09/23/21 documented as of this encounter
== END 2024-12-01 10:51 | disposition home or self-care (01) ==
LOC: HO.HOS 10:06
PROVIDERS: Visit Provider Orthopaedic Surgery
DX: Z96.611 Presence of right artificial shoulder joint (principal)
CPT/HCPCS: 99024

== ENCOUNTER → 2024-12-01 10:06 | Outpatient (BNVA) | payer MEDICARE, MEDICAID, SELFPAY | PROVIDERS: Visit Provider Orthopaedic Surgery | DX: Z47.1 Aftercare following joint replacement surgery (principal); Z96.611 Presence of right artificial shoulder joint | CPT/HCPCS: 99212 ==

== ENCOUNTER 2024-12-16 11:00 | Outpatient (RCR) | payer MEDICARE, MEDICAID, SELFPAY ==
--- NOTE | 2024-10-03 12:16 | MHC.PT.EP ---
[facility] [place] [facility] [place] [facility] [place] [facility] [address] Dilan Chandra [address] [phone] F: [phone] F: [phone] F: [phone] F: [phone] Physical Therapy Plan of Care Date of Evaluation: 10/03/24 Date of Surgery: 09/16/24 Diagnosis: This is a 69 yo female presenting to skilled PT with a script for R reverse TSA s/p 09/16. Assessment: This is a 69 yo female presenting to skilled PT with a script for R reverse TSA s/p 09/16. Patient is here today reporting injury on 02/19/24 s/p fall. She had PT for a few months following this without improvements in symptoms or function. Subjective report from prior PT eval notes: Patient is here today reporting that the pain has not been good. Her pain is located throughout the anterior shoulder joint and humerus described as sharp and she gets spasms. After the incident she went to [facility] for rehab where she really only did really exercise for her legs. She returned to ortho and underwent a reverse TSA on 09/16/24. She saw ortho on 10/02 and note states: Drake removed today Steri-Strips applied. I stressed the importance of use with the sling when out of the house and with sleeping. She can remove the bump but she needs to avoid bringing the arm behind the plane of the body. She will prop pillows around her shoulder when she is in bed or sitting in a chair. She should not do any heavy lifting or any pushing off with the right shoulder. She will begin physical therapy outpatient tomorrow. She will keep the incision clean and dry for the next 2 weeks to allow for adequate healing. I did explain to her the importance of avoiding cross contamination between the incision and the armpit. She was given a refill of oxycodone to take once a day. She will see us back in [address] Rodriguez with x-rays, sooner if needed. (10/23/24). She reports that she needed a transfusion after the surgery due to low blood count but no other post op precautions. She is here today reporting pain located throughout the shoulder. Pain is achy in nature. She had home PT for 2 weeks. Assessment reveals pain that ranges from up to a 4/10 at the worst. Patient demos decreased R shoulder and cervical ROM, strength of B shoulder's, TTP at GHJ joint line, UT, incisions and impaired posture with forward head and rounded shoulders. Based on functional limitations, impaired QOL and pain tolerance patient is a good candidate for skilled PT 2x/wk for 12wks. Frequency and Duration: The patient will be seen 2x/wk for 12wks Short Term Goals: Tentative goals to be met accordingly, will be adjusted as patient needs and function improves: (In 2 weeks) Demo I with HEP PROM to 90 appropriate isometrics per protocol are added (in 4 wks) Improve shoulder PROM Flexion to 90-115 degrees, ER/IR at 45 degrees abduction scapular plane Pulleys are introduced in clinic and patient compliant at home Dean Of Admissions Goals: (in 8 wks) Initiate AROM exercises s/l flexion, supine flexion and s/l ER Demo at least 3/5 MMT Improve SPADI by at least 10 points Improve overall functional QOL by at least 50% (in 12 wks) Patient will demo WFL shoulder AROM Demo at least 4/5 MMT for shoulder Improve SPADI by at least 10 more points Improve overall functional QOL by at least 80%, I in ADLs and IADLs, light housework Treatment Plan: Modalities to reduce pain, spasms and effusion. Manual therapy to restore motion and function. Therapeutic exercise to improve strength and flexibility. Neuromuscular re-education for posture and balance. Therapeutic activities to return to functional activities of daily living. Electronically signed by: Anitha Leyva PT Please sign and return to therapist. Thank you for your referral.
--- NOTE | 2024-12-16 11:50 | MHC.PT.DC ---
[facility] [place] [facility] [place] [facility] [place] Office [address] Dilan Chandra [address] [phone] F: [phone] F: [phone] F: [phone] F: [phone] Physical Therapy Discharge Report Diagnosis: This is a 69 yo female presenting to skilled PT with a script for R reverse TSA s/p 09/16. Date of Surgery: 09/16/24 Date of Evaluation: 10/03/24 Date of Discharge: Treatments to Date: 16 Cancellations to Date: 0 No Shows to Date: 0 Discharge Status: Discharge Summary: 12/16: Patient has come to 16 sessions of PT. She still lacks a pretty good amount of ROM (A flexion 140, abduction 80, ER 20, IR 50) and strength but is happy with where she is functionally and with her symptoms; feels like she can continue on her own at this time. PT is not sure about her compliance with her HEP at home per patient reports she does not really do the exercises. Continued education on importance of maintaining and continuing to make gains on her own as well as safety and surgery healing times. 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 DC to HEP. 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 Educated once more on lifting. Ended with ice, plan to DC to HEP next session as patient has plateaued in progress and is happy with her function. 12/05: Patient needs cues for form for exercises still. Following protocol in the paper chart for progression. More likely than not we will wrap up in a few sessions. Declined ice. 12/02: Patient saw ortho, left it up to her about PT but did put in another order. Patient is on the fence about continuing PT, understands her HEP and does not appear to want to switch therapists. At this time I think she'd be able to continue on her own if wanted; she understands her healing times and functional limitations that she will most likely have moving forward as well. Added in IR with weight today. Continues to demo limitations in ER and compensatory movements. She added on 3 more appointments. 11/28: Trialed s/l ER AROM but patient unable to. Demos improving AROM, needs cues for posture still. Sees ortho on Sunday, asking about continuing therapy or not. We talked about her insurance, whether she as the patient wants to continue and whether ortho wants her to when she sees them next week. 11/18: Patient educated again on safety, continues to need cues for posture (holds adducted and IR) and needs cues for exercise form. Does endorse that she could be doing her exercises more. Provided handouts. Plan to trial full can in standing next session. 11/13: Patient was educated on safety with lifting once more. She will be seeing ortho on the , educated her that she can think about continuing her HEP on her own or continuing after this. No soreness noted today. 11/11: Demos UT on the R elevated at rest as well as with movements. 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 Educated her on lifting and reaching safety and precautions. Declined ice. 11/06: Needs consistent cues for compensatory movements with UT and adduction, this is a habit I think she started a while back prior to surgery. Continued to follow protocol in chart with education on safety. No adverse reactions noted. 11/04: forearm is still noted to be pretty adducted, she has a hard time with ER, needs some cues for UT compensatory movements and adduction. Patient was educated on no lifting with this arm still. Ended with ice. 10/29: Patient saw surgeon who dc'd sling. She is to follow up in 6 more weeks. She was educated on continued precautions with sling removal and risks of dislocation. Patient is 6 weeks out and PT following protocol in chart which is conservative. Updated isometrics today and educated on home. 10/21: Demos ROM per protocol at this time. She demos UT elevation and scapular elevation with flexion. Educated on hands clasped PROM flexion at home with HEP. Demos PROM flexion 115, abduction 90, ER 30 in scapular plane. Did not take oxycodone prior to the session and did well. 10/16: Patient does not appear to have injured her shoulder after her trip this AM, I did educate her on warning signs however. Pain was well controlled. Continued to follow protocol. Will progress per surgeon after her visit next week. 10/14: Patient is passively moving better and following protocol recommendations for precautions. Patient to see the surgeon a week from . Added in pulleys for here and home per protocol. Ended with ice. 10/07: Patient has a hard time relaxing with PROM, needs cues to relax upper trap. Educated to continue her HEP as it is now with respect to pain. Added in some gentle ther-ex per protocol. Next week plan to start the pulleys. This is a 69 yo female presenting to skilled PT with a script for R reverse TSA s/p 09/16. Patient is here today reporting injury on 02/19/24 s/p fall. She had PT for a few months following this without improvements in symptoms or function. Subjective report from prior PT eval notes: Patient is here today reporting that the pain has not been good. Her pain is located throughout the anterior shoulder joint and humerus described as sharp and she gets spasms. After the incident she went to [facility] for rehab where she really only did really exercise for her legs. She returned to ortho and underwent a reverse TSA on 09/16/24. She saw ortho on 10/02 and note states: Ladarius removed today Steri-Strips applied. I stressed the importance of use with the sling when out of the house and with sleeping. She can remove the bump but she needs to avoid bringing the arm behind the plane of the body. She will prop pillows around her shoulder when she is in bed or sitting in a chair. She should not do any heavy lifting or any pushing off with the right shoulder. She will begin physical therapy outpatient tomorrow. She will keep the incision clean and dry for the next 2 weeks to allow for adequate healing. I did explain to her the importance of avoiding cross contamination between the incision and the armpit. She was given a refill of oxycodone to take once a day. She will see us back in [address] Rodriguez with x-rays, sooner if needed. (10/23/24). She reports that she needed a transfusion after the surgery due to low blood count but no other post op precautions. She is here today reporting pain located throughout the shoulder. Pain is achy in nature. She had home PT for 2 weeks. Assessment reveals pain that ranges from up to a 4/10 at the worst. Patient demos decreased R shoulder and cervical ROM, strength of B shoulder's, TTP at GHJ joint line, UT, incisions and impaired posture with forward head and rounded shoulders. Based on functional limitations, impaired QOL and pain tolerance patient is a good candidate for skilled PT 2x/wk for 12wks. Electronically signed by: Please sign and return to therapist. Thank you for your referral.
--- NOTE | 2024-12-16 11:51 | MHC.PT.DC ---
[facility] [place] Office [place] Office [place] Office [address] Dilan Chandra [address] [phone] F: [phone] F: [phone] F: [phone] F: [phone] Physical Therapy Discharge Report Diagnosis: This is a 69 yo female presenting to skilled PT with a script for R reverse TSA s/p 09/16. Date of Surgery: 09/16/24 Date of Evaluation: 10/03/24 Date of Discharge: 12/16/24 Treatments to Date: 16 Cancellations to Date: 0 No Shows to Date: 0 Discharge Status: Improved Function Patient Elected to Stop Discharge Summary: Patient has come to 16 sessions of PT. She still lacks a pretty good amount of ROM (A flexion 140, abduction 80, ER 20, IR 50) and strength but is happy with where she is functionally and with her symptoms; feels like she can continue on her own at this time. PT is not sure about her compliance with her HEP at home per patient reports she does not really do the exercises. Continued education on importance of maintaining and continuing to make gains on her own as well as safety and surgery healing times. 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 DC to HEP. Electronically signed by: Anitha Leyva PT Please sign and return to therapist. Thank you for your referral.
== END 2024-12-16 11:51 | disposition home or self-care (01) ==
LOC: HO.PTCHIC 11:00
PROVIDERS: PCP Internal Medicine; Visit Provider Physician Assistant
DX: Z47.1 Aftercare following joint replacement surgery (principal); Z96.611 Presence of right artificial shoulder joint
CPT/HCPCS: 97110; 97140; 97162

== ENCOUNTER 2025-02-20 09:22 | Outpatient (AMB) | payer MEDICARE, MEDICAID, SELFPAY ==
[2025-02-20 09:31] VITALS: BP 104/60; PULSE 75; O2SAT 98; BMI 25.4
--- NOTE | 2025-02-20 09:31 | AM.OFFWIN_ITS ---
Intake Vital Signs 02/20/25 09:31 Height 5 ft 5.5 in Weight 155 lb BMI 25.4 BP 104/60 Blood Pressure Location Lt brachial Position Sitting Pulse 75 Pulse Source Pulse Oximeter Pulse Oximetry (%) 98 Oxygen Delivery Method Room Air Intake Visit Reasons: EP-body hives Intake Note: Patient presents c/o hives all over body x2 days - unsure what tirggered them. Patient also mentions bilateral ear pain issues. Patient Tobacco Use Status: Former Tobacco user Allergies No Known Allergies Allergy (Verified 02/20/25 09:33) HPI HPI Comments History of Present Illness Details SHe presents to office with hives She said ongoing x 2 days She noticed to scalp, arms, legs, chest No facial involement noticed No SOB, throat tightness, difficiclty swallowing + itchy Painful after scratching She has tried roll on medicine for itching; no relief She tried generic benadryl which helps a little Last dose was 2 hours ago No known allergies No vaccines aside from the flu 1 month ago No travel No eating out No one with similar symptoms She has a cat x 1 month but it doesnt come hear her No fevers, dizziness, No new clothing, bedding, soaps, detergants PFSH Medical History COPD (chronic obstructive pulmonary disease) Arthritis Back pain Numbness and tingling in both hands Hx of febrile seizure Seasonal allergies PND (post-nasal drip) Opioid use Fracture of surgical neck of right humerus Chronic bronchitis Bronchiectasis Depression Emphysema of lung Surgical History History of ear surgery Family History Mother No problems noted. Father Emphysema lung Family/Other Mental health disorder Substance use disorder Social History Household Members: None Housing: House Are you a primary before and after school daycare worker to a significant other at home: No Do you presently have visiting nurse or other home services: No 75 years or older and lives alone: No Alcohol intake: current Alcohol intake frequency: former alcohol drinker Alcohol type: beer and hard liquor Patient Tobacco Use Status: Former Tobacco user Tobacco use type: Cigarette e-Cigarette/Vaping Use: Never Used Second Hand Smoke Exposure: Yes Substance Use Type: Marijuana service: No Current occupational status: employed Current occupation: left hand dominant Current occupational exposures/hazards: No Cognitive needs: No Hearing needs: No Vision needs: Yes (Glasses) Review of Systems Const Denies chills, Denies fatigue, Denies fever(s) and Denies headache(s) ENT Denies headache(s), Denies sore throat, Denies throat swelling and Denies tongue swelling Card Denies chest pain and Denies dyspnea Resp Denies cough and Denies dyspnea GI Denies vomiting Skin/Breast Reports pruritus and Reports rash Neuro Denies headache(s) Endo Denies fatigue Aller/Immun Denies throat swelling and Denies tongue swelling Physical Exam Exam Exam: General: Non-toxic, NAD. Speaking full sentences. Skin: Warm dry throughout. + diffuse urticaria of varying sizes located on arms, chest, abdomen, back and legs/gluteal region No lesions to neck, ears or face. Eye: EOMI HENT: Airway patent. Uvula midline. No pharyngeal erythema or edema. No COCKTAIL WAITRESS. Bilateral canals + cerumen. Respiratory: CTA bilaterally. No wheezes, rales or rhonchi Cardiac: RRR. No murmur MSK: Full ROM extremities. Neurology: Alert. No aphasia or facial droop. Gait without abnormality Psych: Good mood and affect Vital Signs: Last Vital Signs Pulse 75 02/20/25 09:31 BP 104/60 02/20/25 09:31 Pulse Ox 98 02/20/25 09:31 Oxygen Delivery Method Room Air 02/20/25 09:31 BMI result Body Mass Index 25.4 Assessment & Plan Assessment & Plan (1) Urticaria: Code(s): L50.9 - Urticaria, unspecified Plan: Patient seen and evaluated. Vital signs are stable She is in no respiratory distress and lungs are CTA without any oral or facial involvement Prednisone 60mg po given in office Will continue script tomorrow with a total of 60 x 3, 40 x 3 and then 20 x 3 days Discussed ER s/s for worsening rash and reaction like tongue/lip edema, throat tightness, difficulty swallowing, SOB, dizziness etc. Patient gave verbal understanding and had no additional questions or concerns at time of discharge All questions answered (2) Cerumen impaction: Code(s): H61.20 - Impacted cerumen, unspecified ear Qualifiers: Laterality: bilateral Qualified Code(s): H61.23 - Impacted cerumen, bilateral Plan: Verbal consent obtained. saline used to irrgate ears bilaterally. R Canal clear. L canal mostly clear. TM visualized bilaterally without rupture or erythema Pt tolerated well without complication. Pt was observed through ear lavage for 30 minutes post prednisone administration and she was feeling well without complaint or med side effect Orders: Orders AMB Prednisone Adult Dose Today L50.9 - Urticaria, unspecified Medications: New prednisone 20 mg PO ONCE 3 tabs 0RF L50.9 - Urticaria, unspecified prednisone Take 60mg po qd x 2 days, then 40mg po qd x 3 days, then 20mg po qd x 3 days 20 mg PO DAILY 15 tabs 0RF Coding Level of Care Code Est Pt Level 4 (07094) Diagnoses Urticaria L50.9 Bilateral impacted cerumen H61.23 Laterality: bilateral
--- OUTSIDE RECORDS SUMMARY | 2025-02-20 09:58 | XMS_ITS | Encounter Summary ---
Author Organization [facility] Prior to 01/04/2024 Address [address] [place] [address] Care Team Providers Care Bolter Helper Name Role Phone Angelica Duke MD Primary Care Provider Unavail able Park Hong MD Primary Care Provider [phone] Jackeline Saha MD Primary Care Provider + [facility], Pcp [facility] Encounter Details Date Type Department Care Team Description 08/18/2018 Telephone Gastroenterology - [place] [address] [facility] [address] [place] [address] Malik Adames MD [address] [place] [address] Social History Tobacco Use Types Packs/Day Years [...] on filedocumented in this encounter Care Teams Bolter Helper Relationship Specialty Start Date End Date Angelica Duke MD PCP - General Internal Medicine 12/13/16 01/30/21 Park Hong MD [address] [place] [phone] PCP - General Internal Medicine 01/31/21 09/22/21 Jackeline Saha MD [address] [place] [address] PCP - General Internal Medicine 09/23/21 03/30/22 [facility], Pcp [address] [place] [phone] PCP - General Internal Medicine 03/31/22 documented as of this encounter
--- OUTSIDE RECORDS SUMMARY | 2025-02-20 09:58 | XMS_ITS | Clinical Summary ---
Author Organization [address] [facility] Address [address] [place] [address] Phone Care Team Providers Care Sheet Mill Supervisor Name Role Phone Jackeline Saha MD Primary [...] MRI COPD (chronic obstructive pu lmonary disease) ([facility] V24, [facility] V28) 09/14/2017 DX:COPD (chronic o bstructive pulmonary disease) ([facility]) Depression 09/14/2017 DX:Depression Hyperlipidemia 09/14/2017 DX:Hyperlipidemi a [...] Years Used Date Smoking Tobacco: Former Cigarettes 0 Q uit: 03/05/2006 Smokeless Tobacco: Never Alcohol Use Standard Drinks/Week Comments Yes 0 (1 standard drink = 0.6 oz pur e alcohol) Comments Unknown Sex and Gender Information Value Date Recorded Sex Assigned at Not on file Legal Sex Female 4:42 AM EST Gender Identity Not on file Sexual Orientation Not on file Last Filed Vital Signs [...] RSV Immunization Adult Patients (1 - Risk 50-74 years 1-dose series) 07/18/2003 Zoster Vaccines (2 of 2) 02/15/2019 12/21/2018 [...] MD LAB BLOOD ORDERABLES Final Resu lt [facility] ([facility]) [facility] [address] [place] [address], [place] [phone] * DIAGNOSTIC MAMMOGRAPHY INCLUDING CAD BILATERAL (06/22/2021 [...] Result * (ABNORMAL) Lipid panel (01/21/2020) Pathologist [facility] LDL/HDL Ratio 2 0 - 4 Triglycerides 223(A) 0 - 150 mg/dL Cholesterol 212(A) 0 - 200 mg/dL HDL 129 >=40 mg/dL LDL Cholesterol 39 0 - 100 mg/dL Blood Venous blood specimen / Unknown Historical Provider LAB BLOOD ORDERABLES Galiela l Result * Hepatitis C Screening (06/06/2018) Pathologist [facility] Hepatitis C Screening abstracted Historical Provider HEALTH MAINTENANCE Final Result from Last 3 Months or Most Recently Relevant to Health Maintenance Insurance MEDICARE MEDICAID - [place] Care Teams Sheet Mill Supervisor Relationship Specialty Start Date End Date Jackeline Saha MD [address] [place], [place] PCP - General Internal Medicine 09/23/21
--- OUTSIDE RECORDS SUMMARY | 2025-02-20 09:58 | XMS_ITS | Encounter Summary ---
Author Organization [facility] Prior to 01/04/2024 Address [address] [place] [address] Care Team Providers Care Blacksmith Farm Name Role Phone Angelica Duke MD Primary Care Provider Unavail able Park Hong MD Primary Care Provider [phone] Jackeline Saha MD Primary Care Provider + [facility], Pcp [facility] Encounter Details Date Type Department Care Team Description 04/16/2019 Orders Only Adult Medicine [address] [address] Angelica Duke MD Social History Tobacco Use [...] on filedocumented in this encounter Care Teams Blacksmith Farm Relationship Specialty Start Date End Date Angelica Duke MD PCP - General Internal Medicine 12/13/16 01/30/21 Park Hong MD [address] [place] [id number] PCP - General Internal Medicine 01/31/21 09/22/21 Jackeline Saha MD [address] [place] [address] [phone] PCP - General Internal Medicine 09/23/21 03/30/22 [facility], Pcp [address] [place] [phone] PCP - General Internal Medicine 03/31/22 documented as of this encounter
--- OUTSIDE RECORDS SUMMARY | 2025-02-20 09:58 | XMS_ITS | Encounter Summary ---
Author Organization [facility] Prior to 01/04/2024 Address [address] [place] [address] Care Team Providers Care Diving Judge Name Role Phone Park Hong MD Primary Care Provider [phone] Jackeline Saha MD Primary Care Provider + [facility], Pcp Primary Care Provider Unavailabl e Reason for Visit * Reason Onset Date Comments refill request 03/23/2021 Encounter Details Date Type Department Care Team Description 03/23/2021 Refill Adult Medicine [address] [address] Park Hong MD [address] [place] [id number] refill request Social History Tobacco Use Types [...] insurance carrier is: [place] / Plan[place] / Product Type: MEDICARE [id number] documented in this encounter Plan of Treatment Not on file documented as of this encounter Visit Diagnoses Not on filedocumented in this encounter Care Teams Diving Judge Relationship Specialty Start Date End Date Park Hong MD [address] [place] [address] [phone] PCP - General Internal Medicine 01/31/21 09/22/21 Jackeline Saha MD [address] [place] [address] [phone] PCP - General Internal Medicine 09/23/21 03/30/22 [facility], Pcp [address] [place] [phone] PCP - General Internal Medicine 03/31/22 documented as of this encounter
--- OUTSIDE RECORDS SUMMARY | 2025-02-20 09:58 | XMS_ITS | Encounter Summary ---
Author Organization [facility] Prior to 01/04/2024 Address [address] [place] [address] Care Team Providers Care Mail Handler Assistant Name Role Phone Angelica Duke MD Primary Care Provider Unavail [facility] Park Hong MD Primary Care Provider [phone] Jackeline Saha MD Primary Care Provider + Count Includes [facility], Pcp [facility] Reason for Visit * Reason Onset Date Comments refill request 12/07/2017 Encounter Details Date Type Department Care Team Description 12/07/2017 Refill Adult Medicine [address] [address] Angelica Duke MD refill request Social History [...] N/A Patients current insurance carrier is: Payor: [employer] / Plan: CC-ALFREDO AGUIRRE TYPE 2 / Product Type: HMO [id number]-[id number] documented in this encounter Plan of Treatment Not on file documented as of this encounter Visit Diagnoses Not on filedocumented in this encounter Care Teams Mail Handler Assistant Relationship Specialty Start Date End Date Angelica Duke MD PCP - General Internal Medicine 12/13/16 01/30/21 Park Hong MD [address] [place] [address] PCP - General Internal Medicine 01/31/21 09/22/21 Jackeline Saha MD [address] [place] [phone] PCP - General Internal Medicine 09/23/21 03/30/22 Count Includes [facility], Pcp [address] [place] [phone] PCP - General Internal Medicine 03/31/22 documented as of this encounter
--- OUTSIDE RECORDS SUMMARY | 2025-02-20 09:58 | XMS_ITS | Encounter Summary ---
Author Organization [facility] Address [address] [place] [address] Care Team Providers Care Photocopying Equipment Mechanic Name Role Phone Jackeline Saha MD Primary Care Pr ovider Encounter Details Date Type Department Care Team (Late st Contact Info) Description 02/24/2024 Lab Requisition [facility] - Main Lab [address] [facility] [place] [address] De Snyder MD [address] [place] [address] Encounter for other general examination Social History [...] LAB HEMETOLOGY METHOD 02/24/2024 11:31 AM EST [facility] Blood Venous blood specimen / Unknown Venipuncture / Unknown 02/24/2024 10:46 AM EST 02/24/2024 11:17 AM EST us De Snyder MD LAB BLOOD ORDERABLES Final Resu lt Performing Organization Address City/[facility]/ZIP Co de Phone Number [facility] [address] [place] [address], [place] [phone] * B-type natriuretic peptide (02/24/2024 10:46 AM EST) BNP 98 <=100 pcg/mL LAB CHEMISTRY METHOD 02/24/2024 12:11 PM EST [facility] Blood Venous blood specimen / Unknown Venipuncture / Unknown 02/24/2024 10:46 AM EST 02/24/2024 11:17 AM EST us De Snyder MD LAB BLOOD ORDERABLES Final Resu lt Performing Organization Address [facility]/ZIP Co de Phone Number [facility] [address] [place] [address], [place] [phone] * Ammonia (02/24/2024 10:46 AM EST) Ammonia 24 11 - 35 mcmol/L LAB CHEMISTRY METHOD 02/24/2024 12:10 PM EST [facility] Blood Venous blood specimen / Unknown Venipuncture / Unknown 02/24/2024 10:46 AM EST 02/24/2024 11:17 AM EST us De Snyder MD LAB BLOOD ORDERABLES Final Resu lt Performing Organization Address City/[facility]/ZIP Co de Phone Number [facility] [address] [place] [address], [place] [phone] * (ABNORMAL) Comprehensive metabolic panel (02/24/2024 10:46 [...] Final Resu lt [facility] [address] [place] [address], documented in this encounter Visit Diagnoses Diagnosis Encounter for other general examination documented in this encounter Care Teams Photocopying Equipment Mechanic Relationship Specialty Start Date End Date Jackeline Saha MD [address] [place], [place] PCP - General Internal Medicine 09/23/21 documented as of this encounter
--- OUTSIDE RECORDS SUMMARY | 2025-02-20 09:58 | XMS_ITS | Encounter Summary ---
Author Organization [facility] Prior to 01/04/2024 Address [address] [place] [address] Care Team Providers Care Imaging Assistant Name Role Phone Makeda Duke MD Primary Care Provider Unavail able Park Hong MD Primary Care Provider [phone] Jackeline Saha MD Primary Care Provider + [facility], Pcp Primary Care Provider [facility] e Reason for Visit * Reason Onset Date Comments Provider Call Back 07/18/2017 Encounter Details Date Type Department Care Team Description 07/18/2017 Telephone Adult Medicine [address] [address] Makeda Duke MD Provider Call Back Social [...] with provider , was being seen at [facility] Advised to have sleep study for fatigue [...] on filedocumented in this encounter Care Teams Imaging Assistant Relationship Specialty Start Date End Date Makeda Duke MD PCP - General Internal Medicine 12/13/16 01/30/21 Park Hong MD [address] [place], [place] [phone] PCP - General Internal Medicine 01/31/21 09/22/21 Jackeline Saha MD [address] [place] [phone] PCP - General Internal Medicine 09/23/21 03/30/22 [facility], Vik [address] [place] [id number] PCP - General Internal Medicine 03/31/22 documented as of this encounter
--- OUTSIDE RECORDS SUMMARY | 2025-02-20 09:58 | XMS_ITS | Encounter Summary ---
Author Organization [facility] Address [address] [place] [address] Care Team Providers Care Awning Frame Maker Name Role Phone Jackeline Saha MD Primary Care Pr ovider Encounter Details Date Type Department Care Team (Late st Contact Info) Description 02/21/2024 Lab Requisition [facility] - Main Lab [address] [facility] [employer] [place] [address] De Snyder MD [address] [place] [address] Encounter for other general examination Social History [...] CBC auto differential (02/21/2024 7:10 AM EST) [facility] WBC 5.8 4.8 - 10.8 K/mcL LAB [...] Final Resu lt Performing Organization Address City/[facility]/ZIP Co de Phone Number [facility] [address] [place] [address], [place] [phone] * Magnesium (02/21/2024 7:10 AM EST) Magnesium 1.9 1.9 - 2.6 mg/dL LAB CHEMISTRY METHOD 02/21/2024 11:47 AM EST [facility] Blood Venous blood specimen / Unknown Venipuncture / Unknown 02/21/2024 7:10 AM EST 02/21/2024 10:45 AM EST us De Snyder MD LAB BLOOD ORDERABLES Final Resu lt Performing Organization Address City/[facility]/ZIP Co de Phone Number [facility] [address] [place] [address], [place] [phone] * (ABNORMAL) Comprehensive metabolic panel (02/21/2024 7:10 AM EST) Sodium 133 133 - 145 mmol/L LAB CHEMISTRY METHOD 02/21/2024 11:49 AM EST [facility] Potassium 4.6 3.5 - 5.5 mmol/L LAB CHEMISTRY METHOD 02/21/2024 11:49 AM EST [facility] Chloride 101 96 - 110 mmol/L LAB CHEMISTRY METHOD 02/21/2024 11:49 AM EST [facility] CO2 28 21 - 32 mmol/L LAB CHEMISTRY METHOD 02/21/2024 11:49 AM EST [facility] Anion Gap 4 3 - 11 LAB CHEMISTRY METHOD 02/21/2024 11:49 AM EST [facility] Glucose 113(H) 70 - [...] [facility] Comment:Calculation based on the Chronic [...] MD LAB BLOOD ORDERABLES Final Resu lt [facility] ([facility]) [facility] [address] [place] [address], documented in this encounter Visit Diagnoses Diagnosis Encounter for other general examination documented in this encounter Care Teams Awning Frame Maker Relationship Specialty Start Date End Date Jackeline Saha MD [address] [place], [place] PCP - General Internal Medicine 09/23/21 documented as of this encounter
--- OUTSIDE RECORDS SUMMARY | 2025-02-20 09:58 | XMS_ITS | Encounter Summary ---
Author Organization [facility] Prior to 01/04/2024 Address [address] [place] [address] Care Team Providers Care Steel Finisher Name Role Phone Jackeline Saha MD Primary Care Provider + [facility], [facility] Primary Care Provider Unavailabl e Reason for Visit * Reason Comments E-prescribe Rx Request Encounter Details Date Type Department Care Team Description 11/01/2021 Refill Adult Medicine [address] [address] Karely Greenberg PA-C E-prescribe Rx Request Social [...] / [place] / Product Type: MEDICARE [id number] ?? documented in this encounter Plan of Treatment Not on file documented as of this encounter Visit Diagnoses Not on filedocumented in this encounter Care Teams Steel Finisher Relationship Specialty Start Date End Date Jackeline Saha MD [address] [place] [phone] PCP - General Internal Medicine 09/23/21 03/30/22 [facility], Pcp [address] [place] [address] PCP - General Internal Medicine 03/31/22 documented as of this encounter
--- OUTSIDE RECORDS SUMMARY | 2025-02-20 09:58 | XMS_ITS | Encounter Summary ---
Author Organization [facility] Address [address] [place] [address] Care Team Providers Care Heel Sprayer Name Role Phone Jackeline Saha MD Primary Care Pr ovider Encounter Details Date Type Department Care Team (Late st Contact Info) Description 02/25/2024 Lab Requisition [facility] - Main Lab [address] [facility] [place] [address] De Snyder MD [address] [place] [address] Encounter for other general examination Social History [...] K/mcL LAB HEMETOLOGY METHOD 02/25/2024 11:05 AM [facility] RBC 2.30(L) 3.80 - 4.80 M/mcL LAB HEMETOLOGY METHOD 02/25/2024 11:05 AM [facility] Hemoglobin 8.1(L) 11.5 - 16.0 g/dL LAB HEMETOLOGY METHOD 02/25/2024 11:05 AM [facility] Hematocrit 24.5(L) 35.0 - 47.0 % LAB HEMETOLOGY METHOD 02/25/2024 11:05 AM [facility] MCV 106.1(H) 79.0 - 98.0 FL LAB HEMETOLOGY METHOD 02/25/2024 11:05 AM [facility] MCH 35.1(H) 27.0 - 32.0 pcg LAB HEMETOLOGY METHOD 02/25/2024 11:05 AM [facility] MCHC 33.1 32.0 - 37.0 g/dL LAB HEMETOLOGY METHOD 02/25/2024 11:05 AM [facility] RDW 13.3 11.0 - 15.0 % LAB HEMETOLOGY METHOD 02/25/2024 11:05 AM [facility] Platelets 257 130 - 400 K/mcL LAB HEMETOLOGY METHOD 02/25/2024 11:05 AM [facility] MPV 10.0 7.0 - 11.0 FL LAB HEMETOLOGY METHOD 02/25/2024 11:05 AM [facility] NRBC 0.0 <1.0 % LAB HEMETOLOGY METHOD 02/25/2024 11:05 AM [facility] NRBC Absolute 0.00 <0.10 K/mcL LAB HEMETOLOGY METHOD 02/25/2024 11:05 AM [facility] Neutrophils Relative 70.6 % LAB HEMETOLOGY METHOD 02/25/2024 11:05 AM [facility] Lymphocytes Relative 11.6 % LAB HEMETOLOGY METHOD 02/25/2024 11:05 AM [facility] Monocytes Relative 16.8 % LAB HEMETOLOGY METHOD 02/25/2024 11:05 AM [facility] Eosinophils Relative 0.3 % LAB HEMETOLOGY METHOD 02/25/2024 11:05 AM [facility] Basophils Relative 0.4 % LAB HEMETOLOGY METHOD 02/25/2024 11:05 AM [facility] Immature Granulocytes Relative 0.3 % LAB HEMETOLOGY METHOD 02/25/2024 11:05 AM [facility] Neutrophils Absolute 5.28 1.50 - 7.00 K/mcL LAB HEMETOLOGY METHOD 02/25/2024 11:05 AM [facility] Lymphocytes Absolute 0.87(L) 1.00 - 5.00 K/mcL LAB HEMETOLOGY METHOD 02/25/2024 11:05 AM [facility] Monocytes Absolute 1.26(H) 0.20 - 1.00 K/mcL LAB HEMETOLOGY METHOD 02/25/2024 11:05 AM [facility] Eosinophils Absolute 0.02 0.00 - 0.50 K/mcL LAB HEMETOLOGY METHOD 02/25/2024 11:05 AM [facility] Basophils Absolute 0.03 0.00 - 0.20 K/mcL LAB HEMETOLOGY METHOD 02/25/2024 11:05 AM [facility] Immature Granulocytes Absolute 0.02 0.00 - 0.03 K/mcL LAB HEMETOLOGY METHOD 02/25/2024 11:05 AM [facility] Blood Venous blood specimen / Unknown Venipuncture / Unknown 02/25/2024 5:50 AM EST 02/25/2024 9:25 AM EST us De Snyder MD LAB BLOOD ORDERABLES Final Resu lt [facility] [address] [place] [address], [place] [phone] * (ABNORMAL) Comprehensive metabolic panel (02/25/2024 5:50 AM EST) Sodium 132(L) 133 - 145 mmol/L LAB CHEMISTRY METHOD 02/25/2024 11:27 AM EST [facility] Potassium 4.4 3.5 - 5.5 mmol/L LAB CHEMISTRY METHOD 02/25/2024 11:27 AM [facility] Chloride 98 96 - 110 mmol/L LAB CHEMISTRY METHOD 02/25/2024 11:27 AM EST [facility] CO2 27 21 - 32 mmol/L LAB CHEMISTRY METHOD 02/25/2024 11:27 AM EST [facility] Anion Gap 7 3 - 11 LAB CHEMISTRY METHOD 02/25/2024 11:27 AM [facility] Glucose 90 70 - 100 mg/dL LAB CHEMISTRY METHOD 02/25/2024 11:27 AM [facility] BUN 48(H) 5 - 25 mg/dL LAB CHEMISTRY METHOD 02/25/2024 11:27 AM [facility] Creatinine 1.93(H) 0.50 - 1.10 mg/dL LAB CHEMISTRY METHOD 02/25/2024 11:27 AM [facility] eGFR 28(L) >=60 mL/min/1. 73m2 LAB CHEMISTRY METHOD 02/25/2024 11:27 AM [facility] Comment:Calculation based on the Chronic Kidney Disease Epidemiology Collaboration (CKD-EPI) equation refit without adjustment for race. BUN/Creatinine Ratio 24.9 LAB CHEMISTRY METHOD 02/25/2024 11:27 AM [facility] Calcium 9.8 8.5 - 10.5 mg/dL LAB CHEMISTRY METHOD 02/25/2024 11:27 AM [facility] AST (SGOT) 25 10 - 42 unit/L LAB CHEMISTRY METHOD 02/25/2024 11:27 AM [facility] ALT (SGPT) 17 10 - 60 unit/L LAB CHEMISTRY METHOD 02/25/2024 11:27 AM [facility] Alkaline Phosphatase 68 42 - 121 unit/L LAB CHEMISTRY METHOD 02/25/2024 11:27 AM [facility] Total Protein 6.3 6.0 - 8.0 g/dL LAB CHEMISTRY METHOD 02/25/2024 11:27 AM [facility] Albumin 3.0(L) 3.2 - 5.0 g/dL LAB CHEMISTRY METHOD 02/25/2024 11:27 AM [facility] Total Bilirubin 0.7 0.0 - 1.4 mg/dL LAB CHEMISTRY METHOD 02/25/2024 11:27 AM [facility] Blood Venous blood specimen / Unknown Venipuncture / Unknown 02/25/2024 5:50 AM EST 02/25/2024 9:25 AM EST us De Snyder MD LAB BLOOD ORDERABLES Final Resu lt [facility] [address] [place] [address], documented in this encounter Visit Diagnoses Diagnosis Encounter for other general examination documented in this encounter Care Teams Heel Sprayer Relationship Specialty Start Date End Date Jackeline Saha MD [address] [place] PCP - General Internal Medicine 09/23/21 documented as of this encounter
--- OUTSIDE RECORDS SUMMARY | 2025-02-20 09:58 | XMS_ITS | Encounter Summary ---
Author Organization [facility] Prior to 01/04/2024 Address [address] [place] [address] Care Team Providers Care Communications Controller Name Role Phone Park Hong MD Primary Care Provider [phone] Jackeline Saha MD Primary Care Provider + [facility], Pcp Primary Care Provider Unavailabl e Reason for Visit * Reason Onset Date Comments er follow up 05/27/2021 Encounter Details Date Type Department Care Team Description 05/27/2021 Telephone Adult Medicine [address] [address] Park Hong MD [address] [place] [address] er follow up Social History Tobacco Use Types Packs/Day Years [...] Exposure Response Date Recorded In the last month, have you been in contact with someone who was confirmed or suspected to have Coronavirus / COVID-19? No / Unsure 05/11/2021 2:08 PM EST documented as of this encounter Miscellaneous Notes * Telephone Encounter - Victoria Moreno - 05/30/2021 9:55 AM EDT Called and left vm to return my call. BSR please confirm if pt went to ER again, pt was already seen on 05/11 for issue below. * Telephone Encounter - Jackson Radha - 05/27/2021 1:23 PM EDT ER follow-up appointment booked NO If ER or UC follow up, can be booked with APC or MD. If hospital admission follow up MUST be booked with a physician Appointment time: Provider visit is scheduled with: Hospital/ center patient was treated at: [facility] Date of visit: Unknown. First week in May Was this only an ER/UC visit or was the patient admitted to the hospital? ER visit only If patient was admitted what was the date of discharge? N/A Reason/diagnosis for visit or stay: Pneumonia Was visit or stay related to an injury? NO If yes, what was the date of injury (DOI)? N/A If yes, was the injury due to N/A Tests performed: Lab: YES X-ray: YES EKG: YES Other tests. If yes, what?; N/A documented in this encounter Plan of Treatment Not on file documented as of this encounter Visit Diagnoses Not on filedocumented in this encounter Care Teams Communications Controller Relationship Specialty Start Date End Date Park Hong MD [address] [place] [address] PCP - General Internal Medicine 01/31/21 09/22/21 Jackeline Saha MD [address] [place] [address] PCP - General Internal Medicine 09/23/21 03/30/22 [facility], Pcp [address] [place] [address] PCP - General Internal Medicine 03/31/22 documented as of this encounter
--- OUTSIDE RECORDS SUMMARY | 2025-02-20 09:58 | XMS_ITS | Encounter Summary ---
Author Organization [facility] Prior to 01/04/2024 Address [address] [place] [address] Care Team Providers Care Accounting Analyst Name Role Phone Angelica Duke MD Primary Care Provider Unavail [facility] Park Hong MD Primary Care Provider [phone] Jackeline Saha MD Primary Care Provider + [facility], Pcp Primary Care Provider Unavailabl e Reason for Visit * Reason Onset Date Comments External Sleep Study Request 05/08/2017 Hilda e sleep study Encounter Details Date Type Department Care Team Description 05/08/2017 Telephone Adult Medicine [address] [address] Angelica Duke MD External Sleep Study Request (Home sleep study) Social History Tobacco Use Types Packs/Day Years [...] encounter Miscellaneous Notes * Telephone Encounter - Lorena Peoples - 05/08/2017 1:19 PM EST Mailed patient MIRELLA due to sensitive information. Order faxed to sleep medicine services for sleep consult. The office will review and contact the patient with appointment information. Notification letter mailed to patient * Telephone Encounter - Jimi Mills - 05/08/2017 12:13 PM EST [facility] - No auth required Schedule HST with SMS documented in this encounter Plan of Treatment Not on file documented as of this encounter Visit Diagnoses Not on filedocumented in this encounter Care Teams Accounting Analyst Relationship Specialty Start Date End Date Angelica Duke MD PCP - General Internal Medicine 12/13/16 01/30/21 Park Hong MD [address] [place] [address] PCP - General Internal Medicine 01/31/21 09/22/21 Jackeline Saha MD [address] [place] [address] PCP - General Internal Medicine 09/23/21 03/30/22 [facility], [address] [address] PCP - General Internal Medicine 03/31/22 documented as of this encounter
--- OUTSIDE RECORDS SUMMARY | 2025-02-20 09:58 | XMS_ITS | Encounter Summary ---
Author Organization [facility] Prior to 01/04/2024 Address [address] [place] [address] Care Team Providers Care Refinery Operator Helper Cracking Unit Name Role Phone Park Hong MD Primary Care Provider [phone] Jackeline Saha MD Primary Care Provider + [facility], Pcp Primary Care Provider Unavailabl e Reason for Referral * EXTERNAL (Routine) - Authorized/Booked Specialty Diagnoses / Procedures Referred By Dwayne quesada Referred To Contact Physiatry Procedures REFERRAL TO PHYSIATRY Karely Greenberg PA-C [address] [place] [address] Bony Hughes DO [address] [address] Referral ID Status Reason Start Date Expiration Date V isits Requested Visits Authorized [id number] Authorized/B ooked 07/25/2021 10/29/2021 1 1 Reason for Visit * Reason Onset Date Comments Bone Char Operator Feedback 07/25/2021 physiatry Encounter Details Date Type Department Care Team Description 07/25/2021 Telephone Adult Medicine [facility] [address] [place] [address] Karely Greenberg PA-C Bone Char Operator Feedback (physiatry) Social History Tobacco Use Types [...] Miscellaneous Notes * Telephone Encounter - Laura Hi - 07/25/2021 10:07 AM EDT Updated order to physiatry is needed Order has been pended. Thank you Reason for referral: chornic low back pain documented in this encounter Plan of Treatment Not on file documented as of this encounter Visit Diagnoses Not on filedocumented in this encounter Care Teams Refinery Operator Helper Cracking Unit Relationship Specialty Start Date End Date Park Hong MD [address] [place] [address] PCP - General Internal Medicine 01/31/21 09/22/21 Jackeline Saha MD [address] [place] [address] PCP - General Internal Medicine 09/23/21 03/30/22 [facility], [address] [address] PCP - General Internal Medicine 03/31/22 documented as of this encounter
--- OUTSIDE RECORDS SUMMARY | 2025-02-20 09:58 | XMS_ITS | Encounter Summary ---
Author Organization [facility] Address [address] [place] [address] Care Team Providers Care Tipple Engineer Name Role Phone Jackeline Saha MD Primary Care Pr ovider Encounter Details Date Type Department Care Team (Late st Contact Info) Description 02/26/2024 Lab Requisition [facility] - Main Lab [address] [facility] [place] [address] De Snyder MD [address] [place] [address] Encounter for other general examination Social History [...] Resu lt [facility] [address] [place] [address], [place] [phone] * (ABNORMAL) Basic metabolic panel (02/26/2024 5:45 [...] LAB CHEMISTRY METHOD 02/26/2024 10:36 AM EST [facility] Blood Venous blood specimen / Unknown Venipuncture / Unknown 02/26/2024 5:45 AM EST 02/26/2024 9:44 AM EST us De Snyder MD LAB BLOOD ORDERABLES Final Resu lt [facility] [address] [place] [address], documented in this encounter Visit Diagnoses Diagnosis Encounter for other general examination documented in this encounter Care Teams Tipple Engineer Relationship Specialty Start Date End Date Jackeline Saha MD [address] [facility], [place] PCP - General Internal Medicine 09/23/21 documented as of this encounter
== END 2025-02-20 10:56 | disposition home or self-care (01) ==
PROVIDERS: PCP Internal Medicine; Visit Provider Physician Assistant
DX: L50.9 Urticaria, unspecified (principal); H61.23 Impacted cerumen, bilateral

== ENCOUNTER → 2025-02-20 09:22 | Outpatient (BNVA) | payer MEDICARE, MEDICAID, SELFPAY | PROVIDERS: PCP Internal Medicine; Visit Provider Physician Assistant | DX: L50.9 Urticaria, unspecified (principal); H61.23 Impacted cerumen, bilateral | CPT/HCPCS: 99212 ==